=== PATIENT | male | born 1955 | race Caucasian/White ===

== ENCOUNTER → 2016-08-08 | Outpatient (CLI) | payer BC ==
--- NOTE | 2016-08-09 10:02 | ECHOF ---
Referral Reason:R01.1 Heart Murmur MEASUREMENTS -------- HEIGHT: 172.7 cm WEIGHT: 102.1 kg BP: 141/83 RVIDd: 3.1 cm (< 3.3) IVSd: 1.1 cm (0.6 - 1.1) LVIDd: 4.6 cm (3.9 - 5.3) LVPWd: 1.3 cm (0.6 - 1.1) IVSs: 1.7 cm LVIDs: 3.7 cm LVPWs: 2.0 cm LA Diam: 4.1 cm (2.7 - 3.8) LAESV Index (A-L): 34.35 ml/m Ao Diam: 3.9 cm (2.0 - 3.7) MV EXCURSION: 16.009 mm (> 18.000) MV EF SLOPE: 86 mm/s (70 - 150) EPSS: 1.4 cm MV E Ej: 1.22 m/s MV DecT: 168 ms MV A Ej: 1.74 m/s MV E/A Ratio: 0.70 AV maxP.81 mmHg AV meanP.92 mmHg FINDINGS -------- Sinus rhythm with extra systolic beats. This was a technically adequate study. The left ventricular size is normal. There is mild concentric left ventricular hypertrophy. Overall left ventricular systolic function is normal with, an EF between 55 - 60 %. The right ventricle is normal in size. LA is moderately dilated 34-39 ml/m2 The right atrium is normal in size. Aortic valve is trileaflet and is severely thickened. There is severe aortic stenosis present. Peak/mean gradient across the Aortic Valve is 85.81mmHg / 50.92mmHg. The mitral valve leaflets are mildly thickened. Mild mitral annular calcification present. There is trace to mild mitral regurgitation. The tricuspid valve was not well visualized. The pulmonic valve was not well visualized. The aortic root is dilated measuring 3.9cm. There is no pericardial effusion. CONCLUSIONS -------- 1. Sinus rhythm with extra systolic beats. 2. There is severe aortic stenosis present. 3. Peak/mean gradient across the Aortic Valve is 85.81mmHg / 50.92mmHg. 4. The mitral valve leaflets are mildly thickened. 5. Mild mitral annular calcification present. 6. There is trace to mild mitral regurgitation. 7. The tricuspid valve was not well visualized. 8. The pulmonic valve was not well visualized. 9. The aortic root is dilated measuring 3.9cm. 10. There is no pericardial effusion. 11. This was a technically adequate study. 12. The left ventricular size is normal. 13. There is mild concentric left ventricular hypertrophy. 14. Overall left ventricular systolic function is normal with, an EF between 55 - 60 %. 15. The right ventricle is normal in size. 16. LA is moderately dilated 34-39 ml/m2 17. The right atrium is normal in size. 18. Aortic valve is trileaflet and is severely thickened. PLATE GAUGER: Kelley Cheek RDCS
== END | disposition home or self-care (01) ==
LOC: RADECHMAIN 14:32
PROVIDERS: ATTEND Family Medicine
DX: I34.0 Nonrheumatic mitral (valve) insufficiency (principal); I35.0 Nonrheumatic aortic (valve) stenosis; I35.8 Other nonrheumatic aortic valve disorders; I51.7 Cardiomegaly; I77.819 Aortic ectasia, unspecified site
CPT/HCPCS: 93306

== ENCOUNTER → 2016-08-22 | Outpatient (CLI) | payer BC ==
[2016-08-22 09:49] LABS: ALT 41 U/L (21-72); AST 19 U/L (17-59); Alkaline Phosphatase 69 U/L (38-126); Anion Gap 9 mmol/L; Blood Urea Nitrogen 15 mg/dL (9-20); Calcium 9.4 mg/dL (8.4-10.2); Carbon Dioxide 28 mmol/L (22-30); Chloride 102 mmol/L (98-107); Cholesterol 174 mg/dL (<200); Glucose 180 mg/dL (74-99); HDL Cholesterol 37 mg/dL (40-60); Non-African American GFR(MDRD) >60 (>60 ml/min/1.73 sqM); Potassium 4.6 mmol/L (3.5-5.1); Sodium 139 mmol/L (137-145); Total Bilirubin 1.2 mg/dL (0.2-1.3); Triglycerides 164 mg/dL (<150)
== END | disposition home or self-care (01) ==
LOC: LABWHC1 08:47
PROVIDERS: ATTEND Internal Medicine Endocrinology, Diabetes & Metabolism
DX: E11.65 Type 2 diabetes mellitus with hyperglycemia (principal)
CPT/HCPCS: 36415; 80053; 80061; 82043

== ENCOUNTER → 2016-08-22 | Outpatient (CLI) | payer BC ==
[2016-08-22 09:30] LABS: CH 30.2; CHCM 32.4; HCT 52.3 % (39.0-53.0); HDW 2.55; HGB 16.6 gm/dL (13.0-17.5); MCH 29.7 pg (25.0-35.0); MCHC 31.7 g/dL (31.0-37.0); MCV 93.6 fL (80.0-100.0); Mean Platelet Volume 7.2; RBC 5.59 m/uL (4.30-5.90); RDW 13.4 % (11.5-15.5); WBC 7.3 k/uL (3.8-10.6)
== END | disposition home or self-care (01) ==
LOC: LABPAT 08:45
PROVIDERS: ATTEND Internal Medicine Interventional Cardiology
DX: Z01.812 Encounter for preprocedural laboratory examination (principal); I35.0 Nonrheumatic aortic (valve) stenosis
CPT/HCPCS: 85027

== ENCOUNTER 2016-09-05 06:03 | Day surgery (SDC) | payer BC ==
[2016-09-01 09:00] VITALS: BMI 34.2
[~2016-09-05 06:03] MED LIST: ALPRAZolam 0.25 MG TAB PO PRN; ALPRAZolam 0.5 MG TAB PO PRN; ASPIRIN 325 MG TAB PO STA; ATORVASTATIN 80 MG TAB PO STA; NITROGLYCERIN SL TABS 0.4 MG TAB SUBLINGUAL PRN; SODIUM CHLORIDE 0.9% 1,000 ML in EMPTY BAG 1 BAG IV ONE
[2016-09-05] MEDS ORDERED: SODIUM CHLORIDE 0.9% 1,000 ML IV ONE ×2 (06:30→07:02)
[2016-09-05] MEDS ORDERED: fentaNYL (PF) 50 MCG/ML 2 ML AMP ONE (06:52)
[2016-09-05 06:53] LABS: Glucose,Whole Blood 211 mg/dL (75-99)
[2016-09-05] MEDS ORDERED: MIDAZOLAM 2 MG/2 ML VIAL ONE (06:53)
[2016-09-05 07:02] VITALS: RESP 16; TEMP 98.3
[2016-09-05] MEDS ORDERED: BENZOCAINE SPRAY 100 APPLIC/CAN MUCOUS MEM ONE ×3 (07:08→07:16)
[2016-09-05] MEDS: fentaNYL (PF) 50 MCG/ML 2 ML AMP IV ONE ×2 (07:09→07:16)
[2016-09-05] MEDS: MIDAZOLAM 2 MG/2 ML VIAL IVP ONE ×2 (07:09→07:15)
[2016-09-05] MEDS ORDERED: SODIUM CHLORIDE 0.9% (PF) 10 ML VIAL ONE (07:16)
[2016-09-05] MEDS ORDERED: LIDOCAINE 2% INJ 20 MG/ML (20 ML MDV) ONE (07:16)
[2016-09-05] MEDS ORDERED: VERAPAMIL 2.5 MG/ML 2 ML AMP ONE (07:16)
[2016-09-05] MEDS ORDERED: HEPARIN SODIUM 1,000 UNIT/ML VIAL ONE (07:17)
--- NOTE | 2016-09-05 07:55 | ECHOT ---
DATE OF SERVICE: INDICATION: Evaluation of aortic valve. PROCEDURE: After explaining the procedure to patient as well as risk and complications, his blood pressure, heart rate and O2 saturation was monitored. The throat was sprayed with Cetacaine. He received 2 mg of intravenous Versed, 50 mcg intravenous fentanyl. The probe was introduced into the esophagus without difficulty. Images were obtained. Following that, the probe was removed. There was no immediate complication. FINDINGS: Left atrial size is normal. Left atrial appendage is normal. Left ventricular size and systolic function normal. The aortic valve with tricuspid valve with severe calcification, reduced opening, biplanimetry the valve area ranged between 0.8 and 1.2 cm2. The mitral valve and tricuspid valve appear to be normal. Descending thoracic aortic appears to be normal. No pericardial effusion was noted. Contrast bubble study revealed no evidence of shunting across the interatrial septum. Doppler pulse wave and color Doppler obtained and revealed mild to moderate mitral with mild tricuspid regurgitation and mild aortic regurgitation. The gradient across the aortic valve had a mean of less than 20 mmHg although there was difficulty in obtaining a good Doppler signal. CONCLUSION: 1. Normal left ventricular size and systolic function. 2. Tricuspid aortic valve with severe calcification and aortic valve area by planimetry of severe aortic stenosis. 3. Mild to moderate mitral with mild tricuspid and aortic regurgitation. 4. No shunting by color Doppler study and contrast bubble study. 5. Normal appearance of the descending thoracic aorta. 6. No pericardial effusion. MTDD
[2016-09-05] MEDS ORDERED: LIDOCAINE 2% INJ 20 MG/ML SQ ONE (08:03)
[2016-09-05] MEDS ORDERED: VERAPAMIL SYRINGE (5 MG/10 ML) INTRACORON ONE (08:04)
[2016-09-05] MEDS ORDERED: HEPARIN SODIUM 1,000 UNIT/ML VIAL IV ONE (08:08)
[2016-09-05] MEDS ORDERED: METOPROLOL TARTRATE 5 MG/5 ML VIAL IVP ONE ×2 (08:17→08:19)
[2016-09-05 08:34] LABS: Site RA
[2016-09-05 08:34] LABS: Site RADIAL ARTERY
[2016-09-05 08:35] LABS: Site PA
[2016-09-05] MEDS ORDERED: IOHEXOL 300 MG/ML 100 ML BOTTLE IV ONE (08:35)
[2016-09-05] MEDS ORDERED: RX INFO: IV CONTRAST WAS GIVEN 1 EACH MISC MISCELLANE PRN (08:53)
[2016-09-05] MEDS ORDERED: REPAGLINIDE 2 MG PO SCH (09:00)
[2016-09-05] MEDS ORDERED: BENAZEPRIL PO SCH (09:00)
[2016-09-05] MEDS ORDERED: [UNRECOGNIZED DRUG - OTHER] PO SCH (09:00)
[2016-09-05] MEDS ORDERED: AMLODIPINE BESYLATE PO SCH (09:00)
[2016-09-05] MEDS ORDERED: SODIUM CHLORIDE 0.9% 1,000 ML IV SCH (09:00)
--- NOTE | 2016-09-05 09:35 | CC ---
DATE OF SERVICE: Mr. Tellez is a 61-year-old male with a known history of hypertension, hyperlipidemia, and diabetes mellitus, who has been having symptoms of dyspnea, underwent an echocardiogram that showed a severe aortic stenosis. In view of that, recommendation was made regarding cardiac catheterization. The procedure as well as risks and complications were discussed with the patient who is in full understanding and agreement. PROCEDURE: Patient was brought in a fasting semi-sedated state after receiving fentanyl and Benadryl with moderate sedation. Using Xylocaine anesthesia and Seldinger technique, a 6 Mexican sheath was introduced in the right radial artery. Subsequently the IV sheath in the right basilar vein was exchanged to a 6 Mexican sheath. Following that, right heart catheterization performed with [place]-H[place] catheter. Multiple compression samples were obtained. Cardiac output by thermodilution is calculated. Following that, selective right angiography using 5 Mexican 3-1/2 Bend right Zari catheter. Multiple views of the right coronary artery including hemiaxial views were obtained using the right Zari catheter. The aortic valve was crossed and the catheter was exchanged over a wire to a 5 Mexican tight pigtail catheter. An LAYTON view of the left ventricle was performed and then subsequently an KOSOVAN view of the ascending aorta was performed. After the last image, the catheter and sheaths were removed. Hemostasis was obtained with deployment of a TR band. There were no immediate complication. Patient was returned to his room in stable condition. Of note, the patient received 5000 units of intravenous heparin as well as intra-arterial verapamil. The duration of the procedure is 53 minutes. FINDINGS: HEMODYNAMICS: Pulmonary artery systolic pressure of 36 with a diastolic of 30 with a mean of 34 mmHg, pulmonary capillary wedge pressure A wave of 18, B wave of 18 with a mean of 18 mmHg, right ventricle systolic pressure of 40 with an end-diastolic pressure of 4 mmHg. Right atrial A wave of 8, V wave of 6 with a mean of 8 mmHg. The ascending aortic pressure was 120 mmHg. The peak systolic pressure in the left ventricle was 170 mmHg with a peak gradient of 50 mmHg. The left ventricular end-diastolic pressure was 18 mmHg. The cardiac output by thermal dilution was 6 L/min and by Guillermo 6.7 L/min. Right atrial saturation is 70%, pulmonary artery saturation is 71%, right radial artery saturation 91%. The aortic valve area by Hakki formula was 0.8 cm2. FLUOROSCOPY: There is calcification involving the aortic valve. LEFT MAIN: This is a large-size vessel that bifurcates into the left circumflex, left anterior descending artery and ramus intermedius, left main coronary artery without any obstructive coronary artery disease. LEFT ANTERIOR DESCENDING ARTERY: This is a large-size vessel reaching toward the apex with a wraparound apex segment, giving rise to a moderately diagonal branch in mid segment. The diagonal branch has a 40% to 50% plaque, the LAD has 20% to 30% plaque, the rest of the vessel has no high-grade stenosis. LEFT CIRCUMFLEX: This is a nondominant vessel, giving rise to 2 obtuse marginal branches. The left circumflex as well as its branches has no evidence of significant obstructive coronary artery disease. RAMUS INTERMEDIUS: This is a large-size vessel reaching toward the apical lateral wall that has no evidence of high-grade stenosis. RIGHT CORONARY ARTERY: This is a large dominant vessel bifurcating into PDA and posterolateral segment branches. The right coronary artery and its branches have no evidence of obstructive disease. LEFT VENTRICULOGRAM: Left ventriculogram was performed in 30 degree LAYTON view and revealed normal left ventricular size and systolic function. There was 1 to 2+ mitral regurgitation. AORTOGRAM: Aortogram was performed in the KOSOVAN view and revealed a tricuspid aortic valve with 1+ aortic regurgitation. CONCLUSION: 1. Mild coronary artery disease in the left anterior descending artery. 2. Normal left ventricular size and systolic function. 3. Normal appearance of the ascending aorta with 1+ aortic regurgitation. 4. Severe aortic stenosis. RECOMMENDATION: In view of finding anatomy, I recommend to continue on the present therapy and evaluate the patient for aortic valve replacement. os findings and recommendations were discussed with the patient who is in full understanding and agreement.
--- NOTE | 2016-09-05 09:38 | LTR ---
September 05, 2016 RE: Lucas Tellez Dear Dr. Cochran; I had the pleasure to perform cardiac catheterization and JOVANI on Mr. Tellez at [facility] on September 05, 2016 and a full copy of the procedure note will be forwarded to you. In brief, he was found to have mild coronary artery disease with severe aortic stenosis and based on those findings, I have recommended proceeding with evaluation for aortic valve replacement. I will keep you updated on his progress and thank you again for allowing me to participate in this patient's care. Please feel free to call for any questions. Sincerely yours, MAZIN VU MD
[2016-09-05 12:34] VITALS: BP 115/60; PULSE 86
[2016-09-05] MEDS ORDERED: INSULIN GLARGINE 100 UNIT/ML 10 ML VIAL SQ SCH (21:00)
[2016-09-05] MEDS ORDERED: PRAVASTATIN SODIUM 80 MG TAB PO SCH (21:00)
[2016-09-06] MEDS ORDERED: ASPIRIN 81 MG CHEW PO SCH (09:00)
[2016-09-06] MEDS ORDERED: LORATADINE 10 MG TAB PO SCH (09:00)
== END 2016-09-05 14:06 | disposition home or self-care (01) ==
LOC: CATHCVL 06:03
PROVIDERS: ATTEND Internal Medicine Interventional Cardiology
DX: I08.3 Combined rheumatic disorders of mitral, aortic and tricuspid valves (principal); I25.10 Atherosclerotic heart disease of native coronary artery without angina pectoris; R07.89 Other chest pain; I10 Essential (primary) hypertension; E78.2 Mixed hyperlipidemia; E11.9 Type 2 diabetes mellitus without complications; Z79.84 Long term (current) use of oral hypoglycemic drugs; Z79.82 Long term (current) use of aspirin; Z79.4 Long term (current) use of insulin; Z79.899 Other long term (current) drug therapy; Z87.891 Personal history of nicotine dependence
CPT/HCPCS: 93312; 93320; 93325; 93460; 85018; 82810; 99152; 99153; C1769 ×3; C1894 ×4; C1751; J2001; J2250; J3010; J1644; Q9967

== ENCOUNTER → 2016-10-11 | Outpatient (CLI) | payer BC ==
[2016-10-11 08:40] LABS: EKG EKG PERFORMED
[2016-10-11 10:05] LABS: CH 30.1; CHCM 31.9; HCT 53.5 % (39.0-53.0); HDW 2.47; HGB 17.1 gm/dL (13.0-17.5); MCH 30.3 pg (25.0-35.0); MCHC 31.9 g/dL (31.0-37.0); Mean Platelet Volume 7.9; Partial Thromboplastin Time 24.8 sec (22.0-30.0); Prothrombin Time 10.2 sec (9.0-12.0); RBC 5.63 m/uL (4.30-5.90); RDW 13.5 % (11.5-15.5); WBC 7.6 k/uL (3.8-10.6)
[2016-10-11 10:15] LABS: Appearance,Urine Clear (Clear); Bilirubin,Urine Negative (Negative); Glucose,Urine (UA) 3+ (Negative); Ketones,Urine Negative (Negative); Leukocyte Esterase,Urine Negative (Negative); Mucus,Urine Rare /hpf; Nitrite,Urine Negative (Negative); PH, Urine 5.5 (5.0-8.0); Particle Count 1579; Protein,Urine 2+ (Negative); RBC,Urine 1 /hpf (0-5); Specific Gravity,Urine 1.017 (1.001-1.035); UA Billing (MACRO vs. MICRO) MICRO; Urobilinogen,Urine <2.0 mg/dL (<2.0); WBC,Urine <1 /hpf (0-5)
[2016-10-11 10:29] LABS: ALT 36 U/L (21-72); AST 20 U/L (17-59); Alkaline Phosphatase 68 U/L (38-126); Anion Gap 11 mmol/L; Blood Urea Nitrogen 23 mg/dL (9-20); Calcium 9.2 mg/dL (8.4-10.2); Carbon Dioxide 25 mmol/L (22-30); Chloride 101 mmol/L (98-107); Cholesterol 171 mg/dL (<200); Glucose 218 mg/dL (74-99); HDL Cholesterol 39 mg/dL (40-60); Magnesium 1.8 mg/dL (1.6-2.3); Non-African American GFR(MDRD) >60 (>60 ml/min/1.73 sqM); Potassium 4.7 mmol/L (3.5-5.1); Sodium 137 mmol/L (137-145); Total Bilirubin 0.9 mg/dL (0.2-1.3); Total Protein 7.1 g/dL (6.3-8.2); Triglycerides 152 mg/dL (<150)
[2016-10-11 10:53] LABS: Hepatitis B Surface Ag Index 0.07
[2016-10-11 10:59] LABS: Hepatitis B Core IgM Index 0.03
[2016-10-11 11:10] LABS: Hepatitis C Virus IgG Ab Negative (Negative); Hepatitis C Virus IgG Index 0.02
[2016-10-11 12:33] LABS: Hemoglobin A1C 8.9 % (4.2-6.1)
--- NOTE | 2016-10-11 12:56 | XR ---
EXAMINATION TYPE: XR chest 2V DATE OF EXAM: 10/11/2016 12:13 PM COMPARISON: NONE HISTORY: Preop cardiac surgery, aortic valve stenosis TECHNIQUE: Frontal and lateral views of the chest are obtained. FINDINGS: There is elevated left hemidiaphragm. There is small amount of fluid in the major fissure on lateral view. No suspicious focal airspace opacity or pneumothorax is seen bilaterally. Calcified granuloma lateral left mid lung is noted. The cardiac silhouette size is upper limits of normal. Th e osseous structures are intact. Cholecystectomy clips are noted on lateral view. IMPRESSION: Small amount of pleural fluid. No suspicious focal infiltrate.
--- NOTE | 2016-10-12 12:26 | P.ARTDOP ---
Arterial Doppler LOWER EXTREMITY ARTERIAL DOPPLER: DATE OF SERVICE: 10/11/2016 Reason for study: Pre-CABG. Doppler waveforms: Multiphasic bilaterally throughout. Pulse volume recording: []. Pressure gradients: None. Ankle-brachial indices: Greater than 1 bilaterally. Toe pressures: 79 on the right, 138 on the left Impression: Normal study.
--- NOTE | 2016-10-12 12:28 | P.VSCSTY ---
Greater Saphenous Vein Mapping This is bilateral lower extremity greater saphenous vein mapping. Date of service 10/11/2016 Vein quality and ultrasound appearance fairly normal. Some sizable branches.. Vein size groin right 5.0 x 4.0 groin left 7.7 x 7.3 High thigh right 4.0 x 3.8 high thigh left 4.1 x 3.8 Mid thigh right 3.0 x 2.0 mid thigh left 3.2 x 2.2 Above-knee right 2.9 x 2.4 above- knee left 2.7 x 1.8 Below knee right 3.0 x 2.4 below-knee left 2.8 x 2.5 Mid calf right to 2.5 x 2.0 mid calf left 3.1 x 3.3 Ankle right 2.2 x 3.4 ankle left 3.5 x 2.6 Impression [].
== END | disposition home or self-care (01) ==
LOC: LABPAT 07:59
PROVIDERS: ATTEND Surgery
DX: Z01.818 Encounter for other preprocedural examination (principal); I35.0 Nonrheumatic aortic (valve) stenosis
CPT/HCPCS: 71020; 80053; 80061; 80074; 81001; 83036; 83735; 83880; 84443; 84484; 85027; 85610; 85730; 87070; 87086; 93005; 93923; 93970; 94150

== ENCOUNTER 2016-10-17 05:44 | Inpatient (IN) | payer BC ==
[~2016-10-17 05:44] MED LIST changes: +ALBUMIN HUMAN 25% 50 ML IV ONE; +ALBUMIN HUMAN 5% 500 ML IVPB ONE; -ALPRAZolam 0.25 MG TAB PO PRN; -ALPRAZolam 0.5 MG TAB PO PRN; +AMINOCAPROIC ACID 250 MG/ML 20 ML VIAL IV ONE; +AMINOCAPROIC ACID 5,000 MG in DEXTROSE 5% IN WATER 50 ML IV ONE; +ASPIRIN 325 MG TAB PO ONE; -ASPIRIN 325 MG TAB PO STA; +ATORVASTATIN 10 MG TAB PO ONE; -ATORVASTATIN 80 MG TAB PO STA; +CALCIUM CHLORIDE 100 MG/ML 10 ML SYRINGE IV ONE; +CHLORHEXIDINE GLUCONATE 15 ML CUP MUCOUS MEM ONE; +CLEVIDIPINE BUTYRATE 25 MG in EMPTY BAG 1 BAG IV ONE; +DEXTROSE 5% IN WATER 1,000 ML with POTASSIUM CHLORIDE 110 MEQ, MAGNESIUM SULFATE 16 MEQ... IV ONE; +DEXTROSE 5% IN WATER 1,000 ML with POTASSIUM CHLORIDE 25 MEQ, SODIUM CHLORIDE 4MEQ/ML V... IV ONE; +HEPARIN SODIUM 1,000 UNIT/ML VIAL IV ONE; +HEPARIN SODIUM,PORCINE 5,000 UNIT in SODIUM CHLORIDE 0.9% 500 ML IV ONE; +INSULIN REGULAR 100 UNIT in SODIUM CHLORIDE 0.9% 100 ML IV ONE; +LACTATED RINGERS 1,000 ML IV ONE; +MAGNESIUM SULFATE MG 500 MG/ML VIAL IV ONE; +MANNITOL 25% 12.5 GM/50 ML VIAL IV ONE; +METOPROLOL TARTRATE 12.5 MG TAB PO ONE; -NITROGLYCERIN SL TABS 0.4 MG TAB SUBLINGUAL PRN; +NITROGLYCERIN-D5W PMX 25 MG/250 ML BTL IV ONE; +NITROGLYCERIN-D5W PMX 50 MG in DEXTROSE/WATER 1 250ML.BAG IV ONE; +NOREPINEPHRIN 4 MG-0.9% NS PMX 4 MG/250 ML ML IV ONE; +PHENYLEPHRINE 40 MG in SODIUM CHLORIDE 0.9% 250 ML IV ONE; +PHENYLEPHRINE-0.9% NACL SYG 1 MG/10 ML SYRINGE IV ONE; +PROPOFOL 1,000 MG in EMPTY BAG 1 BAG IV ONE; +PROTAMINE SULFATE 10 MG/ML 25 ML VIAL IV ONE; +PROTAMINE SULFATE 250 MG in EMPTY BAG 1 BAG IV ONE; +SODIUM BICARB 8.4% 50 ML SYR (1 MEQ/ML) IV ONE; +SODIUM CHLORIDE 0.9% 1,000 ML IV ONE; -SODIUM CHLORIDE 0.9% 1,000 ML in EMPTY BAG 1 BAG IV ONE; +ceFAZolin 1,000 MG in SODIUM CHLORIDE 0.9% IRRIGATIO 1,000 ML IRRIGATION ONE; +ceFAZolin 2,000 MG in SODIUM CHLORIDE 0.9% 30 ML IVPB ONE
[2016-10-17] MEDS ORDERED: fentaNYL (PF) 50 MCG/ML 50 ML VIAL ONE (06:35)
[2016-10-17] MEDS ORDERED: HEPARIN SODIUM,PORCINE 10,000 UNIT/ML 1 ML VIAL ONE (06:35)
[2016-10-17] MEDS ORDERED: PROPOFOL 10 MG/ML 20 ML VIAL IV ONE (06:35)
[2016-10-17] MEDS ORDERED: SUCCINYLCHOLINE CHLORIDE 100 MG/5 ML SYR IV ONE (06:35)
[2016-10-17] MEDS ORDERED: PROTAMINE SULFATE 10 MG/ML 25 ML VIAL IV ONE (06:35)
[2016-10-17] MEDS ORDERED: PHENYLEPHRINE-0.9% NACL SYG 1 MG/10 ML SYRINGE ONE (06:35)
[2016-10-17] MEDS ORDERED: fentaNYL (PF) 50 MCG/ML 2 ML AMP ONE (06:35)
[2016-10-17] MEDS ORDERED: MAGNESIUM SULFATE 4 MEQ/ML 2 ML VIAL ONE (06:35)
[2016-10-17] MEDS ORDERED: VECURONIUM 10 MG VIAL IV ONE (06:35)
[2016-10-17] MEDS ORDERED: ELECTROLYTE-R (PH 7.4) 1,000 ML IV.SOLN IV ONE (06:35)
[2016-10-17] MEDS ORDERED: LIDOCAINE 2% SYG (PF) 100 MG/5 ML ONE (06:35)
[2016-10-17] MEDS ORDERED: MIDAZOLAM 2 MG/2 ML VIAL ONE (06:35)
[2016-10-17] MEDS ORDERED: SODIUM CHLORIDE 0.9% IRRIG 1,000 ML BTL IRRIGATION ONE (06:35)
[2016-10-17] MEDS ORDERED: WATER FOR INJECTION, STERILE 10 ML VIAL IV ONE (06:35)
[2016-10-17] MEDS ORDERED: ALBUMIN HUMAN 5% 250 ML BOTTLE IVPB ONE (06:35)
[2016-10-17 07:05] LABS: Glucose,Whole Blood 185 mg/dL (75-99)
[2016-10-17 08:37] LABS: Glucose,Whole Blood 184 mg/dL (75-99)
[2016-10-17 10:00] LABS: Glucose,Whole Blood 183 mg/dL (75-99)
[2016-10-17 10:27] LABS: Glucose,Whole Blood 214 mg/dL (75-99)
[2016-10-17 10:58] LABS: Glucose,Whole Blood 270 mg/dL (75-99)
[2016-10-17 11:39] LABS: Glucose,Whole Blood 270 mg/dL (75-99)
[2016-10-17 12:14] LABS: Glucose,Whole Blood 226 mg/dL (75-99)
[2016-10-17] MEDS ORDERED: Magnesium Replacement Protocol 1 EACH MISC MISCELLANE PRN (12:56)
[2016-10-17] MEDS ORDERED: CALCIUM GLUCONATE 2,000 MG in SODIUM CHLORIDE 0.9% 100 ML IVPB PRN (12:56)
[2016-10-17] MEDS ORDERED: PROPOFOL 500 MG in EMPTY BAG 1 BAG IV SCH (12:56)
[2016-10-17] MEDS ORDERED: Potassium Replacement Protocol 1 EACH MISC MISCELLANE PRN (12:56)
[2016-10-17] MEDS ORDERED: ONDANSETRON 4 MG/2 ML VIAL IVP PRN (12:56)
[2016-10-17] MEDS ORDERED: METOCLOPRAMIDE 5 MG/ML 2 ML VIAL IVP PRN (12:56)
[2016-10-17] MEDS ORDERED: BENZOCAINE/MENTHOL LOZENG 1 EACH LOZENGE MUCOUS MEM PRN (12:56)
[2016-10-17] MEDS ORDERED: Phosphorus Replacement Protoco 1 EACH MISC MISCELLANE PRN (12:56)
[2016-10-17] MEDS: LACTATED RINGERS 1,000 ML IV SCH (13:09)
[2016-10-17 13:25] LABS: Glucose,Whole Blood 158 mg/dL (75-99)
[2016-10-17] MEDS: INSULIN REGULAR 100 UNIT in SODIUM CHLORIDE 0.9% 100 ML IV SCH (13:30)
[2016-10-17 13:42] LABS: Basophils % (A) 0 %; CH 30.9; CHCM 33.1; Eosinophils % (A) 0 %; HCT 35.1 % (39.0-53.0); HDW 2.59; Luc # (Auto) 0.04; Luc % (Auto) 1; Lymphocytes % (A) 12 %; MCH 31.7 pg (25.0-35.0); MCHC 33.7 g/dL (31.0-37.0); MCV 93.9 fL (80.0-100.0); Mean Platelet Volume 7.7; Monocytes # (A) 0.3 k/uL (0-1.0); Monocytes % (A) 4 %; Neutrophils # (A) 6.7 k/uL (1.3-7.7); Neutrophils % (A) 83 %; RBC 3.74 m/uL (4.30-5.90); RDW 13.1 % (11.5-15.5); WBC (Perox) 8.58
[2016-10-17 13:43] LABS: Ionized Calcium 4.9 mg/dL (4.5-5.3)
[2016-10-17 13:45] LABS: HGB 11.8 gm/dL (13.0-17.5)
[2016-10-17 13:47] LABS: INR 1.2 (<1.1); Partial Thromboplastin Time 27.3 sec (22.0-30.0); Prothrombin Time 11.8 sec (9.0-12.0)
[2016-10-17] MEDS: ACETAMINOPHEN IV (For NPO) 1,000 MG in EMPTY BAG 1 BAG IVPB SCH ×3 (13:47→23:58)
--- NOTE | 2016-10-17 13:48 | P.CNPUL ---
History of Present Illness Consult date: 10/17/16 Reason for consult: other Chief complaint: aortic stenosis status post aortic valve replacement History of present illness: 61-year-old gentleman who I preop done Monday in the office. He has a history of underlying COPD diabetes hypertension hyperlipidemia and aortic stenosis. He underwent aortic valve replacement today by one of the thoracic surgeons. I' m asked to see him in the intensive care unit after the procedure for ICU management and ventilator ventilator management. Anyway the patient's currently under the effects of sedations in general anesthetics. He is currently on nonresponsive. He is on the ventilator. Seemed pretty comfortable. Chest x-rays pending. The patient does have a history of COPD but I thought his lung function were adequate and he'll be able to tolerate surgery. In addition, he is history of diabetes hypertension and hyperlipidemia. His medications are home included metformin amlodipine Prandin pravastatin the right of the insulin and aspirin. No ALLERGIES. Heavy smoker in the past. The patient seemed to be interacting well with the ventilator. His distress. His respiratory mechanics seem okay. Review of Systems ROS unobtainable: due to endotracheal tube Past Medical History Past Medical History: Chest Pain / Angina, Diabetes Mellitus, Hyperlipidemia, Hypertension, Sleep Apnea/CPAP/BIPAP Additional Past Medical History / Comment(s): heart murmur,SOB w/ activity,uses cpap,cysts to kidney History of Any Multi-Drug Resistant Organisms: None Reported Past Surgical History: Cholecystectomy, Heart Catheterization Past Anesthesia/Blood Transfusion Reactions: No Reported Reaction Past Psychological History: No Psychological Hx Reported Smoking Status: Former smoker Past Alcohol Use History: Occasional Additional Past Alcohol Use History / Comment(s): quit smoking 2015,smoked for 30 yrs,up to 1ppd Past Drug Use History: None Reported - Past Family History Mother Family Medical History: No Reported History Father Family Medical History: Cancer Additional Family Medical History / Comment(s): Lung Medications and Allergies Home Medications Medication Instructions Recorded Confirmed Type Aspirin [Adult Low Dose Aspirin EC] 81 mg PO DAILY 09/01/16 10/17/16 History Insulin Glargine [Lantus] 34 unit SQ HS 09/01/16 10/17/16 History Loratadine 10 mg PO DAILY 09/01/16 10/17/16 History Pravastatin Sodium 80 mg PO HS 09/01/16 10/17/16 History Repaglinide [Prandin] 2 mg PO TID 09/01/16 10/17/16 History amLODIPine BESYLATE/BENAZEPRIL 1 cap PO DAILY 09/01/16 10/17/16 History [amLODIPine BESYLATE/BENAZEPRIL 5-10 mg] metFORMIN HCL [Glucophage] 1,000 mg PO BID 09/01/16 10/17/16 History Allergies Allergy/AdvReac Type Severity Reaction Status Date / Time No Known Allergies Allergy Verified 10/17/16 13:20 Physical Exam Osteopathic Statement: *. No significant issues noted on an osteopathic structural exam other than those noted in the History and Physical/Consult. Vitals: Vital Signs Temp Pulse Resp BP BP Pulse Ox 10/17/16 12:56 96.3 F L 10/17/16 06:09 97.3 F L 98 18 160/84 142/87 95 10/17/16 06:03 97.3 F L 98 18 142/87 95 Intake and Output 10/16/16 10/17/16 10/17/16 22:59 06:59 14:59 Intake Total 32 Output Total 2250 Balance -2218 Intake: IV 32 Output: Urine 400 Estimated Blood Loss 1850 Other: Weight 104.581 kg No acute distress, currently sedated and under the effects of anesthesia HEENT examination is grossly unremarkable. NG tube and endotracheal tube is noted. Neck supple. Full range of motion. No adenopathy or thyromegaly. Cardiovascular examination reveals regular rhythm rate. S1-S2 normal. No S3- S4 or murmur. Lungs reveal clear but somewhat diminished breath sounds. No wheezes or rhonchi. No crackles. Abdomen soft bowel sounds are heard. Extremities are intact. Skin without rash or lesion Neurologic examination cannot be performed. Results - Laboratory Findings Abnormal lab findings: Abnormal Labs 10/11/16 10/17/16 10/17/16 08:41 06:48 08:33 POC Glucose (mg/dL) 185 H 184 H Crossmatch See Detail 10/17/16 10/17/16 10/17/16 09:46 10:24 10:55 POC Glucose (mg/dL) 183 H 214 H 270 H Crossmatch 10/17/16 10/17/16 10/17/16 11:25 12:12 13:24 POC Glucose (mg/dL) 270 H 226 H 158 H Crossmatch Assessment and Plan (1) Aortic stenosis Status: Acute (2) Status post aortic valve replacement Status: Acute (3) Diabetes Status: Acute (4) Hypertension Status: Acute (5) Hyperlipidemia Status: Acute (6) Postoperative respiratory failure Status: Acute Plan: Plan dated 10/17/2016 The patient's evaluated thoroughly. X-ray will be reviewed once it's done. The patient ventilator is adjusted accordingly. Blood gases will be done. The patient's currently sedated. We'll continue to follow closely. The patient once more awake and be put through the rapid weaning protocol. The nurses to call me for sending discrepancies or issues to discuss. We'll continue to follow. Updrafts as noted. We'll review the x-ray once it is completed. Time with Patient: Greater than 30
[2016-10-17 13:50] LABS: Glucose,Whole Blood 141 mg/dL (75-99)
[2016-10-17 13:53] LABS: ABG Base Excess -0.4 mmol/L; ABG HCO3 26 mmol/L (21-25); ABG Oxygen Saturation 99.8 % (94-97); ABG PCO2 50 mmHg (35-45); ABG PH 7.33 (7.35-7.45); ABG PO2 234 mmHg (83-108); ABG TCO2 27 mmol/L (19-24)
[2016-10-17 13:54] LABS: ABG Base Excess -0.5 mmol/L; ABG HCO3 25 mmol/L (21-25); ABG Oxygen Saturation 99.9 % (94-97); ABG PCO2 44 mmHg (35-45); ABG PH 7.37 (7.35-7.45); ABG PO2 287 mmHg (83-108); ABG TCO2 26 mmol/L (19-24)
[2016-10-17 13:55] LABS: ALT 181 U/L (21-72); AST 361 U/L (17-59); Alkaline Phosphatase 40 U/L (38-126); Anion Gap 6 mmol/L; Blood Urea Nitrogen 16 mg/dL (9-20); Calcium 8.1 mg/dL (8.4-10.2); Carbon Dioxide 26 mmol/L (22-30); Chloride 105 mmol/L (98-107); Glucose 153 mg/dL (74-99); Magnesium 2.5 mg/dL (1.6-2.3); Non-African American GFR(MDRD) >60 (>60 ml/min/1.73 sqM); Potassium 4.5 mmol/L (3.5-5.1); Sodium 137 mmol/L (137-145); Total Bilirubin 1.4 mg/dL (0.2-1.3); Total Protein 4.7 g/dL (6.3-8.2)
[2016-10-17 13:55] LABS: ABG HCO3 27 mmol/L (21-25); ABG Oxygen Saturation 99.9 % (94-97); ABG PCO2 60 mmHg (35-45); ABG PH 7.28 (7.35-7.45); ABG PO2 305 mmHg (83-108); ABG TCO2 29 mmol/L (19-24)
[2016-10-17 13:57] LABS: ABG HCO3 25 mmol/L (21-25); ABG Oxygen Saturation 99.8 % (94-97); ABG PCO2 40 mmHg (35-45); ABG PH 7.42 (7.35-7.45); ABG PO2 218 mmHg (83-108); ABG TCO2 26 mmol/L (19-24)
[2016-10-17 13:58] LABS: ABG PCO2 52 mmHg (35-45); ABG PH 7.32 (7.35-7.45)
--- NOTE | 2016-10-17 13:58 | XR ---
EXAMINATION TYPE: XR chest 1V portable DATE OF EXAM: 10/17/2016 1:48 PM Comparison: 10/11/2016 Clinical History: 61 year-old male post Operative Cardiac Surgery Findings: ET tube is present. The kemal is not well seen in relation to the ET tube tip. It may be as close as 1 cm. NG tube courses below the diaphragm. Median sternotomy wires with prosthetic aortic valve. Rig ht-sided chest tube is present without appreciable pneumothorax. Mild diffuse interstitial prominence . Well marginated opacity along the left heart margin extending to the peripheral left base. No signi ficant pleural effusion seen. Right IJ [place] catheter with catheter tip near the proximal pulmona ry outflow tract. Impression: 1. ET tube may be slightly low, perhaps 1 cm away from the kemal. The kemal itself is not well seen . Consider withdrawal by 1.5 cm and assessment on follow-up. #2 correlate for mild pulmonary vascular congestion. 3. Left basilar retrocardiac opacity could represent postoperative left lower lobe atelectasis.
[2016-10-17 13:59] LABS: ABG Base Excess -0.4 mmol/L; ABG HCO3 26 mmol/L (21-25); ABG Oxygen Saturation 99.9 % (94-97); ABG PO2 367 mmHg (83-108); ABG TCO2 27 mmol/L (19-24)
[2016-10-17 14:00] LABS: ABG Base Excess -0.7 mmol/L; ABG HCO3 24 mmol/L (21-25); ABG Oxygen Saturation 99.9 % (94-97); ABG PCO2 44 mmHg (35-45); ABG PH 7.36 (7.35-7.45); ABG PO2 278 mmHg (83-108); ABG TCO2 26 mmol/L (19-24)
[2016-10-17] MEDS: CLEVIDIPINE BUTYRATE 25 MG in EMPTY BAG 1 BAG IV SCH ×2 (14:00→22:10)
[2016-10-17 14:02] LABS: ABG Base Excess 0.6 mmol/L; ABG HCO3 26 mmol/L (21-25); ABG PCO2 54 mmHg (35-45); ABG PH 7.31 (7.35-7.45); ABG PO2 253 mmHg (83-108); ABG TCO2 28 mmol/L (19-24)
[2016-10-17 14:03] LABS: Manual Review Performed
[2016-10-17 14:32] LABS: Glucose,Whole Blood 113 mg/dL (75-99)
[2016-10-17 15:09] LABS: Glucose,Whole Blood 120 mg/dL (75-99)
[2016-10-17 16:14] LABS: Glucose,Whole Blood 108 mg/dL (75-99)
[2016-10-17] MEDS: IPRATROPIUM-ALBUTEROL 3 ML NEB INHALATION SCH ×3 (16:22→19:17)
[2016-10-17] MEDS: ceFAZolin 2 GM in SODIUM CHLORIDE 0.9% 100 ML IVPB SCH ×2 (16:33→23:58)
[2016-10-17 16:40] LABS: Basophils % (A) 0 %; CH 30.3; CHCM 32.2; Eosinophils % (A) 0 %; HCT 36.8 % (39.0-53.0); HGB 11.9 gm/dL (13.0-17.5); Luc % (Auto) 1; Lymphocytes # (A) 0.7 k/uL (1.0-4.8); Lymphocytes % (A) 8 %; MCH 30.6 pg (25.0-35.0); MCHC 32.4 g/dL (31.0-37.0); MCV 94.3 fL (80.0-100.0); Mean Platelet Volume 7.7; Monocytes # (A) 0.6 k/uL (0-1.0); Monocytes % (A) 7 %; Neutrophils # (A) 6.9 k/uL (1.3-7.7); Neutrophils % (A) 83 %; RDW 13.5 % (11.5-15.5); WBC 8.4 k/uL (3.8-10.6); WBC (Perox) 8.78
[2016-10-17 17:09] LABS: Glucose,Whole Blood 136 mg/dL (75-99)
--- NOTE | 2016-10-17 17:21 | OP ---
DATE OF SERVICE: SURGEON: Zahida Comer MD PROJECTOR BOOTH OPERATOR: CHETAN NEVILLE AND MAY GUERRERO PREOPERATIVE DIAGNOSES: 1. Severe aortic valve stenosis. 2. Mild coronary artery disease. 3. Hypertension. 4. Hyperlipidemia. 5. Diabetes mellitus. 6. Obesity. POSTOPERATIVE DIAGNOSES: 1. Severe aortic valve stenosis. 2. Mild coronary artery disease. 3. Hypertension. 4. Hyperlipidemia. 5. Diabetes mellitus. 6. Obesity. 7. Trileaflet severe aortic valve stenosis. OPERATION: 1. Aortic valve replacement using a 23 mm pericardial bioprosthesis Magna ease. 2. Exclusion of the left atrial appendage using a 35 mm AtriClip. 3. Intraoperative transesophageal echocardiogram and scanning. ANESTHESIA: ESTIMATED BLOOD LOSS: SPECIMENS REMOVED: COMPLICATIONS: OPERATIVE FINDINGS: INDICATIONS FOR SURGERY: Patient is a 61-year-old gentleman referred by Dr. Hayden with a diagnosis of severe aortic valve stenosis. His cardiac catheterization showed a 30% left intermedius left anterior descending artery stenosis. Patient is brought in today for an aortic valve replacement using bioprosthesis. Risks, benefits, and alternatives were discussed with him. He understood them and agreed to proceed. DESCRIPTION OF THE PROCEDURE: Patient had a right internal jugular Tatums-Hong catheter and right radial arterial line placed in the preoperative holding area. His PA pressure was 55/25 and cardiac index was 2.5. Subsequently was brought to the operating room, where general endotracheal anesthesia was induced uneventfully. Initial patient received 2 grams of cefazolin intravenously preoperatively. A Fonseca catheter was inserted. The chest, abdomen and both lower extremities were prepped and draped using ChloraPrep. Ioban was used to cover the skin. Transesophageal echocardiogram confirmed the preoperative finding of severe aortic valve stenosis with some mild central mitral valve regurgitation. Left ventricular function was preserved. There was moderate concentric left ventricular hypertrophy. There was mild aortic valve regurgitation. Midline sternotomy was performed and the bone was reasonably dense and the sternum reasonably wide. Marrow bleeding was stopped with ostene. No bone wax was used. Standard retractor was placed. Mediastinal fat was transected between 2 ties. There was a breech in the right pleura, that uncovered an emphysematous white lung. The right pleura was drained with a 32 [place]ian chest tube. Epiaortic scanning revealed normal ascending aorta. Pericardium was opened in an inverted T fashion and pericardial cradle was created. There were adhesions anteriorly and laterally on the aorta that were easily lysed. The aorta was soft and actually relatively small diameter compared to the patient's body habitus. After systemic heparinization, and after placement of respective pledgeted pursestrings, aortic cannulation with a 21 Jordanian soft flow cannula, venous cannulation via the right atrial appendage using a dual staged 29/37 venous cannula was achieved. Antegrade as well as retrograde cardioplegia catheters were also inserted. Cardiopulmonary bypass was initiated and we adequately emptied the heart. There was no obvious visible coronary disease. Aorta was clamped and during aortic clamping, myocardial protection was achieved with an initial dose of 1 liter of cold blood cardioplegia given antegrade followed by 500 mL of retrograde cold blood cardioplegia. We had adequate arrest at around 200 mL of antegrade cardioplegia administration. Subsequent doses were all given retrograde at 15 minutes interval. The last dose was warm blood. Patient temperature was allowed to drift down to around 34 degrees Celsius. The aorta was opened in a transverse fashion just above the sinotubular junction. Exploration revealed a trileaflet calcific aortic valve. That valve was carefully excised and the annulus essentially debrided. There was an extension of calcium at the level of the aorta mitral membrane that was endarterectomized down to pliable endothelium. The mitral valve was intact. Thorough irrigation was around 1 liter of cold saline was achieved to clean up any potential debris. CO2 was flooding over the field as the aorta was opened. The aortic annulus was measured at 23 mm Magna ease. The 25 would just not fit. We placed 16 sutures of Tycron 2-0 pledgeted on the ventricular side in a horizontal mattress fashion and those were passed through a 23 mm pericardial bioprosthesis Magna ease that had been prepared on the back table symmetrically. The valve was seated nicely in a supra-annular position and all the needles were cut and all the sutures were tied using the core knot device. Thorough irrigation performed one more time. Both coronary ostia were in normal position and they were cleared. At this point rewarming was started as we closed the aorta using Prolene 4-0 pledgeted on each corner in 2 layers with the first layer being a horizontal mattress and the second layer being in an over and over technique. Patient was given magnesium and lidocaine before unclamping the aorta. Slowly and eventually regained spontaneous sinus rhythm without the need of any defibrillation. JOVANI showed no paravalvular leak initially. As we were weaning off cardiopulmonary bypass de-airing, which was adequate was guided by JOVANI. At this point we were able to wean without the need of any inotropic support. Cardiac index was around 2.7. Echo showed normal RV and LV function and good functioning of the valve with no paravalvular leak. After completing the protamine and after ensuring adequate hemostasis and hemodynamics. We decannulated the patient. The venous cannulation site was reinforced with a non-pledgeted Prolene 4-0. Two monopolar atrial pacing wires were affixed one to the pursestring of the retrograde and the other one to the pursestring of the venous cannulation. One bipolar ventricular pacing wire was driven via the inferior aspect of the right ventricle. Two 32 Jordanian chest tubes were placed in the substernal position. The mediastinal fat was closed over the aorta and the pericardial fat was loosely approximated over the RV. The right lung was still visible anteriorly and as I mentioned was evidently emphysematous. There was no evidence of leak. After assuring adequate hemostasis and hemodynamics and after correct sponge, instrument and needle count, the sternum was approximated using 7 [id number] [place] cables. 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 The bone was bent and wide to the point that I did not think I need sternal plating. Thorough irrigation with cefazolin followed. The rest of the closure proceeded in layers. Skin glue was applied. Patient did not receive any blood bank product and received 700 mL of Cell Saver blood. He had taken two autologous unit initially that were given back. He was transferred to the ICU with excellent hemodynamics and normal sinus rhythm on an EKG, on insulin drip only with cardiac index of 2.7 with the chest closed with PA pressure 43/21. MTDD
[2016-10-17 18:42] LABS: Basophils % (A) 0 %; CH 30.3; CHCM 32.2; Eosinophils % (A) 0 %; HCT 39.4 % (39.0-53.0); HDW 2.47; HGB 12.6 gm/dL (13.0-17.5); Luc # (Auto) 0.09; Luc % (Auto) 1; Lymphocytes # (A) 0.6 k/uL (1.0-4.8); Lymphocytes % (A) 6 %; MCH 30.2 pg (25.0-35.0); MCHC 31.9 g/dL (31.0-37.0); MCV 94.6 fL (80.0-100.0); Mean Platelet Volume 7.9; Monocytes # (A) 0.5 k/uL (0-1.0); Monocytes % (A) 6 %; Neutrophils # (A) 8.5 k/uL (1.3-7.7); Neutrophils % (A) 87 %; RBC 4.17 m/uL (4.30-5.90); RDW 13.5 % (11.5-15.5); WBC 9.8 k/uL (3.8-10.6); WBC (Perox) 9.92
[2016-10-17 18:49] LABS: Glucose,Whole Blood 137 mg/dL (75-99)
[2016-10-17 18:49] LABS: Ionized Calcium 4.8 mg/dL (4.5-5.3)
[2016-10-17 18:58] LABS: INR 1.1 (<1.1); Prothrombin Time 10.7 sec (9.0-12.0)
[2016-10-17 19:03] LABS: Anion Gap 8 mmol/L; Blood Urea Nitrogen 18 mg/dL (9-20); Calcium 8.3 mg/dL (8.4-10.2); Carbon Dioxide 27 mmol/L (22-30); Chloride 103 mmol/L (98-107); Glucose 143 mg/dL (74-99); Magnesium 2.4 mg/dL (1.6-2.3); Non-African American GFR(MDRD) >60 (>60 ml/min/1.73 sqM); Phosphorous 3.5 mg/dL (2.5-4.5); Potassium 4.7 mmol/L (3.5-5.1); Sodium 138 mmol/L (137-145)
[2016-10-17 19:10] LABS: Glucose,Whole Blood 141 mg/dL (75-99)
[2016-10-17 19:16] LABS: ABG Base Excess 1.1 mmol/L; ABG HCO3 26 mmol/L (21-25); ABG PCO2 50 mmHg (35-45); ABG PH 7.34 (7.35-7.45); ABG PO2 89 mmHg (83-108); ABG TCO2 28 mmol/L (19-24)
[2016-10-17] MEDS: MORPHINE SULFATE 2 MG/ML SYRINGE IVP PRN (19:37)
[2016-10-17 20:19] LABS: Glucose,Whole Blood 138 mg/dL (75-99)
[2016-10-17 21:14] LABS: Glucose,Whole Blood 135 mg/dL (75-99)
[2016-10-17 22:58] LABS: Glucose,Whole Blood 153 mg/dL (75-99)
[2016-10-17] MEDS: HEPARIN SODIUM,PORCINE 5,000 UNIT/ML 1 ML VIAL SQ SCH (23:58)
[2016-10-18 00:12] LABS: Glucose,Whole Blood 140 mg/dL (75-99)
[2016-10-18 01:02] LABS: Glucose,Whole Blood 136 mg/dL (75-99)
[2016-10-18] MEDS: CLEVIDIPINE BUTYRATE 25 MG in EMPTY BAG 1 BAG IV SCH ×5 (02:05→23:13)
[2016-10-18 02:11] LABS: Glucose,Whole Blood 144 mg/dL (75-99)
[2016-10-18] MEDS: MORPHINE SULFATE 2 MG/ML SYRINGE IVP PRN (02:16)
[2016-10-18 03:08] LABS: Glucose,Whole Blood 141 mg/dL (75-99)
[2016-10-18] MEDS: HEPARIN SODIUM,PORCINE 5,000 UNIT/ML 1 ML VIAL SQ SCH ×3 (03:57→21:30)
[2016-10-18 04:01] LABS: Glucose,Whole Blood 140 mg/dL (75-99)
[2016-10-18 05:48] LABS: Basophils % (A) 0 %; Eosinophils % (A) 0 %; HCT 38.2 % (39.0-53.0); HDW 2.59; HGB 12.6 gm/dL (13.0-17.5); Luc # (Auto) 0.15; Luc % (Auto) 2; Lymphocytes # (A) 0.6 k/uL (1.0-4.8); Lymphocytes % (A) 6 %; MCHC 32.9 g/dL (31.0-37.0); MCV 94.2 fL (80.0-100.0); Mean Platelet Volume 7.6; Monocytes # (A) 0.7 k/uL (0-1.0); Monocytes % (A) 7 %; Neutrophils # (A) 8.4 k/uL (1.3-7.7); Neutrophils % (A) 85 %; RBC 4.06 m/uL (4.30-5.90); RDW 13.4 % (11.5-15.5); WBC 9.9 k/uL (3.8-10.6); WBC (Perox) 10.41
[2016-10-18 05:51] LABS: Glucose,Whole Blood 147 mg/dL (75-99)
[2016-10-18 05:55] LABS: Ionized Calcium 4.6 mg/dL (4.5-5.3)
[2016-10-18 06:02] LABS: ALT 210 U/L (21-72); AST 181 U/L (17-59); Alkaline Phosphatase 61 U/L (38-126); Anion Gap 5 mmol/L; Blood Urea Nitrogen 18 mg/dL (9-20); Carbon Dioxide 28 mmol/L (22-30); Chloride 101 mmol/L (98-107); Glucose 144 mg/dL (74-99); Magnesium 2.2 mg/dL (1.6-2.3); Non-African American GFR(MDRD) >60 (>60 ml/min/1.73 sqM); Potassium 4.8 mmol/L (3.5-5.1); Sodium 134 mmol/L (137-145); Total Bilirubin 1.8 mg/dL (0.2-1.3); Total Protein 5.3 g/dL (6.3-8.2)
[2016-10-18] MEDS: ACETAMINOPHEN IV (For NPO) 1,000 MG in EMPTY BAG 1 BAG IVPB SCH ×2 (06:28→11:01)
[2016-10-18 06:59] LABS: Glucose,Whole Blood 147 mg/dL (75-99)
--- NOTE | 2016-10-18 07:34 | XR ---
EXAMINATION TYPE: XR chest 1V portable DATE OF EXAM: 10/18/2016 6:40 AM COMPARISON: NONE INDICATION: Postop cardiac surgery TECHNIQUE: Single frontal view of the chest is obtained. FINDINGS: The heart size is normal. The pulmonary vasculature is slightly prominent. A left pleural effusion may be present. Sternotomy wires are present from the CABG. A right-sided gina st tube is present. No pneumothorax is evident. Idamay-Hong catheter is present with tip in the main pu lmonary artery region. The spinal tube appears to be present. IMPRESSION: 1. Mild infiltrate at the left base with a small left pleural effusion. 2. Lines and catheters discussed above.
--- NOTE | 2016-10-18 07:38 | P.CONS ---
History of Present Illness - Reason for Consult Consult date: 10/17/16 Medical management Requesting physician: Zahida Comer - Chief Complaint Post aortic valve placement, post surgery respiratory failure, type 2 diabe - History of Present Illness 61-year-old male one of Dr. Cochran patient with past medical history of diabetes, hypertension, hyperlipidemia who has been having worsening shortness of breath and palpitation. He has been followed for aortic stenosis and valvular heart disease by cardiology for the last year. Heart catheter was done in August 2016 showed severe advance aortic stenosis with no vessel involvement. Patient was refer to cardiothoracic surgery and scheduled for elective aortic valve placement today for 2016. Following surgery patient was on mechanical ventilation as postsurgical respiratory failure. Pulmonary were consulted in his care. Patient will be on insulin drip Accu-Chek with sliding scales coverage. Patient is stable hemodynamically in the ICU. Review of Systems ROS unobtainable: due to endotracheal tube Constitutional: Reports weakness, Denies as per HPI, Denies anorexia, Denies chills, Denies chronic headaches, Denies chronic pain, Denies daytime sleepiness , Denies fatigue, Denies fever, Denies lethargy, Denies malaise, Denies night sweats, Denies poor appetite, Denies sweats, Denies weight gain, Denies weight loss Eyes: denies as per HPI, denies blurred vision, denies bulging eye, denies decreased vision, denies diplopia, denies discharge, denies dry eye, denies irritation, denies itching, denies pain, denies photophobia, denies loss of peripheral vision, denies loss of vision, denies tunnel vision/blind spots Ears: deny: decreased hearing, ear discharge, earache, tinnitus Ears, nose, mouth and throat: Denies as per HPI, Denies ant. neck pain, Denies bleeding gums, Denies dental pain, Denies dysphagia, Denies epistaxis, Denies headache, Denies hoarseness, Denies mouth pain, Denies nasal congestion, Denies nasal discharge, Denies neck fullness/pressure, Denies neck lump, Denies nose pain, Denies odynophagia, Denies post-nasal drip, Denies sinus pain, Denies sinus pressure, Denies swelling in mouth, Denies swelling in throat, Denies sore throat, Denies vertigo, Denies voice changes Cardiovascular: Reports chest pain, Reports high blood pressure, Reports irregular heart beat, Reports paroxysmal nocturnal dyspnea, Denies as per HPI, Denies claudication, Denies decreased exercise tolerance, Denies dyspnea on exertion, Denies edema, Denies leg edema, Denies lightheadedness, Denies orthopnea, Denies palpitations, Denies phlebitis, Denies rapid heart beat, Denies shortness of breath, Denies syncope Respiratory: Reports congestion, Reports dyspnea, Reports pain on inspiration, Denies as per HPI, Denies cough, Denies cough with sputum, Denies excessive sputum, Denies hemoptysis, Denies home oxygen, Denies pain, Denies pleurisy, Denies respiratory infections, Denies sleep apnea, Denies snoring, Denies wheezing Gastrointestinal: Denies as per HPI, Denies abdominal pain, Denies belching, Denies bloating, Denies BRBPR, Denies change in bowel habits, Denies coffee ground emesis, Denies constipation, Denies diarrhea, Denies dyspepsia, Denies early satiety, Denies excessive gas, Denies heartburn, Denies hematemesis, Denies hematochezia, Denies indigestion, Denies jaundice, Denies lactose intolerance, Denies loss of appetite, Denies melena, Denies nausea, Denies vomiting Genitourinary: Denies as per HPI, Denies decreased libido, Denies difficulties fathering child, Denies discharge, Denies dysuria, Denies erectile dysfunction, Denies flank pain, Denies genital pain, Denies genital sores, Denies hematuria, Denies impotence, Denies incontinence, Denies kidney stones, Denies nocturia, Denies polyuria, Denies testicular lump, Denies testicular pain, Denies urinary frequency, Denies urinary hesitancy, Denies urinary retention Musculoskeletal: Denies as per HPI, Denies arm numbness/tingling, Denies atrophy , Denies fractures, Denies frequent falls, Denies gait dysfunction, Denies hot joints, Denies leg numbness/tingling, Denies limitation of motion, Denies loss of height, Denies low back pain, Denies morning stiffness, Denies muscle cramps , Denies muscle weakness, Denies myalgias, Denies neck pain, Denies neck stiffness, Denies prior amputations, Denies redness of joints, Denies shooting arm pain, Denies shooting leg pain Integumentary: Denies as per HPI, Denies acne, Denies boils, Denies brittle nails, Denies change in hair/nails, Denies color changes, Denies darkening of skin, Denies depigmentation, Denies dryness, Denies foot/leg ulcers, Denies growths, Denies hirsutism, Denies lesions, Denies onychomycosis, Denies pruritus , Denies rash, Denies sores, Denies striae, Denies unusual bruising, Denies wounds Neurological: Denies as per HPI, Denies aphasia, Denies ataxia, Denies balance difficulties, Denies burning pain, Denies change in mentation, Denies change in smell/taste, Denies change in speech, Denies confusion, Denies convulsions, Denies double vision, Denies gait dysfunction, Denies head injury, Denies headaches, Denies hearing difficulties, Denies lack of coordination, Denies loss of vision, Denies memory loss, Denies migraines, Denies motor disturbance, Denies numbness, Denies paralysis, Denies paresthesias, Denies seizures, Denies sensory deficit, Denies spasticity, Denies syncope, Denies tic, Denies tingling , Denies transient paralysis, Denies tremors, Denies vertigo, Denies weakness, Denies visual changes Psychiatric: Denies as per HPI, Denies anhedonia, Denies anxiety, Denies anxiety attacks, Denies change in appetite, Denies change in libido, Denies change in sleep habits, Denies confusion, Denies depression, Denies difficulty concentrating, Denies disorientation, Denies hallucinations, Denies hopelessness , Denies hypersomnia, Denies insomnia, Denies irritability, Denies memory loss, Denies mood swings, Denies paranoia, Denies sadness/tearfulness, Denies sleep disturbances, Denies suicidal ideation Endocrine: Denies as per HPI, Denies cold intolerance, Denies deepening of the voice, Denies excessive sweating, Denies excessive thirst, Denies fatigue, Denies flushing, Denies heat intolerance, Denies high blood sugars, Denies increase in ring/shoe/hat size, Denies low blood sugars, Denies nocturia, Denies palpitations, Denies polydipsia, Denies polyphagia, Denies polyuria, Denies proptosis, Denies recent glucocorticoid use, Denies thyroid mass, Denies weight change Hematologic/Lymphatic: Reports easy bleeding, Denies as per HPI, Denies easy bruising, Denies lymphadenopathy, Denies lymphedema, Denies thrombophilia Allergic/Immunologic: Reports as per HPI, Denies allergic rhinitis, Denies anaphylaxis, Denies angioedema, Denies gluten intolerance, Denies persistent infections, Denies seasonal allergies, Denies urticaria, Denies wheezing Past Medical History Past Medical History: Chest Pain / Angina, Diabetes Mellitus, Hyperlipidemia, Hypertension, Sleep Apnea/CPAP/BIPAP Additional Past Medical History / Comment(s): heart murmur,SOB w/ activity,uses cpap,cysts to kidney History of Any Multi-Drug Resistant Organisms: None Reported Past Surgical History: Cholecystectomy, Heart Catheterization Past Anesthesia/Blood Transfusion Reactions: No Reported Reaction Past Psychological History: No Psychological Hx Reported Smoking Status: Former smoker Past Alcohol Use History: Occasional Additional Past Alcohol Use History / Comment(s): quit smoking 2015,smoked for 30 yrs,up to 1ppd Past Drug Use History: None Reported - Past Family History Mother Family Medical History: No Reported History Father Family Medical History: Cancer Additional Family Medical History / Comment(s): Lung Medications and Allergies Home Medications Medication Instructions Recorded Confirmed Type Aspirin [Adult Low Dose Aspirin EC] 81 mg PO DAILY 09/01/16 10/17/16 History Insulin Glargine [Lantus] 34 unit SQ HS 09/01/16 10/17/16 History Loratadine 10 mg PO DAILY 09/01/16 10/17/16 History Pravastatin Sodium 80 mg PO HS 09/01/16 10/17/16 History Repaglinide [Prandin] 2 mg PO TID 09/01/16 10/17/16 History amLODIPine BESYLATE/BENAZEPRIL 1 cap PO DAILY 09/01/16 10/17/16 History [amLODIPine BESYLATE/BENAZEPRIL 5-10 mg] metFORMIN HCL [Glucophage] 1,000 mg PO BID 09/01/16 10/17/16 History Allergies Allergy/AdvReac Type Severity Reaction Status Date / Time No Known Allergies Allergy Verified 10/17/16 13:20 Physical Exam Vitals: Vital Signs Temp Pulse Pulse Resp BP BP Pulse Ox 10/17/16 17:02 77 10/17/16 16:27 76 10/17/16 16:15 76 100 10/17/16 16:00 75 100 10/17/16 15:45 74 98 10/17/16 15:30 77 98 10/17/16 15:15 75 97 10/17/16 15:00 76 98 10/17/16 14:45 77 97 10/17/16 14:30 78 98 10/17/16 14:15 78 100 10/17/16 14:00 78 16 100 10/17/16 13:45 80 100 10/17/16 13:30 80 100 10/17/16 13:15 81 10/17/16 13:09 80 10/17/16 12:56 96.3 F L 10/17/16 06:09 97.3 F L 98 18 160/84 142/87 95 10/17/16 06:03 97.3 F L 98 18 142/87 95 Intake and Output 10/17/16 10/17/16 10/17/16 06:59 14:59 22:59 Intake Total 281.0 268 Output Total 2580 228 Balance -2299.0 40 Intake: IV 128 68 CARDIAC OUTPUT 60 50 PRESSURE BAG 36 18 Intake, IV Titration 153.0 200 Amount ACETAMINOPHEN IV (For NPO 100 ) 1,000 mg In Empty Bag 1 bag @ 400 mls/hr IVPB Q6HR [facility] Rx#:[id number] Clevidipine Butyrate 25 3.0 mg In Empty Bag 1 bag @ 1 MG/HR 2 mls/hr IV .Q24H [facility] Rx#:[id number] Lactated Ringers 1,000 ml 50 100 @ 50 mls/hr IV .Q20H [facility] Rx#:[id number] ceFAZolin 2 gm In Sodium 100 Chloride 0.9% 100 ml @ 100 mls/hr IVPB Q8HR [facility] Rx#:[id number] Output: Chest Tube Drainage 115 48 Mediastinal 115 48 Right Pleural 0 0 Urine 615 180 Estimated Blood Loss 1850 Other: Voiding Method Indwelling Catheter Weight 104.581 kg 104.6 kg 104.6 kg Patient Weight 10/18/16 06:59 Weight 104.6 kg ABP, PAP, CO, CI - Last 8 Hours Arterial Blood Pressure 108/54 Arterial Blood Pressure 107/52 Arterial Blood Pressure 104/50 Arterial Blood Pressure 108/52 Arterial Blood Pressure 106/50 Arterial Blood Pressure 110/50 Arterial Blood Pressure 111/50 Arterial Blood Pressure 115/52 Arterial Blood Pressure 117/52 Arterial Blood Pressure 128/54 Arterial Blood Pressure 136/47 Arterial Blood Pressure 144/63 Arterial Blood Pressure 148/64 Pulmonary Artery Pressure 36/16 Pulmonary Artery Pressure 36/16 Pulmonary Artery Pressure 35/16 Pulmonary Artery Pressure 35/16 Pulmonary Artery Pressure 35/16 Pulmonary Artery Pressure 35/16 Pulmonary Artery Pressure 35/16 Pulmonary Artery Pressure 35/16 Pulmonary Artery Pressure 36/16 Pulmonary Artery Pressure 38/15 Pulmonary Artery Pressure 38/16 Pulmonary Artery Pressure 38/14 Cardiac Output 4.8 Cardiac Output 5.8 Cardiac Output 5.5 Cardiac Output 5.9 Cardiac Output 6.6 Cardiac Output 7.9 Cardiac Index 2.2 Cardiac Index 2.7 Cardiac Index 2.5 Cardiac Index 2.7 Cardiac Index 3.0 Cardiac Index 3.6 - Constitutional On mechanical ventilation. General appearance: no average body habitus, no cooperative, no disheveled, no mild distress, no morbidly obese, no acute distress, no obese, no severe distress, no thin - EENT Eyes: no abnormal pupil, no anicteric sclerae, no disc margins sharp, no edentulous, no EOMI, no PERRLA, no fundus normal, no photophobia, no dentition normal, no poor dentition, no ptosis, no scleral icterus, normal appearance ENT: no hard of hearing, no hearing grossly normal, no NA/AT, normal oropharynx , no other, no pharyngeal erythema, no thrush, no tonsillar exudates, no tonsillar swelling Ears: bilateral: normal - Neck Neck: no lymphadenopathy, normal ROM, no other, no rigidity, no stridor, no thyromegaly Carotids: bilateral: upstroke normal Thyroid: bilateral: normal size - Respiratory Respiratory: bilateral: diminished, dullness, rales - Cardiovascular Rhythm: regular Heart sounds: normal: S1, S2 Abnormal Heart Sounds: systolic murmur, S3 Gallop - Gastrointestinal General gastrointestinal: no absent bowel sounds, decreased bowel sounds, no distended, no hepatomegaly, no hyperactive bowel sounds, no normal bowel sounds , no organomegaly, no rigid, no scaphoid, soft, no splenomegaly, no tenderness, no umbilical hernia, no ventral hernia - Integumentary Integumentary: no calor, no cellulitis, no cyanotic, no decreased turgor, no flushed, no jaundiced, normal, no normal turgor, pale, no rash, no ulcer - Neurologic Neurologic: CNII-XII intact - Musculoskeletal Musculoskeletal: gait normal, generalized weakness, no strength equal bilaterally, no right sided weakness, no left sided weakness - Psychiatric Psychiatric: A&O x's 3 Results CBC & Chem 7: 10/17/16 16:30 10/17/16 13:25 Labs: Abnormal Lab Results - Last 24 Hours (Table) 10/11/16 10/17/16 10/17/16 Range/Units 08:41 06:48 08:33 RBC (4.30-5.90) m/uL Hgb (13.0-17.5) gm/dL Hct (39.0-53.0) % Plt Count (150-450) k/uL Lymphocytes # (1.0-4.8) k/uL ABG pH (7.35-7.45) ABG pCO2 (35-45) mmHg ABG pO2 (83-108) mmHg ABG HCO3 (21-25) mmol/L ABG Total CO2 (19-24) mmol/L ABG O2 Saturation (94-97) % ABG Hematocrit (34.0-46.0) % ABG Potassium (3.4-4.5) mmol/L Glucose (74-99) mg/dL POC Glucose (mg/dL) 185 H 184 H (75-99) mg/dL Calcium (8.4-10.2) mg/dL Magnesium (1.6-2.3) mg/dL Total Bilirubin (0.2-1.3) mg/dL AST (17-59) U/L ALT (21-72) U/L Total Protein (6.3-8.2) g/dL Albumin (3.5-5.0) g/dL Arterial Blood Potassium (3.4-4.5) mmol/L Crossmatch See Detail 10/17/16 10/17/16 10/17/16 Range/Units 08:33 09:45 09:46 RBC (4.30-5.90) m/uL Hgb (13.0-17.5) gm/dL Hct (39.0-53.0) % Plt Count (150-450) k/uL Lymphocytes # (1.0-4.8) k/uL ABG pH 7.33 L (7.35-7.45) ABG pCO2 50 H (35-45) mmHg ABG pO2 234 H 287 H (83-108) mmHg ABG HCO3 26 H (21-25) mmol/L ABG Total CO2 27 H 26 H (19-24) mmol/L ABG O2 Saturation 99.8 H 99.9 H (94-97) % ABG Hematocrit 48 H (34.0-46.0) % ABG Potassium 5.5 H 5.8 H (3.4-4.5) mmol/L Glucose (74-99) mg/dL POC Glucose (mg/dL) 183 H (75-99) mg/dL Calcium (8.4-10.2) mg/dL Magnesium (1.6-2.3) mg/dL Total Bilirubin (0.2-1.3) mg/dL AST (17-59) U/L ALT (21-72) U/L Total Protein (6.3-8.2) g/dL Albumin (3.5-5.0) g/dL Arterial Blood Potassium 5.5 H 5.8 H (3.4-4.5) mmol/L Crossmatch 10/17/16 10/17/16 10/17/16 Range/Units 10:24 10:24 10:55 RBC (4.30-5.90) m/uL Hgb (13.0-17.5) gm/dL Hct (39.0-53.0) % Plt Count (150-450) k/uL Lymphocytes # (1.0-4.8) k/uL ABG pH 7.28 L (7.35-7.45) ABG pCO2 60 H (35-45) mmHg ABG pO2 305 H (83-108) mmHg ABG HCO3 27 H (21-25) mmol/L ABG Total CO2 29 H (19-24) mmol/L ABG O2 Saturation 99.9 H (94-97) % ABG Hematocrit (34.0-46.0) % ABG Potassium 6.5 H* (3.4-4.5) mmol/L Glucose (74-99) mg/dL POC Glucose (mg/dL) 214 H 270 H (75-99) mg/dL Calcium (8.4-10.2) mg/dL Magnesium (1.6-2.3) mg/dL Total Bilirubin (0.2-1.3) mg/dL AST (17-59) U/L ALT (21-72) U/L Total Protein (6.3-8.2) g/dL Albumin (3.5-5.0) g/dL Arterial Blood Potassium 6.5 H* (3.4-4.5) mmol/L Crossmatch 10/17/16 10/17/16 10/17/16 Range/Units 10:56 11:25 11:26 RBC (4.30-5.90) m/uL Hgb (13.0-17.5) gm/dL Hct (39.0-53.0) % Plt Count (150-450) k/uL Lymphocytes # (1.0-4.8) k/uL ABG pH 7.32 L (7.35-7.45) ABG pCO2 52 H (35-45) mmHg ABG pO2 218 H 367 H (83-108) mmHg ABG HCO3 26 H (21-25) mmol/L ABG Total CO2 26 H 27 H (19-24) mmol/L ABG O2 Saturation 99.8 H 99.9 H (94-97) % ABG Hematocrit (34.0-46.0) % ABG Potassium 6.5 H* 6.8 H* (3.4-4.5) mmol/L Glucose (74-99) mg/dL POC Glucose (mg/dL) 270 H (75-99) mg/dL Calcium (8.4-10.2) mg/dL Magnesium (1.6-2.3) mg/dL Total Bilirubin (0.2-1.3) mg/dL AST (17-59) U/L ALT (21-72) U/L Total Protein (6.3-8.2) g/dL Albumin (3.5-5.0) g/dL Arterial Blood Potassium 6.5 H* 6.8 H* (3.4-4.5) mmol/L Crossmatch 10/17/16 10/17/16 10/17/16 Range/Units 12:12 12:12 13:24 RBC (4.30-5.90) m/uL Hgb (13.0-17.5) gm/dL Hct (39.0-53.0) % Plt Count (150-450) k/uL Lymphocytes # (1.0-4.8) k/uL ABG pH (7.35-7.45) ABG pCO2 (35-45) mmHg ABG pO2 278 H (83-108) mmHg ABG HCO3 (21-25) mmol/L ABG Total CO2 26 H (19-24) mmol/L ABG O2 Saturation 99.9 H (94-97) % ABG Hematocrit (34.0-46.0) % ABG Potassium 5.0 H (3.4-4.5) mmol/L Glucose (74-99) mg/dL POC Glucose (mg/dL) 226 H 158 H (75-99) mg/dL Calcium (8.4-10.2) mg/dL Magnesium (1.6-2.3) mg/dL Total Bilirubin (0.2-1.3) mg/dL AST (17-59) U/L ALT (21-72) U/L Total Protein (6.3-8.2) g/dL Albumin (3.5-5.0) g/dL Arterial Blood Potassium 5.0 H (3.4-4.5) mmol/L Crossmatch 10/17/16 10/17/16 10/17/16 Range/Units 13:25 13:25 13:48 RBC 3.74 L (4.30-5.90) m/uL Hgb 11.8 L D (13.0-17.5) gm/dL Hct 35.1 L (39.0-53.0) % Plt Count 89 L D (150-450) k/uL Lymphocytes # (1.0-4.8) k/uL ABG pH 7.31 L (7.35-7.45) ABG pCO2 54 H (35-45) mmHg ABG pO2 253 H (83-108) mmHg ABG HCO3 26 H (21-25) mmol/L ABG Total CO2 28 H (19-24) mmol/L ABG O2 Saturation 100.0 H (94-97) % ABG Hematocrit (34.0-46.0) % ABG Potassium (3.4-4.5) mmol/L Glucose 153 H (74-99) mg/dL POC Glucose (mg/dL) (75-99) mg/dL Calcium 8.1 L (8.4-10.2) mg/dL Magnesium 2.5 H (1.6-2.3) mg/dL Total Bilirubin 1.4 H (0.2-1.3) mg/dL AST 361 H (17-59) U/L ALT 181 H (21-72) U/L Total Protein 4.7 L (6.3-8.2) g/dL Albumin 2.9 L (3.5-5.0) g/dL Arterial Blood Potassium (3.4-4.5) mmol/L Crossmatch 10/17/16 10/17/16 10/17/16 Range/Units 13:49 14:30 15:07 RBC (4.30-5.90) m/uL Hgb (13.0-17.5) gm/dL Hct (39.0-53.0) % Plt Count (150-450) k/uL Lymphocytes # (1.0-4.8) k/uL ABG pH (7.35-7.45) ABG pCO2 (35-45) mmHg ABG pO2 (83-108) mmHg ABG HCO3 (21-25) mmol/L ABG Total CO2 (19-24) mmol/L ABG O2 Saturation (94-97) % ABG Hematocrit (34.0-46.0) % ABG Potassium (3.4-4.5) mmol/L Glucose (74-99) mg/dL POC Glucose (mg/dL) 141 H 113 H 120 H (75-99) mg/dL Calcium (8.4-10.2) mg/dL Magnesium (1.6-2.3) mg/dL Total Bilirubin (0.2-1.3) mg/dL AST (17-59) U/L ALT (21-72) U/L Total Protein (6.3-8.2) g/dL Albumin (3.5-5.0) g/dL Arterial Blood Potassium (3.4-4.5) mmol/L Crossmatch 10/17/16 10/17/16 10/17/16 Range/Units 16:10 16:30 17:07 RBC 3.90 L (4.30-5.90) m/uL Hgb 11.9 L (13.0-17.5) gm/dL Hct 36.8 L (39.0-53.0) % Plt Count 99 L (150-450) k/uL Lymphocytes # 0.7 L (1.0-4.8) k/uL ABG pH (7.35-7.45) ABG pCO2 (35-45) mmHg ABG pO2 (83-108) mmHg ABG HCO3 (21-25) mmol/L ABG Total CO2 (19-24) mmol/L ABG O2 Saturation (94-97) % ABG Hematocrit (34.0-46.0) % ABG Potassium (3.4-4.5) mmol/L Glucose (74-99) mg/dL POC Glucose (mg/dL) 108 H 136 H (75-99) mg/dL Calcium (8.4-10.2) mg/dL Magnesium (1.6-2.3) mg/dL Total Bilirubin (0.2-1.3) mg/dL AST (17-59) U/L ALT (21-72) U/L Total Protein (6.3-8.2) g/dL Albumin (3.5-5.0) g/dL Arterial Blood Potassium (3.4-4.5) mmol/L Crossmatch Assessment and Plan Plan: 1 severe aortic stenosis: Post aortic valve placement. 2 post aortic valve placement: Continue postsurgical care. 3 post surgery respiratory failure: Was on mechanical ventilation continue current management hopefully wearable off the vent very quickly after surgery 4 hypertension: Stable was on amlodipine Benzapril as soon as he is able take oral meds will be starting him on it. 5 diabetes: Type II he has been on metformin, Prandin and Lantus will continue insulin short acting for now we'll start patient back on Lantus by tomorrow and Prandin and metformin be started soon as patient is able to eat in the meanwhile we do bolus before meals and long acting before bedtime. 6 hyperlipidemia: Resume pravastatin. 7 arrhythmia: Keep watching patient hemodynamic status for any form of arrhythmia in the next 3 days. 8 GI prophylaxis: Patient will be continue on PPI or H2 esmer. 9 DVT prophylaxis: Continue knee-high HUMZA hose and Venodyne boots and continue DVT prophylaxis protocol. CODE STATUS: Full code. Dr. Comer thank you very much for the consult if I can be any further help to please let me know.
[2016-10-18 08:30] LABS: Partial Thromboplastin Time 26.4 sec (22.0-30.0); Prothrombin Time 10.4 sec (9.0-12.0)
[2016-10-18] MEDS ORDERED: FUROSEMIDE 10 MG/ML 2 ML VIAL IV ONE (08:34)
[2016-10-18 08:35] LABS: Glucose,Whole Blood 189 mg/dL (75-99)
[2016-10-18] MEDS: ceFAZolin 2 GM in SODIUM CHLORIDE 0.9% 100 ML IVPB SCH (08:37)
[2016-10-18] MEDS: ASPIRIN 325 MG TAB PO SCH (08:38)
[2016-10-18] MEDS: CLOPIDOGREL 75 MG TAB PO SCH (08:39)
[2016-10-18] MEDS: LACTATED RINGERS 1,000 ML IV SCH (08:39)
[2016-10-18] MEDS: LEVALBUTEROL NEB (CONC) 1.25 MG/0.5 ML AMP INHALATION SCH ×4 (08:41→19:33)
[2016-10-18] MEDS: IPRATROPIUM 0.5 MG/2.5 ML NEBU INHALATION SCH ×5 (08:41→19:33)
[2016-10-18] MEDS ORDERED: METOPROLOL TARTRATE 12.5 MG TAB PO SCH (09:00)
[2016-10-18] MEDS ORDERED: ATORVASTATIN 40 MG TAB PO SCH (09:00)
[2016-10-18] MEDS ORDERED: BISACODYL 10 MG SUPP RECTAL PRN (09:00)
[2016-10-18] MEDS ORDERED: PANTOPRAZOLE 40 MG/10 ML VIAL IVP SCH (09:00)
[2016-10-18] MEDS ORDERED: METOPROLOL TARTRATE 25 MG TAB PO SCH (09:00)
[2016-10-18 09:27] LABS: Glucose,Whole Blood 190 mg/dL (75-99)
--- NOTE | 2016-10-18 09:43 | P.PN ---
Subjective Progress note dated 10/18/2016 This is a 61-year-old male who is postop day #1 status post aortic valve replacement with left atrial appendage excision. He is doing well. Was extubated yesterday. He is currently on O2 at 5 L nasal cannula. He is getting an IV of lactated Ringer's at 50 mL an hour. He is on a drug called Clevipex at 8 mg and an insulin drip at 2.5 units an hour. I have him on updrafts and also we'll add some Symbicort inhaler 2 puffs by office PFTs, he had pretty significant COPD. Is feeling well. No particular complaints. Not short of breath. Seemed be resting comfortably. Objective - Vital Signs Vital signs: Vital Signs Temp 96.3 F L 10/17/16 12:56 Pulse 100 10/18/16 09:00 Resp 22 10/18/16 07:30 BP 142/87 10/17/16 06:09 Pulse Ox 98 10/18/16 09:00 Intake & Output 10/17/16 10/18/16 10/18/16 18:59 06:59 18:59 Intake Total 890.25 1461.283 480.458 Output Total 3028 1137 470 Balance -2137.75 324.283 10.458 Weight 104.6 kg Intake: IV 254 1009 277 ACETAMINOPHEN IV (For NPO 200 100 ) 1,000 mg In Empty Bag 1 bag @ 400 mls/hr IVPB Q6HR [facility] Rx#:[id number] CARDIAC OUTPUT 150 60 Lactated Ringers 1,000 ml 550 150 @ 50 mls/hr IV .Q20H [facility] Rx#:[id number] PRESSURE BAG 72 99 27 ceFAZolin 2,000 mg In 100 Sodium Chloride 0.9% 30 ml @ Per Protocol IVPB ONCE ONE Rx#:[id number] Intake, IV Titration 636.25 182.283 143.458 Amount ACETAMINOPHEN IV (For NPO 200 ) 1,000 mg In Empty Bag 1 bag @ 400 mls/hr IVPB Q6HR [facility] Rx#:[id number] Clevidipine Butyrate 25 33.0 111.000 38 mg In Empty Bag 1 bag @ 1 MG/HR 2 mls/hr IV .Q24H [facility] Rx#:[id number] Insulin Regular 100 unit 3.25 21.283 5.458 In Sodium Chloride 0.9% 100 ml @ Per Protocol IV .Q0M [facility] Rx#:[id number] Lactated Ringers 1,000 ml 250 50 @ 50 mls/hr IV .Q20H [facility] Rx#:[id number] Propofol 500 mg In Empty 50 Bag 1 bag @ Titrate IV . Q0M [facility] Rx#:[id number] ceFAZolin 2 gm In Sodium 100 100 Chloride 0.9% 100 ml @ 100 mls/hr IVPB Q8HR [facility] Rx#:[id number] Oral 270 60 Output: Chest Tube Drainage 233 476 235 Mediastinal 233 390 210 Right Pleural 0 86 25 Urine 945 661 235 Estimated Blood Loss 1850 Other: Voiding Method Indwelling Catheter Indwelling Catheter ABP, PAP, CO, CI - Last Documented Arterial Blood Pressure 132/48 Pulmonary Artery Pressure 29/2 Cardiac Output 9.6 Cardiac Index 4.4 - Exam No acute distress, oriented 3. Nasal O2 in place. HEENT examination is grossly unremarkable. Mucous membranes are moist. No oral lesions. Neck supple. Full range of motion. No adenopathy or thyromegaly. Neck veins are flat. Cardio vascular examination reveals regular rhythm rate. S1-S2 normal S4. No distinct murmur noted. Lung examination reveals clear breath sounds. No wheezes rhonchi or crackles. Breath sounds are equal bilaterally. Abdomen soft bowel sounds are heard Extremities are intact. No cyanosis clubbing or edema. Skin is without rash or lesion Neurologic examination is nonfocal - Labs CBC & Chem 7: 10/18/16 05:35 10/18/16 05:35 Labs: Abnormal Lab Results - Last 24 Hours (Table) 10/11/16 10/17/16 10/17/16 Range/Units 08:41 08:33 09:45 RBC (4.30-5.90) m/uL Hgb (13.0-17.5) gm/dL Hct (39.0-53.0) % Plt Count (150-450) k/uL Neutrophils # (1.3-7.7) k/uL Lymphocytes # (1.0-4.8) k/uL ABG pH 7.33 L (7.35-7.45) ABG pCO2 50 H (35-45) mmHg ABG pO2 234 H 287 H (83-108) mmHg ABG HCO3 26 H (21-25) mmol/L ABG Total CO2 27 H 26 H (19-24) mmol/L ABG O2 Saturation 99.8 H 99.9 H (94-97) % ABG Hematocrit 48 H (34.0-46.0) % ABG Potassium 5.5 H 5.8 H (3.4-4.5) mmol/L Sodium (137-145) mmol/L Glucose (74-99) mg/dL POC Glucose (mg/dL) (75-99) mg/dL Calcium (8.4-10.2) mg/dL Magnesium (1.6-2.3) mg/dL Total Bilirubin (0.2-1.3) mg/dL AST (17-59) U/L ALT (21-72) U/L Total Protein (6.3-8.2) g/dL Albumin (3.5-5.0) g/dL Arterial Blood Potassium 5.5 H 5.8 H (3.4-4.5) mmol/L Crossmatch See Detail 10/17/16 10/17/16 10/17/16 Range/Units 09:46 10:24 10:24 RBC (4.30-5.90) m/uL Hgb (13.0-17.5) gm/dL Hct (39.0-53.0) % Plt Count (150-450) k/uL Neutrophils # (1.3-7.7) k/uL Lymphocytes # (1.0-4.8) k/uL ABG pH 7.28 L (7.35-7.45) ABG pCO2 60 H (35-45) mmHg ABG pO2 305 H (83-108) mmHg ABG HCO3 27 H (21-25) mmol/L ABG Total CO2 29 H (19-24) mmol/L ABG O2 Saturation 99.9 H (94-97) % ABG Hematocrit (34.0-46.0) % ABG Potassium 6.5 H* (3.4-4.5) mmol/L Sodium (137-145) mmol/L Glucose (74-99) mg/dL POC Glucose (mg/dL) 183 H 214 H (75-99) mg/dL Calcium (8.4-10.2) mg/dL Magnesium (1.6-2.3) mg/dL Total Bilirubin (0.2-1.3) mg/dL AST (17-59) U/L ALT (21-72) U/L Total Protein (6.3-8.2) g/dL Albumin (3.5-5.0) g/dL Arterial Blood Potassium 6.5 H* (3.4-4.5) mmol/L Crossmatch 10/17/16 10/17/16 10/17/16 Range/Units 10:55 10:56 11:25 RBC (4.30-5.90) m/uL Hgb (13.0-17.5) gm/dL Hct (39.0-53.0) % Plt Count (150-450) k/uL Neutrophils # (1.3-7.7) k/uL Lymphocytes # (1.0-4.8) k/uL ABG pH (7.35-7.45) ABG pCO2 (35-45) mmHg ABG pO2 218 H (83-108) mmHg ABG HCO3 (21-25) mmol/L ABG Total CO2 26 H (19-24) mmol/L ABG O2 Saturation 99.8 H (94-97) % ABG Hematocrit (34.0-46.0) % ABG Potassium 6.5 H* (3.4-4.5) mmol/L Sodium (137-145) mmol/L Glucose (74-99) mg/dL POC Glucose (mg/dL) 270 H 270 H (75-99) mg/dL Calcium (8.4-10.2) mg/dL Magnesium (1.6-2.3) mg/dL Total Bilirubin (0.2-1.3) mg/dL AST (17-59) U/L ALT (21-72) U/L Total Protein (6.3-8.2) g/dL Albumin (3.5-5.0) g/dL Arterial Blood Potassium 6.5 H* (3.4-4.5) mmol/L Crossmatch 10/17/16 10/17/16 10/17/16 Range/Units 11:26 12:12 12:12 RBC (4.30-5.90) m/uL Hgb (13.0-17.5) gm/dL Hct (39.0-53.0) % Plt Count (150-450) k/uL Neutrophils # (1.3-7.7) k/uL Lymphocytes # (1.0-4.8) k/uL ABG pH 7.32 L (7.35-7.45) ABG pCO2 52 H (35-45) mmHg ABG pO2 367 H 278 H (83-108) mmHg ABG HCO3 26 H (21-25) mmol/L ABG Total CO2 27 H 26 H (19-24) mmol/L ABG O2 Saturation 99.9 H 99.9 H (94-97) % ABG Hematocrit (34.0-46.0) % ABG Potassium 6.8 H* 5.0 H (3.4-4.5) mmol/L Sodium (137-145) mmol/L Glucose (74-99) mg/dL POC Glucose (mg/dL) 226 H (75-99) mg/dL Calcium (8.4-10.2) mg/dL Magnesium (1.6-2.3) mg/dL Total Bilirubin (0.2-1.3) mg/dL AST (17-59) U/L ALT (21-72) U/L Total Protein (6.3-8.2) g/dL Albumin (3.5-5.0) g/dL Arterial Blood Potassium 6.8 H* 5.0 H (3.4-4.5) mmol/L Crossmatch 10/17/16 10/17/16 10/17/16 Range/Units 13:24 13:25 13:25 RBC 3.74 L (4.30-5.90) m/uL Hgb 11.8 L D (13.0-17.5) gm/dL Hct 35.1 L (39.0-53.0) % Plt Count 89 L D (150-450) k/uL Neutrophils # (1.3-7.7) k/uL Lymphocytes # (1.0-4.8) k/uL ABG pH (7.35-7.45) ABG pCO2 (35-45) mmHg ABG pO2 (83-108) mmHg ABG HCO3 (21-25) mmol/L ABG Total CO2 (19-24) mmol/L ABG O2 Saturation (94-97) % ABG Hematocrit (34.0-46.0) % ABG Potassium (3.4-4.5) mmol/L Sodium (137-145) mmol/L Glucose 153 H (74-99) mg/dL POC Glucose (mg/dL) 158 H (75-99) mg/dL Calcium 8.1 L (8.4-10.2) mg/dL Magnesium 2.5 H (1.6-2.3) mg/dL Total Bilirubin 1.4 H (0.2-1.3) mg/dL AST 361 H (17-59) U/L ALT 181 H (21-72) U/L Total Protein 4.7 L (6.3-8.2) g/dL Albumin 2.9 L (3.5-5.0) g/dL Arterial Blood Potassium (3.4-4.5) mmol/L Crossmatch 10/17/16 10/17/16 10/17/16 Range/Units 13:48 13:49 14:30 RBC (4.30-5.90) m/uL Hgb (13.0-17.5) gm/dL Hct (39.0-53.0) % Plt Count (150-450) k/uL Neutrophils # (1.3-7.7) k/uL Lymphocytes # (1.0-4.8) k/uL ABG pH 7.31 L (7.35-7.45) ABG pCO2 54 H (35-45) mmHg ABG pO2 253 H (83-108) mmHg ABG HCO3 26 H (21-25) mmol/L ABG Total CO2 28 H (19-24) mmol/L ABG O2 Saturation 100.0 H (94-97) % ABG Hematocrit (34.0-46.0) % ABG Potassium (3.4-4.5) mmol/L Sodium (137-145) mmol/L Glucose (74-99) mg/dL POC Glucose (mg/dL) 141 H 113 H (75-99) mg/dL Calcium (8.4-10.2) mg/dL Magnesium (1.6-2.3) mg/dL Total Bilirubin (0.2-1.3) mg/dL AST (17-59) U/L ALT (21-72) U/L Total Protein (6.3-8.2) g/dL Albumin (3.5-5.0) g/dL Arterial Blood Potassium (3.4-4.5) mmol/L Crossmatch 10/17/16 10/17/16 10/17/16 Range/Units 15:07 16:10 16:30 RBC 3.90 L (4.30-5.90) m/uL Hgb 11.9 L (13.0-17.5) gm/dL Hct 36.8 L (39.0-53.0) % Plt Count 99 L (150-450) k/uL Neutrophils # (1.3-7.7) k/uL Lymphocytes # 0.7 L (1.0-4.8) k/uL ABG pH (7.35-7.45) ABG pCO2 (35-45) mmHg ABG pO2 (83-108) mmHg ABG HCO3 (21-25) mmol/L ABG Total CO2 (19-24) mmol/L ABG O2 Saturation (94-97) % ABG Hematocrit (34.0-46.0) % ABG Potassium (3.4-4.5) mmol/L Sodium (137-145) mmol/L Glucose (74-99) mg/dL POC Glucose (mg/dL) 120 H 108 H (75-99) mg/dL Calcium (8.4-10.2) mg/dL Magnesium (1.6-2.3) mg/dL Total Bilirubin (0.2-1.3) mg/dL AST (17-59) U/L ALT (21-72) U/L Total Protein (6.3-8.2) g/dL Albumin (3.5-5.0) g/dL Arterial Blood Potassium (3.4-4.5) mmol/L Crossmatch 10/17/16 10/17/16 10/17/16 Range/Units 17:07 18:19 18:30 RBC 4.17 L (4.30-5.90) m/uL Hgb 12.6 L (13.0-17.5) gm/dL Hct (39.0-53.0) % Plt Count 110 L (150-450) k/uL Neutrophils # 8.5 H (1.3-7.7) k/uL Lymphocytes # 0.6 L (1.0-4.8) k/uL ABG pH (7.35-7.45) ABG pCO2 (35-45) mmHg ABG pO2 (83-108) mmHg ABG HCO3 (21-25) mmol/L ABG Total CO2 (19-24) mmol/L ABG O2 Saturation (94-97) % ABG Hematocrit (34.0-46.0) % ABG Potassium (3.4-4.5) mmol/L Sodium (137-145) mmol/L Glucose (74-99) mg/dL POC Glucose (mg/dL) 136 H 137 H (75-99) mg/dL Calcium (8.4-10.2) mg/dL Magnesium (1.6-2.3) mg/dL Total Bilirubin (0.2-1.3) mg/dL AST (17-59) U/L ALT (21-72) U/L Total Protein (6.3-8.2) g/dL Albumin (3.5-5.0) g/dL Arterial Blood Potassium (3.4-4.5) mmol/L Crossmatch 10/17/16 10/17/16 10/17/16 Range/Units 18:38 19:08 19:13 RBC (4.30-5.90) m/uL Hgb (13.0-17.5) gm/dL Hct (39.0-53.0) % Plt Count (150-450) k/uL Neutrophils # (1.3-7.7) k/uL Lymphocytes # (1.0-4.8) k/uL ABG pH 7.34 L (7.35-7.45) ABG pCO2 50 H (35-45) mmHg ABG pO2 (83-108) mmHg ABG HCO3 26 H (21-25) mmol/L ABG Total CO2 28 H (19-24) mmol/L ABG O2 Saturation (94-97) % ABG Hematocrit (34.0-46.0) % ABG Potassium (3.4-4.5) mmol/L Sodium (137-145) mmol/L Glucose 143 H (74-99) mg/dL POC Glucose (mg/dL) 141 H (75-99) mg/dL Calcium 8.3 L (8.4-10.2) mg/dL Magnesium 2.4 H (1.6-2.3) mg/dL Total Bilirubin (0.2-1.3) mg/dL AST (17-59) U/L ALT (21-72) U/L Total Protein (6.3-8.2) g/dL Albumin (3.5-5.0) g/dL Arterial Blood Potassium (3.4-4.5) mmol/L Crossmatch 10/17/16 10/17/16 10/17/16 Range/Units 20:17 21:13 22:56 RBC (4.30-5.90) m/uL Hgb (13.0-17.5) gm/dL Hct (39.0-53.0) % Plt Count (150-450) k/uL Neutrophils # (1.3-7.7) k/uL Lymphocytes # (1.0-4.8) k/uL ABG pH (7.35-7.45) ABG pCO2 (35-45) mmHg ABG pO2 (83-108) mmHg ABG HCO3 (21-25) mmol/L ABG Total CO2 (19-24) mmol/L ABG O2 Saturation (94-97) % ABG Hematocrit (34.0-46.0) % ABG Potassium (3.4-4.5) mmol/L Sodium (137-145) mmol/L Glucose (74-99) mg/dL POC Glucose (mg/dL) 138 H 135 H 153 H (75-99) mg/dL Calcium (8.4-10.2) mg/dL Magnesium (1.6-2.3) mg/dL Total Bilirubin (0.2-1.3) mg/dL AST (17-59) U/L ALT (21-72) U/L Total Protein (6.3-8.2) g/dL Albumin (3.5-5.0) g/dL Arterial Blood Potassium (3.4-4.5) mmol/L Crossmatch 10/18/16 10/18/16 10/18/16 Range/Units 00:11 00:59 02:10 RBC (4.30-5.90) m/uL Hgb (13.0-17.5) gm/dL Hct (39.0-53.0) % Plt Count (150-450) k/uL Neutrophils # (1.3-7.7) k/uL Lymphocytes # (1.0-4.8) k/uL ABG pH (7.35-7.45) ABG pCO2 (35-45) mmHg ABG pO2 (83-108) mmHg ABG HCO3 (21-25) mmol/L ABG Total CO2 (19-24) mmol/L ABG O2 Saturation (94-97) % ABG Hematocrit (34.0-46.0) % ABG Potassium (3.4-4.5) mmol/L Sodium (137-145) mmol/L Glucose (74-99) mg/dL POC Glucose (mg/dL) 140 H 136 H 144 H (75-99) mg/dL Calcium (8.4-10.2) mg/dL Magnesium (1.6-2.3) mg/dL Total Bilirubin (0.2-1.3) mg/dL AST (17-59) U/L ALT (21-72) U/L Total Protein (6.3-8.2) g/dL Albumin (3.5-5.0) g/dL Arterial Blood Potassium (3.4-4.5) mmol/L Crossmatch 10/18/16 10/18/16 10/18/16 Range/Units 03:06 03:59 05:35 RBC 4.06 L (4.30-5.90) m/uL Hgb 12.6 L (13.0-17.5) gm/dL Hct 38.2 L (39.0-53.0) % Plt Count 109 L (150-450) k/uL Neutrophils # 8.4 H (1.3-7.7) k/uL Lymphocytes # 0.6 L (1.0-4.8) k/uL ABG pH (7.35-7.45) ABG pCO2 (35-45) mmHg ABG pO2 (83-108) mmHg ABG HCO3 (21-25) mmol/L ABG Total CO2 (19-24) mmol/L ABG O2 Saturation (94-97) % ABG Hematocrit (34.0-46.0) % ABG Potassium (3.4-4.5) mmol/L Sodium (137-145) mmol/L Glucose (74-99) mg/dL POC Glucose (mg/dL) 141 H 140 H (75-99) mg/dL Calcium (8.4-10.2) mg/dL Magnesium (1.6-2.3) mg/dL Total Bilirubin (0.2-1.3) mg/dL AST (17-59) U/L ALT (21-72) U/L Total Protein (6.3-8.2) g/dL Albumin (3.5-5.0) g/dL Arterial Blood Potassium (3.4-4.5) mmol/L Crossmatch 10/18/16 10/18/16 10/18/16 Range/Units 05:35 05:49 06:57 RBC (4.30-5.90) m/uL Hgb (13.0-17.5) gm/dL Hct (39.0-53.0) % Plt Count (150-450) k/uL Neutrophils # (1.3-7.7) k/uL Lymphocytes # (1.0-4.8) k/uL ABG pH (7.35-7.45) ABG pCO2 (35-45) mmHg ABG pO2 (83-108) mmHg ABG HCO3 (21-25) mmol/L ABG Total CO2 (19-24) mmol/L ABG O2 Saturation (94-97) % ABG Hematocrit (34.0-46.0) % ABG Potassium (3.4-4.5) mmol/L Sodium 134 L (137-145) mmol/L Glucose 144 H (74-99) mg/dL POC Glucose (mg/dL) 147 H 147 H (75-99) mg/dL Calcium 8.0 L (8.4-10.2) mg/dL Magnesium (1.6-2.3) mg/dL Total Bilirubin 1.8 H (0.2-1.3) mg/dL AST 181 H (17-59) U/L ALT 210 H (21-72) U/L Total Protein 5.3 L (6.3-8.2) g/dL Albumin 3.1 L (3.5-5.0) g/dL Arterial Blood Potassium (3.4-4.5) mmol/L Crossmatch 10/18/16 10/18/16 Range/Units 08:33 09:07 RBC (4.30-5.90) m/uL Hgb (13.0-17.5) gm/dL Hct (39.0-53.0) % Plt Count (150-450) k/uL Neutrophils # (1.3-7.7) k/uL Lymphocytes # (1.0-4.8) k/uL ABG pH (7.35-7.45) ABG pCO2 (35-45) mmHg ABG pO2 (83-108) mmHg ABG HCO3 (21-25) mmol/L ABG Total CO2 (19-24) mmol/L ABG O2 Saturation (94-97) % ABG Hematocrit (34.0-46.0) % ABG Potassium (3.4-4.5) mmol/L Sodium (137-145) mmol/L Glucose (74-99) mg/dL POC Glucose (mg/dL) 189 H 190 H (75-99) mg/dL Calcium (8.4-10.2) mg/dL Magnesium (1.6-2.3) mg/dL Total Bilirubin (0.2-1.3) mg/dL AST (17-59) U/L ALT (21-72) U/L Total Protein (6.3-8.2) g/dL Albumin (3.5-5.0) g/dL Arterial Blood Potassium (3.4-4.5) mmol/L Crossmatch Assessment and Plan (1) Aortic stenosis Status: Acute (2) Status post aortic valve replacement Status: Acute (3) Diabetes Status: Acute (4) Hypertension Status: Acute (5) Hyperlipidemia Status: Acute (6) Postoperative respiratory failure Status: Acute Plan: Plan dated 10/17/2016 The patient's evaluated thoroughly. X-ray will be reviewed once it's done. The patient ventilator is adjusted accordingly. Blood gases will be done. The patient's currently sedated. We'll continue to follow closely. The patient once more awake and be put through the rapid weaning protocol. The nurses to call me for sending discrepancies or issues to discuss. We'll continue to follow. Updrafts as noted. We'll review the x-ray once it is completed. Plan dated 10/18/2016 The patient's doing well. The patient's on updrafts. I add Symbicort 160/4.5 , 2 puffs twice a day. I asked him to work on his incentive spirometer. The patient's hemodynamics are stable. Calcium channel esmer to help reduce his blood pressure. Is on an insulin drip at 2.5 units an hour. We'll continue to follow closely. Prognosis is guarded. Time with Patient: Less than 30
[2016-10-18 10:10] LABS: Glucose,Whole Blood 177 mg/dL (75-99)
[2016-10-18 11:14] LABS: Glucose,Whole Blood 154 mg/dL (75-99)
[2016-10-18] MEDS ORDERED: LEVALBUTEROL NEB (CONC) 1.25 MG/0.5 ML AMP INHALATION SCH (12:00)
[2016-10-18] MEDS ORDERED: MAGNESIUM HYDROXIDE 2,400 MG/10 ML CUP PO PRN (12:03)
[2016-10-18] MEDS ORDERED: IPRATROPIUM-ALBUTEROL 3 ML NEB INHALATION PRN (12:03)
[2016-10-18] MEDS ORDERED: IPRATROPIUM 0.5 MG/2.5 ML NEBU INHALATION SCH (13:00)
--- NOTE | 2016-10-18 13:35 | P.PN ---
Subjective 61-year-old male one of Dr. Cochran patient with past medical history of diabetes, hypertension, hyperlipidemia who has been having worsening shortness of breath and palpitation. He has been followed for aortic stenosis and valvular heart disease by cardiology for the last year. Heart catheter was done in August 2016 showed severe advance aortic stenosis with no vessel involvement. Patient was refer to cardiothoracic surgery and scheduled for elective aortic valve placement today for 2016. Following surgery patient was on mechanical ventilation as postsurgical respiratory failure. Pulmonary were consulted in his care. Patient will be on insulin drip Accu-Chek with sliding scales coverage. Patient is stable hemodynamically in the ICU. 10/18: Patient was successfully extubated yesterday. He is currently on nasal cannula. Heart rate is running in the 80s to 90s. Blood pressure is stable and he is on Clevidipine. Pain appears to be controlled at this time. Objective - Vital Signs Vital signs: Vital Signs Temp 96.3 F L 10/17/16 12:56 Pulse 102 H 10/18/16 07:30 Resp 22 10/18/16 07:30 BP 142/87 10/17/16 06:09 Pulse Ox 99 10/18/16 07:30 Intake & Output 10/17/16 10/18/16 10/18/16 18:59 06:59 18:59 Intake Total 890.25 1461.283 119 Output Total 3028 1137 175 Balance -2137.75 324.283 -56 Weight 104.6 kg Intake: IV 254 1009 59 ACETAMINOPHEN IV (For NPO 200 ) 1,000 mg In Empty Bag 1 bag @ 400 mls/hr IVPB Q6HR [facility] Rx#:[id number] CARDIAC OUTPUT 150 60 Lactated Ringers 1,000 ml 550 50 @ 50 mls/hr IV .Q20H [facility] Rx#:[id number] PRESSURE BAG 72 99 9 ceFAZolin 2,000 mg In 100 Sodium Chloride 0.9% 30 ml @ Per Protocol IVPB ONCE ONE Rx#:[id number] Intake, IV Titration 636.25 182.283 Amount ACETAMINOPHEN IV (For NPO 200 ) 1,000 mg In Empty Bag 1 bag @ 400 mls/hr IVPB Q6HR [facility] Rx#:[id number] Clevidipine Butyrate 25 33.0 111.000 mg In Empty Bag 1 bag @ 1 MG/HR 2 mls/hr IV .Q24H [facility] Rx#:[id number] Insulin Regular 100 unit 3.25 21.283 In Sodium Chloride 0.9% 100 ml @ Per Protocol IV .Q0M [facility] Rx#:[id number] Lactated Ringers 1,000 ml 250 50 @ 50 mls/hr IV .Q20H [facility] Rx#:[id number] Propofol 500 mg In Empty 50 Bag 1 bag @ Titrate IV . Q0M [facility] Rx#:[id number] ceFAZolin 2 gm In Sodium 100 Chloride 0.9% 100 ml @ 100 mls/hr IVPB Q8HR [facility] Rx#:[id number] Oral 270 60 Output: Chest Tube Drainage 233 476 90 Mediastinal 233 390 80 Right Pleural 0 86 10 Urine 945 661 85 Estimated Blood Loss 1850 Other: Voiding Method Indwelling Catheter Indwelling Catheter ABP, PAP, CO, CI - Last Documented Arterial Blood Pressure 119/52 Pulmonary Artery Pressure 40/7 Cardiac Output 9.6 Cardiac Index 4.4 - Exam On mechanical ventilation. General appearance: no average body habitus, no cooperative, no disheveled, no mild distress, no morbidly obese, no acute distress, no obese, no severe distress, no thin - EENT Eyes: no abnormal pupil, no anicteric sclerae, no disc margins sharp, no edentulous, no EOMI, no PERRLA, no fundus normal, no photophobia, no dentition normal, no poor dentition, no ptosis, no scleral icterus, normal appearance ENT: no hard of hearing, no hearing grossly normal, no NA/AT, normal oropharynx , no other, no pharyngeal erythema, no thrush, no tonsillar exudates, no tonsillar swelling Ears: bilateral: normal - Neck Neck: no lymphadenopathy, normal ROM, no other, no rigidity, no stridor, no thyromegaly Carotids: bilateral: upstroke normal Thyroid: bilateral: normal size - Respiratory Respiratory: bilateral: diminished, dullness, rales - Cardiovascular Rhythm: regular Heart sounds: normal: S1, S2 Abnormal Heart Sounds: systolic murmur, S3 Gallop - Gastrointestinal General gastrointestinal: no absent bowel sounds, decreased bowel sounds, no distended, no hepatomegaly, no hyperactive bowel sounds, no normal bowel sounds , no organomegaly, no rigid, no scaphoid, soft, no splenomegaly, no tenderness, no umbilical hernia, no ventral hernia - Integumentary Integumentary: no calor, no cellulitis, no cyanotic, no decreased turgor, no flushed, no jaundiced, normal, no normal turgor, pale, no rash, no ulcer - Neurologic Neurologic: CNII-XII intact - Musculoskeletal Musculoskeletal: gait normal, generalized weakness, no strength equal bilaterally, no right sided weakness, no left sided weakness - Psychiatric Psychiatric: A&O x's 3 - Labs CBC & Chem 7: 10/18/16 05:35 10/18/16 05:35 Labs: Abnormal Lab Results - Last 24 Hours (Table) 10/11/16 10/17/16 10/17/16 Range/Units 08:41 08:33 09:45 RBC (4.30-5.90) m/uL Hgb (13.0-17.5) gm/dL Hct (39.0-53.0) % Plt Count (150-450) k/uL Neutrophils # (1.3-7.7) k/uL Lymphocytes # (1.0-4.8) k/uL ABG pH 7.33 L (7.35-7.45) ABG pCO2 50 H (35-45) mmHg ABG pO2 234 H 287 H (83-108) mmHg ABG HCO3 26 H (21-25) mmol/L ABG Total CO2 27 H 26 H (19-24) mmol/L ABG O2 Saturation 99.8 H 99.9 H (94-97) % ABG Hematocrit 48 H (34.0-46.0) % ABG Potassium 5.5 H 5.8 H (3.4-4.5) mmol/L Sodium (137-145) mmol/L Glucose (74-99) mg/dL POC Glucose (mg/dL) (75-99) mg/dL Calcium (8.4-10.2) mg/dL Magnesium (1.6-2.3) mg/dL Total Bilirubin (0.2-1.3) mg/dL AST (17-59) U/L ALT (21-72) U/L Total Protein (6.3-8.2) g/dL Albumin (3.5-5.0) g/dL Arterial Blood Potassium 5.5 H 5.8 H (3.4-4.5) mmol/L Crossmatch See Detail 10/17/16 10/17/16 10/17/16 Range/Units 09:46 10:24 10:24 RBC (4.30-5.90) m/uL Hgb (13.0-17.5) gm/dL Hct (39.0-53.0) % Plt Count (150-450) k/uL Neutrophils # (1.3-7.7) k/uL Lymphocytes # (1.0-4.8) k/uL ABG pH 7.28 L (7.35-7.45) ABG pCO2 60 H (35-45) mmHg ABG pO2 305 H (83-108) mmHg ABG HCO3 27 H (21-25) mmol/L ABG Total CO2 29 H (19-24) mmol/L ABG O2 Saturation 99.9 H (94-97) % ABG Hematocrit (34.0-46.0) % ABG Potassium 6.5 H* (3.4-4.5) mmol/L Sodium (137-145) mmol/L Glucose (74-99) mg/dL POC Glucose (mg/dL) 183 H 214 H (75-99) mg/dL Calcium (8.4-10.2) mg/dL Magnesium (1.6-2.3) mg/dL Total Bilirubin (0.2-1.3) mg/dL AST (17-59) U/L ALT (21-72) U/L Total Protein (6.3-8.2) g/dL Albumin (3.5-5.0) g/dL Arterial Blood Potassium 6.5 H* (3.4-4.5) mmol/L Crossmatch 10/17/16 10/17/16 10/17/16 Range/Units 10:55 10:56 11:25 RBC (4.30-5.90) m/uL Hgb (13.0-17.5) gm/dL Hct (39.0-53.0) % Plt Count (150-450) k/uL Neutrophils # (1.3-7.7) k/uL Lymphocytes # (1.0-4.8) k/uL ABG pH (7.35-7.45) ABG pCO2 (35-45) mmHg ABG pO2 218 H (83-108) mmHg ABG HCO3 (21-25) mmol/L ABG Total CO2 26 H (19-24) mmol/L ABG O2 Saturation 99.8 H (94-97) % ABG Hematocrit (34.0-46.0) % ABG Potassium 6.5 H* (3.4-4.5) mmol/L Sodium (137-145) mmol/L Glucose (74-99) mg/dL POC Glucose (mg/dL) 270 H 270 H (75-99) mg/dL Calcium (8.4-10.2) mg/dL Magnesium (1.6-2.3) mg/dL Total Bilirubin (0.2-1.3) mg/dL AST (17-59) U/L ALT (21-72) U/L Total Protein (6.3-8.2) g/dL Albumin (3.5-5.0) g/dL Arterial Blood Potassium 6.5 H* (3.4-4.5) mmol/L Crossmatch 10/17/16 10/17/16 10/17/16 Range/Units 11:26 12:12 12:12 RBC (4.30-5.90) m/uL Hgb (13.0-17.5) gm/dL Hct (39.0-53.0) % Plt Count (150-450) k/uL Neutrophils # (1.3-7.7) k/uL Lymphocytes # (1.0-4.8) k/uL ABG pH 7.32 L (7.35-7.45) ABG pCO2 52 H (35-45) mmHg ABG pO2 367 H 278 H (83-108) mmHg ABG HCO3 26 H (21-25) mmol/L ABG Total CO2 27 H 26 H (19-24) mmol/L ABG O2 Saturation 99.9 H 99.9 H (94-97) % ABG Hematocrit (34.0-46.0) % ABG Potassium 6.8 H* 5.0 H (3.4-4.5) mmol/L Sodium (137-145) mmol/L Glucose (74-99) mg/dL POC Glucose (mg/dL) 226 H (75-99) mg/dL Calcium (8.4-10.2) mg/dL Magnesium (1.6-2.3) mg/dL Total Bilirubin (0.2-1.3) mg/dL AST (17-59) U/L ALT (21-72) U/L Total Protein (6.3-8.2) g/dL Albumin (3.5-5.0) g/dL Arterial Blood Potassium 6.8 H* 5.0 H (3.4-4.5) mmol/L Crossmatch 10/17/16 10/17/16 10/17/16 Range/Units 13:24 13:25 13:25 RBC 3.74 L (4.30-5.90) m/uL Hgb 11.8 L D (13.0-17.5) gm/dL Hct 35.1 L (39.0-53.0) % Plt Count 89 L D (150-450) k/uL Neutrophils # (1.3-7.7) k/uL Lymphocytes # (1.0-4.8) k/uL ABG pH (7.35-7.45) ABG pCO2 (35-45) mmHg ABG pO2 (83-108) mmHg ABG HCO3 (21-25) mmol/L ABG Total CO2 (19-24) mmol/L ABG O2 Saturation (94-97) % ABG Hematocrit (34.0-46.0) % ABG Potassium (3.4-4.5) mmol/L Sodium (137-145) mmol/L Glucose 153 H (74-99) mg/dL POC Glucose (mg/dL) 158 H (75-99) mg/dL Calcium 8.1 L (8.4-10.2) mg/dL Magnesium 2.5 H (1.6-2.3) mg/dL Total Bilirubin 1.4 H (0.2-1.3) mg/dL AST 361 H (17-59) U/L ALT 181 H (21-72) U/L Total Protein 4.7 L (6.3-8.2) g/dL Albumin 2.9 L (3.5-5.0) g/dL Arterial Blood Potassium (3.4-4.5) mmol/L Crossmatch 10/17/16 10/17/16 10/17/16 Range/Units 13:48 13:49 14:30 RBC (4.30-5.90) m/uL Hgb (13.0-17.5) gm/dL Hct (39.0-53.0) % Plt Count (150-450) k/uL Neutrophils # (1.3-7.7) k/uL Lymphocytes # (1.0-4.8) k/uL ABG pH 7.31 L (7.35-7.45) ABG pCO2 54 H (35-45) mmHg ABG pO2 253 H (83-108) mmHg ABG HCO3 26 H (21-25) mmol/L ABG Total CO2 28 H (19-24) mmol/L ABG O2 Saturation 100.0 H (94-97) % ABG Hematocrit (34.0-46.0) % ABG Potassium (3.4-4.5) mmol/L Sodium (137-145) mmol/L Glucose (74-99) mg/dL POC Glucose (mg/dL) 141 H 113 H (75-99) mg/dL Calcium (8.4-10.2) mg/dL Magnesium (1.6-2.3) mg/dL Total Bilirubin (0.2-1.3) mg/dL AST (17-59) U/L ALT (21-72) U/L Total Protein (6.3-8.2) g/dL Albumin (3.5-5.0) g/dL Arterial Blood Potassium (3.4-4.5) mmol/L Crossmatch 10/17/16 10/17/16 10/17/16 Range/Units 15:07 16:10 16:30 RBC 3.90 L (4.30-5.90) m/uL Hgb 11.9 L (13.0-17.5) gm/dL Hct 36.8 L (39.0-53.0) % Plt Count 99 L (150-450) k/uL Neutrophils # (1.3-7.7) k/uL Lymphocytes # 0.7 L (1.0-4.8) k/uL ABG pH (7.35-7.45) ABG pCO2 (35-45) mmHg ABG pO2 (83-108) mmHg ABG HCO3 (21-25) mmol/L ABG Total CO2 (19-24) mmol/L ABG O2 Saturation (94-97) % ABG Hematocrit (34.0-46.0) % ABG Potassium (3.4-4.5) mmol/L Sodium (137-145) mmol/L Glucose (74-99) mg/dL POC Glucose (mg/dL) 120 H 108 H (75-99) mg/dL Calcium (8.4-10.2) mg/dL Magnesium (1.6-2.3) mg/dL Total Bilirubin (0.2-1.3) mg/dL AST (17-59) U/L ALT (21-72) U/L Total Protein (6.3-8.2) g/dL Albumin (3.5-5.0) g/dL Arterial Blood Potassium (3.4-4.5) mmol/L Crossmatch 10/17/16 10/17/16 10/17/16 Range/Units 17:07 18:19 18:30 RBC 4.17 L (4.30-5.90) m/uL Hgb 12.6 L (13.0-17.5) gm/dL Hct (39.0-53.0) % Plt Count 110 L (150-450) k/uL Neutrophils # 8.5 H (1.3-7.7) k/uL Lymphocytes # 0.6 L (1.0-4.8) k/uL ABG pH (7.35-7.45) ABG pCO2 (35-45) mmHg ABG pO2 (83-108) mmHg ABG HCO3 (21-25) mmol/L ABG Total CO2 (19-24) mmol/L ABG O2 Saturation (94-97) % ABG Hematocrit (34.0-46.0) % ABG Potassium (3.4-4.5) mmol/L Sodium (137-145) mmol/L Glucose (74-99) mg/dL POC Glucose (mg/dL) 136 H 137 H (75-99) mg/dL Calcium (8.4-10.2) mg/dL Magnesium (1.6-2.3) mg/dL Total Bilirubin (0.2-1.3) mg/dL AST (17-59) U/L ALT (21-72) U/L Total Protein (6.3-8.2) g/dL Albumin (3.5-5.0) g/dL Arterial Blood Potassium (3.4-4.5) mmol/L Crossmatch 10/17/16 10/17/16 10/17/16 Range/Units 18:38 19:08 19:13 RBC (4.30-5.90) m/uL Hgb (13.0-17.5) gm/dL Hct (39.0-53.0) % Plt Count (150-450) k/uL Neutrophils # (1.3-7.7) k/uL Lymphocytes # (1.0-4.8) k/uL ABG pH 7.34 L (7.35-7.45) ABG pCO2 50 H (35-45) mmHg ABG pO2 (83-108) mmHg ABG HCO3 26 H (21-25) mmol/L ABG Total CO2 28 H (19-24) mmol/L ABG O2 Saturation (94-97) % ABG Hematocrit (34.0-46.0) % ABG Potassium (3.4-4.5) mmol/L Sodium (137-145) mmol/L Glucose 143 H (74-99) mg/dL POC Glucose (mg/dL) 141 H (75-99) mg/dL Calcium 8.3 L (8.4-10.2) mg/dL Magnesium 2.4 H (1.6-2.3) mg/dL Total Bilirubin (0.2-1.3) mg/dL AST (17-59) U/L ALT (21-72) U/L Total Protein (6.3-8.2) g/dL Albumin (3.5-5.0) g/dL Arterial Blood Potassium (3.4-4.5) mmol/L Crossmatch 10/17/16 10/17/16 10/17/16 Range/Units 20:17 21:13 22:56 RBC (4.30-5.90) m/uL Hgb (13.0-17.5) gm/dL Hct (39.0-53.0) % Plt Count (150-450) k/uL Neutrophils # (1.3-7.7) k/uL Lymphocytes # (1.0-4.8) k/uL ABG pH (7.35-7.45) ABG pCO2 (35-45) mmHg ABG pO2 (83-108) mmHg ABG HCO3 (21-25) mmol/L ABG Total CO2 (19-24) mmol/L ABG O2 Saturation (94-97) % ABG Hematocrit (34.0-46.0) % ABG Potassium (3.4-4.5) mmol/L Sodium (137-145) mmol/L Glucose (74-99) mg/dL POC Glucose (mg/dL) 138 H 135 H 153 H (75-99) mg/dL Calcium (8.4-10.2) mg/dL Magnesium (1.6-2.3) mg/dL Total Bilirubin (0.2-1.3) mg/dL AST (17-59) U/L ALT (21-72) U/L Total Protein (6.3-8.2) g/dL Albumin (3.5-5.0) g/dL Arterial Blood Potassium (3.4-4.5) mmol/L Crossmatch 10/18/16 10/18/16 10/18/16 Range/Units 00:11 00:59 02:10 RBC (4.30-5.90) m/uL Hgb (13.0-17.5) gm/dL Hct (39.0-53.0) % Plt Count (150-450) k/uL Neutrophils # (1.3-7.7) k/uL Lymphocytes # (1.0-4.8) k/uL ABG pH (7.35-7.45) ABG pCO2 (35-45) mmHg ABG pO2 (83-108) mmHg ABG HCO3 (21-25) mmol/L ABG Total CO2 (19-24) mmol/L ABG O2 Saturation (94-97) % ABG Hematocrit (34.0-46.0) % ABG Potassium (3.4-4.5) mmol/L Sodium (137-145) mmol/L Glucose (74-99) mg/dL POC Glucose (mg/dL) 140 H 136 H 144 H (75-99) mg/dL Calcium (8.4-10.2) mg/dL Magnesium (1.6-2.3) mg/dL Total Bilirubin (0.2-1.3) mg/dL AST (17-59) U/L ALT (21-72) U/L Total Protein (6.3-8.2) g/dL Albumin (3.5-5.0) g/dL Arterial Blood Potassium (3.4-4.5) mmol/L Crossmatch 10/18/16 10/18/16 10/18/16 Range/Units 03:06 03:59 05:35 RBC 4.06 L (4.30-5.90) m/uL Hgb 12.6 L (13.0-17.5) gm/dL Hct 38.2 L (39.0-53.0) % Plt Count 109 L (150-450) k/uL Neutrophils # 8.4 H (1.3-7.7) k/uL Lymphocytes # 0.6 L (1.0-4.8) k/uL ABG pH (7.35-7.45) ABG pCO2 (35-45) mmHg ABG pO2 (83-108) mmHg ABG HCO3 (21-25) mmol/L ABG Total CO2 (19-24) mmol/L ABG O2 Saturation (94-97) % ABG Hematocrit (34.0-46.0) % ABG Potassium (3.4-4.5) mmol/L Sodium (137-145) mmol/L Glucose (74-99) mg/dL POC Glucose (mg/dL) 141 H 140 H (75-99) mg/dL Calcium (8.4-10.2) mg/dL Magnesium (1.6-2.3) mg/dL Total Bilirubin (0.2-1.3) mg/dL AST (17-59) U/L ALT (21-72) U/L Total Protein (6.3-8.2) g/dL Albumin (3.5-5.0) g/dL Arterial Blood Potassium (3.4-4.5) mmol/L Crossmatch 10/18/16 10/18/16 10/18/16 Range/Units 05:35 05:49 06:57 RBC (4.30-5.90) m/uL Hgb (13.0-17.5) gm/dL Hct (39.0-53.0) % Plt Count (150-450) k/uL Neutrophils # (1.3-7.7) k/uL Lymphocytes # (1.0-4.8) k/uL ABG pH (7.35-7.45) ABG pCO2 (35-45) mmHg ABG pO2 (83-108) mmHg ABG HCO3 (21-25) mmol/L ABG Total CO2 (19-24) mmol/L ABG O2 Saturation (94-97) % ABG Hematocrit (34.0-46.0) % ABG Potassium (3.4-4.5) mmol/L Sodium 134 L (137-145) mmol/L Glucose 144 H (74-99) mg/dL POC Glucose (mg/dL) 147 H 147 H (75-99) mg/dL Calcium 8.0 L (8.4-10.2) mg/dL Magnesium (1.6-2.3) mg/dL Total Bilirubin 1.8 H (0.2-1.3) mg/dL AST 181 H (17-59) U/L ALT 210 H (21-72) U/L Total Protein 5.3 L (6.3-8.2) g/dL Albumin 3.1 L (3.5-5.0) g/dL Arterial Blood Potassium (3.4-4.5) mmol/L Crossmatch 10/18/16 Range/Units 08:33 RBC (4.30-5.90) m/uL Hgb (13.0-17.5) gm/dL Hct (39.0-53.0) % Plt Count (150-450) k/uL Neutrophils # (1.3-7.7) k/uL Lymphocytes # (1.0-4.8) k/uL ABG pH (7.35-7.45) ABG pCO2 (35-45) mmHg ABG pO2 (83-108) mmHg ABG HCO3 (21-25) mmol/L ABG Total CO2 (19-24) mmol/L ABG O2 Saturation (94-97) % ABG Hematocrit (34.0-46.0) % ABG Potassium (3.4-4.5) mmol/L Sodium (137-145) mmol/L Glucose (74-99) mg/dL POC Glucose (mg/dL) 189 H (75-99) mg/dL Calcium (8.4-10.2) mg/dL Magnesium (1.6-2.3) mg/dL Total Bilirubin (0.2-1.3) mg/dL AST (17-59) U/L ALT (21-72) U/L Total Protein (6.3-8.2) g/dL Albumin (3.5-5.0) g/dL Arterial Blood Potassium (3.4-4.5) mmol/L Crossmatch Assessment and Plan Plan: 1 severe aortic stenosis: Post aortic valve placement. 2 post aortic valve placement: Continue postsurgical care. 3 post surgery respiratory failure: Was on mechanical ventilation continue current management hopefully wearable off the vent very quickly after surgery 4 hypertension: Stable was on amlodipine Benzapril as soon as he is able take oral meds will be starting him on it. 5 diabetes: Type II he has been on metformin, Prandin and Lantus will continue insulin short acting for now we'll start patient back on Lantus by tomorrow and Prandin and metformin be started soon as patient is able to eat in the meanwhile we do bolus before meals and long acting before bedtime. 6 hyperlipidemia: Resume pravastatin. 7 arrhythmia: Keep watching patient hemodynamic status for any form of arrhythmia in the next 3 days. 8 GI prophylaxis: Patient will be continue on PPI or H2 esmer. 9 DVT prophylaxis: Continue knee-high HUMZA hose and Venodyne boots and continue DVT prophylaxis protocol. CODE STATUS: Full code. Discharge planning: To be determined Impression and plan of care have been directed as dictated by the signing physician. Vale Nair nurse practitioner acting as scribe for signing physician. Time with Patient: Greater than 30
[2016-10-18 13:38] LABS: Glucose,Whole Blood 124 mg/dL (75-99)
[2016-10-18] MEDS: HYDROcodone/APAP 5-325MG 1 EACH TAB PO PRN ×3 (14:22→22:24)
[2016-10-18 14:27] LABS: Glucose,Whole Blood 131 mg/dL (75-99)
[2016-10-18 15:57] LABS: Glucose,Whole Blood 152 mg/dL (75-99)
--- NOTE | 2016-10-18 16:04 | P.PN ---
<Nash Armstrong Ines - Last Filed: 10/18/16 16:04> Progress Note - Text CV Surgery Nursing Principal diagnosis: Severe aortic valve stenosis, mild coronary artery disease, hypertension, hyperlipidemia, diabetes mellitus, obesity, trileaflet severe aortic valve stenosis. POD: #1, status post aortic valve replacement using a #23 mm pericardial bioprosthesis manga ease, exclusion of the left atrial appendage using a #35 mm Atri clip, and an intraoperative transesophageal echocardiogram and epi-aortic scanning. Patient awake and alert, no distress noted, no specific complaints, he is sitting up to bedside chair. Vital Signs: Afebrile current temperature is 99.1F. Vital Signs - 24 hr 10/17/16 10/17/16 10/17/16 12:56 13:09 13:15 Temperature 96.3 F L Pulse Rate 80 81 Respiratory Rate O2 Sat by Pulse Oximetry 10/17/16 10/17/16 10/17/16 13:30 13:45 14:00 Temperature Pulse Rate 80 80 78 Respiratory 16 Rate O2 Sat by Pulse 100 100 100 Oximetry 10/17/16 10/17/16 10/17/16 14:15 14:30 14:45 Temperature Pulse Rate 78 78 77 Respiratory Rate O2 Sat by Pulse 100 98 97 Oximetry 10/17/16 10/17/16 10/17/16 15:00 15:15 15:30 Temperature Pulse Rate 76 75 77 Respiratory Rate O2 Sat by Pulse 98 97 98 Oximetry 10/17/16 10/17/16 10/17/16 15:45 16:00 16:15 Temperature Pulse Rate 74 75 76 Respiratory 16 Rate O2 Sat by Pulse 98 100 100 Oximetry 10/17/16 10/17/16 10/17/16 16:27 16:30 16:45 Temperature Pulse Rate 76 75 77 Respiratory Rate O2 Sat by Pulse 99 99 Oximetry 10/17/16 10/17/16 10/17/16 17:00 17:02 17:30 Temperature Pulse Rate 77 77 79 Respiratory Rate O2 Sat by Pulse 98 98 Oximetry 10/17/16 10/17/16 10/17/16 18:00 18:30 19:00 Temperature Pulse Rate 86 90 90 Respiratory Rate O2 Sat by Pulse 95 99 98 Oximetry 10/17/16 10/17/16 10/17/16 19:30 20:00 20:30 Temperature Pulse Rate 93 93 93 Respiratory 22 22 20 Rate O2 Sat by Pulse 94 L 94 L 95 Oximetry 10/17/16 10/17/16 10/17/16 21:00 21:30 22:00 Temperature Pulse Rate 94 96 97 Respiratory 18 20 22 Rate O2 Sat by Pulse 95 96 96 Oximetry 10/17/16 10/17/16 10/17/16 22:30 23:00 23:30 Temperature Pulse Rate 97 97 97 Respiratory 24 24 20 Rate O2 Sat by Pulse 97 96 96 Oximetry 10/18/16 10/18/16 10/18/16 00:00 00:30 01:00 Temperature Pulse Rate 100 100 98 Respiratory 24 22 20 Rate O2 Sat by Pulse 97 95 96 Oximetry 10/18/16 10/18/16 10/18/16 01:30 02:00 02:30 Temperature Pulse Rate 99 100 101 H Respiratory 22 20 24 Rate O2 Sat by Pulse 95 95 96 Oximetry 10/18/16 10/18/16 10/18/16 03:00 03:30 04:00 Temperature Pulse Rate 101 H 101 H 100 Respiratory 20 24 24 Rate O2 Sat by Pulse 95 95 95 Oximetry 10/18/16 10/18/16 10/18/16 04:30 05:00 05:30 Temperature Pulse Rate 101 H 101 H 102 H Respiratory 22 24 24 Rate O2 Sat by Pulse 94 L 95 94 L Oximetry 10/18/16 10/18/16 10/18/16 06:00 06:30 07:00 Temperature Pulse Rate 102 H 101 H 99 Respiratory 22 20 22 Rate O2 Sat by Pulse 92 L 92 L 97 Oximetry 10/18/16 07:30 Temperature Pulse Rate 102 H Respiratory 22 Rate O2 Sat by Pulse 99 Oximetry ABP, PAP, CO, CI - Last 8 Hours Arterial Blood Pressure 119/52 Arterial Blood Pressure 124/53 Arterial Blood Pressure 128/58 Arterial Blood Pressure 136/63 Arterial Blood Pressure 130/61 Arterial Blood Pressure 140/63 Arterial Blood Pressure 149/61 Arterial Blood Pressure 140/69 Arterial Blood Pressure 125/64 Arterial Blood Pressure 134/60 Arterial Blood Pressure 133/58 Arterial Blood Pressure 146/60 Arterial Blood Pressure 126/56 Arterial Blood Pressure 126/55 Pulmonary Artery Pressure 40/7 Pulmonary Artery Pressure 29/5 Pulmonary Artery Pressure 43/10 Pulmonary Artery Pressure 48/13 Pulmonary Artery Pressure 40/9 Pulmonary Artery Pressure 40/10 Pulmonary Artery Pressure 42/10 Pulmonary Artery Pressure 44/13 Pulmonary Artery Pressure 41/11 Pulmonary Artery Pressure 42/12 Pulmonary Artery Pressure 38/10 Pulmonary Artery Pressure 41/13 Pulmonary Artery Pressure 37/9 Pulmonary Artery Pressure 39/11 Cardiac Output 9.6 Cardiac Output 9.6 Cardiac Output 9.6 Cardiac Output 9.6 Cardiac Output 9.6 Cardiac Output 9.6 Cardiac Output 9.6 Cardiac Output 9.6 Cardiac Output 7.9 Cardiac Output 7.9 Cardiac Output 7.9 Cardiac Output 7.9 Cardiac Output 7.9 Cardiac Output 7.9 Cardiac Index 4.4 Labs: Short CBC 10/17/16 10/17/16 10/17/16 Range/Units 13:25 16:30 18:30 WBC 8.0 8.4 9.8 (3.8-10.6) k/uL Hgb 11.8 L D 11.9 L 12.6 L (13.0-17.5) gm/dL Hct 35.1 L 36.8 L 39.4 (39.0-53.0) % Plt Count 89 L D 99 L 110 L (150-450) k/uL Neutrophils # 6.7 6.9 8.5 H (1.3-7.7) k/uL 10/18/16 Range/Units 05:35 WBC 9.9 (3.8-10.6) k/uL Hgb 12.6 L (13.0-17.5) gm/dL Hct 38.2 L (39.0-53.0) % Plt Count 109 L (150-450) k/uL Neutrophils # 8.4 H (1.3-7.7) k/uL BMP 10/17/16 10/17/16 10/18/16 13:25 18:38 05:35 Sodium 137 138 134 L Potassium 4.5 4.7 4.8 Chloride 105 103 101 Carbon Dioxide 26 27 28 BUN 16 18 18 Creatinine 0.90 0.85 0.90 Glucose 153 H 143 H 144 H Calcium 8.1 L 8.3 L 8.0 L Liver Function 10/17/16 10/18/16 Range/Units 13:25 05:35 Total Bilirubin 1.4 H 1.8 H (0.2-1.3) mg/dL AST 361 H 181 H (17-59) U/L ALT 181 H 210 H (21-72) U/L Alkaline Phosphatase 40 61 (38-126) U/L Albumin 2.9 L 3.1 L (3.5-5.0) g/dL Most recent lab results ABG pH 7.34 (7.35-7.45) L 10/17/16 19:13 ABG pCO2 50 mmHg (35-45) H 10/17/16 19:13 ABG pO2 89 mmHg (83-108) 10/17/16 19:13 ABG HCO3 26 mmol/L (21-25) H 10/17/16 19:13 ABG O2 Saturation 96.0 % (94-97) 10/17/16 19:13 Calcium 8.0 mg/dL (8.4-10.2) L 10/18/16 05:35 Phosphorus 3.5 mg/dL (2.5-4.5) 10/17/16 18:38 Magnesium 2.2 mg/dL (1.6-2.3) 10/18/16 05:35 ABG ABG pH 7.34 (7.35-7.45) L 10/17/16 19:13 ABG pCO2 50 mmHg (35-45) H 10/17/16 19:13 ABG pO2 89 mmHg (83-108) 10/17/16 19:13 ABG O2 Saturation 96.0 % (94-97) 10/17/16 19:13 PT/INR, D-dimer PT 10.4 sec (9.0-12.0) 10/18/16 05:35 INR 1.0 (<1.1) 10/18/16 05:35 IV Fluids: Lactated Ringer's at 50 mL per hour Insulin drip at 2.5 units per hour Cleviprex drip at 8 mg/h. Cardiac output: 9.6 Cardiac index: 4.4 Pulmonary artery pressures: 37/5 CVP: 7 Lungs: Essentially clear throughout, with some expiratory wheezes. Diminished bilateral bases. Respirations are unlabored. O2 sat: 93% on 5 L nasal cannula. I/S: 1250 mL, reviewed with the patient the importance of using his incentive spirometry every hour while awake. Patient did give a good return demonstration on his incentive spirometry. Heart: S1S2, regular rhythm and rate, negative for S3, gallop or murmur. Bedside telemetry showing normal sinus rhythm heart rate 99. Sternum stable, chest incision clean with dressing clean and dry. Scant serosanguineous drainage noted to dressing. Heart hugger in place, patient demonstrating proper use of his heart hugger. Knee-high HUMZA hose and sequential compression devices in place to bilateral lower extremity Carlos. Abdomen: Soft, Positive bowel sounds present in all 4 quadrants. CBGs: 120-153 mg/dL in the last 24 hours. U/O: Adequate, 410 mL output in the last 8 hours. Fonseca catheter for accurate I&O. Chest Tubes: Mediastinal chest tubes without air leak, draining thin serosanguineous drainage. 350 mL output in the last 8 hours, 660 mL output in the last 24 hours. Right pleural chest tube without air leak, draining thin serosanguineous drainage. 50 mL output in the last 8 hours, 95 mL output in the last 24 hours. 24 hr Total: Intake & Output 10/16/16 10/17/16 10/18/16 10/19/16 06:59 06:59 06:59 06:59 Intake Total 2351.533 119 Output Total 4165 175 Balance -1813.467 -56 Weight 104.581 kg 104.6 kg Active Medications Hydrocodone Bitart/Acetaminophen ([place] 5-325) 2 each PO Q4HR PRN PRN Reason: Severe Pain Hydrocodone Bitart/Acetaminophen ([place] 5-325) 1 each PO Q4HR PRN PRN Reason: Moderate Pain Albuterol/Ipratropium (Duoneb 0.5 Mg-3 Mg/3 Ml Soln) 3 ml INHALATION RT-Q2H PRN PRN Reason: Shortness Of Breath Or Wheezing Aspirin (Aspirin) 325 mg PO DAILY [facility] Last Admin: 10/18/16 08:38 Dose: 325 mg Benzocaine/Menthol (Cepacol Lozenge) 1 each MUCOUS MEM Q2H PRN PRN Reason: Sore Throat Bisacodyl (Dulcolax) 10 mg RECTAL DAILY PRN PRN Reason: Constipation Clopidogrel Bisulfate (Plavix) 75 mg PO DAILY [facility] Last Admin: 10/18/16 08:39 Dose: 75 mg Heparin Sodium (Porcine) (Heparin) 5,000 unit SQ Q8H [facility] Last Admin: 10/18/16 03:57 Dose: 5,000 unit Acetaminophen 1,000 mg/ IV (Solution) 100 mls @ 400 mls/hr IVPB Q6HR [facility] Stop: 10/18/16 13:31 Last Admin: 10/18/16 06:28 Dose: 400 mls/hr Calcium Gluconate 2,000 mg/ (Sodium Chloride) 120 mls @ 100 mls/hr IVPB ONCE PRN PRN Reason: Ionized Calcium less than 4.4 Stop: 10/18/16 12:57 Clevidipine 25 mg/ IV Solution 50 mls @ 2 mls/hr IV .Q24H [facility]AILESH; 1 MG/HR PRN Reason: Protocol Last Titration: 10/18/16 06:00 Dose: 8 mg/hr, 16 mls/hr Insulin Human Regular 100 unit (/ Sodium Chloride) 101 mls @ 0 mls/hr IV .Q0M [facility]; Per Protocol PRN Reason: Protocol Last Titration: 10/18/16 06:58 Dose: 2.5 ml/hr, 2.5 mls/hr Lactated Ringer's (Lactated Ringers) 1,000 mls @ 50 mls/hr IV .Q20H [facility] Last Admin: 10/18/16 08:39 Dose: 50 mls/hr Cefazolin Sodium 2 gm/ Sodium (Chloride) 100 mls @ 100 mls/hr IVPB Q8HR [facility] Stop: 10/18/16 08:59 Last Admin: 10/18/16 08:37 Dose: 100 mls/hr Ipratropium [place] (Atrovent Nebulized) 0.5 mg INHALATION RT-QID [facility] Levalbuterol HCl (Xopenex Nebulized (Conc)) 1.25 mg INHALATION RT-QID [facility] Magnesium Hydroxide (Milk Of Magnesia) 2,400 mg PO BID PRN PRN Reason: Constipation Metoclopramide HCl (Reglan) 10 mg IVP Q4H PRN PRN Reason: Nausea And Vomiting Metoprolol Tartrate (Lopressor) 25 mg PO BID [facility] Miscellaneous Information (Magnesium Per Protocol) 1 each MISCELLANE DAILY PRN ; Protocol PRN Reason: Per Protocol Miscellaneous Information (Phosphorus Per Protocol) 1 each MISCELLANE DAILY PRN ; Protocol PRN Reason: Per Protocol Miscellaneous Information (Potassium Per Protocol) 1 each MISCELLANE DAILY PRN ; Protocol PRN Reason: Per Protocol Ondansetron HCl (Zofran) 4 mg IVP Q6HR PRN PRN Reason: Nausea And Vomiting Last Admin: 10/18/16 05:42 Dose: 4 mg Oxycodone HCl (Oxyir) 10 mg PO Q4H PRN PRN Reason: Severe Pain Stop: 10/18/16 12:57 Last Admin: 10/18/16 08:51 Dose: 10 mg Oxycodone HCl (Oxyir) 5 mg PO Q4H PRN PRN Reason: Moderate Pain Stop: 10/18/16 12:57 Pantoprazole Sodium (Protonix) 40 mg IVP DAILY [facility] Last Admin: 10/18/16 08:40 Dose: 40 mg Senna/Docusate Sodium (Senokot-S) 2 each PO HS [facility] Sodium Chloride (Saline Flush) 10 ml IV BID [facility] Last Admin: 10/18/16 08:40 Dose: Not Given Plan: 1. Continue aspirin, Plavix, heparin subcu and beta esmer. His metoprolol will be increased to 25 mg by mouth twice a day. 2. His Lipitor will be placed on hold due to his elevated liver enzymes. 3. Discontinue [place]-Hong catheter. Place a Cordis to continuous CVP monitoring. 4. Dr. Sotomayor for pulmonary management, will add an inhaled steroid (Symbicort) . Wean O2 as tolerated. 5. CBC, CMP, portable chest x-ray in the a.m. 6. Lasix 20 mg IV 1 today. 7. Physical therapy consulted, encourage increase in activity level as tolerated. 8. tobacco educator consulted to assist with diabetic education. Diabetic management per primary care. 9. GI and DVT prophylaxis in place. 10. More recommended medications as patient progresses <Gregory Cassidy - Last Filed: 10/18/16 16:49> Progress Note - Text The patient was seen and examined. I agree with the above assessment and plan. Overall he looks good. He is hemodynamically stable and has a normal sinus rhythm. He was given Lasix this morning. We will increase his beta esmer this afternoon. His [place]-Hong catheter hasl been removed. He is ambulating in the hallway without difficulty. We will continue to wean his oxygen. He will likely remove his chest tubes and likely transfer him to [facility] care in the morning.
[2016-10-18] MEDS: METOPROLOL TARTRATE 25 MG TAB PO SCH ×2 (16:26→21:31)
[2016-10-18 17:07] LABS: Glucose,Whole Blood 169 mg/dL (75-99)
[2016-10-18 18:30] LABS: Glucose,Whole Blood 216 mg/dL (75-99)
[2016-10-18 19:29] LABS: Glucose,Whole Blood 223 mg/dL (75-99)
[2016-10-18] MEDS: SYMBICORT 160-4.5 MCG INHALER INHALATION SCH (19:33)
--- NOTE | 2016-10-18 20:49 | P.CRDCN ---
History of Present Illness Consult date: 10/18/16 History of present illness: This is a 61-year-old gentleman with history of hypertension and hypercholesterolemia was recently diagnosed to have severe aortic stenosis by cardiac catheterization and also echocardiography. He was found to have mild coronary artery disease. Patient had aortic valve replacement. Patient had 23 mm pericardial bioprosthesis. Patient also has exclusion of the left atrial appendage. Patient is extubated. He seemed to be hemodynamically stable. He is alert and doesn't appear to be in acute distress. His lab work showed hemoglobin of 12.6 ,white count is 9.9 ,his BUN/creatinine is within normal limits. His liver function tests showed AST and ALT of which were elevated in the range of 361/181. Repeat the blood test showed some improvement today chest x-ray showed mild infiltrate at left base and small effusion Review of Systems Not obtained Past Medical History Past Medical History: Chest Pain / Angina, Diabetes Mellitus, Hyperlipidemia, Hypertension, Sleep Apnea/CPAP/BIPAP Additional Past Medical History / Comment(s): heart murmur,SOB w/ activity,uses cpap,cysts to kidney History of Any Multi-Drug Resistant Organisms: None Reported Past Surgical History: Cholecystectomy, Heart Catheterization Past Anesthesia/Blood Transfusion Reactions: No Reported Reaction Past Psychological History: No Psychological Hx Reported Smoking Status: Former smoker Past Alcohol Use History: Occasional Additional Past Alcohol Use History / Comment(s): quit smoking 2015,smoked for 30 yrs,up to 1ppd Past Drug Use History: None Reported - Past Family History Mother Family Medical History: No Reported History Father Family Medical History: Cancer Additional Family Medical History / Comment(s): Lung Medications and Allergies Home Medications Medication Instructions Recorded Confirmed Type Aspirin [Adult Low Dose Aspirin EC] 81 mg PO DAILY 09/01/16 10/17/16 History Insulin Glargine [Lantus] 34 unit SQ HS 09/01/16 10/17/16 History Loratadine 10 mg PO DAILY 09/01/16 10/17/16 History Pravastatin Sodium 80 mg PO HS 09/01/16 10/17/16 History Repaglinide [Prandin] 2 mg PO TID 09/01/16 10/17/16 History amLODIPine BESYLATE/BENAZEPRIL 1 cap PO DAILY 09/01/16 10/17/16 History [amLODIPine BESYLATE/BENAZEPRIL 5-10 mg] metFORMIN HCL [Glucophage] 1,000 mg PO BID 09/01/16 10/17/16 History Allergies Allergy/AdvReac Type Severity Reaction Status Date / Time No Known Allergies Allergy Verified 10/17/16 13:20 Physical Exam Vitals: Vital Signs Temp Pulse Resp Pulse Ox 10/18/16 19:53 95 10/18/16 19:36 95 10/18/16 19:00 97 96 10/18/16 18:30 97 97 10/18/16 18:00 97 96 10/18/16 17:30 96 93 L 10/18/16 17:00 101 H 96 10/18/16 16:30 100 93 L 10/18/16 16:23 101 H 10/18/16 16:02 97 94 L 10/18/16 16:00 98.7 F 97 22 94 L 10/18/16 15:00 95 95 10/18/16 14:30 91 95 10/18/16 14:00 91 94 L 10/18/16 13:30 90 10/18/16 13:00 91 10/18/16 12:45 89 10/18/16 12:30 87 10/18/16 12:25 88 10/18/16 12:00 98.5 F 91 22 96 10/18/16 11:30 92 95 10/18/16 11:00 95 97 10/18/16 10:30 103 H 10/18/16 10:00 103 H 96 10/18/16 09:30 102 H 96 10/18/16 09:00 100 98 10/18/16 08:55 90 10/18/16 08:41 95 22 10/18/16 08:30 99 98 10/18/16 08:00 99 22 97 10/18/16 07:30 102 H 22 99 10/18/16 07:00 99 22 97 10/18/16 06:30 101 H 20 92 L 10/18/16 06:00 102 H 22 92 L 10/18/16 05:30 102 H 24 94 L 10/18/16 05:00 101 H 24 95 10/18/16 04:30 101 H 22 94 L 10/18/16 04:00 100 24 95 10/18/16 03:30 101 H 24 95 10/18/16 03:00 101 H 20 95 10/18/16 02:30 101 H 24 96 10/18/16 02:00 100 20 95 10/18/16 01:30 99 22 95 10/18/16 01:00 98 20 96 10/18/16 00:30 100 22 95 10/18/16 00:00 100 24 97 10/17/16 23:30 97 20 96 10/17/16 23:00 97 24 96 10/17/16 22:30 97 24 97 10/17/16 22:00 97 22 96 10/17/16 21:30 96 20 96 10/17/16 21:00 94 18 95 Intake and Output 10/18/16 10/18/16 10/18/16 06:59 14:59 22:59 Intake Total 1190.650 889.208 311.475 Output Total 834 1435 380 Balance 356.650 -545.792 -68.525 Intake: IV 812 657 224 ACETAMINOPHEN IV (For NPO 200 200 ) 1,000 mg In Empty Bag 1 bag @ 400 mls/hr IVPB Q6HR [facility] Rx#:[id number] CARDIAC OUTPUT 40 Lactated Ringers 1,000 ml 400 400 200 @ 50 mls/hr IV .Q20H [facility] Rx#:[id number] PRESSURE BAG 72 57 24 ceFAZolin 2,000 mg In 100 Sodium Chloride 0.9% 30 ml @ Per Protocol IVPB ONCE ONE Rx#:[id number] Intake, IV Titration 108.650 172.208 87.475 Amount Clevidipine Butyrate 25 94 38 50 mg In Empty Bag 1 bag @ 1 MG/HR 2 mls/hr IV .Q24H [facility] Rx#:[id number] Insulin Regular 100 unit 14.650 34.208 37.475 In Sodium Chloride 0.9% 100 ml @ Per Protocol IV .Q0M [facility] Rx#:[id number] ceFAZolin 2 gm In Sodium 100 Chloride 0.9% 100 ml @ 100 mls/hr IVPB Q8HR [facility] Rx#:[id number] Oral 270 60 Output: Chest Tube Drainage 368 475 110 Mediastinal 320 430 90 Right Pleural 48 45 20 Urine 466 960 270 Other: Voiding Method Indwelling Catheter Indwelling Catheter Indwelling Catheter Weight 104.7 kg 104.7 kg 104.7 kg Patient Weight 10/19/16 06:59 Weight 104.7 kg ABP, PAP, CO, CI - Last 8 Hours Arterial Blood Pressure 129/56 Arterial Blood Pressure 128/55 Arterial Blood Pressure 131/55 Arterial Blood Pressure 114/50 Arterial Blood Pressure 119/55 Arterial Blood Pressure 116/50 Arterial Blood Pressure 129/58 Arterial Blood Pressure 127/57 Arterial Blood Pressure 120/58 Arterial Blood Pressure 114/53 Arterial Blood Pressure 124/59 Arterial Blood Pressure 115/55 Cardiac Output 9.6 Cardiac Output 9.6 Cardiac Output 9.6 Cardiac Output 9.6 Cardiac Output 9.6 Cardiac Output 9.6 Cardiac Output 9.6 Cardiac Output 9.6 Cardiac Output 9.6 GENERAL EXAM: Patient is alert and oriented and doesn't appear to be in any acute distress HEENT: Normocephalic. Normal reaction of pupils, equal size, normal range of extraocular motion. No erythema or exudates in the throat. NECK: No masses, no nuchal rigidity. CHEST: No chest wall deformity. LUNGS: Diminished breath sounds at bases HEART: S1 and S2 normal with no audible mumurs or gallops. Regular rhythm, ABDOMEN: No hepatosplenomegaly, normal bowel sounds, no guarding or rigidity. SKIN: No rashes CENTRAL NERVOUS SYSTEM: No focal deficits. EXTREMITIES: No cyanosis, clubbing or edema. Results 10/18/16 05:35 10/18/16 05:35 Cardiac Enzymes 10/18/16 Range/Units 05:35 AST 181 H (17-59) U/L Coagulation 10/18/16 Range/Units 05:35 PT 10.4 (9.0-12.0) sec APTT 26.4 (22.0-30.0) sec CBC 10/18/16 Range/Units 05:35 WBC 9.9 (3.8-10.6) k/uL RBC 4.06 L (4.30-5.90) m/uL Hgb 12.6 L (13.0-17.5) gm/dL Hct 38.2 L (39.0-53.0) % Plt Count 109 L (150-450) k/uL Comprehensive Metabolic Panel 10/18/16 Range/Units 05:35 Sodium 134 L (137-145) mmol/L Potassium 4.8 (3.5-5.1) mmol/L Chloride 101 (98-107) mmol/L Carbon Dioxide 28 (22-30) mmol/L BUN 18 (9-20) mg/dL Creatinine 0.90 (0.66-1.25) mg/dL Glucose 144 H (74-99) mg/dL Calcium 8.0 L (8.4-10.2) mg/dL AST 181 H (17-59) U/L ALT 210 H (21-72) U/L Alkaline Phosphatase 61 (38-126) U/L Total Protein 5.3 L (6.3-8.2) g/dL Albumin 3.1 L (3.5-5.0) g/dL Current Medications Generic Name Dose Route Start Last Admin Trade Name Freq PRN Reason Stop Dose Admin Hydrocodone Bitart/Acetaminophen 2 each 10/18/16 12:00 10/18/16 18:22 [place] 5-325 PO 2 each Q4HR PRN Administration Severe Pain Hydrocodone Bitart/Acetaminophen 1 each 10/18/16 12:00 [place] 5-325 PO Q4HR PRN Moderate Pain Albuterol/Ipratropium 3 ml 10/18/16 12:03 Duoneb 0.5 Mg-3 Mg/3 Ml Soln INHALATION RT-Q2H PRN Shortness Of Breath Or Wheezing Aspirin 325 mg 10/18/16 09:00 10/18/16 08:38 Aspirin PO 325 mg DAILY [facility] Administration Benzocaine/Menthol 1 each 10/17/16 12:56 Cepacol Lozenge MUCOUS MEM Q2H PRN Sore Throat Bisacodyl 10 mg 10/18/16 09:00 Dulcolax RECTAL DAILY PRN Constipation Budesonide/Formoterol Fumarate 2 puff 10/18/16 20:00 10/18/16 19:33 Symbicort 160-4.5 Mcg Inhaler INHALATION 2 puff RT-BID [facility] Administration Clopidogrel Bisulfate 75 mg 10/18/16 09:00 10/18/16 08:39 Plavix PO 75 mg DAILY [facility] Administration Heparin Sodium (Porcine) 5,000 unit 10/17/16 20:00 10/18/16 11:01 Heparin SQ 5,000 unit Q8H [facility] Administration Clevidipine 25 mg/ IV Solution 50 mls @ 2 mls/hr 10/17/16 13:15 10/18/16 18: 21 IV 4 mg/hr .Q24H [facility] 8 mls/hr Protocol Administration 1 MG/HR Insulin Human Regular 100 unit 101 mls @ 0 mls/hr 10/17/16 13:30 10/18/16 19: 47 / Sodium Chloride IV 13.5 ml/hr .Q0M [facility] 13.5 mls/hr Protocol Titration Per Protocol Lactated Ringer's 1,000 mls @ 50 mls/hr 10/17/16 13:00 10/18/16 08:39 Lactated Ringers IV 50 mls/hr .Q20H [facility] Administration Ipratropium [place] 0.5 mg 10/18/16 12:00 10/18/16 19:33 Atrovent Nebulized INHALATION 0.5 mg RT-QID [facility] Administration Levalbuterol HCl 0 mg 10/18/16 12:00 10/18/16 19:33 Xopenex Nebulized (Conc) INHALATION 1.25 mg RT-QID [facility] Administration Magnesium Hydroxide 2,400 mg 10/18/16 12:03 Milk Of Magnesia PO BID PRN Constipation Metoclopramide HCl 10 mg 10/17/16 12:56 Reglan IVP Q4H PRN Nausea And Vomiting Metoprolol Tartrate 25 mg 10/18/16 16:00 10/18/16 16:26 Lopressor PO 25 mg TID [facility] Administration Miscellaneous Information 1 each 10/17/16 12:56 Magnesium Per Protocol MISCELLANE DAILY PRN Per Protocol Protocol Miscellaneous Information 1 each 10/17/16 12:56 Phosphorus Per Protocol MISCELLANE DAILY PRN Per Protocol Protocol Miscellaneous Information 1 each 10/17/16 12:56 Potassium Per Protocol MISCELLANE DAILY PRN Per Protocol Protocol Ondansetron HCl 4 mg 10/17/16 12:56 10/18/16 05:42 Zofran IVP 4 mg Q6HR PRN Administration Nausea And Vomiting Pantoprazole Sodium 40 mg 10/19/16 07:30 Protonix PO AC-BRKFST [facility] Senna/Docusate Sodium 2 each 10/18/16 21:00 Senokot-S PO HS [facility] Sodium Chloride 10 ml 10/17/16 21:00 10/18/16 08:40 Saline Flush IV Not Given BID [facility] Intake and Output 10/18/16 10/18/16 10/18/16 06:59 14:59 22:59 Intake Total 1190.650 889.208 311.475 Output Total 834 1435 380 Balance 356.650 -545.792 -68.525 Intake: IV 812 657 224 ACETAMINOPHEN IV (For NPO 200 200 ) 1,000 mg In Empty Bag 1 bag @ 400 mls/hr IVPB Q6HR [facility] Rx#:[id number] CARDIAC OUTPUT 40 Lactated Ringers 1,000 ml 400 400 200 @ 50 mls/hr IV .Q20H [facility] Rx#:[id number] PRESSURE BAG 72 57 24 ceFAZolin 2,000 mg In 100 Sodium Chloride 0.9% 30 ml @ Per Protocol IVPB ONCE ONE Rx#:[id number] Intake, IV Titration 108.650 172.208 87.475 Amount Clevidipine Butyrate 25 94 38 50 mg In Empty Bag 1 bag @ 1 MG/HR 2 mls/hr IV .Q24H [facility] Rx#:[id number] Insulin Regular 100 unit 14.650 34.208 37.475 In Sodium Chloride 0.9% 100 ml @ Per Protocol IV .Q0M [facility] Rx#:[id number] ceFAZolin 2 gm In Sodium 100 Chloride 0.9% 100 ml @ 100 mls/hr IVPB Q8HR [facility] Rx#:[id number] Oral 270 60 Output: Chest Tube Drainage 368 475 110 Mediastinal 320 430 90 Right Pleural 48 45 20 Urine 466 960 270 Other: Voiding Method Indwelling Catheter Indwelling Catheter Indwelling Catheter Weight 104.7 kg 104.7 kg 104.7 kg Patient Weight 10/19/16 06:59 Weight 104.7 kg 10/18/16 05:35 10/18/16 05:35 Assessment and Plan (1) Aortic stenosis Status: Acute (2) Diabetes Status: Acute (3) Hyperlipidemia Status: Acute (4) Hypertension Status: Acute (5) Status post aortic valve replacement Status: Acute Plan: Patient seemed to be chronically doing well. Hemodynamically stable. Patient is currently on inhalers aspirin 325 mg Plavix 75 mg metoprolol 25 mg 3 times a day. We'll add a lipid-lowering agent. Further recommendations depend upon clinical course.
[2016-10-18 21:24] LABS: Glucose,Whole Blood 118 mg/dL (75-99)
[2016-10-18] MEDS: SENNOSIDES-DOCUSATE SODIUM 1 EACH TAB PO SCH (21:31)
[2016-10-18] MEDS: INSULIN REGULAR 100 UNIT in SODIUM CHLORIDE 0.9% 100 ML IV SCH (21:32)
[2016-10-18 22:01] LABS: Glucose,Whole Blood 112 mg/dL (75-99)
[2016-10-18 23:12] LABS: Glucose,Whole Blood 87 mg/dL (75-99)
[2016-10-19 00:04] LABS: Glucose,Whole Blood 106 mg/dL (75-99)
[2016-10-19 01:08] LABS: Glucose,Whole Blood 123 mg/dL (75-99)
[2016-10-19 02:16] LABS: Glucose,Whole Blood 118 mg/dL (75-99)
[2016-10-19 03:58] LABS: Glucose,Whole Blood 123 mg/dL (75-99)
[2016-10-19] MEDS: HEPARIN SODIUM,PORCINE 5,000 UNIT/ML 1 ML VIAL SQ SCH ×3 (04:11→20:03)
[2016-10-19] MEDS: CLEVIDIPINE BUTYRATE 25 MG in EMPTY BAG 1 BAG IV SCH ×3 (04:12→08:03)
[2016-10-19] MEDS: LACTATED RINGERS 1,000 ML IV SCH ×3 (04:13→18:36)
[2016-10-19 04:23] LABS: Basophils # (A) 0.1 k/uL (0-0.2); Basophils % (A) 0 %; CH 30.7; Eosinophils # (A) 0.1 k/uL (0-0.7); Eosinophils % (A) 1 %; HCT 38.7 % (39.0-53.0); HDW 2.42; HGB 12.4 gm/dL (13.0-17.5); Luc # (Auto) 0.24; Luc % (Auto) 2; Lymphocytes # (A) 0.8 k/uL (1.0-4.8); Lymphocytes % (A) 6 %; MCHC 32.2 g/dL (31.0-37.0); MCV 96.5 fL (80.0-100.0); Mean Platelet Volume 8.2; Monocytes # (A) 1.1 k/uL (0-1.0); Monocytes % (A) 8 %; Neutrophils # (A) 12.2 k/uL (1.3-7.7); Neutrophils % (A) 84 %; RBC 4.01 m/uL (4.30-5.90); RDW 13.6 % (11.5-15.5); WBC 14.5 k/uL (3.8-10.6); WBC (Perox) 14.37
[2016-10-19 04:28] LABS: Ionized Calcium 4.8 mg/dL (4.5-5.3)
[2016-10-19 04:36] LABS: INR 1.2 (<1.1); Prothrombin Time 11.8 sec (9.0-12.0)
[2016-10-19 04:51] LABS: ALT 127 U/L (21-72); AST 62 U/L (17-59); Alkaline Phosphatase 76 U/L (38-126); Anion Gap 6 mmol/L; Blood Urea Nitrogen 16 mg/dL (9-20); Carbon Dioxide 28 mmol/L (22-30); Chloride 99 mmol/L (98-107); Glucose 118 mg/dL (74-99); Magnesium 2.3 mg/dL (1.6-2.3); Non-African American GFR(MDRD) >60 (>60 ml/min/1.73 sqM); Potassium 4.7 mmol/L (3.5-5.1); Sodium 133 mmol/L (137-145); Total Bilirubin 1.6 mg/dL (0.2-1.3); Total Protein 5.2 g/dL (6.3-8.2)
[2016-10-19 05:13] LABS: Glucose,Whole Blood 102 mg/dL (75-99)
[2016-10-19 06:02] LABS: Glucose,Whole Blood 109 mg/dL (75-99)
[2016-10-19 07:07] LABS: Glucose,Whole Blood 134 mg/dL (75-99)
[2016-10-19] MEDS: IPRATROPIUM 0.5 MG/2.5 ML NEBU INHALATION SCH ×4 (07:52→19:42)
[2016-10-19] MEDS: SYMBICORT 160-4.5 MCG INHALER INHALATION SCH ×2 (07:52→19:32)
[2016-10-19] MEDS: LEVALBUTEROL NEB (CONC) 1.25 MG/0.5 ML AMP INHALATION SCH ×4 (07:53→19:42)
--- NOTE | 2016-10-19 08:04 | XR ---
EXAMINATION TYPE: XR chest 1V portable DATE OF EXAM: 10/19/2016 7:08 AM HISTORY: Shortness of breath. COMPARISON: 10/18/2016 TECHNIQUE: Single view of the chest is submitted. FINDINGS: Demonstrated are scattered senescent parenchymal change. Right-sided chest tube is in place without e vidence for pneumothorax. [place]-Hong catheter has been removed at the right IJ sheath in place. Persistent left basilar infiltrate and/or effusion. The pulmonary venous congestion without overt meredith lure. The heart is stable. Hilar and mediastinal structures are within normal limits. Degenerative changes are seen of the dorsal spine. IMPRESSION: 1. Stable chest.
[2016-10-19 08:08] LABS: Glucose,Whole Blood 138 mg/dL (75-99)
[2016-10-19] MEDS: ASPIRIN 325 MG TAB PO SCH (08:13)
[2016-10-19] MEDS: CLOPIDOGREL 75 MG TAB PO SCH (08:13)
[2016-10-19] MEDS: LISINOPRIL 5 MG TAB PO SCH (08:13)
[2016-10-19] MEDS: PANTOPRAZOLE 40 MG TABLET PO SCH (08:13)
[2016-10-19] MEDS: METOPROLOL TARTRATE 50 MG TAB PO SCH ×2 (08:14→20:03)
[2016-10-19] MEDS ORDERED: FUROSEMIDE 10 MG/ML 2 ML VIAL IV ONE (08:36)
[2016-10-19] MEDS: HYDROcodone/APAP 5-325MG 1 EACH TAB PO PRN ×3 (08:49→18:34)
[2016-10-19 09:10] LABS: Glucose,Whole Blood 175 mg/dL (75-99)
[2016-10-19 09:56] LABS: Glucose,Whole Blood 209 mg/dL (75-99)
--- NOTE | 2016-10-19 10:47 | P.PN ---
Subjective Principal diagnosis: Severe aortic valve stenosis. Mild coronary artery disease. Hypertension. Hyperlipidemia. Diabetes mellitus. Obesity. POD #2 aortic valve replacement using a 23 mm pericardial bioprosthesis Magna Ease. Exclusion of the left atrial appendage using a 35 mm AtriClip. Intraoperative transesophageal echocardiogram and scanning. Patient awake and alert, up in a recliner. No distress noted. Heart rate, blood pressure slightly elevated overnight. Patient did have episodes of oxygen desaturation into the high 80s during the night requiring increased FiO2 needs. Chest x-ray reviewed. States his pain is controlled on current medication regimen. Objective - Vital Signs Vital signs: Vital Signs Temp 99.1 F 10/19/16 08:00 Pulse 91 10/19/16 10:00 Resp 19 10/19/16 08:00 BP 115/62 10/19/16 10:00 Pulse Ox 95 10/19/16 10:00 Intake & Output 10/18/16 10/19/16 10/19/16 18:59 06:59 18:59 Intake Total 1186.016 872.118 202.333 Output Total 1815 1956 595 Balance -628.984 -1083.882 -392.667 Weight 104.7 kg 104.7 kg Intake: IV 881 422 56 ACETAMINOPHEN IV (For NPO 200 ) 1,000 mg In Empty Bag 1 bag @ 400 mls/hr IVPB Q6HR [facility] Rx#:[id number] Lactated Ringers 1,000 ml 600 350 50 @ 20 mls/hr IV .Q24H [facility] Rx#:[id number] PRESSURE BAG 81 72 6 Intake, IV Titration 245.016 210.118 146.333 Amount Clevidipine Butyrate 25 88 150.000 86.233 mg In Empty Bag 1 bag @ 1 MG/HR 2 mls/hr IV .Q24H [facility] Rx#:[id number] Insulin Regular 100 unit 57.016 60.118 20.100 In Sodium Chloride 0.9% 100 ml @ Per Protocol IV .Q0M [facility] Rx#:[id number] Lactated Ringers 1,000 ml 40 @ 20 mls/hr IV .Q24H [facility] Rx#:[id number] ceFAZolin 2 gm In Sodium 100 Chloride 0.9% 100 ml @ 100 mls/hr IVPB Q8HR [facility] Rx#:[id number] Oral 60 240 Output: Chest Tube Drainage 585 196 40 Mediastinal 520 160 20 Right Pleural 65 36 20 Urine 1230 1760 555 Other: Voiding Method Indwelling Catheter Indwelling Catheter Indwelling Catheter ABP, PAP, CO, CI - Last Documented Arterial Blood Pressure 94/63 Pulmonary Artery Pressure 31/5 Cardiac Output 9.6 Cardiac Index 4.4 - Constitutional General appearance: Present: cooperative, no acute distress - Respiratory Details: Lungs sounds was bilaterally. Respirations even, nonlabored. Currently on 10 L high flow nasal cannula. Able to achieve 1000 mL on his incentive spirometry. Effective cough. Mediastinal chest tube drained 150 mL serous fluid overnight, 600 mL in the last 24 hours. Right pleural chest tube drained 30 mL serous fluid overnight, 110 mL in the last 24 hours. - Cardiovascular Details: S1, S2 present. Tachycardia rate, regular rhythm, sinus tach on telemetry. Sternum stable. Heart hugger in place with patient demonstrating appropriate use. Teds/SCDs present. No edema present. - Gastrointestinal Gastrointestinal Comment(s): Abdomen soft, nontender, nondistended. Active bowel sounds 4 quadrants. Tolerating diet. - Genitourinary Genitourinary Comment(s): Fonseca present draining clear, yellow urine. Output 75-200 mL/h overnight. - Integumentary Integumentary Comment(s): Anterior chest incision covered with dry intact silver dressing. - Musculoskeletal Musculoskeletal: Present: gait normal, strength equal bilaterally - Psychiatric Psychiatric: Present: A&O x's 3, appropriate affect, intact judgment & insight - Allied health notes Allied health notes reviewed: nursing - Labs CBC & Chem 7: 10/19/16 04:05 10/19/16 04:05 Labs: Abnormal Lab Results - Last 24 Hours (Table) 10/18/16 10/18/16 10/18/16 Range/Units 11:02 13:36 14:25 WBC (3.8-10.6) k/uL RBC (4.30-5.90) m/uL Hgb (13.0-17.5) gm/dL Hct (39.0-53.0) % Plt Count (150-450) k/uL Neutrophils # (1.3-7.7) k/uL Lymphocytes # (1.0-4.8) k/uL Monocytes # (0-1.0) k/uL Sodium (137-145) mmol/L Glucose (74-99) mg/dL POC Glucose (mg/dL) 154 H 124 H 131 H (75-99) mg/dL Calcium (8.4-10.2) mg/dL Total Bilirubin (0.2-1.3) mg/dL AST (17-59) U/L ALT (21-72) U/L Total Protein (6.3-8.2) g/dL Albumin (3.5-5.0) g/dL 10/18/16 10/18/16 10/18/16 Range/Units 15:54 17:06 18:26 WBC (3.8-10.6) k/uL RBC (4.30-5.90) m/uL Hgb (13.0-17.5) gm/dL Hct (39.0-53.0) % Plt Count (150-450) k/uL Neutrophils # (1.3-7.7) k/uL Lymphocytes # (1.0-4.8) k/uL Monocytes # (0-1.0) k/uL Sodium (137-145) mmol/L Glucose (74-99) mg/dL POC Glucose (mg/dL) 152 H 169 H 216 H (75-99) mg/dL Calcium (8.4-10.2) mg/dL Total Bilirubin (0.2-1.3) mg/dL AST (17-59) U/L ALT (21-72) U/L Total Protein (6.3-8.2) g/dL Albumin (3.5-5.0) g/dL 10/18/16 10/18/16 10/18/16 Range/Units 19:27 21:22 21:59 WBC (3.8-10.6) k/uL RBC (4.30-5.90) m/uL Hgb (13.0-17.5) gm/dL Hct (39.0-53.0) % Plt Count (150-450) k/uL Neutrophils # (1.3-7.7) k/uL Lymphocytes # (1.0-4.8) k/uL Monocytes # (0-1.0) k/uL Sodium (137-145) mmol/L Glucose (74-99) mg/dL POC Glucose (mg/dL) 223 H 118 H 112 H (75-99) mg/dL Calcium (8.4-10.2) mg/dL Total Bilirubin (0.2-1.3) mg/dL AST (17-59) U/L ALT (21-72) U/L Total Protein (6.3-8.2) g/dL Albumin (3.5-5.0) g/dL 10/19/16 10/19/16 10/19/16 Range/Units 00:03 01:06 02:15 WBC (3.8-10.6) k/uL RBC (4.30-5.90) m/uL Hgb (13.0-17.5) gm/dL Hct (39.0-53.0) % Plt Count (150-450) k/uL Neutrophils # (1.3-7.7) k/uL Lymphocytes # (1.0-4.8) k/uL Monocytes # (0-1.0) k/uL Sodium (137-145) mmol/L Glucose (74-99) mg/dL POC Glucose (mg/dL) 106 H 123 H 118 H (75-99) mg/dL Calcium (8.4-10.2) mg/dL Total Bilirubin (0.2-1.3) mg/dL AST (17-59) U/L ALT (21-72) U/L Total Protein (6.3-8.2) g/dL Albumin (3.5-5.0) g/dL 10/19/16 10/19/16 10/19/16 Range/Units 03:56 04:05 04:05 WBC 14.5 H (3.8-10.6) k/uL RBC 4.01 L (4.30-5.90) m/uL Hgb 12.4 L (13.0-17.5) gm/dL Hct 38.7 L (39.0-53.0) % Plt Count 102 L (150-450) k/uL Neutrophils # 12.2 H (1.3-7.7) k/uL Lymphocytes # 0.8 L (1.0-4.8) k/uL Monocytes # 1.1 H (0-1.0) k/uL Sodium 133 L (137-145) mmol/L Glucose 118 H (74-99) mg/dL POC Glucose (mg/dL) 123 H (75-99) mg/dL Calcium 8.0 L (8.4-10.2) mg/dL Total Bilirubin 1.6 H (0.2-1.3) mg/dL AST 62 H (17-59) U/L ALT 127 H (21-72) U/L Total Protein 5.2 L (6.3-8.2) g/dL Albumin 2.7 L (3.5-5.0) g/dL 10/19/16 10/19/16 10/19/16 Range/Units 05:11 06:01 07:06 WBC (3.8-10.6) k/uL RBC (4.30-5.90) m/uL Hgb (13.0-17.5) gm/dL Hct (39.0-53.0) % Plt Count (150-450) k/uL Neutrophils # (1.3-7.7) k/uL Lymphocytes # (1.0-4.8) k/uL Monocytes # (0-1.0) k/uL Sodium (137-145) mmol/L Glucose (74-99) mg/dL POC Glucose (mg/dL) 102 H 109 H 134 H (75-99) mg/dL Calcium (8.4-10.2) mg/dL Total Bilirubin (0.2-1.3) mg/dL AST (17-59) U/L ALT (21-72) U/L Total Protein (6.3-8.2) g/dL Albumin (3.5-5.0) g/dL 10/19/16 10/19/16 10/19/16 Range/Units 08:05 09:03 09:54 WBC (3.8-10.6) k/uL RBC (4.30-5.90) m/uL Hgb (13.0-17.5) gm/dL Hct (39.0-53.0) % Plt Count (150-450) k/uL Neutrophils # (1.3-7.7) k/uL Lymphocytes # (1.0-4.8) k/uL Monocytes # (0-1.0) k/uL Sodium (137-145) mmol/L Glucose (74-99) mg/dL POC Glucose (mg/dL) 138 H 175 H 209 H (75-99) mg/dL Calcium (8.4-10.2) mg/dL Total Bilirubin (0.2-1.3) mg/dL AST (17-59) U/L ALT (21-72) U/L Total Protein (6.3-8.2) g/dL Albumin (3.5-5.0) g/dL - Imaging and Cardiology Chest x-ray: image reviewed Assessment and Plan (1) Severe obesity (BMI 35.0-39.9) Status: Acute (2) Aortic stenosis Status: Acute (3) Diabetes Status: Acute (4) Hyperlipidemia Status: Acute (5) Hypertension Status: Acute (6) Status post aortic valve replacement Status: Acute Plan: 1. Continue aspirin, Plavix, heparin. Will increase Lopressor to 50 mg twice a day. Will add lisinopril 5 mg daily. 2. Will continue to hold statin for now secondary to elevated liver enzymes. 3. Will give 20 mg IV push Lasix 1 today. DC Fonseca after Lasix given. 4. Wean off Cleviprex. 5. Insulin/diabetic management per primary care service. 6. Will reexamine chest tube output this afternoon. If output has significantly decreased may DC mediastinal chest tube. 7. Encourage incentive spirometry use and coughing with heart hugger use. Wean O2 as tolerated. 8. Increase activity, ambulate in hallway. Physical therapy to follow. 9. GI/DVT prophylaxis. 10. Monitor daily labs, x-rays. 11. If able to wean off Cleviprex and wean down oxygen requirements will consider transferring out of the ICU later this afternoon. Time with Patient: Greater than 30
[2016-10-19 11:12] LABS: Glucose,Whole Blood 180 mg/dL (75-99)
[2016-10-19 11:56] LABS: Glucose,Whole Blood 164 mg/dL (75-99)
[2016-10-19] MEDS: INSULIN GLARGINE 100 UNIT/ML 10 ML VIAL SQ SCH (12:16)
[2016-10-19 13:10] LABS: Glucose,Whole Blood 165 mg/dL (75-99)
[2016-10-19] MEDS: INSULIN REGULAR 100 UNIT in SODIUM CHLORIDE 0.9% 100 ML IV SCH (13:14)
--- NOTE | 2016-10-19 13:30 | P.PN ---
Subjective 61-year-old male one of Dr. Cochran patient with past medical history of diabetes, hypertension, hyperlipidemia who has been having worsening shortness of breath and palpitation. He has been followed for aortic stenosis and valvular heart disease by cardiology for the last year. Heart catheter was done in August 2016 showed severe advance aortic stenosis with no vessel involvement. Patient was refer to cardiothoracic surgery and scheduled for elective aortic valve placement today for 2016. Following surgery patient was on mechanical ventilation as postsurgical respiratory failure. Pulmonary were consulted in his care. Patient will be on insulin drip Accu-Chek with sliding scales coverage. Patient is stable hemodynamically in the ICU. 10/18: Patient was successfully extubated yesterday. He is currently on nasal cannula. Heart rate is running in the 80s to 90s. Blood pressure is stable and he is on Clevidipine. Pain appears to be controlled at this time. 10/19: Plan to transition patient to Lantus, and Humalog scale. He was given 1 dose of IV Lasix and Fonseca is to be discontinued today. Cleviprex to be discontinued. Plan is to increase activity and possible transfer out of ICU later today. Objective - Vital Signs Vital signs: Vital Signs Temp 99.1 F 10/19/16 08:00 Pulse 91 10/19/16 10:00 Resp 19 10/19/16 08:00 BP 115/62 10/19/16 10:00 Pulse Ox 95 10/19/16 10:00 Intake & Output 10/18/16 10/19/16 10/19/16 18:59 06:59 18:59 Intake Total 1186.016 872.118 202.333 Output Total 1815 6 595 Balance -628.984 -1083.882 -392.667 Weight 104.7 kg 104.7 kg Intake: IV 881 422 56 ACETAMINOPHEN IV (For NPO 200 ) 1,000 mg In Empty Bag 1 bag @ 400 mls/hr IVPB Q6HR [facility] Rx#:[id number] Lactated Ringers 1,000 ml 600 350 50 @ 20 mls/hr IV .Q24H [facility] Rx#:[id number] PRESSURE BAG 81 72 6 Intake, IV Titration 245.016 210.118 146.333 Amount Clevidipine Butyrate 25 88 150.000 86.233 mg In Empty Bag 1 bag @ 1 MG/HR 2 mls/hr IV .Q24H [facility] Rx#:[id number] Insulin Regular 100 unit 57.016 60.118 20.100 In Sodium Chloride 0.9% 100 ml @ Per Protocol IV .Q0M [facility] Rx#:[id number] Lactated Ringers 1,000 ml 40 @ 20 mls/hr IV .Q24H [facility] Rx#:[id number] ceFAZolin 2 gm In Sodium 100 Chloride 0.9% 100 ml @ 100 mls/hr IVPB Q8HR [facility] Rx#:[id number] Oral 60 240 Output: Chest Tube Drainage 585 196 40 Mediastinal 520 160 20 Right Pleural 65 36 20 Urine 1230 1760 555 Other: Voiding Method Indwelling Catheter Indwelling Catheter Indwelling Catheter ABP, PAP, CO, CI - Last Documented Arterial Blood Pressure 94/63 Pulmonary Artery Pressure 31/5 Cardiac Output 9.6 Cardiac Index 4.4 - Exam On mechanical ventilation. General appearance: no average body habitus, no cooperative, no disheveled, no mild distress, no morbidly obese, no acute distress, no obese, no severe distress, no thin - EENT Eyes: no abnormal pupil, no anicteric sclerae, no disc margins sharp, no edentulous, no EOMI, no PERRLA, no fundus normal, no photophobia, no dentition normal, no poor dentition, no ptosis, no scleral icterus, normal appearance ENT: no hard of hearing, no hearing grossly normal, no NA/AT, normal oropharynx , no other, no pharyngeal erythema, no thrush, no tonsillar exudates, no tonsillar swelling Ears: bilateral: normal - Neck Neck: no lymphadenopathy, normal ROM, no other, no rigidity, no stridor, no thyromegaly Carotids: bilateral: upstroke normal Thyroid: bilateral: normal size - Respiratory Respiratory: bilateral: diminished, dullness, rales - Cardiovascular Rhythm: regular Heart sounds: normal: S1, S2 Abnormal Heart Sounds: systolic murmur, S3 Gallop - Gastrointestinal General gastrointestinal: no absent bowel sounds, decreased bowel sounds, no distended, no hepatomegaly, no hyperactive bowel sounds, no normal bowel sounds , no organomegaly, no rigid, no scaphoid, soft, no splenomegaly, no tenderness, no umbilical hernia, no ventral hernia - Integumentary Integumentary: no calor, no cellulitis, no cyanotic, no decreased turgor, no flushed, no jaundiced, normal, no normal turgor, pale, no rash, no ulcer - Neurologic Neurologic: CNII-XII intact - Musculoskeletal Musculoskeletal: gait normal, generalized weakness, no strength equal bilaterally, no right sided weakness, no left sided weakness - Psychiatric Psychiatric: A&O x's 3 - Labs CBC & Chem 7: 10/19/16 04:05 10/19/16 04:05 Labs: Abnormal Lab Results - Last 24 Hours (Table) 10/18/16 10/18/16 10/18/16 Range/Units 10:09 11:02 13:36 WBC (3.8-10.6) k/uL RBC (4.30-5.90) m/uL Hgb (13.0-17.5) gm/dL Hct (39.0-53.0) % Plt Count (150-450) k/uL Neutrophils # (1.3-7.7) k/uL Lymphocytes # (1.0-4.8) k/uL Monocytes # (0-1.0) k/uL Sodium (137-145) mmol/L Glucose (74-99) mg/dL POC Glucose (mg/dL) 177 H 154 H 124 H (75-99) mg/dL Calcium (8.4-10.2) mg/dL Total Bilirubin (0.2-1.3) mg/dL AST (17-59) U/L ALT (21-72) U/L Total Protein (6.3-8.2) g/dL Albumin (3.5-5.0) g/dL 10/18/16 10/18/16 10/18/16 Range/Units 14:25 15:54 17:06 WBC (3.8-10.6) k/uL RBC (4.30-5.90) m/uL Hgb (13.0-17.5) gm/dL Hct (39.0-53.0) % Plt Count (150-450) k/uL Neutrophils # (1.3-7.7) k/uL Lymphocytes # (1.0-4.8) k/uL Monocytes # (0-1.0) k/uL Sodium (137-145) mmol/L Glucose (74-99) mg/dL POC Glucose (mg/dL) 131 H 152 H 169 H (75-99) mg/dL Calcium (8.4-10.2) mg/dL Total Bilirubin (0.2-1.3) mg/dL AST (17-59) U/L ALT (21-72) U/L Total Protein (6.3-8.2) g/dL Albumin (3.5-5.0) g/dL 10/18/16 10/18/16 10/18/16 Range/Units 18:26 19:27 21:22 WBC (3.8-10.6) k/uL RBC (4.30-5.90) m/uL Hgb (13.0-17.5) gm/dL Hct (39.0-53.0) % Plt Count (150-450) k/uL Neutrophils # (1.3-7.7) k/uL Lymphocytes # (1.0-4.8) k/uL Monocytes # (0-1.0) k/uL Sodium (137-145) mmol/L Glucose (74-99) mg/dL POC Glucose (mg/dL) 216 H 223 H 118 H (75-99) mg/dL Calcium (8.4-10.2) mg/dL Total Bilirubin (0.2-1.3) mg/dL AST (17-59) U/L ALT (21-72) U/L Total Protein (6.3-8.2) g/dL Albumin (3.5-5.0) g/dL 10/18/16 10/19/16 10/19/16 Range/Units 21:59 00:03 01:06 WBC (3.8-10.6) k/uL RBC (4.30-5.90) m/uL Hgb (13.0-17.5) gm/dL Hct (39.0-53.0) % Plt Count (150-450) k/uL Neutrophils # (1.3-7.7) k/uL Lymphocytes # (1.0-4.8) k/uL Monocytes # (0-1.0) k/uL Sodium (137-145) mmol/L Glucose (74-99) mg/dL POC Glucose (mg/dL) 112 H 106 H 123 H (75-99) mg/dL Calcium (8.4-10.2) mg/dL Total Bilirubin (0.2-1.3) mg/dL AST (17-59) U/L ALT (21-72) U/L Total Protein (6.3-8.2) g/dL Albumin (3.5-5.0) g/dL 10/19/16 10/19/16 10/19/16 Range/Units 02:15 03:56 04:05 WBC (3.8-10.6) k/uL RBC (4.30-5.90) m/uL Hgb (13.0-17.5) gm/dL Hct (39.0-53.0) % Plt Count (150-450) k/uL Neutrophils # (1.3-7.7) k/uL Lymphocytes # (1.0-4.8) k/uL Monocytes # (0-1.0) k/uL Sodium 133 L (137-145) mmol/L Glucose 118 H (74-99) mg/dL POC Glucose (mg/dL) 118 H 123 H (75-99) mg/dL Calcium 8.0 L (8.4-10.2) mg/dL Total Bilirubin 1.6 H (0.2-1.3) mg/dL AST 62 H (17-59) U/L ALT 127 H (21-72) U/L Total Protein 5.2 L (6.3-8.2) g/dL Albumin 2.7 L (3.5-5.0) g/dL 10/19/16 10/19/16 10/19/16 Range/Units 04:05 05:11 06:01 WBC 14.5 H (3.8-10.6) k/uL RBC 4.01 L (4.30-5.90) m/uL Hgb 12.4 L (13.0-17.5) gm/dL Hct 38.7 L (39.0-53.0) % Plt Count 102 L (150-450) k/uL Neutrophils # 12.2 H (1.3-7.7) k/uL Lymphocytes # 0.8 L (1.0-4.8) k/uL Monocytes # 1.1 H (0-1.0) k/uL Sodium (137-145) mmol/L Glucose (74-99) mg/dL POC Glucose (mg/dL) 102 H 109 H (75-99) mg/dL Calcium (8.4-10.2) mg/dL Total Bilirubin (0.2-1.3) mg/dL AST (17-59) U/L ALT (21-72) U/L Total Protein (6.3-8.2) g/dL Albumin (3.5-5.0) g/dL 10/19/16 10/19/16 10/19/16 Range/Units 07:06 08:05 09:03 WBC (3.8-10.6) k/uL RBC (4.30-5.90) m/uL Hgb (13.0-17.5) gm/dL Hct (39.0-53.0) % Plt Count (150-450) k/uL Neutrophils # (1.3-7.7) k/uL Lymphocytes # (1.0-4.8) k/uL Monocytes # (0-1.0) k/uL Sodium (137-145) mmol/L Glucose (74-99) mg/dL POC Glucose (mg/dL) 134 H 138 H 175 H (75-99) mg/dL Calcium (8.4-10.2) mg/dL Total Bilirubin (0.2-1.3) mg/dL AST (17-59) U/L ALT (21-72) U/L Total Protein (6.3-8.2) g/dL Albumin (3.5-5.0) g/dL 10/19/16 Range/Units 09:54 WBC (3.8-10.6) k/uL RBC (4.30-5.90) m/uL Hgb (13.0-17.5) gm/dL Hct (39.0-53.0) % Plt Count (150-450) k/uL Neutrophils # (1.3-7.7) k/uL Lymphocytes # (1.0-4.8) k/uL Monocytes # (0-1.0) k/uL Sodium (137-145) mmol/L Glucose (74-99) mg/dL POC Glucose (mg/dL) 209 H (75-99) mg/dL Calcium (8.4-10.2) mg/dL Total Bilirubin (0.2-1.3) mg/dL AST (17-59) U/L ALT (21-72) U/L Total Protein (6.3-8.2) g/dL Albumin (3.5-5.0) g/dL Assessment and Plan Plan: 1 severe aortic stenosis: Post aortic valve placement. 2 post aortic valve placement: Continue postsurgical care. 3 post surgery respiratory failure: Was on mechanical ventilation continue current management hopefully wearable off the vent very quickly after surgery 4 hypertension: Stable was on amlodipine Benzapril as soon as he is able take oral meds will be starting him on it. 5 diabetes: Type II he has been on metformin, Prandin and Lantus . Insulin drip to be discontinued and patient started back on Lantus, and Humalog scale. Oral diabetic agents left on hold at this time. 6 hyperlipidemia: Pravastatin on hold due to elevated liver function tests. 7 arrhythmia: Keep watching patient hemodynamic status for any form of arrhythmia in the next 3 days. 8 GI prophylaxis: Patient will be continue on PPI or H2 esmer. 9 DVT prophylaxis: Continue knee-high HUMZA hose and Venodyne boots and continue DVT prophylaxis protocol. CODE STATUS: Full code. Discharge planning: To be determined Impression and plan of care have been directed as dictated by the signing physician. Vale Nair nurse practitioner acting as scribe for signing physician. Time with Patient: Greater than 30
[2016-10-19 14:00] LABS: Glucose,Whole Blood 132 mg/dL (75-99)
[2016-10-19 15:01] LABS: Glucose,Whole Blood 141 mg/dL (75-99)
--- NOTE | 2016-10-19 15:54 | PN ---
DATE OF SERVICE: 10/19/2016 This is a very pleasant 61-year-old gentleman who follows with Dr. Cochran as his primary care physician. He has a history of diabetes mellitus, hypertension, hyperlipidemia, sleep apnea, remote history of smoking. He presented here on 10/17/2016 for an elective aortic valve replacement which was performed by Dr. Comer that same day. He was found to have severe aortic valve stenosis and his aortic valve was replaced using a #23 mm pericardial bioprosthetic Magna Ease valve. This is postoperative day number 2. He is seen in followup in the intensive care unit. He is awake and alert, in no acute distress. His chest x-ray is stable. He is requiring 10 liters of high-flow nasal cannula currently. He remains on IV Cleviprex at 14 mg/hour. He is on an insulin drip at 7 units/hour. He has 0.9 normal saline at 10 mL/hour and lactated Ringer's at 20 mL/hour. He denies any worsening shortness of breath, cough or congestion. He is working well with his incentive spirometer. He is maintaining oxygen saturations in the mid 90s on 10 liters of high flow. On physical exam he is alert and oriented, in no acute distress. Vital signs reveal blood pressure 132/54, heart rate 99, respirations 16. Temperature is 99.1. He is 94% oxygen saturation. His head is normocephalic, sclerae anicteric. His neck is supple, trachea midline. His sternal dressing is dry and intact. His lungs are clear anteriorly. They are diminished in posterior bases, more so on the left. His heart is currently regular, S1, S2. His abdomen is soft, nontender. Bowel sounds are present. There is trace peripheral edema. No clubbing. No cyanosis. There is no significant peripheral edema. No clubbing. No cyanosis. Peripheral pulses are intact. INVESTIGATIONS: Chest x-ray reveals left basilar infiltrate/effusion and some mild pulmonary venous congestion. Lab results reveal WBC 14.5, hemoglobin 12.4, platelet count 102,000; sodium 133, potassium 4.7, chloride 99, CO2 of 28; BUN 16, creatinine 0.83; AST 62, ALT 127. His medications are reviewed. IMPRESSION: 1. Severe aortic stenosis, status post aortic valve replacement utilizing a 23 mm pericardial bioprosthesis Magna Ease valve. 2. Mild coronary artery disease. 3. Hypertension. 4. Hyperlipidemia. 5. Diabetes mellitus. 6. Obesity. 7. Acute hypoxic respiratory failure as an expected outcome of thoracotomy, currently utilizing 10 liters of high flow to maintain oxygen saturations in the 90s. PLAN: The patient was seen and evaluated by Dr. Sotomayor. His chest x-ray and labs were reviewed. Will continue with the patient's current medications. He is again encouraged regarding the increased use of the incentive spirometer and cough and deep breathing exercises. Will increase his activity as tolerated. Will continue to follow.
[2016-10-19 16:09] LABS: Glucose,Whole Blood 123 mg/dL (75-99)
[2016-10-19 18:14] LABS: Glucose,Whole Blood 157 mg/dL (75-99)
--- NOTE | 2016-10-19 18:16 | P.PN ---
Subjective Principal diagnosis: Status post mitral valve replacement This patient is status post mitral valve replacement. Patient blood pressure is running high.. Patient also had some issues with oxygenation during the night.. He appears to be alert and doesn't appear to be in acute distress. He is sitting in the chair. He is on beta esmer and lisinopril for blood pressure control. His possible that patient may be transferred to stepdown unit later today Objective - Vital Signs Vital signs: Vital Signs Temp 98.6 F 10/19/16 12:00 Pulse 99 10/19/16 17:00 Resp 18 10/19/16 17:00 BP 94/60 10/19/16 15:00 Pulse Ox 95 10/19/16 17:00 Intake & Output 10/18/16 10/19/16 10/19/16 18:59 06:59 18:59 Intake Total 1186.016 872.118 847.175 Output Total 1815 1956 1370 Balance -628.984 -1083.882 -522.825 Weight 104.7 kg 104.7 kg Intake: IV 881 422 176 ACETAMINOPHEN IV (For NPO 200 ) 1,000 mg In Empty Bag 1 bag @ 400 mls/hr IVPB Q6HR [facility] Rx#:[id number] Lactated Ringers 1,000 ml 600 350 170 @ 20 mls/hr IV .Q24H [facility] Rx#:[id number] PRESSURE BAG 81 72 6 Intake, IV Titration 245.016 210.118 231.175 Amount Clevidipine Butyrate 25 88 150.000 100.000 mg In Empty Bag 1 bag @ 1 MG/HR 2 mls/hr IV .Q24H [facility] Rx#:[id number] Insulin Regular 100 unit 57.016 60.118 71.175 In Sodium Chloride 0.9% 100 ml @ Per Protocol IV .Q0M [facility] Rx#:[id number] Lactated Ringers 1,000 ml 60 @ 20 mls/hr IV .Q24H [facility] Rx#:[id number] ceFAZolin 2 gm In Sodium 100 Chloride 0.9% 100 ml @ 100 mls/hr IVPB Q8HR [facility] Rx#:[id number] Oral 60 240 440 Output: Chest Tube Drainage 585 196 220 Mediastinal 520 160 110 Right Pleural 65 36 110 Urine 1230 1760 1150 Other: Voiding Method Indwelling Catheter Indwelling Catheter Urinal ABP, PAP, CO, CI - Last Documented Arterial Blood Pressure 150/65 Pulmonary Artery Pressure 31/5 Cardiac Output 9.6 Cardiac Index 4.4 - Exam GENERAL EXAM: Patient is alert and oriented and doesn't appear to be in any acute distress HEENT: Normocephalic. Normal reaction of pupils, equal size, normal range of extraocular motion. No erythema or exudates in the throat. NECK: No masses, no nuchal rigidity. CHEST: No chest wall deformity. LUNGS: Diminished breath sounds HEART: S1 and S2 normal with no audible mumurs or gallops. Regular rhythm,.. ABDOMEN: No hepatosplenomegaly, normal bowel sounds, no guarding or rigidity. SKIN: No rashes CENTRAL NERVOUS SYSTEM: No focal deficits. EXTREMITIES: No cyanosis, clubbing or edema. - Labs CBC & Chem 7: 10/19/16 04:05 10/19/16 04:05 Labs: Abnormal Lab Results - Last 24 Hours (Table) 10/18/16 10/18/16 10/18/16 Range/Units 18:26 19:27 21:22 WBC (3.8-10.6) k/uL RBC (4.30-5.90) m/uL Hgb (13.0-17.5) gm/dL Hct (39.0-53.0) % Plt Count (150-450) k/uL Neutrophils # (1.3-7.7) k/uL Lymphocytes # (1.0-4.8) k/uL Monocytes # (0-1.0) k/uL Sodium (137-145) mmol/L Glucose (74-99) mg/dL POC Glucose (mg/dL) 216 H 223 H 118 H (75-99) mg/dL Calcium (8.4-10.2) mg/dL Total Bilirubin (0.2-1.3) mg/dL AST (17-59) U/L ALT (21-72) U/L Total Protein (6.3-8.2) g/dL Albumin (3.5-5.0) g/dL 10/18/16 10/19/16 10/19/16 Range/Units 21:59 00:03 01:06 WBC (3.8-10.6) k/uL RBC (4.30-5.90) m/uL Hgb (13.0-17.5) gm/dL Hct (39.0-53.0) % Plt Count (150-450) k/uL Neutrophils # (1.3-7.7) k/uL Lymphocytes # (1.0-4.8) k/uL Monocytes # (0-1.0) k/uL Sodium (137-145) mmol/L Glucose (74-99) mg/dL POC Glucose (mg/dL) 112 H 106 H 123 H (75-99) mg/dL Calcium (8.4-10.2) mg/dL Total Bilirubin (0.2-1.3) mg/dL AST (17-59) U/L ALT (21-72) U/L Total Protein (6.3-8.2) g/dL Albumin (3.5-5.0) g/dL 10/19/16 10/19/16 10/19/16 Range/Units 02:15 03:56 04:05 WBC (3.8-10.6) k/uL RBC (4.30-5.90) m/uL Hgb (13.0-17.5) gm/dL Hct (39.0-53.0) % Plt Count (150-450) k/uL Neutrophils # (1.3-7.7) k/uL Lymphocytes # (1.0-4.8) k/uL Monocytes # (0-1.0) k/uL Sodium 133 L (137-145) mmol/L Glucose 118 H (74-99) mg/dL POC Glucose (mg/dL) 118 H 123 H (75-99) mg/dL Calcium 8.0 L (8.4-10.2) mg/dL Total Bilirubin 1.6 H (0.2-1.3) mg/dL AST 62 H (17-59) U/L ALT 127 H (21-72) U/L Total Protein 5.2 L (6.3-8.2) g/dL Albumin 2.7 L (3.5-5.0) g/dL 10/19/16 10/19/16 10/19/16 Range/Units 04:05 05:11 06:01 WBC 14.5 H (3.8-10.6) k/uL RBC 4.01 L (4.30-5.90) m/uL Hgb 12.4 L (13.0-17.5) gm/dL Hct 38.7 L (39.0-53.0) % Plt Count 102 L (150-450) k/uL Neutrophils # 12.2 H (1.3-7.7) k/uL Lymphocytes # 0.8 L (1.0-4.8) k/uL Monocytes # 1.1 H (0-1.0) k/uL Sodium (137-145) mmol/L Glucose (74-99) mg/dL POC Glucose (mg/dL) 102 H 109 H (75-99) mg/dL Calcium (8.4-10.2) mg/dL Total Bilirubin (0.2-1.3) mg/dL AST (17-59) U/L ALT (21-72) U/L Total Protein (6.3-8.2) g/dL Albumin (3.5-5.0) g/dL 10/19/16 10/19/16 10/19/16 Range/Units 07:06 08:05 09:03 WBC (3.8-10.6) k/uL RBC (4.30-5.90) m/uL Hgb (13.0-17.5) gm/dL Hct (39.0-53.0) % Plt Count (150-450) k/uL Neutrophils # (1.3-7.7) k/uL Lymphocytes # (1.0-4.8) k/uL Monocytes # (0-1.0) k/uL Sodium (137-145) mmol/L Glucose (74-99) mg/dL POC Glucose (mg/dL) 134 H 138 H 175 H (75-99) mg/dL Calcium (8.4-10.2) mg/dL Total Bilirubin (0.2-1.3) mg/dL AST (17-59) U/L ALT (21-72) U/L Total Protein (6.3-8.2) g/dL Albumin (3.5-5.0) g/dL 10/19/16 10/19/16 10/19/16 Range/Units 09:54 11:10 11:54 WBC (3.8-10.6) k/uL RBC (4.30-5.90) m/uL Hgb (13.0-17.5) gm/dL Hct (39.0-53.0) % Plt Count (150-450) k/uL Neutrophils # (1.3-7.7) k/uL Lymphocytes # (1.0-4.8) k/uL Monocytes # (0-1.0) k/uL Sodium (137-145) mmol/L Glucose (74-99) mg/dL POC Glucose (mg/dL) 209 H 180 H 164 H (75-99) mg/dL Calcium (8.4-10.2) mg/dL Total Bilirubin (0.2-1.3) mg/dL AST (17-59) U/L ALT (21-72) U/L Total Protein (6.3-8.2) g/dL Albumin (3.5-5.0) g/dL 10/19/16 10/19/16 10/19/16 Range/Units 13:08 13:58 15:00 WBC (3.8-10.6) k/uL RBC (4.30-5.90) m/uL Hgb (13.0-17.5) gm/dL Hct (39.0-53.0) % Plt Count (150-450) k/uL Neutrophils # (1.3-7.7) k/uL Lymphocytes # (1.0-4.8) k/uL Monocytes # (0-1.0) k/uL Sodium (137-145) mmol/L Glucose (74-99) mg/dL POC Glucose (mg/dL) 165 H 132 H 141 H (75-99) mg/dL Calcium (8.4-10.2) mg/dL Total Bilirubin (0.2-1.3) mg/dL AST (17-59) U/L ALT (21-72) U/L Total Protein (6.3-8.2) g/dL Albumin (3.5-5.0) g/dL 10/19/16 Range/Units 16:06 WBC (3.8-10.6) k/uL RBC (4.30-5.90) m/uL Hgb (13.0-17.5) gm/dL Hct (39.0-53.0) % Plt Count (150-450) k/uL Neutrophils # (1.3-7.7) k/uL Lymphocytes # (1.0-4.8) k/uL Monocytes # (0-1.0) k/uL Sodium (137-145) mmol/L Glucose (74-99) mg/dL POC Glucose (mg/dL) 123 H (75-99) mg/dL Calcium (8.4-10.2) mg/dL Total Bilirubin (0.2-1.3) mg/dL AST (17-59) U/L ALT (21-72) U/L Total Protein (6.3-8.2) g/dL Albumin (3.5-5.0) g/dL Assessment and Plan (1) Aortic stenosis Status: Acute (2) Diabetes Status: Acute (3) Hyperlipidemia Status: Acute (4) Hypertension Status: Acute (5) Status post aortic valve replacement Status: Acute Plan: Patient seemed to be clinically stable. Patient is on Lopressor and lisinopril for blood pressure control. Patient still has chest tubes and patient may be transferred to telemetry unit later today. Incentive spirometry and physical therapy to be continued
[2016-10-19 19:59] LABS: Glucose,Whole Blood 158 mg/dL (75-99)
[2016-10-19] MEDS: SENNOSIDES-DOCUSATE SODIUM 1 EACH TAB PO SCH (20:03)
[2016-10-19 21:41] LABS: Glucose,Whole Blood 143 mg/dL (75-99)
[2016-10-20 00:14] LABS: Glucose,Whole Blood 113 mg/dL (75-99)
[2016-10-20 01:19] LABS: Glucose,Whole Blood 124 mg/dL (75-99)
[2016-10-20] MEDS: HYDROcodone/APAP 5-325MG 1 EACH TAB PO PRN ×3 (01:19→20:22)
[2016-10-20] MEDS: HEPARIN SODIUM,PORCINE 5,000 UNIT/ML 1 ML VIAL SQ SCH ×3 (04:00→20:17)
[2016-10-20 04:11] LABS: Glucose,Whole Blood 148 mg/dL (75-99)
[2016-10-20 04:47] LABS: Basophils % (A) 0 %; CH 30.2; CHCM 31.9; Eosinophils # (A) 0.1 k/uL (0-0.7); Eosinophils % (A) 1 %; HCT 33.6 % (39.0-53.0); HDW 2.38; HGB 10.9 gm/dL (13.0-17.5); Luc # (Auto) 0.25; Luc % (Auto) 3; Lymphocytes # (A) 0.9 k/uL (1.0-4.8); Lymphocytes % (A) 9 %; MCHC 32.5 g/dL (31.0-37.0); MCV 95.3 fL (80.0-100.0); Monocytes # (A) 0.7 k/uL (0-1.0); Monocytes % (A) 7 %; Neutrophils # (A) 7.9 k/uL (1.3-7.7); Neutrophils % (A) 81 %; RBC 3.53 m/uL (4.30-5.90); RDW 13.6 % (11.5-15.5); WBC 9.7 k/uL (3.8-10.6)
[2016-10-20 05:01] LABS: Ionized Calcium 4.7 mg/dL (4.5-5.3)
[2016-10-20 05:22] LABS: ALT 72 U/L (21-72); AST 27 U/L (17-59); Alkaline Phosphatase 64 U/L (38-126); Anion Gap 5 mmol/L; Blood Urea Nitrogen 25 mg/dL (9-20); Calcium 7.7 mg/dL (8.4-10.2); Carbon Dioxide 27 mmol/L (22-30); Chloride 99 mmol/L (98-107); Glucose 147 mg/dL (74-99); Magnesium 2.5 mg/dL (1.6-2.3); Non-African American GFR(MDRD) >60 (>60 ml/min/1.73 sqM); Potassium 4.5 mmol/L (3.5-5.1); Sodium 131 mmol/L (137-145); Total Protein 4.5 g/dL (6.3-8.2)
[2016-10-20 06:46] LABS: Glucose,Whole Blood 102 mg/dL (75-99)
[2016-10-20] MEDS: IPRATROPIUM 0.5 MG/2.5 ML NEBU INHALATION SCH ×4 (07:29→19:52)
[2016-10-20] MEDS: LEVALBUTEROL NEB (CONC) 1.25 MG/0.5 ML AMP INHALATION SCH ×5 (07:29→19:52)
[2016-10-20] MEDS: SYMBICORT 160-4.5 MCG INHALER INHALATION SCH (07:29)
[2016-10-20 07:57] LABS: Glucose,Whole Blood 114 mg/dL (75-99)
--- NOTE | 2016-10-20 07:57 | XR ---
EXAMINATION TYPE: XR chest 1V portable DATE OF EXAM: 10/20/2016 7:04 AM COMPARISON: 10/19/2016 INDICATION: Postoperative cardiac surgery TECHNIQUE: Single frontal view of the chest is obtained. FINDINGS: The heart size is normal. The pulmonary vasculature is normal. Left lower lobe infiltrate or small left pleural effusion is present. Right-sided chest tube is prese nt. No pneumothorax is evident. Sternotomy wires are in the midline IMPRESSION: 1. Left lower lobe infiltrate and/or small left pleural effusion
[2016-10-20] MEDS: PANTOPRAZOLE 40 MG TABLET PO SCH (08:04)
[2016-10-20] MEDS: LISINOPRIL 5 MG TAB PO SCH (08:04)
[2016-10-20] MEDS: CLOPIDOGREL 75 MG TAB PO SCH (08:04)
[2016-10-20] MEDS: ASPIRIN 325 MG TAB PO SCH (08:04)
[2016-10-20] MEDS: METOPROLOL TARTRATE 50 MG TAB PO SCH ×2 (08:05→20:18)
[2016-10-20] MEDS: INSULIN GLARGINE 100 UNIT/ML 10 ML VIAL SQ SCH (08:13)
--- NOTE | 2016-10-20 09:17 | P.PN ---
Subjective Principal diagnosis: Severe aortic valve stenosis. Mild coronary artery disease. Hypertension. Hyperlipidemia. Diabetes mellitus. Obesity. POD #3 aortic valve replacement using a 23 mm pericardial bioprosthesis Magna Ease. Exclusion of the left atrial appendage using a 35 mm AtriClip. Intraoperative transesophageal echocardiogram and scanning. Patient awake and alert, up in a recliner. No distress noted. Mediastinal chest tube removed yesterday. Chest x-ray reviewed. States his pain is controlled on current medication regimen. Good use of his incentive spirometry. Ambulated in the cobos yesterday. Objective - Vital Signs Vital signs: Vital Signs Temp 98.0 F 10/20/16 08:00 Pulse 106 H 10/20/16 08:00 Resp 16 10/20/16 06:00 BP 134/82 10/20/16 08:00 Pulse Ox 94 L 10/20/16 08:00 Intake & Output 10/19/16 10/20/16 10/20/16 18:59 06:59 18:59 Intake Total 1372.075 277.425 43 Output Total 1370 700 600 Balance 2.075 -422.575 -557 Intake: IV 206 212 43 Lactated Ringers 1,000 ml 200 170 40 @ 20 mls/hr IV .Q24H [facility] Rx#:[id number] PRESSURE BAG 6 42 3 Intake, IV Titration 246.075 65.425 Amount Clevidipine Butyrate 25 100.000 mg In Empty Bag 1 bag @ 1 MG/HR 2 mls/hr IV .Q24H [facility] Rx#:[id number] Insulin Regular 100 unit 86.075 65.425 In Sodium Chloride 0.9% 100 ml @ Per Protocol IV .Q0M [facility] Rx#:[id number] Lactated Ringers 1,000 ml 60 @ 20 mls/hr IV .Q24H [facility] Rx#:[id number] Oral 920 Output: Chest Tube Drainage 220 100 Mediastinal 110 Right Pleural 110 100 Urine 1150 600 600 Other: Voiding Method Urinal Urinal ABP, PAP, CO, CI - Last Documented Arterial Blood Pressure 129/49 Pulmonary Artery Pressure 31/5 Cardiac Output 9.6 Cardiac Index 4.4 - Constitutional General appearance: Present: cooperative, no acute distress, obese - Respiratory Details: Lungs sounds Ms. bilaterally. Respirations even, nonlabored. Currently on 2 L nasal cannula. Able to achieve 1000 mL on his incentive spirometry. Effective cough. - Cardiovascular Details: S1, S2 present. Tachycardia but regular rate and rhythm, sinus tach on telemetry. Sternum stable. No edema present. Heart hugger in place with patient demonstrated appropriate use. Teds/SCDs present. - Gastrointestinal Gastrointestinal Comment(s): Abdomen soft, nontender, nondistended. Active bowel sounds 4 quadrants. Tolerating diet. - Genitourinary Genitourinary Comment(s): Continues to void clear, yellow urine per urinal. Proximally 150 mL at a time. - Integumentary Integumentary Comment(s): Anterior chest incision covered with dry intact silver dressing. - Musculoskeletal Musculoskeletal: Present: gait normal, strength equal bilaterally - Psychiatric Psychiatric: Present: A&O x's 3, appropriate affect, intact judgment & insight - Allied health notes Allied health notes reviewed: nursing - Labs CBC & Chem 7: 10/20/16 04:05 10/20/16 04:05 Labs: Abnormal Lab Results - Last 24 Hours (Table) 10/19/16 10/19/16 10/19/16 Range/Units 09:54 11:10 11:54 RBC (4.30-5.90) m/uL Hgb (13.0-17.5) gm/dL Hct (39.0-53.0) % Plt Count (150-450) k/uL Neutrophils # (1.3-7.7) k/uL Lymphocytes # (1.0-4.8) k/uL Sodium (137-145) mmol/L BUN (9-20) mg/dL Glucose (74-99) mg/dL POC Glucose (mg/dL) 209 H 180 H 164 H (75-99) mg/dL Calcium (8.4-10.2) mg/dL Magnesium (1.6-2.3) mg/dL Total Protein (6.3-8.2) g/dL Albumin (3.5-5.0) g/dL 10/19/16 10/19/16 10/19/16 Range/Units 13:08 13:58 15:00 RBC (4.30-5.90) m/uL Hgb (13.0-17.5) gm/dL Hct (39.0-53.0) % Plt Count (150-450) k/uL Neutrophils # (1.3-7.7) k/uL Lymphocytes # (1.0-4.8) k/uL Sodium (137-145) mmol/L BUN (9-20) mg/dL Glucose (74-99) mg/dL POC Glucose (mg/dL) 165 H 132 H 141 H (75-99) mg/dL Calcium (8.4-10.2) mg/dL Magnesium (1.6-2.3) mg/dL Total Protein (6.3-8.2) g/dL Albumin (3.5-5.0) g/dL 10/19/16 10/19/16 10/19/16 Range/Units 16:06 18:12 19:57 RBC (4.30-5.90) m/uL Hgb (13.0-17.5) gm/dL Hct (39.0-53.0) % Plt Count (150-450) k/uL Neutrophils # (1.3-7.7) k/uL Lymphocytes # (1.0-4.8) k/uL Sodium (137-145) mmol/L BUN (9-20) mg/dL Glucose (74-99) mg/dL POC Glucose (mg/dL) 123 H 157 H 158 H (75-99) mg/dL Calcium (8.4-10.2) mg/dL Magnesium (1.6-2.3) mg/dL Total Protein (6.3-8.2) g/dL Albumin (3.5-5.0) g/dL 10/19/16 10/20/16 10/20/16 Range/Units 21:40 00:02 01:17 RBC (4.30-5.90) m/uL Hgb (13.0-17.5) gm/dL Hct (39.0-53.0) % Plt Count (150-450) k/uL Neutrophils # (1.3-7.7) k/uL Lymphocytes # (1.0-4.8) k/uL Sodium (137-145) mmol/L BUN (9-20) mg/dL Glucose (74-99) mg/dL POC Glucose (mg/dL) 143 H 113 H 124 H (75-99) mg/dL Calcium (8.4-10.2) mg/dL Magnesium (1.6-2.3) mg/dL Total Protein (6.3-8.2) g/dL Albumin (3.5-5.0) g/dL 10/20/16 10/20/16 10/20/16 Range/Units 04:05 04:05 04:08 RBC 3.53 L (4.30-5.90) m/uL Hgb 10.9 L (13.0-17.5) gm/dL Hct 33.6 L (39.0-53.0) % Plt Count 101 L (150-450) k/uL Neutrophils # 7.9 H (1.3-7.7) k/uL Lymphocytes # 0.9 L (1.0-4.8) k/uL Sodium 131 L (137-145) mmol/L BUN 25 H (9-20) mg/dL Glucose 147 H (74-99) mg/dL POC Glucose (mg/dL) 148 H (75-99) mg/dL Calcium 7.7 L (8.4-10.2) mg/dL Magnesium 2.5 H (1.6-2.3) mg/dL Total Protein 4.5 L (6.3-8.2) g/dL Albumin 2.2 L (3.5-5.0) g/dL 10/20/16 10/20/16 Range/Units 06:45 07:56 RBC (4.30-5.90) m/uL Hgb (13.0-17.5) gm/dL Hct (39.0-53.0) % Plt Count (150-450) k/uL Neutrophils # (1.3-7.7) k/uL Lymphocytes # (1.0-4.8) k/uL Sodium (137-145) mmol/L BUN (9-20) mg/dL Glucose (74-99) mg/dL POC Glucose (mg/dL) 102 H 114 H (75-99) mg/dL Calcium (8.4-10.2) mg/dL Magnesium (1.6-2.3) mg/dL Total Protein (6.3-8.2) g/dL Albumin (3.5-5.0) g/dL - Imaging and Cardiology Chest x-ray: report reviewed, image reviewed Assessment and Plan (1) Severe obesity (BMI 35.0-39.9) Status: Acute (2) Aortic stenosis Status: Acute (3) Diabetes Status: Acute (4) Hyperlipidemia Status: Acute (5) Hypertension Status: Acute (6) Status post aortic valve replacement Status: Acute Plan: 1. Continue aspirin, Plavix, heparin, Lopressor, lisinopril. 2. Will restart statin as liver enzymes have normalized. 3. Insulin/diabetic management per primary care service. 4. Will discontinue pleural chest tube today. 5. Encourage incentive spirometry use and coughing with heart hugger use. Wean O2 as tolerated. 6. Increase activity, ambulate in hallway. Physical therapy to follow. 7. GI/DVT prophylaxis. 8. Monitor daily labs, x-rays. 9. Transfer to [facility] care today. Time with Patient: Greater than 30
[2016-10-20 10:11] LABS: Glucose,Whole Blood 257 mg/dL (75-99)
[2016-10-20] MEDS: INSULIN REGULAR 100 UNIT in SODIUM CHLORIDE 0.9% 100 ML IV SCH (10:11)
--- NOTE | 2016-10-20 11:18 | P.PN ---
Subjective Principal diagnosis: Is a very pleasant 61-year-old gentleman who follows with Dr. Cochran as his primary care physician. He has history of diabetes place, hypertension, hyperlipidemia, sleep apnea, remote history of smoking. He presented here on for an elective aortic valve replacement which was performed by Dr. alesha hickman that same day. He is seen again today in follow-up in the intensive care unit. He is sitting up in the chair at the bedside. He is awake and alert in no acute distress. He is maintaining good O2 saturations in the 90s on 3 L/m per nasal cannula. He's been afebrile. He is maintained in normal sinus rhythm. He has no pulmonary complaints today. He is working well of his incentive spirometer. His chest x-ray did reveal some continued left lower lobe infiltrate. Objective - Vital Signs Vital signs: Vital Signs Temp 98.0 F 10/20/16 08:00 Pulse 94 10/20/16 10:00 Resp 16 10/20/16 08:00 BP 103/57 10/20/16 10:00 Pulse Ox 96 10/20/16 10:00 Intake & Output 10/19/16 10/20/16 10/20/16 18:59 06:59 18:59 Intake Total 1372.075 277.425 73 Output Total 1370 700 610 Balance 2.075 -422.575 -537 Intake: IV 206 212 73 Lactated Ringers 1,000 ml 200 170 70 @ 20 mls/hr IV .Q24H [facility] Rx#:[id number] PRESSURE BAG 6 42 3 Intake, IV Titration 246.075 65.425 Amount Clevidipine Butyrate 25 100.000 mg In Empty Bag 1 bag @ 1 MG/HR 2 mls/hr IV .Q24H [facility] Rx#:[id number] Insulin Regular 100 unit 86.075 65.425 In Sodium Chloride 0.9% 100 ml @ Per Protocol IV .Q0M [facility] Rx#:[id number] Lactated Ringers 1,000 ml 60 @ 20 mls/hr IV .Q24H [facility] Rx#:[id number] Oral 920 Output: Chest Tube Drainage 220 100 10 Mediastinal 110 Right Pleural 110 100 10 Urine 1150 600 600 Other: Voiding Method Urinal Urinal Urinal ABP, PAP, CO, CI - Last Documented Arterial Blood Pressure 101/41 Pulmonary Artery Pressure 31/5 Cardiac Output 9.6 Cardiac Index 4.4 - Exam GENERAL EXAM: Alert, active, comfortable in no apparent distress. HEAD: Normocephalic. EYES: Normal reaction of pupils, equal size. NOSE: Clear with pink turbinates. THROAT: No erythema or exudates. NECK: No masses, no JVD. CHEST: No chest wall deformity. LUNGS: Equal air entry with no crackles, wheeze, rhonchi or dullness. CVS: S1 and S2 normal with no audible murmurs, regular rhythm. ABDOMEN: No hepatosplenomegaly, normal bowel sounds, no guarding or rigidity. SPINE: No scoliosis or deformity SKIN: No rashes CENTRAL NERVOUS SYSTEM: No focal deficits, tone is normal in all 4 extremities. *Midis: There is no significant peripheral edema. No clubbing, no cyanosis. Peripheral pulses are intact. - Labs CBC & Chem 7: 10/20/16 04:05 10/20/16 04:05 Labs: Abnormal Lab Results - Last 24 Hours (Table) 10/19/16 10/19/16 10/19/16 Range/Units 11:10 11:54 13:08 RBC (4.30-5.90) m/uL Hgb (13.0-17.5) gm/dL Hct (39.0-53.0) % Plt Count (150-450) k/uL Neutrophils # (1.3-7.7) k/uL Lymphocytes # (1.0-4.8) k/uL Sodium (137-145) mmol/L BUN (9-20) mg/dL Glucose (74-99) mg/dL POC Glucose (mg/dL) 180 H 164 H 165 H (75-99) mg/dL Calcium (8.4-10.2) mg/dL Magnesium (1.6-2.3) mg/dL Total Protein (6.3-8.2) g/dL Albumin (3.5-5.0) g/dL 10/19/16 10/19/16 10/19/16 Range/Units 13:58 15:00 16:06 RBC (4.30-5.90) m/uL Hgb (13.0-17.5) gm/dL Hct (39.0-53.0) % Plt Count (150-450) k/uL Neutrophils # (1.3-7.7) k/uL Lymphocytes # (1.0-4.8) k/uL Sodium (137-145) mmol/L BUN (9-20) mg/dL Glucose (74-99) mg/dL POC Glucose (mg/dL) 132 H 141 H 123 H (75-99) mg/dL Calcium (8.4-10.2) mg/dL Magnesium (1.6-2.3) mg/dL Total Protein (6.3-8.2) g/dL Albumin (3.5-5.0) g/dL 10/19/16 10/19/16 10/19/16 Range/Units 18:12 19:57 21:40 RBC (4.30-5.90) m/uL Hgb (13.0-17.5) gm/dL Hct (39.0-53.0) % Plt Count (150-450) k/uL Neutrophils # (1.3-7.7) k/uL Lymphocytes # (1.0-4.8) k/uL Sodium (137-145) mmol/L BUN (9-20) mg/dL Glucose (74-99) mg/dL POC Glucose (mg/dL) 157 H 158 H 143 H (75-99) mg/dL Calcium (8.4-10.2) mg/dL Magnesium (1.6-2.3) mg/dL Total Protein (6.3-8.2) g/dL Albumin (3.5-5.0) g/dL 10/20/16 10/20/16 10/20/16 Range/Units 00:02 01:17 04:05 RBC 3.53 L (4.30-5.90) m/uL Hgb 10.9 L (13.0-17.5) gm/dL Hct 33.6 L (39.0-53.0) % Plt Count 101 L (150-450) k/uL Neutrophils # 7.9 H (1.3-7.7) k/uL Lymphocytes # 0.9 L (1.0-4.8) k/uL Sodium (137-145) mmol/L BUN (9-20) mg/dL Glucose (74-99) mg/dL POC Glucose (mg/dL) 113 H 124 H (75-99) mg/dL Calcium (8.4-10.2) mg/dL Magnesium (1.6-2.3) mg/dL Total Protein (6.3-8.2) g/dL Albumin (3.5-5.0) g/dL 10/20/16 10/20/16 10/20/16 Range/Units 04:05 04:08 06:45 RBC (4.30-5.90) m/uL Hgb (13.0-17.5) gm/dL Hct (39.0-53.0) % Plt Count (150-450) k/uL Neutrophils # (1.3-7.7) k/uL Lymphocytes # (1.0-4.8) k/uL Sodium 131 L (137-145) mmol/L BUN 25 H (9-20) mg/dL Glucose 147 H (74-99) mg/dL POC Glucose (mg/dL) 148 H 102 H (75-99) mg/dL Calcium 7.7 L (8.4-10.2) mg/dL Magnesium 2.5 H (1.6-2.3) mg/dL Total Protein 4.5 L (6.3-8.2) g/dL Albumin 2.2 L (3.5-5.0) g/dL 10/20/16 10/20/16 Range/Units 07:56 10:09 RBC (4.30-5.90) m/uL Hgb (13.0-17.5) gm/dL Hct (39.0-53.0) % Plt Count (150-450) k/uL Neutrophils # (1.3-7.7) k/uL Lymphocytes # (1.0-4.8) k/uL Sodium (137-145) mmol/L BUN (9-20) mg/dL Glucose (74-99) mg/dL POC Glucose (mg/dL) 114 H 257 H (75-99) mg/dL Calcium (8.4-10.2) mg/dL Magnesium (1.6-2.3) mg/dL Total Protein (6.3-8.2) g/dL Albumin (3.5-5.0) g/dL Assessment and Plan Plan: Impression: #1 Severe aortic stenosis, status post aortic valve replacement using a 23 mm pericardial bioprosthesis magna ease valve. #2 Mild coronary artery disease. #3 Hypertension. #4 Hyperlipidemia. #5 Diabetes mellitus. #6 Obesity. Plan: The patient was seen by Dr. Sotomayor. His chest x-ray and labs were reviewed. We' ll continue to encourage increased use of the incentive spirometer and cough and deep breathing exercises. We'll continue with his current medications. We will switch over his Symbicort to Pulmicort and Perforomist inhalations and continue with bronchodilators. He did have some wheezing this morning. We will increase his activity as tolerated. We'll continue to follow.
[2016-10-20 12:20] LABS: Glucose,Whole Blood 168 mg/dL (75-99)
[2016-10-20] MEDS: INSULIN LISPRO (humaLOG) 300 UNIT/3 ML VIAL SQ SCH ×7 (12:20→22:22)
--- NOTE | 2016-10-20 13:16 | P.PN ---
Subjective 61-year-old male one of Dr. Cochran patient with past medical history of diabetes, hypertension, hyperlipidemia who has been having worsening shortness of breath and palpitation. He has been followed for aortic stenosis and valvular heart disease by cardiology for the last year. Heart catheter was done in August 2016 showed severe advance aortic stenosis with no vessel involvement. Patient was refer to cardiothoracic surgery and scheduled for elective aortic valve placement today for 2016. Following surgery patient was on mechanical ventilation as postsurgical respiratory failure. Pulmonary were consulted in his care. Patient will be on insulin drip Accu-Chek with sliding scales coverage. Patient is stable hemodynamically in the ICU. 10/18: Patient was successfully extubated yesterday. He is currently on nasal cannula. Heart rate is running in the 80s to 90s. Blood pressure is stable and he is on Clevidipine. Pain appears to be controlled at this time. 10/19: Plan to transition patient to Lantus, and Humalog scale. He was given 1 dose of IV Lasix and Fonseca is to be discontinued today. Cleviprex to be discontinued. Plan is to increase activity and possible transfer out of ICU later today. 10/20: Patient is transferred to selective care unit. Blood sugars are running between 102 08/06/1958 after breakfast this morning. Humalog 8 units scheduled with meals has been added. He denies shortness of breath. No acute distress is noted. He has been afebrile. Objective - Vital Signs Vital signs: Vital Signs Temp 98.0 F 10/20/16 08:00 Pulse 107 H 10/20/16 12:00 Resp 18 10/20/16 13:10 BP 130/82 10/20/16 12:00 Pulse Ox 94 L 10/20/16 13:10 Intake & Output 10/19/16 10/20/16 10/20/16 18:59 06:59 18:59 Intake Total 1372.075 277.425 99.875 Output Total 1370 700 610 Balance 2.075 -422.575 -510.125 Intake: IV 206 212 73 Lactated Ringers 1,000 ml 200 170 70 @ 20 mls/hr IV .Q24H [facility] Rx#:[id number] PRESSURE BAG 6 42 3 Intake, IV Titration 246.075 65.425 26.875 Amount Clevidipine Butyrate 25 100.000 mg In Empty Bag 1 bag @ 1 MG/HR 2 mls/hr IV .Q24H [facility] Rx#:[id number] Insulin Regular 100 unit 86.075 65.425 26.875 In Sodium Chloride 0.9% 100 ml @ Per Protocol IV .Q0M [facility] Rx#:[id number] Lactated Ringers 1,000 ml 60 @ 20 mls/hr IV .Q24H [facility] Rx#:[id number] Oral 920 Output: Chest Tube Drainage 220 100 10 Mediastinal 110 Right Pleural 110 100 10 Urine 1150 600 600 Other: Voiding Method Urinal Urinal Urinal ABP, PAP, CO, CI - Last Documented Arterial Blood Pressure 129/52 Pulmonary Artery Pressure 31/5 Cardiac Output 9.6 Cardiac Index 4.4 - Exam On mechanical ventilation. General appearance: no average body habitus, no cooperative, no disheveled, no mild distress, no morbidly obese, no acute distress, no obese, no severe distress, no thin - EENT Eyes: no abnormal pupil, no anicteric sclerae, no disc margins sharp, no edentulous, no EOMI, no PERRLA, no fundus normal, no photophobia, no dentition normal, no poor dentition, no ptosis, no scleral icterus, normal appearance ENT: no hard of hearing, no hearing grossly normal, no NA/AT, normal oropharynx , no other, no pharyngeal erythema, no thrush, no tonsillar exudates, no tonsillar swelling Ears: bilateral: normal - Neck Neck: no lymphadenopathy, normal ROM, no other, no rigidity, no stridor, no thyromegaly Carotids: bilateral: upstroke normal Thyroid: bilateral: normal size - Respiratory Respiratory: bilateral: diminished, dullness, rales - Cardiovascular Rhythm: regular Heart sounds: normal: S1, S2 Abnormal Heart Sounds: systolic murmur, S3 Gallop - Gastrointestinal General gastrointestinal: no absent bowel sounds, decreased bowel sounds, no distended, no hepatomegaly, no hyperactive bowel sounds, no normal bowel sounds , no organomegaly, no rigid, no scaphoid, soft, no splenomegaly, no tenderness, no umbilical hernia, no ventral hernia - Integumentary Integumentary: no calor, no cellulitis, no cyanotic, no decreased turgor, no flushed, no jaundiced, normal, no normal turgor, pale, no rash, no ulcer - Neurologic Neurologic: CNII-XII intact - Musculoskeletal Musculoskeletal: gait normal, generalized weakness, no strength equal bilaterally, no right sided weakness, no left sided weakness - Psychiatric Psychiatric: A&O x's 3 - Labs CBC & Chem 7: 10/20/16 04:05 10/20/16 04:05 Labs: Abnormal Lab Results - Last 24 Hours (Table) 10/19/16 10/19/16 10/19/16 Range/Units 13:58 15:00 16:06 RBC (4.30-5.90) m/uL Hgb (13.0-17.5) gm/dL Hct (39.0-53.0) % Plt Count (150-450) k/uL Neutrophils # (1.3-7.7) k/uL Lymphocytes # (1.0-4.8) k/uL Sodium (137-145) mmol/L BUN (9-20) mg/dL Glucose (74-99) mg/dL POC Glucose (mg/dL) 132 H 141 H 123 H (75-99) mg/dL Calcium (8.4-10.2) mg/dL Magnesium (1.6-2.3) mg/dL Total Protein (6.3-8.2) g/dL Albumin (3.5-5.0) g/dL 10/19/16 10/19/16 10/19/16 Range/Units 18:12 19:57 21:40 RBC (4.30-5.90) m/uL Hgb (13.0-17.5) gm/dL Hct (39.0-53.0) % Plt Count (150-450) k/uL Neutrophils # (1.3-7.7) k/uL Lymphocytes # (1.0-4.8) k/uL Sodium (137-145) mmol/L BUN (9-20) mg/dL Glucose (74-99) mg/dL POC Glucose (mg/dL) 157 H 158 H 143 H (75-99) mg/dL Calcium (8.4-10.2) mg/dL Magnesium (1.6-2.3) mg/dL Total Protein (6.3-8.2) g/dL Albumin (3.5-5.0) g/dL 10/20/16 10/20/16 10/20/16 Range/Units 00:02 01:17 04:05 RBC 3.53 L (4.30-5.90) m/uL Hgb 10.9 L (13.0-17.5) gm/dL Hct 33.6 L (39.0-53.0) % Plt Count 101 L (150-450) k/uL Neutrophils # 7.9 H (1.3-7.7) k/uL Lymphocytes # 0.9 L (1.0-4.8) k/uL Sodium (137-145) mmol/L BUN (9-20) mg/dL Glucose (74-99) mg/dL POC Glucose (mg/dL) 113 H 124 H (75-99) mg/dL Calcium (8.4-10.2) mg/dL Magnesium (1.6-2.3) mg/dL Total Protein (6.3-8.2) g/dL Albumin (3.5-5.0) g/dL 10/20/16 10/20/16 10/20/16 Range/Units 04:05 04:08 06:45 RBC (4.30-5.90) m/uL Hgb (13.0-17.5) gm/dL Hct (39.0-53.0) % Plt Count (150-450) k/uL Neutrophils # (1.3-7.7) k/uL Lymphocytes # (1.0-4.8) k/uL Sodium 131 L (137-145) mmol/L BUN 25 H (9-20) mg/dL Glucose 147 H (74-99) mg/dL POC Glucose (mg/dL) 148 H 102 H (75-99) mg/dL Calcium 7.7 L (8.4-10.2) mg/dL Magnesium 2.5 H (1.6-2.3) mg/dL Total Protein 4.5 L (6.3-8.2) g/dL Albumin 2.2 L (3.5-5.0) g/dL 10/20/16 10/20/16 10/20/16 Range/Units 07:56 10:09 12:19 RBC (4.30-5.90) m/uL Hgb (13.0-17.5) gm/dL Hct (39.0-53.0) % Plt Count (150-450) k/uL Neutrophils # (1.3-7.7) k/uL Lymphocytes # (1.0-4.8) k/uL Sodium (137-145) mmol/L BUN (9-20) mg/dL Glucose (74-99) mg/dL POC Glucose (mg/dL) 114 H 257 H 168 H (75-99) mg/dL Calcium (8.4-10.2) mg/dL Magnesium (1.6-2.3) mg/dL Total Protein (6.3-8.2) g/dL Albumin (3.5-5.0) g/dL Assessment and Plan Plan: 1 severe aortic stenosis: Post aortic valve placement. 2 post aortic valve placement: Continue postsurgical care. 3 post surgery respiratory failure: Was on mechanical ventilation continue current management hopefully wearable off the vent very quickly after surgery 4 hypertension: Stable was on amlodipine Benzapril as soon as he is able take oral meds will be starting him on it. 5 diabetes: Type II he has been on metformin, Prandin and Lantus . Insulin drip to be discontinued and patient started back on Lantus, scheduled Humalog and Humalog scale. Oral diabetic agents left on hold at this time. 6 hyperlipidemia: Pravastatin on hold due to elevated liver function tests. 7 arrhythmia: Keep watching patient hemodynamic status for any form of arrhythmia in the next 3 days. 8 GI prophylaxis: Patient will be continue on PPI or H2 esmer. 9 DVT prophylaxis: Continue knee-high HUMZA hose and Venodyne boots and continue DVT prophylaxis protocol. CODE STATUS: Full code. Discharge planning: To be determined Impression and plan of care have been directed as dictated by the signing physician. Vale Nair nurse practitioner acting as scribe for signing physician. Time with Patient: Greater than 30
[2016-10-20 14:17] LABS: Glucose,Whole Blood 161 mg/dL (75-99)
[2016-10-20 16:17] LABS: Glucose,Whole Blood 208 mg/dL (75-99)
[2016-10-20 18:21] LABS: Glucose,Whole Blood 246 mg/dL (75-99)
[2016-10-20] MEDS: FORMOTEROL FUMARATE 20 MCG/2 ML NEBU INHALATION SCH (19:51)
[2016-10-20] MEDS: BUDESONIDE 1 MG/2 ML NEBU INHALATION SCH (19:51)
[2016-10-20 20:06] LABS: Glucose,Whole Blood 188 mg/dL (75-99)
[2016-10-20] MEDS: SENNOSIDES-DOCUSATE SODIUM 1 EACH TAB PO SCH (20:18)
[2016-10-20] MEDS: ATORVASTATIN 40 MG TAB PO SCH (20:18)
[2016-10-20 22:20] LABS: Glucose,Whole Blood 192 mg/dL (75-99)
[2016-10-21] MEDS: INSULIN LISPRO (humaLOG) 300 UNIT/3 ML VIAL SQ SCH ×15 (00:12→22:14)
[2016-10-21] MEDS: HYDROcodone/APAP 5-325MG 1 EACH TAB PO PRN ×5 (00:12→20:22)
[2016-10-21 00:24] LABS: Glucose,Whole Blood 178 mg/dL (75-99)
[2016-10-21 01:14] LABS: Hemoglobin A1C 8.5 % (4.2-6.1)
[2016-10-21 02:32] LABS: Glucose,Whole Blood 193 mg/dL (75-99)
[2016-10-21 04:14] LABS: Glucose,Whole Blood 169 mg/dL (75-99)
[2016-10-21] MEDS: HEPARIN SODIUM,PORCINE 5,000 UNIT/ML 1 ML VIAL SQ SCH ×3 (04:19→20:24)
[2016-10-21 06:08] LABS: Glucose,Whole Blood 135 mg/dL (75-99)
[2016-10-21 06:28] LABS: ALT 51 U/L (21-72); AST 20 U/L (17-59); Alkaline Phosphatase 71 U/L (38-126); Anion Gap 4 mmol/L; Blood Urea Nitrogen 32 mg/dL (9-20); Calcium 7.5 mg/dL (8.4-10.2); Carbon Dioxide 30 mmol/L (22-30); Chloride 99 mmol/L (98-107); Glucose 145 mg/dL (74-99); Non-African American GFR(MDRD) >60 (>60 ml/min/1.73 sqM); Potassium 4.5 mmol/L (3.5-5.1); Sodium 133 mmol/L (137-145); Total Bilirubin 0.7 mg/dL (0.2-1.3); Total Protein 4.9 g/dL (6.3-8.2)
[2016-10-21 06:52] LABS: CH 29.7; CHCM 31.2; HCT 33.1 % (39.0-53.0); HDW 2.37; HGB 10.9 gm/dL (13.0-17.5); MCH 31.7 pg (25.0-35.0); MCHC 33.1 g/dL (31.0-37.0); MCV 95.6 fL (80.0-100.0); Mean Platelet Volume 7.7; RBC 3.46 m/uL (4.30-5.90); RDW 13.2 % (11.5-15.5); WBC 8.3 k/uL (3.8-10.6)
[2016-10-21] MEDS: PANTOPRAZOLE 40 MG TABLET PO SCH (07:16)
--- NOTE | 2016-10-21 07:55 | XR ---
EXAMINATION TYPE: XR chest 2V DATE OF EXAM: 10/21/2016 6:36 AM COMPARISON: 10/20/2016 HISTORY: 61 year-old male post cardiac surgery TECHNIQUE: Frontal and lateral views FINDINGS: Median sternotomy wires are present with prosthetic aortic valve. Heart remains upper limits of stefan l in size. A small dense pulmonary nodule at the peripheral left midlung suggestive of a calcified gr anuloma. Mild diffuse interstitial prominence is unchanged. There are trace effusions and patchy left greater than right basilar opacities. IMPRESSION: Overall stable exam. Correlate for mild pulmonary vascular congestion. There are trace effusions and patchy left greater than right bibasilar atelectasis/infiltrate.
[2016-10-21] MEDS: LISINOPRIL 5 MG TAB PO SCH (07:59)
[2016-10-21] MEDS: CLOPIDOGREL 75 MG TAB PO SCH (07:59)
[2016-10-21] MEDS: ASPIRIN 325 MG TAB PO SCH (07:59)
[2016-10-21] MEDS: METOPROLOL TARTRATE 50 MG TAB PO SCH ×2 (07:59→19:24)
[2016-10-21] MEDS: INSULIN GLARGINE 100 UNIT/ML 10 ML VIAL SQ SCH (08:04)
[2016-10-21 08:15] LABS: Glucose,Whole Blood 185 mg/dL (75-99)
[2016-10-21] MEDS: LEVALBUTEROL NEB (CONC) 1.25 MG/0.5 ML AMP INHALATION SCH ×4 (09:30→21:32)
[2016-10-21] MEDS: FORMOTEROL FUMARATE 20 MCG/2 ML NEBU INHALATION SCH ×2 (09:30→21:32)
[2016-10-21] MEDS: IPRATROPIUM 0.5 MG/2.5 ML NEBU INHALATION SCH ×4 (09:30→21:32)
[2016-10-21] MEDS: BUDESONIDE 1 MG/2 ML NEBU INHALATION SCH ×2 (09:30→21:33)
[2016-10-21 10:19] LABS: Glucose,Whole Blood 214 mg/dL (75-99)
[2016-10-21] MEDS ORDERED: INSULIN GLARGINE 100 UNIT/ML 10 ML VIAL SQ STA (10:33)
[2016-10-21] MEDS ORDERED: INSULIN GLARGINE 100 UNIT/ML 10 ML VIAL SQ SCH (10:33)
--- NOTE | 2016-10-21 10:48 | P.PN ---
Progress Note - Text CV Surgery Nursing Principal diagnosis: Severe aortic valve stenosis. Mild coronary artery disease. Hypertension. Hyperlipidemia. Diabetes mellitus. Obesity. POD #3 aortic valve replacement using a 23 mm pericardial bioprosthesis Magna Ease. Exclusion of the left atrial appendage using a 35 mm AtriClip. Intraoperative transesophageal echocardiogram and scanning. Patient awake and alert, no distress noted, no specific complaints, patient is sitting up to the bedside chair. He states that he just got back from a walk with cardiac rehab. Vital Signs: Afebrile Vital Signs - 24 hr 10/20/16 10/20/16 10/20/16 11:00 11:30 11:43 Temperature Pulse Rate 96 100 100 Pulse Rate [ Bilateral Radial] Pulse Rate [ Environmental Resource Specialist ] Pulse Rate [ Post-Activity] Pulse Rate [Pre -Activity] Respiratory Rate Blood Pressure [Left Arm] Blood Pressure [Post-Activity] Blood Pressure [Pre-Activity] O2 Sat by Pulse 96 Oximetry O2 Sat by Pulse Oximetry [Post -Activity] O2 Sat by Pulse Oximetry [Pre- Activity] 10/20/16 10/20/16 10/20/16 12:00 12:47 13:10 Temperature Pulse Rate Pulse Rate [ 107 H Bilateral Radial] Pulse Rate [ Environmental Resource Specialist ] Pulse Rate [ Post-Activity] Pulse Rate [Pre -Activity] Respiratory 18 18 Rate Blood Pressure 130/82 [Left Arm] Blood Pressure [Post-Activity] Blood Pressure [Pre-Activity] O2 Sat by Pulse 89 L 94 L 94 L Oximetry O2 Sat by Pulse Oximetry [Post -Activity] O2 Sat by Pulse Oximetry [Pre- Activity] 10/20/16 10/20/16 10/20/16 16:00 19:52 20:00 Temperature 97.1 F L Pulse Rate 108 H Pulse Rate [ 114 H Bilateral Radial] Pulse Rate [ 120 H Environmental Resource Specialist ] Pulse Rate [ Post-Activity] Pulse Rate [Pre -Activity] Respiratory 18 18 Rate Blood Pressure 123/70 135/78 [Left Arm] Blood Pressure [Post-Activity] Blood Pressure [Pre-Activity] O2 Sat by Pulse 96 Oximetry O2 Sat by Pulse Oximetry [Post -Activity] O2 Sat by Pulse Oximetry [Pre- Activity] 10/20/16 10/20/16 10/20/16 20:03 20:04 20:14 Temperature Pulse Rate 108 H 108 H 108 H Pulse Rate [ Bilateral Radial] Pulse Rate [ Environmental Resource Specialist ] Pulse Rate [ Post-Activity] Pulse Rate [Pre -Activity] Respiratory Rate Blood Pressure [Left Arm] Blood Pressure [Post-Activity] Blood Pressure [Pre-Activity] O2 Sat by Pulse Oximetry O2 Sat by Pulse Oximetry [Post -Activity] O2 Sat by Pulse Oximetry [Pre- Activity] 10/21/16 10/21/16 10/21/16 00:00 04:00 07:57 Temperature 97 F L 97.1 F L 98.3 F Pulse Rate Pulse Rate [ Bilateral Radial] Pulse Rate [ 109 H 101 H 111 H Environmental Resource Specialist ] Pulse Rate [ Post-Activity] Pulse Rate [Pre -Activity] Respiratory 18 18 19 Rate Blood Pressure 113/57 104/58 123/63 [Left Arm] Blood Pressure [Post-Activity] Blood Pressure [Pre-Activity] O2 Sat by Pulse 93 L 96 96 Oximetry O2 Sat by Pulse Oximetry [Post -Activity] O2 Sat by Pulse Oximetry [Pre- Activity] 10/21/16 10/21/16 10/21/16 08:00 08:57 10:09 Temperature Pulse Rate Pulse Rate [ Bilateral Radial] Pulse Rate [ 111 H Environmental Resource Specialist ] Pulse Rate [ 93 Post-Activity] Pulse Rate [Pre 86 -Activity] Respiratory 19 Rate Blood Pressure [Left Arm] Blood Pressure 117/81 [Post-Activity] Blood Pressure 113/64 [Pre-Activity] O2 Sat by Pulse 94 L Oximetry O2 Sat by Pulse 95 Oximetry [Post -Activity] O2 Sat by Pulse 96 Oximetry [Pre- Activity] Labs: Short CBC 10/21/16 Range/Units 05:22 WBC 8.3 (3.8-10.6) k/uL Hgb 10.9 L (13.0-17.5) gm/dL Hct 33.1 L (39.0-53.0) % Plt Count 184 D (150-450) k/uL BMP 10/21/16 05:22 Sodium 133 L Potassium 4.5 Chloride 99 Carbon Dioxide 30 BUN 32 H Creatinine 1.10 Glucose 145 H Calcium 7.5 L Liver Function 10/21/16 Range/Units 05:22 Total Bilirubin 0.7 (0.2-1.3) mg/dL AST 20 (17-59) U/L ALT 51 (21-72) U/L Alkaline Phosphatase 71 (38-126) U/L Albumin 2.4 L (3.5-5.0) g/dL Lungs: Essentially clear throughout, diminished bilateral bases left greater than right. Respirations are unlabored. O2 sat: 96% on 3 L nasal cannula, decreased O2 21 L nasal cannula and is currently satting 93-94%. I/S: 9900-9280 mL, reviewed with the patient importance of using his incentive spirometry every hour while awake. Patient gave a good return and demonstration on his incentive spirometry. Heart: S1S2, irregular rhythm with controlled rate, negative for S3, gallop or murmur. Remote telemetry showing sinus tachycardia with occasional PACs heart rate 109. Sternum stable, chest incision clean with dressing clean and dry. Scant serosanguineous drainage noted to dressing. Heart hugger in place, patient demonstrating proper use of his heart hugger. Knee-high HUMZA hose and sequential compression devices in place to bilateral lower extremity Carlos. +2 edema to bilateral lower extremities. Abdomen: Soft slightly distended, Positive bowel sounds present in all 4 quadrants. CBGs: 135-246 mg/dL in the last 24 hours. U/O: Adequate. 24 hr Total: Intake & Output 10/19/16 10/20/16 10/21/16 10/22/16 06:59 06:59 06:59 06:59 Intake Total 2058.134 1649.500 543.875 360 Output Total 3771 2070 610 Balance -1712.866 -420.500 -66.125 360 Weight 104.7 kg 103.6 kg Active Medications Hydrocodone Bitart/Acetaminophen ([place] 5-325) 2 each PO Q4HR PRN PRN Reason: Severe Pain Last Admin: 10/20/16 15:39 Dose: 2 each Hydrocodone Bitart/Acetaminophen ([place] 5-325) 1 each PO Q4HR PRN PRN Reason: Moderate Pain Last Admin: 10/21/16 06:12 Dose: 1 each Albuterol/Ipratropium (Duoneb 0.5 Mg-3 Mg/3 Ml Soln) 3 ml INHALATION RT-Q2H PRN PRN Reason: Shortness Of Breath Or Wheezing Aspirin (Aspirin) 325 mg PO DAILY [facility] Last Admin: 10/21/16 07:59 Dose: 325 mg Atorvastatin Calcium (Lipitor) 40 mg PO HS [facility] Last Admin: 10/20/16 20:18 Dose: 40 mg Benzocaine/Menthol (Cepacol Lozenge) 1 each MUCOUS MEM Q2H PRN PRN Reason: Sore Throat Bisacodyl (Dulcolax) 10 mg RECTAL DAILY PRN PRN Reason: Constipation Budesonide (Pulmicort) 1 mg INHALATION RT-BID [facility] Last Admin: 10/20/16 19:51 Dose: 1 mg Clopidogrel Bisulfate (Plavix) 75 mg PO DAILY [facility] Last Admin: 10/21/16 07:59 Dose: 75 mg Formoterol Fumarate (Perforomist) 20 mcg INHALATION RT-BID [facility] Last Admin: 10/20/16 19:51 Dose: 20 mcg Heparin Sodium (Porcine) (Heparin) 5,000 unit SQ Q8H [facility] Last Admin: 10/21/16 04:19 Dose: 5,000 unit Insulin Glargine (Lantus) 34 unit SQ DAILY [facility] Insulin Human Lispro (Humalog) 0 unit SQ Q2HR [facility] PRN Reason: Protocol Last Admin: 10/21/16 10:16 Dose: 4 unit Insulin Human Lispro (Humalog) 8 unit SQ AC-TID [facility] Ipratropium [place] (Atrovent Nebulized) 0.5 mg INHALATION RT-QID [facility] Last Admin: 10/20/16 19:52 Dose: 0.5 mg Levalbuterol HCl (Xopenex Nebulized (Conc)) 1.25 mg INHALATION RT-QID [facility] Last Admin: 10/20/16 19:52 Dose: 1.25 mg Lisinopril (Zestril) 5 mg PO DAILY [facility] Last Admin: 10/21/16 07:59 Dose: 5 mg Magnesium Hydroxide (Milk Of Magnesia) 2,400 mg PO BID PRN PRN Reason: Constipation Metformin HCl (Glucophage) 1,000 mg PO BID-W/MEALS [facility] Metoclopramide HCl (Reglan) 10 mg IVP Q4H PRN PRN Reason: Nausea And Vomiting Metoprolol Tartrate (Lopressor) 50 mg PO BID [facility] Last Admin: 10/21/16 07:59 Dose: 50 mg Miscellaneous Information (Magnesium Per Protocol) 1 each MISCELLANE DAILY PRN ; Protocol PRN Reason: Per Protocol Miscellaneous Information (Phosphorus Per Protocol) 1 each MISCELLANE DAILY PRN ; Protocol PRN Reason: Per Protocol Miscellaneous Information (Potassium Per Protocol) 1 each MISCELLANE DAILY PRN ; Protocol PRN Reason: Per Protocol Ondansetron HCl (Zofran) 4 mg IVP Q6HR PRN PRN Reason: Nausea And Vomiting Last Admin: 10/18/16 05:42 Dose: 4 mg Pantoprazole Sodium (Protonix) 40 mg PO AC-BRKFST [facility] Last Admin: 10/21/16 07:16 Dose: 40 mg Repaglinide (Prandin) 2 mg PO AC-TID [facility] Senna/Docusate Sodium (Senokot-S) 2 each PO HS [facility] Last Admin: 10/20/16 20:18 Dose: 2 each Sodium Chloride (Saline Flush) 10 ml IV BID [facility] Last Admin: 10/21/16 07:59 Dose: 10 ml Plan: 1. Continue aspirin, Plavix, heparin subcu, Carlos inhibitor and beta esmer. 2. His Lipitor has been restarted at 40 mg by mouth daily at bedtime as his liver enzymes have normalized. 3. Discharge planning is in place, [facility] to follow at home, may need home O2. 4. Dr. Sotomayor for pulmonary managemen. Wean O2 as tolerated. 5. Physical therapy consulted, encourage increase in activity level as tolerated. 6. family educator consulted to assist with diabetic education. Diabetic management per primary care. 7. GI and DVT prophylaxis in place. 8. More recommended medications as patient progresses.
[2016-10-21 12:02] LABS: Glucose,Whole Blood 127 mg/dL (75-99)
--- NOTE | 2016-10-21 12:21 | P.PN ---
Subjective 61-year-old male one of Dr. Cochran patient with past medical history of diabetes, hypertension, hyperlipidemia who has been having worsening shortness of breath and palpitation. He has been followed for aortic stenosis and valvular heart disease by cardiology for the last year. Heart catheter was done in August 2016 showed severe advance aortic stenosis with no vessel involvement. Patient was refer to cardiothoracic surgery and scheduled for elective aortic valve placement today for 2016. Following surgery patient was on mechanical ventilation as postsurgical respiratory failure. Pulmonary were consulted in his care. Patient will be on insulin drip Accu-Chek with sliding scales coverage. Patient is stable hemodynamically in the ICU. 10/18: Patient was successfully extubated yesterday. He is currently on nasal cannula. Heart rate is running in the 80s to 90s. Blood pressure is stable and he is on Clevidipine. Pain appears to be controlled at this time. 10/19: Plan to transition patient to Lantus, and Humalog scale. He was given 1 dose of IV Lasix and Fonseca is to be discontinued today. Cleviprex to be discontinued. Plan is to increase activity and possible transfer out of ICU later today. 10/20: Patient is transferred to selective care unit. Blood sugars are running between 102 08/06/1958 after breakfast this morning. Humalog 8 units scheduled with meals has been added. He denies shortness of breath. No acute distress is noted. He has been afebrile. 10/21: Heart rate is running in the low 100s. Patient is complaining of abdominal bloating and had a bowel movement yesterday. He states he normally has constipation. Blood sugars are elevated for which metformin and Prandin resumed and he is continued on Lantus, scheduled Humalog and Humalog scale. Patient does qualify for home O2 which will be arranged prior to his discharge. Objective - Vital Signs Vital signs: Vital Signs Temp 98.3 F 10/21/16 07:57 Pulse 111 H 10/21/16 08:00 Resp 19 10/21/16 08:00 BP 123/63 10/21/16 07:57 Pulse Ox 96 10/21/16 07:57 Intake & Output 10/20/16 10/21/16 10/21/16 18:59 06:59 18:59 Intake Total 543.875 Output Total 610 Balance -66.125 Weight 103.6 kg Intake: IV 73 Lactated Ringers 1,000 ml 70 @ 20 mls/hr IV .Q24H SHAILESH Rx#:[id number] PRESSURE BAG 3 Intake, IV Titration 26.875 Amount Insulin Regular 100 unit 26.875 In Sodium Chloride 0.9% 100 ml @ Per Protocol IV .Q0M SHAILESH Rx#:[id number] Oral 444 Output: Chest Tube Drainage 10 Right Pleural 10 Urine 600 Other: Voiding Method Urinal Urinal Urinal ABP, PAP, CO, CI - Last Documented Arterial Blood Pressure 129/52 Pulmonary Artery Pressure 31/5 Cardiac Output 9.6 Cardiac Index 4.4 - Exam On mechanical ventilation. General appearance: no average body habitus, no cooperative, no disheveled, no mild distress, no morbidly obese, no acute distress, no obese, no severe distress, no thin - EENT Eyes: no abnormal pupil, no anicteric sclerae, no disc margins sharp, no edentulous, no EOMI, no PERRLA, no fundus normal, no photophobia, no dentition normal, no poor dentition, no ptosis, no scleral icterus, normal appearance ENT: no hard of hearing, no hearing grossly normal, no NA/AT, normal oropharynx , no other, no pharyngeal erythema, no thrush, no tonsillar exudates, no tonsillar swelling Ears: bilateral: normal - Neck Neck: no lymphadenopathy, normal ROM, no other, no rigidity, no stridor, no thyromegaly Carotids: bilateral: upstroke normal Thyroid: bilateral: normal size - Respiratory Respiratory: bilateral: diminished, dullness, rales - Cardiovascular Rhythm: regular Heart sounds: normal: S1, S2 Abnormal Heart Sounds: systolic murmur, S3 Gallop - Gastrointestinal General gastrointestinal: no absent bowel sounds, decreased bowel sounds, no distended, no hepatomegaly, no hyperactive bowel sounds, no normal bowel sounds , no organomegaly, no rigid, no scaphoid, soft, no splenomegaly, no tenderness, no umbilical hernia, no ventral hernia - Integumentary Integumentary: no calor, no cellulitis, no cyanotic, no decreased turgor, no flushed, no jaundiced, normal, no normal turgor, pale, no rash, no ulcer - Neurologic Neurologic: CNII-XII intact - Musculoskeletal Musculoskeletal: gait normal, generalized weakness, no strength equal bilaterally, no right sided weakness, no left sided weakness - Psychiatric Psychiatric: A&O x's 3 - Labs CBC & Chem 7: 10/21/16 05:22 10/21/16 05:22 Labs: Abnormal Lab Results - Last 24 Hours (Table) 10/20/16 10/20/16 10/20/16 Range/Units 04:05 10:09 12:19 RBC (4.30-5.90) m/uL Hgb (13.0-17.5) gm/dL Hct (39.0-53.0) % Sodium (137-145) mmol/L BUN (9-20) mg/dL Glucose (74-99) mg/dL POC Glucose (mg/dL) 257 H 168 H (75-99) mg/dL Hemoglobin A1c 8.5 H (4.2-6.1) % Calcium (8.4-10.2) mg/dL Total Protein (6.3-8.2) g/dL Albumin (3.5-5.0) g/dL 10/20/16 10/20/16 10/20/16 Range/Units 14:05 16:16 18:04 RBC (4.30-5.90) m/uL Hgb (13.0-17.5) gm/dL Hct (39.0-53.0) % Sodium (137-145) mmol/L BUN (9-20) mg/dL Glucose (74-99) mg/dL POC Glucose (mg/dL) 161 H 208 H 246 H (75-99) mg/dL Hemoglobin A1c (4.2-6.1) % Calcium (8.4-10.2) mg/dL Total Protein (6.3-8.2) g/dL Albumin (3.5-5.0) g/dL 10/20/16 10/20/16 10/21/16 Range/Units 20:05 22:18 00:04 RBC (4.30-5.90) m/uL Hgb (13.0-17.5) gm/dL Hct (39.0-53.0) % Sodium (137-145) mmol/L BUN (9-20) mg/dL Glucose (74-99) mg/dL POC Glucose (mg/dL) 188 H 192 H 178 H (75-99) mg/dL Hemoglobin A1c (4.2-6.1) % Calcium (8.4-10.2) mg/dL Total Protein (6.3-8.2) g/dL Albumin (3.5-5.0) g/dL 10/21/16 10/21/16 10/21/16 Range/Units 02:13 04:12 05:22 RBC 3.46 L (4.30-5.90) m/uL Hgb 10.9 L (13.0-17.5) gm/dL Hct 33.1 L (39.0-53.0) % Sodium (137-145) mmol/L BUN (9-20) mg/dL Glucose (74-99) mg/dL POC Glucose (mg/dL) 193 H 169 H (75-99) mg/dL Hemoglobin A1c (4.2-6.1) % Calcium (8.4-10.2) mg/dL Total Protein (6.3-8.2) g/dL Albumin (3.5-5.0) g/dL 10/21/16 10/21/16 10/21/16 Range/Units 05:22 06:02 08:01 RBC (4.30-5.90) m/uL Hgb (13.0-17.5) gm/dL Hct (39.0-53.0) % Sodium 133 L (137-145) mmol/L BUN 32 H (9-20) mg/dL Glucose 145 H (74-99) mg/dL POC Glucose (mg/dL) 135 H 185 H (75-99) mg/dL Hemoglobin A1c (4.2-6.1) % Calcium 7.5 L (8.4-10.2) mg/dL Total Protein 4.9 L (6.3-8.2) g/dL Albumin 2.4 L (3.5-5.0) g/dL Assessment and Plan Plan: 1 severe aortic stenosis: Post aortic valve placement. 2 post aortic valve placement: Continue postsurgical care. 3 post surgery respiratory failure: Was on mechanical ventilation continue current management hopefully wearable off the vent very quickly after surgery 4 hypertension: Stable was on amlodipine Benzapril as soon as he is able take oral meds will be starting him on it. 5 diabetes: Type II he has been on metformin, Prandin and Lantus . Insulin drip to be discontinued and patient started back on Lantus, scheduled Humalog and Humalog scale. Oral diabetic agents left on hold at this time. 6 hyperlipidemia: Pravastatin on hold due to elevated liver function tests. 7 arrhythmia: Keep watching patient hemodynamic status for any form of arrhythmia in the next 3 days. 8 COPD with history of [id number] of smoking. 9 chronic hypoxic respiratory failure requiring home oxygen. 10 GI prophylaxis: Patient will be continue on PPI or H2 esmer. 11 DVT prophylaxis: Continue knee-high HUMZA hose and Venodyne boots and continue DVT prophylaxis protocol. CODE STATUS: Full code. Discharge planning: Home with [facility] Impression and plan of care have been directed as dictated by the signing physician. Vale Nair nurse practitioner acting as scribe for signing physician. Time with Patient: Greater than 30
[2016-10-21] MEDS ORDERED: INSULIN LISPRO (humaLOG) 300 UNIT/3 ML VIAL SQ SCH (12:30)
[2016-10-21] MEDS: REPAGLINIDE 1 MG TAB PO SCH ×2 (12:46→18:15)
--- NOTE | 2016-10-21 13:18 | P.PN ---
Subjective Progress note dated 10/18/2016 This is a 61-year-old male who is postop day #1 status post aortic valve replacement with left atrial appendage excision. He is doing well. Was extubated yesterday. He is currently on O2 at 5 L nasal cannula. He is getting an IV of lactated Ringer's at 50 mL an hour. He is on a drug called Clevipex at 8 mg and an insulin drip at 2.5 units an hour. I have him on updrafts and also we'll add some Symbicort inhaler 2 puffs by office PFTs, he had pretty significant COPD. Is feeling well. No particular complaints. Not short of breath. Seemed be resting comfortably. Progress note dated 10/21/2016 61-year-old male who was postop aortic valve replacement. He also had excision of a left atrial appendage. Doing well. Currently still on oxygen therapy. Using his incentive spirometer daily. I reviewed his chest x-ray day x-ray today with his surgeon. Anyway from our perspective doing very well. In addition to updrafts he's on Symbicort. I did do a preop clearance on him in the office prior to his surgery. He had a surgery done on Monday. He's postop day #4. Objective - Vital Signs Vital signs: Vital Signs Temp 98.3 F 10/21/16 07:57 Pulse 59 L 10/21/16 11:55 Resp 17 10/21/16 11:55 BP 115/65 10/21/16 11:55 Pulse Ox 94 L 10/21/16 11:55 Intake & Output 10/20/16 10/21/16 10/21/16 18:59 06:59 18:59 Intake Total 543.875 596 Output Total 610 Balance -66.125 596 Weight 103.6 kg Intake: IV 73 Lactated Ringers 1,000 ml 70 @ 20 mls/hr IV .Q24H SHAILESH Rx#:[id number] PRESSURE BAG 3 Intake, IV Titration 26.875 Amount Insulin Regular 100 unit 26.875 In Sodium Chloride 0.9% 100 ml @ Per Protocol IV .Q0M SHAILESH Rx#:[id number] Oral 444 596 Output: Chest Tube Drainage 10 Right Pleural 10 Urine 600 Other: Voiding Method Urinal Urinal Urinal ABP, PAP, CO, CI - Last Documented Arterial Blood Pressure 129/52 Pulmonary Artery Pressure 31/5 Cardiac Output 9.6 Cardiac Index 4.4 - Exam No acute distress, oriented 3. Nasal O2 in place. HEENT examination is grossly unremarkable. Mucous membranes are moist. No oral lesions. Neck supple. Full range of motion. No adenopathy or thyromegaly. Neck veins are flat. Cardio vascular examination reveals regular rhythm rate. S1-S2 normal S4. No distinct murmur noted. Lung examination reveals clear breath sounds. No wheezes rhonchi or crackles. Breath sounds are equal bilaterally. Abdomen soft bowel sounds are heard Extremities are intact. No cyanosis clubbing or edema. Skin is without rash or lesion Neurologic examination is nonfocal - Labs CBC & Chem 7: 10/21/16 05:22 10/21/16 05:22 Labs: Abnormal Lab Results - Last 24 Hours (Table) 10/20/16 10/20/16 10/20/16 Range/Units 04:05 14:05 16:16 RBC (4.30-5.90) m/uL Hgb (13.0-17.5) gm/dL Hct (39.0-53.0) % Sodium (137-145) mmol/L BUN (9-20) mg/dL Glucose (74-99) mg/dL POC Glucose (mg/dL) 161 H 208 H (75-99) mg/dL Hemoglobin A1c 8.5 H (4.2-6.1) % Calcium (8.4-10.2) mg/dL Total Protein (6.3-8.2) g/dL Albumin (3.5-5.0) g/dL 10/20/16 10/20/16 10/20/16 Range/Units 18:04 20:05 22:18 RBC (4.30-5.90) m/uL Hgb (13.0-17.5) gm/dL Hct (39.0-53.0) % Sodium (137-145) mmol/L BUN (9-20) mg/dL Glucose (74-99) mg/dL POC Glucose (mg/dL) 246 H 188 H 192 H (75-99) mg/dL Hemoglobin A1c (4.2-6.1) % Calcium (8.4-10.2) mg/dL Total Protein (6.3-8.2) g/dL Albumin (3.5-5.0) g/dL 10/21/16 10/21/16 10/21/16 Range/Units 00:04 02:13 04:12 RBC (4.30-5.90) m/uL Hgb (13.0-17.5) gm/dL Hct (39.0-53.0) % Sodium (137-145) mmol/L BUN (9-20) mg/dL Glucose (74-99) mg/dL POC Glucose (mg/dL) 178 H 193 H 169 H (75-99) mg/dL Hemoglobin A1c (4.2-6.1) % Calcium (8.4-10.2) mg/dL Total Protein (6.3-8.2) g/dL Albumin (3.5-5.0) g/dL 10/21/16 10/21/16 10/21/16 Range/Units 05:22 05:22 06:02 RBC 3.46 L (4.30-5.90) m/uL Hgb 10.9 L (13.0-17.5) gm/dL Hct 33.1 L (39.0-53.0) % Sodium 133 L (137-145) mmol/L BUN 32 H (9-20) mg/dL Glucose 145 H (74-99) mg/dL POC Glucose (mg/dL) 135 H (75-99) mg/dL Hemoglobin A1c (4.2-6.1) % Calcium 7.5 L (8.4-10.2) mg/dL Total Protein 4.9 L (6.3-8.2) g/dL Albumin 2.4 L (3.5-5.0) g/dL 10/21/16 10/21/16 10/21/16 Range/Units 08:01 10:07 12:00 RBC (4.30-5.90) m/uL Hgb (13.0-17.5) gm/dL Hct (39.0-53.0) % Sodium (137-145) mmol/L BUN (9-20) mg/dL Glucose (74-99) mg/dL POC Glucose (mg/dL) 185 H 214 H 127 H (75-99) mg/dL Hemoglobin A1c (4.2-6.1) % Calcium (8.4-10.2) mg/dL Total Protein (6.3-8.2) g/dL Albumin (3.5-5.0) g/dL Assessment and Plan (1) Aortic stenosis Status: Acute (2) Status post aortic valve replacement Status: Acute (3) Diabetes Status: Acute (4) Hypertension Status: Acute (5) Hyperlipidemia Status: Acute (6) Postoperative respiratory failure Status: Acute Plan: Plan dated 10/17/2016 The patient's evaluated thoroughly. X-ray will be reviewed once it's done. The patient ventilator is adjusted accordingly. Blood gases will be done. The patient's currently sedated. We'll continue to follow closely. The patient once more awake and be put through the rapid weaning protocol. The nurses to call me for sending discrepancies or issues to discuss. We'll continue to follow. Updrafts as noted. We'll review the x-ray once it is completed. Plan dated 10/18/2016 The patient's doing well. The patient's on updrafts. I add Symbicort 160/4.5 , 2 puffs twice a day. I asked him to work on his incentive spirometer. The patient's hemodynamics are stable. Calcium channel esmer to help reduce his blood pressure. Is on an insulin drip at 2.5 units an hour. We'll continue to follow closely. Prognosis is guarded. Plan dated 10/21/2016 The patient continues to progress nicely. He continues to use his incentive spirometer. He is on DuoNeb's used 4 times a day and when necessary as well as Symbicort 160/4.5, 2 puffs twice a day. I will continue to watch him closely. He will need follow-up with me in the office. He does have pretty substantial COPD. Additional recommendations suggestions are forthcoming. Chest x-ray looks relatively stable. Time with Patient: Less than 30
[2016-10-21 14:22] LABS: Glucose,Whole Blood 185 mg/dL (75-99)
[2016-10-21 16:01] LABS: Glucose,Whole Blood 180 mg/dL (75-99)
--- NOTE | 2016-10-21 16:12 | P.PN ---
Subjective Principal diagnosis: Status post aortic valve replacement This patient is status post aortic l valve replacement. Patient blood pressure is running high.. Patient also had some issues with oxygenation during the night.. He appears to be alert and doesn't appear to be in acute distress. He is sitting in the chair. He is on beta esmer and lisinopril for blood pressure control. His possible that patient may be transferred to stepdown unit later today. Patient is reevaluated on October 21. His in the telemetry unit. Patient tolerating activity. Doesn't appear to be in acute distress. His lungs show some diminished breath sounds at bases. Heart is regular. We'll continue current medical therapy. Increase activity as tolerated. Patient may be discharged home within next couple of days. Objective - Vital Signs Vital signs: Vital Signs Temp 99.6 F 10/21/16 15:30 Pulse 59 L 10/21/16 11:55 Resp 20 10/21/16 15:30 BP 141/97 10/21/16 15:30 Pulse Ox 93 L 10/21/16 15:30 Intake & Output 10/20/16 10/21/16 10/21/16 18:59 06:59 18:59 Intake Total 543.875 596 Output Total 610 Balance -66.125 596 Weight 103.6 kg Intake: IV 73 Lactated Ringers 1,000 ml 70 @ 20 mls/hr IV .Q24H SHAILESH Rx#:[id number] PRESSURE BAG 3 Intake, IV Titration 26.875 Amount Insulin Regular 100 unit 26.875 In Sodium Chloride 0.9% 100 ml @ Per Protocol IV .Q0M SHAILESH Rx#:[id number] Oral 444 596 Output: Chest Tube Drainage 10 Right Pleural 10 Urine 600 Other: Voiding Method Urinal Urinal Urinal ABP, PAP, CO, CI - Last Documented Arterial Blood Pressure 129/52 Pulmonary Artery Pressure 31/5 Cardiac Output 9.6 Cardiac Index 4.4 - Labs CBC & Chem 7: 10/21/16 05:22 10/21/16 05:22 Labs: Abnormal Lab Results - Last 24 Hours (Table) 10/20/16 10/20/16 10/20/16 Range/Units 04:05 16:16 18:04 RBC (4.30-5.90) m/uL Hgb (13.0-17.5) gm/dL Hct (39.0-53.0) % Sodium (137-145) mmol/L BUN (9-20) mg/dL Glucose (74-99) mg/dL POC Glucose (mg/dL) 208 H 246 H (75-99) mg/dL Hemoglobin A1c 8.5 H (4.2-6.1) % Calcium (8.4-10.2) mg/dL Total Protein (6.3-8.2) g/dL Albumin (3.5-5.0) g/dL 10/20/16 10/20/16 10/21/16 Range/Units 20:05 22:18 00:04 RBC (4.30-5.90) m/uL Hgb (13.0-17.5) gm/dL Hct (39.0-53.0) % Sodium (137-145) mmol/L BUN (9-20) mg/dL Glucose (74-99) mg/dL POC Glucose (mg/dL) 188 H 192 H 178 H (75-99) mg/dL Hemoglobin A1c (4.2-6.1) % Calcium (8.4-10.2) mg/dL Total Protein (6.3-8.2) g/dL Albumin (3.5-5.0) g/dL 10/21/16 10/21/16 10/21/16 Range/Units 02:13 04:12 05:22 RBC 3.46 L (4.30-5.90) m/uL Hgb 10.9 L (13.0-17.5) gm/dL Hct 33.1 L (39.0-53.0) % Sodium (137-145) mmol/L BUN (9-20) mg/dL Glucose (74-99) mg/dL POC Glucose (mg/dL) 193 H 169 H (75-99) mg/dL Hemoglobin A1c (4.2-6.1) % Calcium (8.4-10.2) mg/dL Total Protein (6.3-8.2) g/dL Albumin (3.5-5.0) g/dL 10/21/16 10/21/16 10/21/16 Range/Units 05:22 06:02 08:01 RBC (4.30-5.90) m/uL Hgb (13.0-17.5) gm/dL Hct (39.0-53.0) % Sodium 133 L (137-145) mmol/L BUN 32 H (9-20) mg/dL Glucose 145 H (74-99) mg/dL POC Glucose (mg/dL) 135 H 185 H (75-99) mg/dL Hemoglobin A1c (4.2-6.1) % Calcium 7.5 L (8.4-10.2) mg/dL Total Protein 4.9 L (6.3-8.2) g/dL Albumin 2.4 L (3.5-5.0) g/dL 10/21/16 10/21/16 10/21/16 Range/Units 10:07 12:00 14:10 RBC (4.30-5.90) m/uL Hgb (13.0-17.5) gm/dL Hct (39.0-53.0) % Sodium (137-145) mmol/L BUN (9-20) mg/dL Glucose (74-99) mg/dL POC Glucose (mg/dL) 214 H 127 H 185 H (75-99) mg/dL Hemoglobin A1c (4.2-6.1) % Calcium (8.4-10.2) mg/dL Total Protein (6.3-8.2) g/dL Albumin (3.5-5.0) g/dL 10/21/16 Range/Units 15:59 RBC (4.30-5.90) m/uL Hgb (13.0-17.5) gm/dL Hct (39.0-53.0) % Sodium (137-145) mmol/L BUN (9-20) mg/dL Glucose (74-99) mg/dL POC Glucose (mg/dL) 180 H (75-99) mg/dL Hemoglobin A1c (4.2-6.1) % Calcium (8.4-10.2) mg/dL Total Protein (6.3-8.2) g/dL Albumin (3.5-5.0) g/dL Assessment and Plan (1) Aortic stenosis Status: Acute (2) Diabetes Status: Acute (3) Hyperlipidemia Status: Acute (4) Hypertension Status: Acute (5) Status post aortic valve replacement Status: Acute Plan: Patient's clinical status remained stable. He denies any chest pain or shortness of breath. Tolerating activity very well. No Cardec arrhythmias. Increase physical activity. Possible discharge within next couple of days
[2016-10-21 18:10] LABS: Glucose,Whole Blood 146 mg/dL (75-99)
[2016-10-21] MEDS: metFORMIN 500 MG TAB PO SCH (18:15)
[2016-10-21 19:56] LABS: Glucose,Whole Blood 161 mg/dL (75-99)
[2016-10-21] MEDS ORDERED: DEXTROSE 5% IN WATER 100 ML with AMIODARONE 150 MG IV ONE (20:01)
[2016-10-21] MEDS: SENNOSIDES-DOCUSATE SODIUM 1 EACH TAB PO SCH (20:24)
[2016-10-21] MEDS: ATORVASTATIN 40 MG TAB PO SCH (20:24)
[2016-10-21] MEDS: AMIODARONE 450 MG in DEXTROSE 5% IN WATER 250 ML IV SCH ×2 (20:25)
[2016-10-21 22:03] LABS: Glucose,Whole Blood 185 mg/dL (75-99)
[2016-10-22 00:16] LABS: Glucose,Whole Blood 215 mg/dL (75-99)
[2016-10-22] MEDS: INSULIN LISPRO (humaLOG) 300 UNIT/3 ML VIAL SQ SCH ×15 (00:21→23:27)
[2016-10-22 02:17] LABS: Glucose,Whole Blood 142 mg/dL (75-99)
[2016-10-22] MEDS: HYDROcodone/APAP 5-325MG 1 EACH TAB PO PRN ×4 (03:29→19:48)
[2016-10-22] MEDS: AMIODARONE 450 MG in DEXTROSE 5% IN WATER 250 ML IV SCH ×6 (04:18→18:58)
[2016-10-22] MEDS: HEPARIN SODIUM,PORCINE 5,000 UNIT/ML 1 ML VIAL SQ SCH ×3 (04:18→21:30)
[2016-10-22 04:36] LABS: Glucose,Whole Blood 125 mg/dL (75-99)
[2016-10-22 06:10] LABS: Glucose,Whole Blood 122 mg/dL (75-99)
[2016-10-22 06:23] LABS: CH 30.3; CHCM 32.3; HDW 2.61; HGB 10.9 gm/dL (13.0-17.5); MCH 31.9 pg (25.0-35.0); MCHC 33.9 g/dL (31.0-37.0); Mean Platelet Volume 7.3; RDW 13.1 % (11.5-15.5); WBC 9.6 k/uL (3.8-10.6)
[2016-10-22 06:40] LABS: ALT 44 U/L (21-72); AST 24 U/L (17-59); Alkaline Phosphatase 84 U/L (38-126); Anion Gap 6 mmol/L; Blood Urea Nitrogen 29 mg/dL (9-20); Calcium 7.5 mg/dL (8.4-10.2); Carbon Dioxide 30 mmol/L (22-30); Chloride 99 mmol/L (98-107); Glucose 115 mg/dL (74-99); Non-African American GFR(MDRD) >60 (>60 ml/min/1.73 sqM); Potassium 4.4 mmol/L (3.5-5.1); Sodium 135 mmol/L (137-145); Total Bilirubin 0.8 mg/dL (0.2-1.3); Total Protein 5.3 g/dL (6.3-8.2)
[2016-10-22] MEDS: metFORMIN 500 MG TAB PO SCH ×2 (07:06→17:11)
[2016-10-22] MEDS: PANTOPRAZOLE 40 MG TABLET PO SCH (07:06)
[2016-10-22] MEDS: REPAGLINIDE 1 MG TAB PO SCH ×3 (07:06→17:11)
--- NOTE | 2016-10-22 07:46 | XR ---
EXAMINATION TYPE: XR chest 2V DATE OF EXAM: 10/22/2016 6:20 AM COMPARISON: NONE INDICATION: Post cardiac surgery, previous abnormal chest TECHNIQUE: Chest examined in the frontal and lateral views FINDINGS: The heart size is normal. The pulmonary vasculature is normal. Small left pleural effusion is present. Mild subsegmental atelectasis may be at the right base. Findi ngs are stable. Sternotomy wires are present from previous cardiac valve surgery. IMPRESSION: 1. Small left pleural effusion 2. Subsegmental atelectasis present bilaterally.
[2016-10-22 08:23] LABS: Glucose,Whole Blood 196 mg/dL (75-99)
[2016-10-22] MEDS: LISINOPRIL 5 MG TAB PO SCH (08:32)
[2016-10-22] MEDS: CLOPIDOGREL 75 MG TAB PO SCH (08:32)
[2016-10-22] MEDS: METOPROLOL TARTRATE 50 MG TAB PO SCH ×3 (08:32→21:23)
[2016-10-22] MEDS: INSULIN GLARGINE 100 UNIT/ML 10 ML VIAL SQ SCH (08:32)
[2016-10-22] MEDS: ASPIRIN 325 MG TAB PO SCH (08:32)
[2016-10-22 10:19] LABS: Glucose,Whole Blood 185 mg/dL (75-99)
[2016-10-22] MEDS: LEVALBUTEROL NEB (CONC) 1.25 MG/0.5 ML AMP INHALATION SCH ×6 (11:24→22:13)
[2016-10-22] MEDS: IPRATROPIUM 0.5 MG/2.5 ML NEBU INHALATION SCH ×5 (11:25→22:13)
[2016-10-22] MEDS: BUDESONIDE 1 MG/2 ML NEBU INHALATION SCH (11:41)
[2016-10-22] MEDS: FORMOTEROL FUMARATE 20 MCG/2 ML NEBU INHALATION SCH (11:41)
[2016-10-22] MEDS ORDERED: DEXTROSE 5% IN WATER 100 ML with AMIODARONE 150 MG IV ONE (11:45)
[2016-10-22 12:02] LABS: Glucose,Whole Blood 150 mg/dL (75-99)
--- NOTE | 2016-10-22 13:39 | P.PN ---
Subjective 61-year-old male one of Dr. Cochran patient with past medical history of diabetes, hypertension, hyperlipidemia who has been having worsening shortness of breath and palpitation. He has been followed for aortic stenosis and valvular heart disease by cardiology for the last year. Heart catheter was done in August 2016 showed severe advance aortic stenosis with no vessel involvement. Patient was refer to cardiothoracic surgery and scheduled for elective aortic valve placement today for 2016. Following surgery patient was on mechanical ventilation as postsurgical respiratory failure. Pulmonary were consulted in his care. Patient will be on insulin drip Accu-Chek with sliding scales coverage. Patient is stable hemodynamically in the ICU. 10/18: Patient was successfully extubated yesterday. He is currently on nasal cannula. Heart rate is running in the 80s to 90s. Blood pressure is stable and he is on Clevidipine. Pain appears to be controlled at this time. 10/19: Plan to transition patient to Lantus, and Humalog scale. He was given 1 dose of IV Lasix and Fonseca is to be discontinued today. Cleviprex to be discontinued. Plan is to increase activity and possible transfer out of ICU later today. 10/20: Patient is transferred to selective care unit. Blood sugars are running between 102 08/06/1958 after breakfast this morning. Humalog 8 units scheduled with meals has been added. He denies shortness of breath. No acute distress is noted. He has been afebrile. 10/21: Heart rate is running in the low 100s. Patient is complaining of abdominal bloating and had a bowel movement yesterday. He states he normally has constipation. Blood sugars are elevated for which metformin and Prandin resumed and he is continued on Lantus, scheduled Humalog and Humalog scale. Patient does qualify for home O2 which will be arranged prior to his discharge. 10/22: Patient went into atrial flutter/fib he was started on amiodarone drip, his sitting up in chair his feeling a bit better, he continues to have some coughing, no chest pain, some dyspnea and exertion, he does complain of edema both lower extremities. Objective - Vital Signs Vital signs: Vital Signs Temp 99.3 F 10/22/16 08:00 Pulse 157 H 10/22/16 08:00 Resp 18 10/22/16 08:00 BP 111/58 10/22/16 08:00 Pulse Ox 98 10/22/16 08:00 Intake & Output 10/21/16 10/22/16 10/22/16 18:59 06:59 18:59 Intake Total 596 255.518 Output Total 0 Balance 596 255.518 0 Weight 112.3 kg 112.3 kg Intake: Intake, IV Titration 255.518 Amount Amiodarone 450 mg In 255.518 Dextrose 5% in Water 250 ml @ 1 MG/MIN 34.53 mls/ hr IV .Q7H31M [facility] Rx#: [id number] Oral 596 Output: Urine 0 Other: Voiding Method Urinal Urinal ABP, PAP, CO, CI - Last Documented Arterial Blood Pressure 129/52 Pulmonary Artery Pressure 31/5 Cardiac Output 9.6 Cardiac Index 4.4 - Exam - Exam On mechanical ventilation. General appearance: no average body habitus, no cooperative, no disheveled, no mild distress, no morbidly obese, no acute distress, no obese, no severe distress, no thin - EENT Eyes: no abnormal pupil, no anicteric sclerae, no disc margins sharp, no edentulous, no EOMI, no PERRLA, no fundus normal, no photophobia, no dentition normal, no poor dentition, no ptosis, no scleral icterus, normal appearance ENT: no hard of hearing, no hearing grossly normal, no NA/AT, normal oropharynx , no other, no pharyngeal erythema, no thrush, no tonsillar exudates, no tonsillar swelling Ears: bilateral: normal - Neck Neck: no lymphadenopathy, normal ROM, no other, no rigidity, no stridor, no thyromegaly Carotids: bilateral: upstroke normal Thyroid: bilateral: normal size - Respiratory Respiratory: bilateral: diminished, dullness, rales - Cardiovascular Rhythm: regular Heart sounds: normal: S1, S2 Abnormal Heart Sounds: systolic murmur, S3 Gallop - Gastrointestinal General gastrointestinal: no absent bowel sounds, decreased bowel sounds, no distended, no hepatomegaly, no hyperactive bowel sounds, no normal bowel sounds , no organomegaly, no rigid, no scaphoid, soft, no splenomegaly, no tenderness, no umbilical hernia, no ventral hernia - Integumentary Integumentary: no calor, no cellulitis, no cyanotic, no decreased turgor, no flushed, no jaundiced, normal, no normal turgor, pale, no rash, no ulcer - Neurologic Neurologic: CNII-XII intact - Musculoskeletal Musculoskeletal: gait normal, generalized weakness, no strength equal bilaterally, no right sided weakness, no left sided weakness - Psychiatric Psychiatric: A&O x's 3 - Labs CBC & Chem 7: 10/22/16 05:43 10/22/16 05:43 Labs: Abnormal Lab Results - Last 24 Hours (Table) 10/21/16 10/21/16 10/21/16 Range/Units 10:07 12:00 14:10 RBC (4.30-5.90) m/uL Hgb (13.0-17.5) gm/dL Hct (39.0-53.0) % POC Glucose (mg/dL) 214 H 127 H 185 H (75-99) mg/dL 10/21/16 10/21/16 10/21/16 Range/Units 15:59 18:07 19:53 RBC (4.30-5.90) m/uL Hgb (13.0-17.5) gm/dL Hct (39.0-53.0) % POC Glucose (mg/dL) 180 H 146 H 161 H (75-99) mg/dL 10/21/16 10/22/16 10/22/16 Range/Units 22:01 00:14 02:07 RBC (4.30-5.90) m/uL Hgb (13.0-17.5) gm/dL Hct (39.0-53.0) % POC Glucose (mg/dL) 185 H 215 H 142 H (75-99) mg/dL 10/22/16 10/22/16 10/22/16 Range/Units 04:16 05:43 06:06 RBC 3.40 L (4.30-5.90) m/uL Hgb 10.9 L (13.0-17.5) gm/dL Hct 32.0 L (39.0-53.0) % POC Glucose (mg/dL) 125 H 122 H (75-99) mg/dL 10/22/16 Range/Units 08:20 RBC (4.30-5.90) m/uL Hgb (13.0-17.5) gm/dL Hct (39.0-53.0) % POC Glucose (mg/dL) 196 H (75-99) mg/dL Assessment and Plan Plan: Assessment and Plan Plan: 1 severe aortic stenosis: Post aortic valve placement. 2 post aortic valve placement: Continue postsurgical care. 3 post surgery respiratory failure: Was on mechanical ventilation continue current management hopefully wearable off the vent very quickly after surgery 4 hypertension: Stable was on amlodipine Benzapril as soon as he is able take oral meds will be starting him on it. 5 diabetes: Type II he has been on metformin, Prandin and Lantus . Insulin drip to be discontinued and patient started back on Lantus, scheduled Humalog and Humalog scale. Oral diabetic agents left on hold at this time. 6 hyperlipidemia: Pravastatin on hold due to elevated liver function tests. 7 atrial fibrillation with fast rate. Continue amiodarone drip, monitor the patient for the next 1-2 days. 8 COPD with history of [id number] of smoking. 9 chronic hypoxic respiratory failure requiring home oxygen. 10 GI prophylaxis: Patient will be continue on PPI or H2 esmer. 11 DVT prophylaxis: Continue knee-high HUMZA hose and Venodyne boots and continue DVT prophylaxis protocol. CODE STATUS: Full code.
[2016-10-22 14:17] LABS: Glucose,Whole Blood 71 mg/dL (75-99)
[2016-10-22] MEDS: DIGOXIN 250 MCG/ML 2 ML AMP IVP SCH ×2 (14:18→17:11)
--- NOTE | 2016-10-22 15:00 | P.PN ---
<Nash Armstrong L - Last Filed: 10/22/16 14:52> Progress Note - Text CV Surgery Nursing Principal diagnosis: Severe aortic valve stenosis. Mild coronary artery disease. Hypertension. Hyperlipidemia. Diabetes mellitus. Obesity. POD #5 aortic valve replacement using a 23 mm pericardial bioprosthesis Magna Ease. Exclusion of the left atrial appendage using a 35 mm AtriClip. Intraoperative transesophageal echocardiogram and scanning. Patient awake and alert, no distress noted, no specific complaints, patient is sitting up to the bedside chair. Vital Signs: Afebrile Vital Signs - 24 hr 10/21/16 10/21/16 10/21/16 15:13 15:30 17:09 Temperature 99.6 F Pulse Rate 104 H Pulse Rate [ Fur Dry Cleaner ] Pulse Rate [ Post-Activity] Pulse Rate [Pre -Activity] Pulse Rate [ Pulse Oximetery ] Respiratory 17 20 Rate Blood Pressure 141/97 [Right Arm] O2 Sat by Pulse 93 L Oximetry O2 Sat by Pulse Oximetry [Post -Activity] O2 Sat by Pulse Oximetry [Pre- Activity] 10/21/16 10/21/16 10/21/16 17:20 17:40 18:57 Temperature Pulse Rate 110 H Pulse Rate [ Fur Dry Cleaner ] Pulse Rate [ 88 Post-Activity] Pulse Rate [Pre 93 -Activity] Pulse Rate [ Pulse Oximetery ] Respiratory 20 Rate Blood Pressure [Right Arm] O2 Sat by Pulse Oximetry O2 Sat by Pulse 92 L Oximetry [Post -Activity] O2 Sat by Pulse 87 L Oximetry [Pre- Activity] 10/21/16 10/21/16 10/21/16 20:00 20:01 20:16 Temperature 98.7 F Pulse Rate Pulse Rate [ 157 H 157 H 141 H Fur Dry Cleaner ] Pulse Rate [ Post-Activity] Pulse Rate [Pre -Activity] Pulse Rate [ Pulse Oximetery ] Respiratory 20 22 20 Rate Blood Pressure 137/62 134/64 [Right Arm] O2 Sat by Pulse 92 L 93 L Oximetry O2 Sat by Pulse Oximetry [Post -Activity] O2 Sat by Pulse Oximetry [Pre- Activity] 10/21/16 10/21/16 10/21/16 20:31 20:46 21:35 Temperature Pulse Rate 113 H Pulse Rate [ 128 H 124 H Fur Dry Cleaner ] Pulse Rate [ Post-Activity] Pulse Rate [Pre -Activity] Pulse Rate [ Pulse Oximetery ] Respiratory 20 20 Rate Blood Pressure 130/65 124/62 [Right Arm] O2 Sat by Pulse 93 L 93 L Oximetry O2 Sat by Pulse Oximetry [Post -Activity] O2 Sat by Pulse Oximetry [Pre- Activity] 10/21/16 10/21/16 10/21/16 21:45 21:46 21:57 Temperature Pulse Rate 116 H 118 H 120 H Pulse Rate [ Fur Dry Cleaner ] Pulse Rate [ Post-Activity] Pulse Rate [Pre -Activity] Pulse Rate [ Pulse Oximetery ] Respiratory Rate Blood Pressure [Right Arm] O2 Sat by Pulse Oximetry O2 Sat by Pulse Oximetry [Post -Activity] O2 Sat by Pulse Oximetry [Pre- Activity] 10/21/16 10/22/16 10/22/16 22:33 00:00 04:00 Temperature 98.6 F Pulse Rate Pulse Rate [ 157 H 77 76 Fur Dry Cleaner ] Pulse Rate [ Post-Activity] Pulse Rate [Pre -Activity] Pulse Rate [ Pulse Oximetery ] Respiratory 20 20 20 Rate Blood Pressure 102/67 94/56 115/56 [Right Arm] O2 Sat by Pulse 93 L 96 98 Oximetry O2 Sat by Pulse Oximetry [Post -Activity] O2 Sat by Pulse Oximetry [Pre- Activity] 10/22/16 10/22/16 10/22/16 08:00 11:25 12:00 Temperature 99.3 F 98.4 F Pulse Rate Pulse Rate [ 157 H 157 H Fur Dry Cleaner ] Pulse Rate [ Post-Activity] Pulse Rate [Pre -Activity] Pulse Rate [ 151 H 110 H Pulse Oximetery ] Respiratory 18 18 Rate Blood Pressure 111/58 100/59 [Right Arm] O2 Sat by Pulse 98 98 98 Oximetry O2 Sat by Pulse Oximetry [Post -Activity] O2 Sat by Pulse Oximetry [Pre- Activity] Labs: Short CBC 10/22/16 Range/Units 05:43 WBC 9.6 (3.8-10.6) k/uL Hgb 10.9 L (13.0-17.5) gm/dL Hct 32.0 L (39.0-53.0) % Plt Count 233 (150-450) k/uL BMP 10/22/16 05:43 Sodium 135 L Potassium 4.4 Chloride 99 Carbon Dioxide 30 BUN 29 H Creatinine 0.89 Glucose 115 H Calcium 7.5 L Liver Function 10/22/16 Range/Units 05:43 Total Bilirubin 0.8 (0.2-1.3) mg/dL AST 24 (17-59) U/L ALT 44 (21-72) U/L Alkaline Phosphatase 84 (38-126) U/L Albumin 2.5 L (3.5-5.0) g/dL IV Fluids: 0.9% normal saline at 20 mL per hour Amiodarone drip at 0.5 mg/m. Lungs: essentially clear throughout, diminished bilateral bases. Respirations are unlabored. O2 sat: 98% on 2 L nasal cannula. I/S: 0839-3472 mL, reviewed with the patient importance of using his incentive spirometry every hour while awake. Patient gave a good return and demonstration on his incentive spirometry. Heart: S1S2,irregular rhythm with a tachycardic rate. Remote telemetry showing atrial fibrillation with rapid ventricular response heart rate 130. Sternum stable, chest incision clean with Silver dressing clean and dry.heart hugger in place, patient demonstrating proper use of his heart hugger. Knee-high HUMZA hose and sequential compression devices in place to bilateral lower extremity Carlos. +2 edema to bilateral lower extremities. Abdomen: Soft, Positive bowel sounds present in all 4 quadrants. CBGs: 71-185 mg/dL in the last 24 hours. U/O: adequate. 24 hr Total: Intake & Output 10/20/16 10/21/16 10/22/16 10/23/16 06:59 06:59 06:59 06:59 Intake Total 1649.500 543.875 851.518 130.025 Output Total 2070 610 400 Balance -420.500 -66.125 851.518 -269.975 Weight 103.6 kg 112.3 kg 112.3 kg Active Medications Hydrocodone Bitart/Acetaminophen (Pollard 5-325) 2 each PO Q4HR PRN PRN Reason: Severe Pain Last Admin: 10/22/16 14:04 Dose: 2 each Hydrocodone Bitart/Acetaminophen (Pollard 5-325) 1 each PO Q4HR PRN PRN Reason: Moderate Pain Last Admin: 10/21/16 16:10 Dose: 1 each Aspirin (Aspirin) 325 mg PO DAILY [facility] Last Admin: 10/22/16 08:32 Dose: 325 mg Atorvastatin Calcium (Lipitor) 40 mg PO HS [facility] Last Admin: 10/21/16 20:24 Dose: 40 mg Benzocaine/Menthol (Cepacol Lozenge) 1 each MUCOUS MEM Q2H PRN PRN Reason: Sore Throat Bisacodyl (Dulcolax) 10 mg RECTAL DAILY PRN PRN Reason: Constipation Clopidogrel Bisulfate (Plavix) 75 mg PO DAILY [facility] Last Admin: 10/22/16 08:32 Dose: 75 mg Digoxin (Lanoxin) 250 mcg IVP Q6HR [facility] Stop: 10/22/16 18:01 Last Admin: 10/22/16 14:18 Dose: 250 mcg Heparin Sodium (Porcine) (Heparin) 5,000 unit SQ Q8H [facility] Last Admin: 10/22/16 12:23 Dose: 5,000 unit Amiodarone HCl 450 mg/ (Dextrose/Water) 259 mls @ 34.53 mls/hr IV .Q7H31M [facility]; 1 MG/MIN PRN Reason: Protocol Stop: 10/22/16 20:31 Last Admin: 10/22/16 11:50 Dose: 0.5 mg/min, 17.26 mls/hr Insulin Glargine (Lantus) 34 unit SQ DAILY [facility] Last Admin: 10/22/16 08:32 Dose: 34 unit Insulin Human Lispro (Humalog) 0 unit SQ Q2HR [facility] PRN Reason: Protocol Last Admin: 10/22/16 14:18 Dose: Not Given Insulin Human Lispro (Humalog) 8 unit SQ AC-TID [facility] Last Admin: 10/22/16 12:24 Dose: 8 unit Ipratropium [place] (Atrovent Nebulized) 0.5 mg INHALATION RT-QID [facility] Last Admin: 10/22/16 11:41 Dose: Not Given Levalbuterol HCl (Xopenex Nebulized (Conc)) 1.25 mg INHALATION RT-TID [facility] Lisinopril (Zestril) 5 mg PO DAILY [facility] Last Admin: 10/22/16 08:32 Dose: 5 mg Magnesium Hydroxide (Milk Of Magnesia) 2,400 mg PO BID PRN PRN Reason: Constipation Metformin HCl (Glucophage) 1,000 mg PO BID-W/MEALS [facility] Last Admin: 10/22/16 07:06 Dose: 1,000 mg Metoclopramide HCl (Reglan) 10 mg IVP Q4H PRN PRN Reason: Nausea And Vomiting Metoprolol Tartrate (Lopressor) 50 mg PO TID [facility] Miscellaneous Information (Magnesium Per Protocol) 1 each MISCELLANE DAILY PRN ; Protocol PRN Reason: Per Protocol Miscellaneous Information (Phosphorus Per Protocol) 1 each MISCELLANE DAILY PRN ; Protocol PRN Reason: Per Protocol Miscellaneous Information (Potassium Per Protocol) 1 each MISCELLANE DAILY PRN ; Protocol PRN Reason: Per Protocol Ondansetron HCl (Zofran) 4 mg IVP Q6HR PRN PRN Reason: Nausea And Vomiting Last Admin: 10/18/16 05:42 Dose: 4 mg Pantoprazole Sodium (Protonix) 40 mg PO AC-BRKFST [facility] Last Admin: 10/22/16 07:06 Dose: 40 mg Repaglinide (Prandin) 2 mg PO AC-TID [facility] Last Admin: 10/22/16 12:23 Dose: 2 mg Senna/Docusate Sodium (Senokot-S) 2 each PO HS [facility] Last Admin: 10/21/16 20:24 Dose: 2 each Sodium Chloride (Saline Flush) 10 ml IV BID [facility] Last Admin: 10/22/16 08:31 Dose: 10 ml Plan: 1. Continue aspirin, Plavix, heparin subcu, Carlos inhibitor and beta esmer. 2. continue Lipitor as his liver enzymes have normalized. 3. Discharge planning is in place, [facility] to follow at home, may need home O2. 4. Dr. Sotomayor for pulmonary management. Wean O2 as tolerated. 5. Physical therapy consulted, encourage increase in activity level as tolerated. 6. clinical unit educator consulted to assist with diabetic education. Diabetic management per primary care. 7. GI and DVT prophylaxis in place. 8. amiodarone 150 mg IV bolus 1 now, for atrial fibrillation. Continue amiodarone drip. 9. More recommended medications as patient progresses. <Gregory Cassidy - Last Filed: 10/25/16 11:44> Progress Note - Text The patient was seen and examined. I agree with the above assessment and plan. The patient continues to have intermittent atrial fibrillation with rapid ventricular response. We will give him an extra bolus of amiodarone this morning. He remains on the drip which was started yesterday. Otherwise we will continue to wean his oxygen as tolerated. He will likely be discharged home within the next several days.
--- NOTE | 2016-10-22 15:41 | P.PN ---
Subjective Principal diagnosis: S/P AVR This is a pleasant 61-year-old gentleman who is status post aortic valve replacement. He has been tolerating activity, sitting up in a chair. He was found to be in a fibrillation with rapid ventricular response and was put back on a amiodarone drip. He is in no acute distress. The pressure is stable. He has no complaints of dizziness or chest discomfort. He is also currently on metoprolol 50 mg by mouth twice a day. Heart rate currently 140s to 150s. Objective - Vital Signs Vital signs: Vital Signs Temp 98.4 F 10/22/16 12:00 Pulse 157 H 10/22/16 12:00 Resp 18 10/22/16 12:00 BP 100/59 10/22/16 12:00 Pulse Ox 98 10/22/16 12:00 Intake & Output 10/21/16 10/22/16 10/22/16 18:59 06:59 18:59 Intake Total 596 255.518 130.025 Output Total 700 Balance 596 255.518 -569.975 Weight 112.3 kg 112.3 kg Intake: Intake, IV Titration 255.518 130.025 Amount Amiodarone 450 mg In 255.518 130.025 Dextrose 5% in Water 250 ml @ 1 MG/MIN 34.53 mls/ hr IV .Q7H31M [facility] Rx#: [id number] Oral 596 0 Output: Urine 700 Other: Voiding Method Urinal Urinal Urinal ABP, PAP, CO, CI - Last Documented Arterial Blood Pressure 129/52 Pulmonary Artery Pressure 31/5 Cardiac Output 9.6 Cardiac Index 4.4 - Exam PHYSICAL EXAMINATION: HEENT: Head is atraumatic, normocephalic. Pupils equal, round. Neck is supple. There is no elevated jugular venous pressure. HEART EXAMINATION: Heart sounds irregular irregular, tachycardic, S1 and S2 normal. No murmur or gallop heard. CHEST EXAMINATION: Lungs diminished air entry bilateral bases. No chest wall tenderness is noted on palpation or with deep breathing. Sternal incision with silver dressing clean dry and intact. ABDOMEN: Soft, nontender. Bowel sounds are heard. No organomegaly noted. EXTREMITIES: 2+ peripheral pulses with evidence of 1-2+ peripheral edema and no calf tenderness noted. NEUROLOGIC patient is awake, alert and oriented x3. . - Labs CBC & Chem 7: 04/22/17 05:43 10/22/16 05:43 Labs: Abnormal Lab Results - Last 24 Hours (Table) 10/21/16 10/21/16 10/21/16 Range/Units 15:59 18:07 19:53 RBC (4.30-5.90) m/uL Hgb (13.0-17.5) gm/dL Hct (39.0-53.0) % Sodium (137-145) mmol/L BUN (9-20) mg/dL Glucose (74-99) mg/dL POC Glucose (mg/dL) 180 H 146 H 161 H (75-99) mg/dL Calcium (8.4-10.2) mg/dL Total Protein (6.3-8.2) g/dL Albumin (3.5-5.0) g/dL 10/21/16 10/22/16 10/22/16 Range/Units 22:01 00:14 02:07 RBC (4.30-5.90) m/uL Hgb (13.0-17.5) gm/dL Hct (39.0-53.0) % Sodium (137-145) mmol/L BUN (9-20) mg/dL Glucose (74-99) mg/dL POC Glucose (mg/dL) 185 H 215 H 142 H (75-99) mg/dL Calcium (8.4-10.2) mg/dL Total Protein (6.3-8.2) g/dL Albumin (3.5-5.0) g/dL 10/22/16 10/22/16 10/22/16 Range/Units 04:16 05:43 05:43 RBC 3.40 L (4.30-5.90) m/uL Hgb 10.9 L (13.0-17.5) gm/dL Hct 32.0 L (39.0-53.0) % Sodium 135 L (137-145) mmol/L BUN 29 H (9-20) mg/dL Glucose 115 H (74-99) mg/dL POC Glucose (mg/dL) 125 H (75-99) mg/dL Calcium 7.5 L (8.4-10.2) mg/dL Total Protein 5.3 L (6.3-8.2) g/dL Albumin 2.5 L (3.5-5.0) g/dL 10/22/16 10/22/16 10/22/16 Range/Units 06:06 08:20 10:08 RBC (4.30-5.90) m/uL Hgb (13.0-17.5) gm/dL Hct (39.0-53.0) % Sodium (137-145) mmol/L BUN (9-20) mg/dL Glucose (74-99) mg/dL POC Glucose (mg/dL) 122 H 196 H 185 H (75-99) mg/dL Calcium (8.4-10.2) mg/dL Total Protein (6.3-8.2) g/dL Albumin (3.5-5.0) g/dL 10/22/16 10/22/16 Range/Units 11:58 14:05 RBC (4.30-5.90) m/uL Hgb (13.0-17.5) gm/dL Hct (39.0-53.0) % Sodium (137-145) mmol/L BUN (9-20) mg/dL Glucose (74-99) mg/dL POC Glucose (mg/dL) 150 H 71 L (75-99) mg/dL Calcium (8.4-10.2) mg/dL Total Protein (6.3-8.2) g/dL Albumin (3.5-5.0) g/dL Assessment and Plan Plan: Assessment and plan #1 aortic stenosis, status post aortic valve replacement 2 diabetes #3 hyperlipidemia #4 hypertension #5 atrial fibrillation with rapid ventricular response currently on amiodarone drip. At this time we'll increase metoprolol to 50 mg by mouth 3 times a day. We'll give the patient digoxin 250 g IV push now and in 6 hours. Further recommendations to follow. NEWSPAPER MANAGER note has been reviewed, I agree with a documented findings and plan of care. Patient was seen and examined.
[2016-10-22 16:25] LABS: Glucose,Whole Blood 98 mg/dL (75-99)
[2016-10-22 18:16] LABS: Glucose,Whole Blood 147 mg/dL (75-99)
--- NOTE | 2016-10-22 18:21 | PN ---
A 61-year-old male postop aortic valve replacement. He is doing relatively well. The patient apparently developed atrial fibrillation. Currently on medication for that. From the pulmonary standpoint, doing well. Still on a little bit of oxygen therapy. He is postoperative day #5. He was apparently going to go home possibly today or tomorrow, but with this new onset atrial fibrillation, maybe not. Denies any cough. No phlegm production. No fever, no chills. No nausea, vomiting, or diarrhea. No chest pain. Otherwise, he is doing well. No major issues to complain of. Current vital signs are reviewed. Temperature 98.4, heart rate 157, respiratory rate 18, blood pressure 100/59 with a mean 72, 2 L saturation 98%. Appears in no acute distress. HEENT examination is grossly unremarkable. Mucous membranes are moist. No oral lesions. Neck is supple. Full range of motion. No adenopathy or thyromegaly. Neck veins are flat. Cardiovascular examination reveals tachycardia. Heart rate about 150. It is irregular. No murmur. S1, S2 normal. Lungs reveal a few scattered rhonchi, no wheezes or crackles. Breath sounds are equal bilaterally. Abdomen is soft. Bowel sounds are heard. There are no masses or tenderness. Extremities are intact. No cyanosis, clubbing or edema. Neurologic examination is nonfocal. She without rash or lesion. Lab data is reviewed. White count 9.6, hemoglobin 10.9, hematocrit 32.0, platelet count 233,000. Sodium 135, potassium 4.4, chloride 99, CO2 of 30, BUN and creatinine were 29 and 0.89. The rest of the labs look pretty good. A chest x-ray done on October 22 shows evidence of small left pleural effusion and some bibasilar atelectasis. Medications are reviewed. He is on appropriate medications. He is currently on Pulmicort updrafts by themselves twice a day. He is also on albuterol and Atrovent updrafts. The rest of his medications are standard. ASSESSMENT: 1. Postoperative day #5 status post aortic valve replacement. 2. History of chronic obstructive pulmonary disease. 3. Atrial fibrillation/rapid ventricular response. 4. Diabetes. 5. Hypertension. 6. Hyperlipidemia. 7. Postoperative respiratory failure, resolved. PLAN: Will change his updrafts to make sure he is only on Xopenex. We will DC the long acting beta agonist. Additional recommendations and suggestions are forthcoming. Prognosis is guarded.
[2016-10-22 21:06] LABS: Glucose,Whole Blood 153 mg/dL (75-99)
[2016-10-22] MEDS: ATORVASTATIN 40 MG TAB PO SCH (21:23)
[2016-10-22] MEDS: SENNOSIDES-DOCUSATE SODIUM 1 EACH TAB PO SCH (21:24)
[2016-10-22 22:40] LABS: Glucose,Whole Blood 122 mg/dL (75-99)
[2016-10-23 00:18] LABS: Glucose,Whole Blood 153 mg/dL (75-99)
[2016-10-23] MEDS: INSULIN LISPRO (humaLOG) 300 UNIT/3 ML VIAL SQ SCH ×11 (00:20→21:08)
[2016-10-23 02:59] LABS: Glucose,Whole Blood 114 mg/dL (75-99)
[2016-10-23] MEDS: HEPARIN SODIUM,PORCINE 5,000 UNIT/ML 1 ML VIAL SQ SCH ×3 (04:39→21:06)
[2016-10-23] MEDS: HYDROcodone/APAP 5-325MG 1 EACH TAB PO PRN ×3 (04:40→21:09)
[2016-10-23 04:46] LABS: Glucose,Whole Blood 109 mg/dL (75-99)
[2016-10-23 06:51] LABS: Glucose,Whole Blood 129 mg/dL (75-99)
[2016-10-23] MEDS: metFORMIN 500 MG TAB PO SCH ×2 (06:59→17:35)
[2016-10-23] MEDS: REPAGLINIDE 1 MG TAB PO SCH ×3 (07:00→17:35)
[2016-10-23] MEDS: PANTOPRAZOLE 40 MG TABLET PO SCH (07:00)
[2016-10-23 08:01] LABS: Basophils % (A) 0 %; CH 30.4; CHCM 32.7; Eosinophils # (A) 0.2 k/uL (0-0.7); Eosinophils % (A) 2 %; HCT 33.2 % (39.0-53.0); HGB 10.9 gm/dL (13.0-17.5); Luc # (Auto) 0.35; Luc % (Auto) 4; Lymphocytes % (A) 11 %; MCH 30.5 pg (25.0-35.0); MCHC 32.8 g/dL (31.0-37.0); MCV 93.2 fL (80.0-100.0); Mean Platelet Volume 9.4; Monocytes # (A) 1.3 k/uL (0-1.0); Monocytes % (A) 13 %; Neutrophils # (A) 6.5 k/uL (1.3-7.7); Neutrophils % (A) 69 %; RBC 3.57 m/uL (4.30-5.90); RDW 13.1 % (11.5-15.5); WBC 9.4 k/uL (3.8-10.6); WBC (Perox) 9.39
[2016-10-23 08:16] LABS: Glucose,Whole Blood 175 mg/dL (75-99)
[2016-10-23 08:25] LABS: Anion Gap 7 mmol/L; Calcium 7.6 mg/dL (8.4-10.2); Carbon Dioxide 26 mmol/L (22-30); Chloride 101 mmol/L (98-107); Glucose 120 mg/dL (74-99); Non-African American GFR(MDRD) >60 (>60 ml/min/1.73 sqM); Sodium 134 mmol/L (137-145); Total Bilirubin 0.9 mg/dL (0.2-1.3); Total Protein 5.4 g/dL (6.3-8.2)
[2016-10-23 08:34] LABS: Potassium 5.3 mmol/L (3.5-5.1)
[2016-10-23 08:35] LABS: ALT 51 U/L (21-72); AST 32 U/L (17-59); Alkaline Phosphatase 82 U/L (38-126); Blood Urea Nitrogen 28 mg/dL (9-20); Magnesium 2.6 mg/dL (1.6-2.3)
[2016-10-23] MEDS: LISINOPRIL 5 MG TAB PO SCH (08:49)
[2016-10-23] MEDS: CLOPIDOGREL 75 MG TAB PO SCH (08:49)
[2016-10-23] MEDS: ASPIRIN 325 MG TAB PO SCH (08:49)
[2016-10-23] MEDS: METOPROLOL TARTRATE 50 MG TAB PO SCH ×3 (08:49→21:09)
[2016-10-23] MEDS: INSULIN GLARGINE 100 UNIT/ML 10 ML VIAL SQ SCH (08:50)
[2016-10-23] MEDS ORDERED: DIGOXIN 250 MCG/ML 2 ML AMP IVP STA (10:07)
[2016-10-23] MEDS ORDERED: DEXTROSE 5% IN WATER 100 ML with AMIODARONE 150 MG IV ONE ×2 (10:30→15:30)
[2016-10-23] MEDS: FUROSEMIDE 10 MG/ML 2 ML VIAL IV SCH ×2 (10:58→21:08)
--- NOTE | 2016-10-23 11:12 | XR ---
EXAMINATION TYPE: XR chest 1V portable DATE OF EXAM: 10/23/2016 10:58 AM COMPARISON: 10/22/2016 INDICATION: Previous abnormal chest post aortic valve TECHNIQUE: Single frontal view of the chest is obtained. FINDINGS: The heart size is normal. The pulmonary vasculature is normal. Bibasilar infiltrates and small pleural effusions are present. This may be worsening on the right. St ernotomy wires are present from previous valve surgery. IMPRESSION: 1. Bibasilar infiltrates and/or pleural effusions, increasing on the right.
[2016-10-23 11:50] LABS: Glucose,Whole Blood 148 mg/dL (75-99)
[2016-10-23] MEDS: IPRATROPIUM 0.5 MG/2.5 ML NEBU INHALATION SCH ×4 (13:01→20:33)
[2016-10-23] MEDS: LEVALBUTEROL NEB (CONC) 1.25 MG/0.5 ML AMP INHALATION SCH ×3 (13:02→20:33)
--- NOTE | 2016-10-23 13:13 | P.PN ---
Subjective 61-year-old male one of Dr. Cochran patient with past medical history of diabetes, hypertension, hyperlipidemia who has been having worsening shortness of breath and palpitation. He has been followed for aortic stenosis and valvular heart disease by cardiology for the last year. Heart catheter was done in August 2016 showed severe advance aortic stenosis with no vessel involvement. Patient was refer to cardiothoracic surgery and scheduled for elective aortic valve placement today for 2016. Following surgery patient was on mechanical ventilation as postsurgical respiratory failure. Pulmonary were consulted in his care. Patient will be on insulin drip Accu-Chek with sliding scales coverage. Patient is stable hemodynamically in the ICU. 10/18: Patient was successfully extubated yesterday. He is currently on nasal cannula. Heart rate is running in the 80s to 90s. Blood pressure is stable and he is on Clevidipine. Pain appears to be controlled at this time. 10/19: Plan to transition patient to Lantus, and Humalog scale. He was given 1 dose of IV Lasix and Fonseca is to be discontinued today. 10/20: Patient is transferred to selective care unit. Blood sugars are running between 102 08/06/1958 after breakfast this morning. Humalog 8 units scheduled with meals has been added. He denies shortness of breath. No acute distress is noted. He has been afebrile. 10/21: Heart rate is running in the low 100s. Patient is complaining of abdominal bloating and had a bowel movement yesterday. He states he normally has constipation. Blood sugars are elevated for which metformin and Prandin resumed and he is continued on Lantus, scheduled Humalog and Humalog scale. Patient does qualify for home O2 which will be arranged prior to his discharge. 10/22: Patient went into atrial flutter/fib he was started on amiodarone drip, his sitting up in chair his feeling a bit better, he continues to have some coughing, no chest pain, some dyspnea and exertion, he does complain of edema both lower extremities. 10/23: Patient is complaining of increased shortness of breath, he did receive a bolus of amiodarone because of his heart rate, he did receive a little Lasix 40 mg IV push 1, portal chest x-ray was ordered with the final result of that. Objective - Vital Signs Vital signs: Vital Signs Temp 98.0 F 10/23/16 07:56 Pulse 154 H 10/23/16 07:56 Resp 16 10/23/16 07:56 BP 116/75 10/23/16 07:56 Pulse Ox 98 10/23/16 07:56 Intake & Output 10/22/16 10/23/16 10/23/16 18:59 06:59 18:59 Intake Total 253.146 Output Total 1000 300 Balance -746.854 -300 Weight 112.3 kg 113.6 kg 113.6 kg Intake: Intake, IV Titration 253.146 Amount Amiodarone 450 mg In 253.146 Dextrose 5% in Water 250 ml @ 1 MG/MIN 34.53 mls/ hr IV [id number] [facility] Rx#: [id number] Oral 0 Output: Urine 1000 300 Other: Voiding Method Urinal Urinal ABP, PAP, CO, CI - Last Documented Arterial Blood Pressure 129/52 Pulmonary Artery Pressure 31/5 Cardiac Output 9.6 Cardiac Index 4.4 - Exam - Exam On mechanical ventilation. General appearance: no average body habitus, no cooperative, no disheveled, no mild distress, no morbidly obese, no acute distress, no obese, no severe distress, no thin - EENT Eyes: no abnormal pupil, no anicteric sclerae, no disc margins sharp, no edentulous, no EOMI, no PERRLA, no fundus normal, no photophobia, no dentition normal, no poor dentition, no ptosis, no scleral icterus, normal appearance ENT: no hard of hearing, no hearing grossly normal, no NA/AT, normal oropharynx , no other, no pharyngeal erythema, no thrush, no tonsillar exudates, no tonsillar swelling Ears: bilateral: normal - Neck Neck: no lymphadenopathy, normal ROM, no other, no rigidity, no stridor, no thyromegaly Carotids: bilateral: upstroke normal Thyroid: bilateral: normal size - Respiratory Respiratory: bilateral: diminished, dullness, rales - Cardiovascular Rhythm: regular Heart sounds: normal: S1, S2 Abnormal Heart Sounds: systolic murmur, S3 Gallop - Gastrointestinal General gastrointestinal: no absent bowel sounds, decreased bowel sounds, no distended, no hepatomegaly, no hyperactive bowel sounds, no normal bowel sounds , no organomegaly, no rigid, no scaphoid, soft, no splenomegaly, no tenderness, no umbilical hernia, no ventral hernia - Integumentary Integumentary: no calor, no cellulitis, no cyanotic, no decreased turgor, no flushed, no jaundiced, normal, no normal turgor, pale, no rash, no ulcer - Neurologic Neurologic: CNII-XII intact - Musculoskeletal Musculoskeletal: gait normal, generalized weakness, no strength equal bilaterally, no right sided weakness, no left sided weakness - Psychiatric Psychiatric: A&O x's 3 - Labs CBC & Chem 7: 10/23/16 05:54 10/23/16 05:54 Labs: Abnormal Lab Results - Last 24 Hours (Table) 10/22/16 10/22/16 10/22/16 Range/Units 05:43 10:08 11:58 RBC (4.30-5.90) m/uL Hgb (13.0-17.5) gm/dL Hct (39.0-53.0) % Monocytes # (0-1.0) k/uL Sodium 135 L (137-145) mmol/L Potassium (3.5-5.1) mmol/L BUN 29 H (9-20) mg/dL Glucose 115 H (74-99) mg/dL POC Glucose (mg/dL) 185 H 150 H (75-99) mg/dL Calcium 7.5 L (8.4-10.2) mg/dL Magnesium (1.6-2.3) mg/dL Total Protein 5.3 L (6.3-8.2) g/dL Albumin 2.5 L (3.5-5.0) g/dL 10/22/16 10/22/16 10/22/16 Range/Units 14:05 18:04 20:15 RBC (4.30-5.90) m/uL Hgb (13.0-17.5) gm/dL Hct (39.0-53.0) % Monocytes # (0-1.0) k/uL Sodium (137-145) mmol/L Potassium (3.5-5.1) mmol/L BUN (9-20) mg/dL Glucose (74-99) mg/dL POC Glucose (mg/dL) 71 L 147 H 153 H (75-99) mg/dL Calcium (8.4-10.2) mg/dL Magnesium (1.6-2.3) mg/dL Total Protein (6.3-8.2) g/dL Albumin (3.5-5.0) g/dL 10/22/16 10/23/16 10/23/16 Range/Units 22:22 00:16 02:40 RBC (4.30-5.90) m/uL Hgb (13.0-17.5) gm/dL Hct (39.0-53.0) % Monocytes # (0-1.0) k/uL Sodium (137-145) mmol/L Potassium (3.5-5.1) mmol/L BUN (9-20) mg/dL Glucose (74-99) mg/dL POC Glucose (mg/dL) 122 H 153 H 114 H (75-99) mg/dL Calcium (8.4-10.2) mg/dL Magnesium (1.6-2.3) mg/dL Total Protein (6.3-8.2) g/dL Albumin (3.5-5.0) g/dL 10/23/16 10/23/16 10/23/16 Range/Units 04:33 05:54 05:54 RBC 3.57 L (4.30-5.90) m/uL Hgb 10.9 L (13.0-17.5) gm/dL Hct 33.2 L (39.0-53.0) % Monocytes # 1.3 H (0-1.0) k/uL Sodium 134 L (137-145) mmol/L Potassium 5.3 H (3.5-5.1) mmol/L BUN 28 H (9-20) mg/dL Glucose 120 H (74-99) mg/dL POC Glucose (mg/dL) 109 H (75-99) mg/dL Calcium 7.6 L (8.4-10.2) mg/dL Magnesium 2.6 H (1.6-2.3) mg/dL Total Protein 5.4 L (6.3-8.2) g/dL Albumin 2.5 L (3.5-5.0) g/dL 10/23/16 10/23/16 Range/Units 06:08 08:14 RBC (4.30-5.90) m/uL Hgb (13.0-17.5) gm/dL Hct (39.0-53.0) % Monocytes # (0-1.0) k/uL Sodium (137-145) mmol/L Potassium (3.5-5.1) mmol/L BUN (9-20) mg/dL Glucose (74-99) mg/dL POC Glucose (mg/dL) 129 H 175 H (75-99) mg/dL Calcium (8.4-10.2) mg/dL Magnesium (1.6-2.3) mg/dL Total Protein (6.3-8.2) g/dL Albumin (3.5-5.0) g/dL Assessment and Plan Plan: Assessment and Plan Plan: 1 severe aortic stenosis: Post aortic valve placement. 2 post aortic valve placement: Continue postsurgical care. 3 post surgery respiratory failure: Was on mechanical ventilation continue current management hopefully wearable off the vent very quickly after surgery 4 hypertension: Stable was on amlodipine Benzapril as soon as he is able take oral meds will be starting him on it. 5 diabetes: Type II he has been on metformin, Prandin and Lantus . Insulin drip to be discontinued and patient started back on Lantus, scheduled Humalog and Humalog scale. Oral diabetic agents left on hold at this time. 6 hyperlipidemia: Pravastatin on hold due to elevated liver function tests. 7 atrial fibrillation with fast rate. Continue amiodarone drip, monitor the patient for the next 1-2 days. 8 COPD with history of [id number] of smoking. 9 chronic hypoxic respiratory failure requiring home oxygen. 10 GI prophylaxis: Patient will be continue on PPI or H2 esmer. 11 DVT prophylaxis: Continue knee-high HUMZA hose and Venodyne boots and continue DVT prophylaxis protocol. 12.CODE STATUS: Full code. 13. Acute diastolic heart failure. The patient did receive a bolus of amiodarone, he would be given Lasix 40 mg IV push 1, check check chest x-ray result.
[2016-10-23] MEDS ORDERED: DIGOXIN 250 MCG/ML 2 ML AMP IVP ONE ×2 (14:00→18:00)
--- NOTE | 2016-10-23 15:47 | P.PN ---
Progress Note - Text CV Surgery Nursing Principal diagnosis: Severe aortic valve stenosis. Mild coronary artery disease. Hypertension. Hyperlipidemia. Diabetes mellitus. Obesity. POD #6 aortic valve replacement using a 23 mm pericardial bioprosthesis Magna Ease. Exclusion of the left atrial appendage using a 35 mm AtriClip. Intraoperative transesophageal echocardiogram and scanning. Patient awake and alert, no distress noted, no specific complaints, patient is sitting up to the bedside chair. He states that he has had some episodes of shortness of breath today. Vital Signs: Afebrile Vital Signs - 24 hr 10/22/16 10/22/16 10/22/16 15:50 16:00 20:00 Temperature 98.0 F 99.0 F Pulse Rate 60 60 Pulse Rate [ 122 H Auto Design Detailer ] Pulse Rate [ 146 H 93 Pulse Oximetery ] Respiratory 18 20 Rate Blood Pressure 125/81 [Left Arm] Blood Pressure 123/82 [Right Arm] O2 Sat by Pulse 97 97 Oximetry 10/23/16 10/23/16 10/23/16 00:00 04:00 07:56 Temperature 98.4 F 98.7 F 98.0 F Pulse Rate Pulse Rate [ 154 H Auto Design Detailer ] Pulse Rate [ 77 78 152 H Pulse Oximetery ] Respiratory 20 20 16 Rate Blood Pressure 104/57 119/64 116/75 [Left Arm] Blood Pressure [Right Arm] O2 Sat by Pulse 97 96 98 Oximetry 10/23/16 10/23/16 08:00 13:03 Temperature Pulse Rate 68 Pulse Rate [ 154 H Auto Design Detailer ] Pulse Rate [ 152 H Pulse Oximetery ] Respiratory 16 Rate Blood Pressure [Left Arm] Blood Pressure [Right Arm] O2 Sat by Pulse Oximetry Labs: Short CBC 10/23/16 Range/Units 05:54 WBC 9.4 (3.8-10.6) k/uL Hgb 10.9 L (13.0-17.5) gm/dL Hct 33.2 L (39.0-53.0) % Plt Count 264 (150-450) k/uL Neutrophils # 6.5 (1.3-7.7) k/uL BMP 10/23/16 05:54 Sodium 134 L Potassium 5.3 H Chloride 101 Carbon Dioxide 26 BUN 28 H Creatinine 0.82 Glucose 120 H Calcium 7.6 L Liver Function 10/23/16 Range/Units 05:54 Total Bilirubin 0.9 (0.2-1.3) mg/dL AST 32 (17-59) U/L ALT 51 (21-72) U/L Alkaline Phosphatase 82 (38-126) U/L Albumin 2.5 L (3.5-5.0) g/dL IV Fluids: 0.9% normal saline at 20 mL per hour Amiodarone drip at 0.5 mg/m. Lungs: few scattered crackles throughout, diminished bilateral bases. Respirations are unlabored. O2 sat: 98% on 3 L nasal cannula. I/S: 500-750 mL, reviewed with the patient importance of using his incentive spirometry every hour while awake. The patient did give a good return demonstration on his incentive spirometry. Heart: S1S2, irregular rhythm with a tachycardic rate. He is negative for S3, gallop or murmur. Remote telemetry showing atrial fibrillation with RVR heart rate 150. Sternum stable, chest incision clean with silver dressing clean and dry. Heart hugger in place, patient demonstrating proper use of the heart hugger. Knee-high HUMZA hose and sequential compression devices in place to bilateral lower extremities. The patient has +2 edema to his bilateral upper and lower extremities. Abdomen: Soft, Positive bowel sounds present in all 4 quadrants. Positive bowel movement this a.m. CBGs: 109-175 mg/dL in the last 24 hours. U/O: adequate. 24 hr Total: Intake & Output 10/21/16 10/22/16 10/23/16 10/24/16 06:59 06:59 06:59 06:59 Intake Total 543.875 851.518 253.146 0 Output Total 610 1000 750 Balance -66.125 851.518 -746.854 -750 Weight 103.6 kg 112.3 kg 113.6 kg 113.6 kg Active Medications Hydrocodone Bitart/Acetaminophen ([place] 5-325) 2 each PO Q4HR PRN PRN Reason: Severe Pain Last Admin: 10/23/16 04:40 Dose: 2 each Hydrocodone Bitart/Acetaminophen ([place] 5-325) 1 each PO Q4HR PRN PRN Reason: Moderate Pain Last Admin: 10/21/16 16:10 Dose: 1 each Aspirin (Aspirin) 325 mg PO DAILY SHAILESH Last Admin: 10/23/16 08:49 Dose: 325 mg Atorvastatin Calcium (Lipitor) 40 mg PO HS [facility] Last Admin: 10/22/16 21:23 Dose: 40 mg Benzocaine/Menthol (Cepacol Lozenge) 1 each MUCOUS MEM Q2H PRN PRN Reason: Sore Throat Bisacodyl (Dulcolax) 10 mg RECTAL DAILY PRN PRN Reason: Constipation Clopidogrel Bisulfate (Plavix) 75 mg PO DAILY [facility] Last Admin: 10/23/16 08:49 Dose: 75 mg Digoxin (Lanoxin) 250 mcg IVP ONCE ONE Stop: 10/23/16 14:01 Digoxin (Lanoxin) 250 mcg IVP ONCE ONE Stop: 10/23/16 18:01 Furosemide (Lasix) 20 mg IV Q12HR [facility] Stop: 10/23/16 21:01 Last Admin: 10/23/16 10:58 Dose: 20 mg Heparin Sodium (Porcine) (Heparin) 5,000 unit SQ Q8H [facility] Last Admin: 10/23/16 10:58 Dose: 5,000 unit Insulin Glargine (Lantus) 34 unit SQ DAILY [facility] Last Admin: 10/23/16 08:50 Dose: 34 unit Insulin Human Lispro (Humalog) 8 unit SQ AC-TID [facility] Last Admin: 10/23/16 12:03 Dose: Not Given Insulin Human Lispro (Humalog) 0 unit SQ ACHS [facility] PRN Reason: Protocol Last Admin: 10/23/16 12:04 Dose: 1 unit Ipratropium [place] (Atrovent Nebulized) 0.5 mg INHALATION RT-QID [facility] Last Admin: 10/23/16 13:02 Dose: 0.5 mg Levalbuterol HCl (Xopenex Nebulized (Conc)) 1.25 mg INHALATION RT-TID [facility] Last Admin: 10/23/16 13:02 Dose: 1.25 mg Lisinopril (Zestril) 5 mg PO DAILY [facility] Last Admin: 10/23/16 08:49 Dose: 5 mg Magnesium Hydroxide (Milk Of Magnesia) 2,400 mg PO BID PRN PRN Reason: Constipation Last Admin: 10/23/16 05:03 Dose: 2,400 mg Metformin HCl (Glucophage) 1,000 mg PO BID-W/MEALS [facility] Last Admin: 10/23/16 06:59 Dose: 1,000 mg Metoclopramide HCl (Reglan) 10 mg IVP Q4H PRN PRN Reason: Nausea And Vomiting Metoprolol Tartrate (Lopressor) 50 mg PO TID [facility] Last Admin: 10/23/16 08:49 Dose: 50 mg Miscellaneous Information (Magnesium Per Protocol) 1 each MISCELLANE DAILY PRN ; Protocol PRN Reason: Per Protocol Miscellaneous Information (Phosphorus Per Protocol) 1 each MISCELLANE DAILY PRN ; Protocol PRN Reason: Per Protocol Miscellaneous Information (Potassium Per Protocol) 1 each MISCELLANE DAILY PRN ; Protocol PRN Reason: Per Protocol Ondansetron HCl (Zofran) 4 mg IVP Q6HR PRN PRN Reason: Nausea And Vomiting Last Admin: 10/18/16 05:42 Dose: 4 mg Pantoprazole Sodium (Protonix) 40 mg PO AC-BRKFST [facility] Last Admin: 10/23/16 07:00 Dose: 40 mg Repaglinide (Prandin) 2 mg PO AC-TID [facility] Last Admin: 10/23/16 12:04 Dose: 2 mg Senna/Docusate Sodium (Senokot-S) 2 each PO HS [facility] Last Admin: 10/22/16 21:24 Dose: 2 each Sodium Chloride (Saline Flush) 10 ml IV BID [facility] Last Admin: 10/23/16 08:49 Dose: 10 ml Plan: 1. Continue aspirin, Plavix, heparin subcu, Carlos inhibitor and beta esmer. 2. Continue Lipitor as his liver enzymes have normalized. 3. Discharge planning is in place, [facility] home care to follow at home, may need home O2. 4. Dr. Sotomayor for pulmonary management. Wean O2 as tolerated. 5. Physical therapy consulted, encourage increase in activity level as tolerated. 6. family educator consulted to assist with diabetic education. Diabetic management per primary care. 7. GI and DVT prophylaxis in place. 8. Amiodarone 150 mg IV bolus 1 now, digoxin 0.25 mg IV 1, then digoxin 0.125 mg 1 IV 4 hours after initial dose, then digoxin 0.125 mg IV 8 hours after the initial dose then discontinue for atrial fibrillation. Continue amiodarone drip. 9. More recommended medications as patient progresses.
--- NOTE | 2016-10-23 17:03 | PN ---
61-year-old male postop aortic valve replacement. Doing relatively well. He did develop atrial fibrillation. Chest x-ray shows a small right-sided effusion. He is not really having any pulmonary difficulty at this time. No shortness of breath. Not coughing or wheezing. He does have underlying COPD . Still on a bit of oxygen. The patient was hoping to go home before the development of the atrial fib. The patient is still on 2 liters with saturation 98%. Denies any nausea, vomiting, or diarrhea. No chest pain. No chest discomfort. No fever, no chills. Current vital signs include temperature 98.8, heart rate which is still elevated at 150, respiratory rate 16, blood pressure 116/75, mean on 2 liters saturation 98%. Appears in no acute distress. HEENT examination is grossly unremarkable. Mucous membranes are moist. No oral lesions. Neck is supple. Full range of motion. No adenopathy or thyromegaly. Neck veins are flat. Cardiovascular examination reveals tachycardia. Heart rate between 135 and 150 beats per minute. It is regular. No murmur noted. No S3, S4. Lungs reveal diminished breath sounds throughout. No wheezes or rhonchi. No crackles. ABDOMEN: Soft. Bowel sounds are heard. No masses or tenderness. EXTREMITIES: Intact. No cyanosis, clubbing or edema. SKIN: Without rash or lesions. NEUROLOGICAL: Examination is nonfocal. Labs are reviewed. White count 9.4, hemoglobin 10.9, hematocrit 33.2, platelet count 364,000. Sodium 134, potassium 5.3, chloride 101, CO2 of 26. BUN and creatinine 28 and 0.82. The rest of the labs are reviewed. Microbiology is all negative or pending. Medications are reviewed. He is just on Xopenex and Atrovent. The rest of his medications are the usual cardiac medications. X-rays reviewed. As mentioned above he does reveal bibasilar atelectasis or infiltrates. There is also small bilateral effusions. Medications are reviewed as mentioned above. ASSESSMENT: 1. Postoperative day number six status post aortic valve replacement for aortic stenosis. 2. Chronic obstructive pulmonary disease, reasonably stable. 3. Atrial fibrillation/rapid ventricular response. 4. Bilateral small effusions and bilateral basilar atelectasis. 5. Diabetes mellitus. 6. Hypertension. 7. Hyperlipidemia. 8. Postoperative respiratory failure, resolved. PLAN: The patient will continue on his current medications. Because of his long acting beta agonist and his atrial fibrillation, that medication was discontinued. He is on Xopenex and Atrovent. We will continue to follow closely. Prognosis is guarded. Hopefully cardiology will be able to get his heart rate and rhythm under control.
[2016-10-23 17:10] LABS: Glucose,Whole Blood 111 mg/dL (75-99)
--- NOTE | 2016-10-23 19:52 | P.PN ---
Subjective Principal diagnosis: Status post aortic valve replacement and atrial fibrillation This 61-year-old gentleman is status post aortic valve replacement. Patient has been coming along well. Patient developed late fibrillation with rapid ventricular response. Patient is complaining of mild shortness of breath. Chest x-ray showed bilateral infiltrates and effusions. Patient is on amiodarone and digoxin. Otherwise patient is clinically stable. May consider increasing diuretic therapy Objective - Vital Signs Vital signs: Vital Signs Temp 100.0 F H 10/23/16 16:00 Pulse 64 10/23/16 16:46 Resp 18 10/23/16 16:00 BP 126/59 10/23/16 16:00 Pulse Ox 93 L 10/23/16 16:00 Intake & Output 10/23/16 10/23/16 10/24/16 06:59 18:59 06:59 Intake Total 180 Output Total 2300 Balance -2119 Weight 113.6 kg 113.6 kg Intake: Oral 180 Output: Urine 2300 Other: Voiding Method Urinal Urinal # Voids 1 ABP, PAP, CO, CI - Last Documented Arterial Blood Pressure 129/52 Pulmonary Artery Pressure 31/5 Cardiac Output 9.6 Cardiac Index 4.4 - Exam GENERAL EXAM: Patient is alert and oriented and doesn't appear to be in any acute distress HEENT: Normocephalic. Normal reaction of pupils, equal size, normal range of extraocular motion. No erythema or exudates in the throat. NECK: No masses, no nuchal rigidity. CHEST: No chest wall deformity. LUNGS: Diminished breath sounds HEART: S1 and S2 normal with no audible mumurs or gallops. Regular rhythm,.. ABDOMEN: No hepatosplenomegaly, normal bowel sounds, no guarding or rigidity. SKIN: No rashes CENTRAL NERVOUS SYSTEM: No focal deficits. EXTREMITIES: No cyanosis, clubbing or edema. - Labs CBC & Chem 7: 10/23/16 05:54 10/23/16 05:54 Labs: Abnormal Lab Results - Last 24 Hours (Table) 10/22/16 10/22/16 10/23/16 Range/Units 20:15 22:22 00:16 RBC (4.30-5.90) m/uL Hgb (13.0-17.5) gm/dL Hct (39.0-53.0) % Monocytes # (0-1.0) k/uL Sodium (137-145) mmol/L Potassium (3.5-5.1) mmol/L BUN (9-20) mg/dL Glucose (74-99) mg/dL POC Glucose (mg/dL) 153 H 122 H 153 H (75-99) mg/dL Calcium (8.4-10.2) mg/dL Magnesium (1.6-2.3) mg/dL Total Protein (6.3-8.2) g/dL Albumin (3.5-5.0) g/dL 10/23/16 10/23/16 10/23/16 Range/Units 02:40 04:33 05:54 RBC 3.57 L (4.30-5.90) m/uL Hgb 10.9 L (13.0-17.5) gm/dL Hct 33.2 L (39.0-53.0) % Monocytes # 1.3 H (0-1.0) k/uL Sodium (137-145) mmol/L Potassium (3.5-5.1) mmol/L BUN (9-20) mg/dL Glucose (74-99) mg/dL POC Glucose (mg/dL) 114 H 109 H (75-99) mg/dL Calcium (8.4-10.2) mg/dL Magnesium (1.6-2.3) mg/dL Total Protein (6.3-8.2) g/dL Albumin (3.5-5.0) g/dL 10/23/16 10/23/16 10/23/16 Range/Units 05:54 06:08 08:14 RBC (4.30-5.90) m/uL Hgb (13.0-17.5) gm/dL Hct (39.0-53.0) % Monocytes # (0-1.0) k/uL Sodium 134 L (137-145) mmol/L Potassium 5.3 H (3.5-5.1) mmol/L BUN 28 H (9-20) mg/dL Glucose 120 H (74-99) mg/dL POC Glucose (mg/dL) 129 H 175 H (75-99) mg/dL Calcium 7.6 L (8.4-10.2) mg/dL Magnesium 2.6 H (1.6-2.3) mg/dL Total Protein 5.4 L (6.3-8.2) g/dL Albumin 2.5 L (3.5-5.0) g/dL 10/23/16 10/23/16 Range/Units 11:30 16:44 RBC (4.30-5.90) m/uL Hgb (13.0-17.5) gm/dL Hct (39.0-53.0) % Monocytes # (0-1.0) k/uL Sodium (137-145) mmol/L Potassium (3.5-5.1) mmol/L BUN (9-20) mg/dL Glucose (74-99) mg/dL POC Glucose (mg/dL) 148 H 111 H (75-99) mg/dL Calcium (8.4-10.2) mg/dL Magnesium (1.6-2.3) mg/dL Total Protein (6.3-8.2) g/dL Albumin (3.5-5.0) g/dL Assessment and Plan (1) Aortic stenosis Status: Acute (2) Diabetes Status: Acute (3) Hyperlipidemia Status: Acute (4) Hypertension Status: Acute (5) Status post aortic valve replacement Status: Acute (6) Postoperative atrial fibrillation Status: Acute Plan: Patient is currently being treated with amiodarone and digoxin. Incentive spirometry to be continued. Increase activity as tolerated. Rest of the medication including beta blockers and BRODY inhibitor to be continued
[2016-10-23] MEDS: ATORVASTATIN 40 MG TAB PO SCH (21:07)
[2016-10-23] MEDS: SENNOSIDES-DOCUSATE SODIUM 1 EACH TAB PO SCH (21:08)
[2016-10-23 21:10] LABS: Glucose,Whole Blood 134 mg/dL (75-99)
[2016-10-24] MEDS: HYDROcodone/APAP 5-325MG 1 EACH TAB PO PRN ×4 (03:44→21:16)
[2016-10-24] MEDS: HEPARIN SODIUM,PORCINE 5,000 UNIT/ML 1 ML VIAL SQ SCH ×2 (03:44→11:24)
[2016-10-24 06:06] LABS: Glucose,Whole Blood 100 mg/dL (75-99)
[2016-10-24] MEDS: INSULIN LISPRO (humaLOG) 300 UNIT/3 ML VIAL SQ SCH ×7 (06:08→21:15)
[2016-10-24 06:12] LABS: CH 30.2; CHCM 32.4; HCT 32.6 % (39.0-53.0); HDW 2.67; HGB 10.8 gm/dL (13.0-17.5); MCH 31.1 pg (25.0-35.0); MCHC 33.2 g/dL (31.0-37.0); MCV 93.6 fL (80.0-100.0); Mean Platelet Volume 6.6; RBC 3.48 m/uL (4.30-5.90); WBC 10.4 k/uL (3.8-10.6)
[2016-10-24 06:19] LABS: Prothrombin Time 10.4 sec (9.0-12.0)
[2016-10-24 06:30] LABS: ALT 43 U/L (21-72); AST 21 U/L (17-59); Alkaline Phosphatase 81 U/L (38-126); Anion Gap 5 mmol/L; Blood Urea Nitrogen 23 mg/dL (9-20); Calcium 7.8 mg/dL (8.4-10.2); Carbon Dioxide 28 mmol/L (22-30); Chloride 100 mmol/L (98-107); Digoxin 1.2 ng/mL; Glucose 86 mg/dL (74-99); Non-African American GFR(MDRD) >60 (>60 ml/min/1.73 sqM); Potassium 4.9 mmol/L (3.5-5.1); Sodium 133 mmol/L (137-145); Total Bilirubin 0.7 mg/dL (0.2-1.3)
[2016-10-24] MEDS: metFORMIN 500 MG TAB PO SCH ×2 (07:04→17:17)
[2016-10-24] MEDS: PANTOPRAZOLE 40 MG TABLET PO SCH (07:04)
[2016-10-24] MEDS: REPAGLINIDE 1 MG TAB PO SCH ×3 (07:05→17:16)
--- NOTE | 2016-10-24 07:37 | XR ---
EXAMINATION TYPE: XR chest 2V DATE OF EXAM: 10/24/2016 6:37 AM COMPARISON: Chest x-ray from yesterday HISTORY: Postoperative aortic valve repair. TECHNIQUE: Frontal and lateral views of the chest are obtained. FINDINGS: Sternal wires are present. There is bibasilar opacity consistent with small bilateral pleu ral effusions and associated bibasilar atelectasis and/or infiltrate redemonstrated. Upper lungs lorena in clear without pneumothorax. Scattered calcified nodules or granulomas are redemonstrated. Cardiac silhouette size is stable and enlarged. Metallic aortic valve and mitral valvular ring are both redem onstrated. Osseous structures are intact. IMPRESSION: Cardiomegaly with small bilateral pleural effusions and associated bibasilar atelectasis and/or infiltrate all redemonstrated.
[2016-10-24] MEDS: LEVALBUTEROL NEB (CONC) 1.25 MG/0.5 ML AMP INHALATION SCH ×3 (08:18→21:00)
[2016-10-24] MEDS: IPRATROPIUM 0.5 MG/2.5 ML NEBU INHALATION SCH ×4 (08:18→21:00)
[2016-10-24] MEDS: LISINOPRIL 5 MG TAB PO SCH (08:31)
[2016-10-24] MEDS: ASPIRIN 325 MG TAB PO SCH (08:31)
[2016-10-24] MEDS: METOPROLOL TARTRATE 50 MG TAB PO SCH ×3 (08:31→21:17)
[2016-10-24] MEDS: CLOPIDOGREL 75 MG TAB PO SCH (08:32)
[2016-10-24] MEDS: INSULIN GLARGINE 100 UNIT/ML 10 ML VIAL SQ SCH (08:36)
[2016-10-24] MEDS ORDERED: DEXTROSE 5% IN WATER 100 ML with AMIODARONE 150 MG IV ONE (08:46)
[2016-10-24] MEDS: AMIODARONE 450 MG in DEXTROSE 5% IN WATER 250 ML IV SCH ×4 (09:38→17:26)
[2016-10-24] MEDS ORDERED: RIVAROXABAN 10 MG TAB PO STA (11:24)
[2016-10-24] MEDS: FUROSEMIDE 10 MG/ML 2 ML VIAL IV SCH ×2 (11:24→21:14)
[2016-10-24 11:35] LABS: Glucose,Whole Blood 148 mg/dL (75-99)
--- NOTE | 2016-10-24 11:50 | P.PN ---
Progress Note - Text CV Surgery Nursing POD: #7, aortic valve replacement using a 23 mm MagnaEase pericardial bioprosthesis, exclusion of the left atrial appendage using a 35 mm AtriCure clip, intraoperative transesophageal echocardiogram and epi-aortic ultrasonography. Patient awake and alert, no distress noted, no specific complaints. Vital Signs: Afebrile , T-max is 100F Vital Signs - 24 hr 10/23/16 10/23/16 10/23/16 12:00 13:03 13:17 Temperature 98.1 F Pulse Rate 68 68 Pulse Rate [ Intensive Care Medicine Specialist ] Pulse Rate [ Post-Activity] Pulse Rate [Pre -Activity] Pulse Rate [ 100 Pulse Oximetery ] Respiratory 18 Rate Blood Pressure [Left Arm] Blood Pressure [Post-Activity] Blood Pressure [Pre-Activity] Blood Pressure 131/71 [Right Arm] O2 Sat by Pulse 97 Oximetry O2 Sat by Pulse Oximetry [Post -Activity] O2 Sat by Pulse Oximetry [Pre- Activity] 10/23/16 10/23/16 10/23/16 16:00 16:27 16:46 Temperature 100.0 F H Pulse Rate 64 64 Pulse Rate [ 122 H Intensive Care Medicine Specialist ] Pulse Rate [ Post-Activity] Pulse Rate [Pre -Activity] Pulse Rate [ 69 Pulse Oximetery ] Respiratory 18 Rate Blood Pressure [Left Arm] Blood Pressure [Post-Activity] Blood Pressure [Pre-Activity] Blood Pressure 126/59 [Right Arm] O2 Sat by Pulse 93 L Oximetry O2 Sat by Pulse Oximetry [Post -Activity] O2 Sat by Pulse Oximetry [Pre- Activity] 10/23/16 10/23/16 10/23/16 20:00 20:36 20:46 Temperature 98.8 F Pulse Rate 80 80 Pulse Rate [ Intensive Care Medicine Specialist ] Pulse Rate [ Post-Activity] Pulse Rate [Pre -Activity] Pulse Rate [ 65 Pulse Oximetery ] Respiratory 20 Rate Blood Pressure [Left Arm] Blood Pressure [Post-Activity] Blood Pressure [Pre-Activity] Blood Pressure 128/59 [Right Arm] O2 Sat by Pulse 97 Oximetry O2 Sat by Pulse Oximetry [Post -Activity] O2 Sat by Pulse Oximetry [Pre- Activity] 10/24/16 10/24/16 10/24/16 00:00 04:00 08:00 Temperature 97.0 F L Pulse Rate Pulse Rate [ 80 Intensive Care Medicine Specialist ] Pulse Rate [ Post-Activity] Pulse Rate [Pre -Activity] Pulse Rate [ 83 68 68 Pulse Oximetery ] Respiratory 20 20 16 Rate Blood Pressure [Left Arm] Blood Pressure [Post-Activity] Blood Pressure [Pre-Activity] Blood Pressure 96/56 129/61 129/61 [Right Arm] O2 Sat by Pulse 98 97 98 Oximetry O2 Sat by Pulse Oximetry [Post -Activity] O2 Sat by Pulse Oximetry [Pre- Activity] 10/24/16 10/24/16 10/24/16 08:18 08:29 08:46 Temperature Pulse Rate 76 80 Pulse Rate [ Intensive Care Medicine Specialist ] Pulse Rate [ Post-Activity] Pulse Rate [Pre -Activity] Pulse Rate [ 130 H Pulse Oximetery ] Respiratory 16 Rate Blood Pressure 134/66 [Left Arm] Blood Pressure [Post-Activity] Blood Pressure [Pre-Activity] Blood Pressure [Right Arm] O2 Sat by Pulse Oximetry O2 Sat by Pulse Oximetry [Post -Activity] O2 Sat by Pulse Oximetry [Pre- Activity] 10/24/16 10/24/16 10/24/16 09:01 09:16 10:47 Temperature Pulse Rate Pulse Rate [ 150 H 152 H Intensive Care Medicine Specialist ] Pulse Rate [ Post-Activity] Pulse Rate [Pre -Activity] Pulse Rate [ Pulse Oximetery ] Respiratory Rate Blood Pressure [Left Arm] Blood Pressure [Post-Activity] Blood Pressure [Pre-Activity] Blood Pressure [Right Arm] O2 Sat by Pulse 98 Oximetry O2 Sat by Pulse Oximetry [Post -Activity] O2 Sat by Pulse Oximetry [Pre- Activity] 10/24/16 11:06 Temperature Pulse Rate Pulse Rate [ Intensive Care Medicine Specialist ] Pulse Rate [ 75 Post-Activity] Pulse Rate [Pre 67 -Activity] Pulse Rate [ Pulse Oximetery ] Respiratory Rate Blood Pressure [Left Arm] Blood Pressure 146/67 [Post-Activity] Blood Pressure 110/65 [Pre-Activity] Blood Pressure [Right Arm] O2 Sat by Pulse Oximetry O2 Sat by Pulse 96 Oximetry [Post -Activity] O2 Sat by Pulse 99 Oximetry [Pre- Activity] Labs: Short CBC 10/24/16 Range/Units 05:46 WBC 10.4 (3.8-10.6) k/uL Hgb 10.8 L (13.0-17.5) gm/dL Hct 32.6 L (39.0-53.0) % Plt Count 314 (150-450) k/uL BMP 10/24/16 05:46 Sodium 133 L Potassium 4.9 Chloride 100 Carbon Dioxide 28 BUN 23 H Creatinine 0.90 Glucose 86 Calcium 7.8 L Liver Function 10/24/16 Range/Units 05:46 Total Bilirubin 0.7 (0.2-1.3) mg/dL AST 21 (17-59) U/L ALT 43 (21-72) U/L Alkaline Phosphatase 81 (38-126) U/L Albumin 2.3 L (3.5-5.0) g/dL Lungs: Respirations are even and nonlabored, breath sounds are diminished in bilateral bases O2 sat: 99% on room air I/S: 1000 mL, patient gave return demonstration of proper use of the incentive spirometer Heart: S1S2, irregular rate and rhythm portable telemetry now shows a atrial fibrillation with a controlled ventricular response at about 90, earlier patient had a rapid ventricular response as high as 160. Sternum stable, chest incision clean with silverlon dressing clean and dry. Abdomen: Soft, Positive bowel sounds present in all 4 quadrants. CBGs: 102-148 mg/dL U/O: Good urine output Intake & Output 10/22/16 10/23/16 10/24/16 10/25/16 06:59 06:59 06:59 06:59 Intake Total 851.518 253.146 180 Output Total 1000 3450 Balance 851.518 -746.854 -3270 Weight 112.3 kg 113.6 kg 112 kg Active Medications Hydrocodone Bitart/Acetaminophen ([place] 5-325) 2 each PO Q4HR PRN PRN Reason: Severe Pain Last Admin: 10/23/16 21:09 Dose: 2 each Hydrocodone Bitart/Acetaminophen ([place] 5-325) 1 each PO Q4HR PRN PRN Reason: Moderate Pain Last Admin: 10/24/16 09:33 Dose: 1 each Aspirin (Aspirin) 81 mg PO DAILY SHAILESH Atorvastatin Calcium (Lipitor) 40 mg PO HS SHAILESH Last Admin: 10/23/16 21:07 Dose: 40 mg Benzocaine/Menthol (Cepacol Lozenge) 1 each MUCOUS MEM Q2H PRN PRN Reason: Sore Throat Bisacodyl (Dulcolax) 10 mg RECTAL DAILY PRN PRN Reason: Constipation Furosemide (Lasix) 20 mg IV Q12HR SHAILESH Last Admin: 10/24/16 11:24 Dose: 20 mg Amiodarone HCl 450 mg/ (Dextrose/Water) 259 mls @ 34.53 mls/hr IV .Q7H31M SHAILESH; 1 MG/MIN PRN Reason: Protocol Stop: 10/25/16 08:46 Last Admin: 10/24/16 09:38 Dose: 1 mg/min, 34.53 mls/hr Insulin Glargine (Lantus) 34 unit SQ DAILY [facility] Last Admin: 10/24/16 08:36 Dose: 34 unit Insulin Human Lispro (Humalog) 8 unit SQ AC-TID [facility] Last Admin: 10/24/16 11:33 Dose: 8 unit Insulin Human Lispro (Humalog) 0 unit SQ ACHS [facility] PRN Reason: Protocol Last Admin: 10/24/16 11:34 Dose: 1 unit Ipratropium [place] (Atrovent Nebulized) 0.5 mg INHALATION RT-QID [facility] Last Admin: 10/24/16 11:40 Dose: 0.5 mg Levalbuterol HCl (Xopenex Nebulized (Conc)) 1.25 mg INHALATION RT-TID [facility] Last Admin: 10/24/16 11:40 Dose: 1.25 mg Lisinopril (Zestril) 5 mg PO DAILY [facility] Last Admin: 10/24/16 08:31 Dose: 5 mg Magnesium Hydroxide (Milk Of Magnesia) 2,400 mg PO BID PRN PRN Reason: Constipation Last Admin: 10/23/16 05:03 Dose: 2,400 mg Metformin HCl (Glucophage) 1,000 mg PO BID-W/MEALS [facility] Last Admin: 10/24/16 07:04 Dose: 1,000 mg Metoclopramide HCl (Reglan) 10 mg IVP Q4H PRN PRN Reason: Nausea And Vomiting Metoprolol Tartrate (Lopressor) 50 mg PO TID [facility] Last Admin: 10/24/16 08:31 Dose: 50 mg Miscellaneous Information (Magnesium Per Protocol) 1 each MISCELLANE DAILY PRN ; Protocol PRN Reason: Per Protocol Miscellaneous Information (Phosphorus Per Protocol) 1 each MISCELLANE DAILY PRN ; Protocol PRN Reason: Per Protocol Miscellaneous Information (Potassium Per Protocol) 1 each MISCELLANE DAILY PRN ; Protocol PRN Reason: Per Protocol Ondansetron HCl (Zofran) 4 mg IVP Q6HR PRN PRN Reason: Nausea And Vomiting Last Admin: 10/18/16 05:42 Dose: 4 mg Pantoprazole Sodium (Protonix) 40 mg PO AC-BRKFST [facility] Last Admin: 10/24/16 07:04 Dose: 40 mg Repaglinide (Prandin) 2 mg PO AC-TID [facility] Last Admin: 10/24/16 11:24 Dose: 2 mg Rivaroxaban (Xarelto) 20 mg PO W/SUPPER [facility] Senna/Docusate Sodium (Senokot-S) 2 each PO HS [facility] Last Admin: 10/23/16 21:08 Dose: 2 each Sodium Chloride (Saline Flush) 10 ml IV BID [facility] Last Admin: 10/24/16 08:32 Dose: 10 ml Plan: Continue aggressive pulmonary toilet utilizing incentive spirometry, coughing and deep breathing, and inhalation treatments per respiratory therapy. Continue gentle diuresis. Change amiodarone to oral. Continue to watch rhythm. Start anticoagulation Home soon
[2016-10-24 12:06] VITALS: BMI 37.5
--- NOTE | 2016-10-24 13:02 | P.PN ---
Subjective Principal diagnosis: Aortic valve replacement This is a pleasant 61-year-old gentleman with history of hypertension , diabetes, hyperlipidemia, who is status post aortic valve replacement. This morning patient again was noted to be in atrial fibrillation with a rapid ventricular response, heart rate in the 140s to 160s, he was given an additional 150 amiodarone bolus and started on an IV amiodarone drip. Repeat chest x-ray was also performed today which revealed small bilateral pleural effusions. Hemoglobin 10.8 today, potassium 4.9, BUN 23, creatinine 0.9. Overall the patient feels well, reaching at 1200 on his incentive spirometry. Denies any overt shortness of breath or chest discomfort. Objective - Vital Signs Vital signs: Vital Signs Temp 97.0 F L 10/24/16 08:00 Pulse 77 10/24/16 12:00 Resp 16 10/24/16 12:00 BP 110/65 10/24/16 11:06 Pulse Ox 99 10/24/16 11:06 Intake & Output 10/23/16 10/24/16 10/24/16 18:59 06:59 18:59 Intake Total 180 240 Output Total 2300 1150 1400 Balance -2120 -1150 -1160 Weight 113.6 kg 112 kg 112 kg Intake: Oral 180 240 Output: Urine 2300 1150 1400 Other: Voiding Method Urinal Urinal Urinal # Voids 1 1 # Bowel Movements 0 ABP, PAP, CO, CI - Last Documented Arterial Blood Pressure 129/52 Pulmonary Artery Pressure 31/5 Cardiac Output 9.6 Cardiac Index 4.4 - Exam PHYSICAL EXAMINATION: HEENT: Head is atraumatic, normocephalic. Pupils equal, round. Neck is supple. There is no elevated jugular venous pressure. HEART EXAMINATION: Heart S1 and S2 irregularly irregular a soft systolic murmur is heard. CHEST EXAMINATION: Lungs are clear with mild diminished air entry to bilateral bases. ABDOMEN: Soft, nontender. Bowel sounds are heard. No organomegaly noted. EXTREMITIES: 2+ peripheral pulses with trace evidence of peripheral edema and no calf tenderness noted. NEUROLOGIC patient is awake, alert and oriented -3. . - Labs CBC & Chem 7: 10/24/16 05:46 10/24/16 05:46 Labs: Abnormal Lab Results - Last 24 Hours (Table) 10/23/16 10/23/16 10/24/16 Range/Units 16:44 20:26 05:46 RBC 3.48 L (4.30-5.90) m/uL Hgb 10.8 L (13.0-17.5) gm/dL Hct 32.6 L (39.0-53.0) % Sodium (137-145) mmol/L BUN (9-20) mg/dL POC Glucose (mg/dL) 111 H 134 H (75-99) mg/dL Calcium (8.4-10.2) mg/dL Total Protein (6.3-8.2) g/dL Albumin (3.5-5.0) g/dL 10/24/16 10/24/16 10/24/16 Range/Units 05:46 06:05 11:30 RBC (4.30-5.90) m/uL Hgb (13.0-17.5) gm/dL Hct (39.0-53.0) % Sodium 133 L (137-145) mmol/L BUN 23 H (9-20) mg/dL POC Glucose (mg/dL) 100 H 148 H (75-99) mg/dL Calcium 7.8 L (8.4-10.2) mg/dL Total Protein 5.0 L (6.3-8.2) g/dL Albumin 2.3 L (3.5-5.0) g/dL Assessment and Plan (1) Paroxysmal a-fib Status: Acute (2) Diabetes Status: Acute (3) Hyperlipidemia Status: Acute (4) Hypertension Status: Acute (5) Status post aortic valve replacement Status: Acute Plan: From cardiology's perspective, patient was given an additional amiodarone bolus and started on an amiodarone drip. From tomorrow we will put the patient on 200 mg of amiodarone by mouth 3 times a day for one week, then 200 mg twice a day. We will check to see if the patient has coverage for xarelto, if so we will initiate that today as well. We will give the patient 20 mg of IV Lasix 2 doses. Check lytes BUN and creatinine in the morning. DNP note has been reviewed, I agree with a documented findings and plan of care. Patient was seen and examined.
--- NOTE | 2016-10-24 13:41 | P.PN ---
Subjective 61-year-old male one of Dr. Cochran patient with past medical history of diabetes, hypertension, hyperlipidemia who has been having worsening shortness of breath and palpitation. He has been followed for aortic stenosis and valvular heart disease by cardiology for the last year. Heart catheter was done in August 2016 showed severe advance aortic stenosis with no vessel involvement. Patient was refer to cardiothoracic surgery and scheduled for elective aortic valve placement today for 2016. Following surgery patient was on mechanical ventilation as postsurgical respiratory failure. Pulmonary were consulted in his care. Patient will be on insulin drip Accu-Chek with sliding scales coverage. Patient is stable hemodynamically in the ICU. 10/18: Patient was successfully extubated yesterday. He is currently on nasal cannula. Heart rate is running in the 80s to 90s. Blood pressure is stable and he is on Clevidipine. Pain appears to be controlled at this time. 10/19: Plan to transition patient to Lantus, and Humalog scale. He was given 1 dose of IV Lasix and Fonseca is to be discontinued today. 10/20: Patient is transferred to selective care unit. Blood sugars are running between 102 08/06/1958 after breakfast this morning. Humalog 8 units scheduled with meals has been added. He denies shortness of breath. No acute distress is noted. He has been afebrile. 10/21: Heart rate is running in the low 100s. Patient is complaining of abdominal bloating and had a bowel movement yesterday. He states he normally has constipation. Blood sugars are elevated for which metformin and Prandin resumed and he is continued on Lantus, scheduled Humalog and Humalog scale. Patient does qualify for home O2 which will be arranged prior to his discharge. 10/22: Patient went into atrial flutter/fib he was started on amiodarone drip, his sitting up in chair his feeling a bit better, he continues to have some coughing, no chest pain, some dyspnea and exertion, he does complain of edema both lower extremities. 10/23: Patient is complaining of increased shortness of breath, he did receive a bolus of amiodarone because of his heart rate, he did receive a little Lasix 40 mg IV push 1, portal chest x-ray was ordered with the final result of that. 10/24: Patient states his shortness of breath is a little better from yesterday. He does have continued edema to his hands and feet and is on Lasix 20 mg IV every 12 hours. Patient went into rapid ventricular response, atrial fibrillation this morning and heart rate was running in the 150s. He is currently on amiodarone drip and rate is controlled. He has had good urine output. Objective - Vital Signs Vital signs: Vital Signs Temp 97.0 F L 10/24/16 08:00 Pulse 152 H 10/24/16 09:16 Resp 16 10/24/16 08:46 BP 134/66 10/24/16 08:46 Pulse Ox 98 10/24/16 08:00 Intake & Output 10/23/16 10/24/16 10/24/16 18:59 06:59 18:59 Intake Total 180 Output Total 2300 1150 Balance -2120 -1150 Weight 113.6 kg 112 kg Intake: Oral 180 Output: Urine 2300 1150 Other: Voiding Method Urinal Urinal Urinal # Voids 1 1 ABP, PAP, CO, CI - Last Documented Arterial Blood Pressure 129/52 Pulmonary Artery Pressure 31/5 Cardiac Output 9.6 Cardiac Index 4.4 - Exam General appearance: no average body habitus, no cooperative, no disheveled, no mild distress, no morbidly obese, no acute distress, no obese, no severe distress, no thin - EENT Eyes: no abnormal pupil, no anicteric sclerae, no disc margins sharp, no edentulous, no EOMI, no PERRLA, no fundus normal, no photophobia, no dentition normal, no poor dentition, no ptosis, no scleral icterus, normal appearance ENT: no hard of hearing, no hearing grossly normal, no NA/AT, normal oropharynx , no other, no pharyngeal erythema, no thrush, no tonsillar exudates, no tonsillar swelling Ears: bilateral: normal - Neck Neck: no lymphadenopathy, normal ROM, no other, no rigidity, no stridor, no thyromegaly Carotids: bilateral: upstroke normal Thyroid: bilateral: normal size - Respiratory Respiratory: bilateral: diminished, dullness, rales - Cardiovascular Rhythm: regular Heart sounds: normal: S1, S2 Abnormal Heart Sounds: systolic murmur, S3 Gallop - Gastrointestinal General gastrointestinal: no absent bowel sounds, decreased bowel sounds, no distended, no hepatomegaly, no hyperactive bowel sounds, no normal bowel sounds , no organomegaly, no rigid, no scaphoid, soft, no splenomegaly, no tenderness, no umbilical hernia, no ventral hernia - Integumentary Integumentary: no calor, no cellulitis, no cyanotic, no decreased turgor, no flushed, no jaundiced, normal, no normal turgor, pale, no rash, no ulcer - Neurologic Neurologic: CNII-XII intact - Musculoskeletal Musculoskeletal: gait normal, generalized weakness, no strength equal bilaterally, no right sided weakness, no left sided weakness - Psychiatric Psychiatric: A&O x's 3 - Labs CBC & Chem 7: 10/24/16 05:46 10/24/16 05:46 Labs: Abnormal Lab Results - Last 24 Hours (Table) 10/23/16 10/23/16 10/23/16 Range/Units 11:30 16:44 20:26 RBC (4.30-5.90) m/uL Hgb (13.0-17.5) gm/dL Hct (39.0-53.0) % Sodium (137-145) mmol/L BUN (9-20) mg/dL POC Glucose (mg/dL) 148 H 111 H 134 H (75-99) mg/dL Calcium (8.4-10.2) mg/dL Total Protein (6.3-8.2) g/dL Albumin (3.5-5.0) g/dL 10/24/16 10/24/16 10/24/16 Range/Units 05:46 05:46 06:05 RBC 3.48 L (4.30-5.90) m/uL Hgb 10.8 L (13.0-17.5) gm/dL Hct 32.6 L (39.0-53.0) % Sodium 133 L (137-145) mmol/L BUN 23 H (9-20) mg/dL POC Glucose (mg/dL) 100 H (75-99) mg/dL Calcium 7.8 L (8.4-10.2) mg/dL Total Protein 5.0 L (6.3-8.2) g/dL Albumin 2.3 L (3.5-5.0) g/dL Assessment and Plan Plan: 1 severe aortic stenosis: Post aortic valve placement. 2 post aortic valve placement: Continue postsurgical care. 3 post surgery respiratory failure: Was on mechanical ventilation continue current management hopefully wearable off the vent very quickly after surgery 4 hypertension: Stable was on amlodipine Benzapril as soon as he is able take oral meds will be starting him on it. 5 diabetes: Type II he has been on metformin, Prandin and Lantus . Insulin drip to be discontinued and patient started back on Lantus, scheduled Humalog and Humalog scale. Oral diabetic agents left on hold at this time. 6 hyperlipidemia: Pravastatin on hold due to elevated liver function tests. 7 atrial fibrillation with fast rate. Continue amiodarone drip, monitor the patient for the next 1-2 days. 8 COPD with history of [id number] of smoking. 9 chronic hypoxic respiratory failure requiring home oxygen. 10 GI prophylaxis: Patient will be continue on PPI or H2 esmer. 11 DVT prophylaxis: Continue knee-high HUMZA hose and Venodyne boots and continue DVT prophylaxis protocol. 12.CODE STATUS: Full code. 13. Acute diastolic heart failure. The patient did receive a bolus of amiodarone, he would be given Lasix 40 mg IV push 1, check check chest x-ray result. Discharge planning: Home with [facility] Impression and plan of care have been directed as dictated by the signing physician. Vale Nair nurse practitioner acting as scribe for signing physician. Time with Patient: Greater than 30
[2016-10-24 17:19] LABS: Glucose,Whole Blood 78 mg/dL (75-99)
--- NOTE | 2016-10-24 17:30 | P.PN ---
Subjective This is a very pleasant 61-year-old gentleman who follows with Dr. Cochran as his primary care physician. He has history of diabetes place, hypertension, hyperlipidemia, sleep apnea, remote history of smoking. He presented here on for an elective aortic valve replacement which was performed by Dr. alesha hickman that same day. He is seen again today in follow-up in the intensive care unit. He is sitting up in the chair at the bedside. He is awake and alert in no acute distress. He is maintaining good O2 saturations in the 90s on 3 L/m per nasal cannula. He's been afebrile. He is maintained in normal sinus rhythm. He has no pulmonary complaints today. He is working well of his incentive spirometer. His chest x-ray did reveal some continued left lower lobe infiltrate. The patient is seen again today 10/24/2016 in follow-up on the selective care unit. He is awake and alert in no acute distress. He denies any worsening shortness of breath, cough or congestion. He's been up ambulating in the hallway with assistance. He is maintaining good O2 saturations on room air. He has had ongoing issues with atrial fibrillation with a rapid ventricular response and remains on an amiodarone drip at 0.5 mg/m. He is anticoagulated with Xarelto. Objective - Vital Signs Vital signs: Vital Signs Temp 97.0 F L 10/24/16 08:00 Pulse 80 10/24/16 16:33 Resp 16 10/24/16 12:00 BP 110/65 10/24/16 11:06 Pulse Ox 99 10/24/16 11:06 Intake & Output 10/23/16 10/24/16 10/24/16 18:59 06:59 18:59 Intake Total 180 240 Output Total 2300 1150 1400 Balance -2120 -1150 -1160 Weight 113.6 kg 112 kg 112 kg Intake: Oral 180 240 Output: Urine 2300 1150 1400 Other: Voiding Method Urinal Urinal Urinal # Voids 1 1 # Bowel Movements 1 ABP, PAP, CO, CI - Last Documented Arterial Blood Pressure 129/52 Pulmonary Artery Pressure 31/5 Cardiac Output 9.6 Cardiac Index 4.4 - Exam GENERAL EXAM: Alert, active, comfortable in no apparent distress. HEAD: Normocephalic. EYES: Normal reaction of pupils, equal size. NOSE: Clear with pink turbinates. THROAT: No erythema or exudates. NECK: No masses, no JVD. CHEST: No chest wall deformity. LUNGS: Equal air entry with no crackles, wheeze, rhonchi or dullness. CVS: S1 and S2 normal with no audible murmurs, regular rhythm. ABDOMEN: No hepatosplenomegaly, normal bowel sounds, no guarding or rigidity. SPINE: No scoliosis or deformity SKIN: No rashes CENTRAL NERVOUS SYSTEM: No focal deficits, tone is normal in all 4 extremities. Extremities: There is no significant peripheral edema. No clubbing, no cyanosis. Peripheral pulses are intact. - Labs CBC & Chem 7: 10/24/16 05:46 10/24/16 05:46 Labs: Abnormal Lab Results - Last 24 Hours (Table) 10/23/16 10/24/16 10/24/16 Range/Units 20:26 05:46 05:46 RBC 3.48 L (4.30-5.90) m/uL Hgb 10.8 L (13.0-17.5) gm/dL Hct 32.6 L (39.0-53.0) % Sodium 133 L (137-145) mmol/L BUN 23 H (9-20) mg/dL POC Glucose (mg/dL) 134 H (75-99) mg/dL Calcium 7.8 L (8.4-10.2) mg/dL Total Protein 5.0 L (6.3-8.2) g/dL Albumin 2.3 L (3.5-5.0) g/dL 10/24/16 10/24/16 Range/Units 06:05 11:30 RBC (4.30-5.90) m/uL Hgb (13.0-17.5) gm/dL Hct (39.0-53.0) % Sodium (137-145) mmol/L BUN (9-20) mg/dL POC Glucose (mg/dL) 100 H 148 H (75-99) mg/dL Calcium (8.4-10.2) mg/dL Total Protein (6.3-8.2) g/dL Albumin (3.5-5.0) g/dL Assessment and Plan Plan: Impression: #1 Severe aortic stenosis, status post aortic valve replacement using a 23 mm pericardial bioprosthesis magna ease valve. #2 Mild coronary artery disease. #3 Hypertension. #4 Hyperlipidemia. #5 Diabetes mellitus. #6 Obesity. Plan: The patient was seen by Dr. Devi. The patient is stable from the pulmonary standpoint. We'll continue to encourage increased use of the incentive spirometer and cough and deep breathing exercises. We'll continue with his current medications. We will increase his activity as tolerated. We'll continue to follow.
[2016-10-24 20:43] LABS: Glucose,Whole Blood 136 mg/dL (75-99)
[2016-10-24] MEDS: ATORVASTATIN 40 MG TAB PO SCH (21:14)
[2016-10-24] MEDS: SENNOSIDES-DOCUSATE SODIUM 1 EACH TAB PO SCH (21:15)
[2016-10-25] MEDS: AMIODARONE 450 MG in DEXTROSE 5% IN WATER 250 ML IV SCH ×4 (01:14→08:43)
[2016-10-25 02:32] LABS: Glucose,Whole Blood 100 mg/dL (75-99)
[2016-10-25] MEDS: HYDROcodone/APAP 5-325MG 1 EACH TAB PO PRN ×4 (04:32→21:23)
[2016-10-25 06:24] LABS: Glucose,Whole Blood 93 mg/dL (75-99)
[2016-10-25] MEDS: INSULIN LISPRO (humaLOG) 300 UNIT/3 ML VIAL SQ SCH ×7 (06:27→21:06)
[2016-10-25 06:35] LABS: CH 29.7; CHCM 31.7; HCT 31.9 % (39.0-53.0); HDW 2.57; HGB 10.7 gm/dL (13.0-17.5); MCH 31.5 pg (25.0-35.0); MCHC 33.5 g/dL (31.0-37.0); MCV 94.1 fL (80.0-100.0); Mean Platelet Volume 6.7; RBC 3.38 m/uL (4.30-5.90); RDW 13.1 % (11.5-15.5); WBC 10.4 k/uL (3.8-10.6)
[2016-10-25 06:59] LABS: ALT 34 U/L (21-72); AST 18 U/L (17-59); Alkaline Phosphatase 81 U/L (38-126); Anion Gap 6 mmol/L; Blood Urea Nitrogen 21 mg/dL (9-20); Calcium 7.9 mg/dL (8.4-10.2); Carbon Dioxide 32 mmol/L (22-30); Chloride 97 mmol/L (98-107); Glucose 89 mg/dL (74-99); Non-African American GFR(MDRD) >60 (>60 ml/min/1.73 sqM); Potassium 4.8 mmol/L (3.5-5.1); Sodium 135 mmol/L (137-145); Total Bilirubin 0.8 mg/dL (0.2-1.3); Total Protein 5.4 g/dL (6.3-8.2)
[2016-10-25] MEDS: REPAGLINIDE 1 MG TAB PO SCH ×3 (07:03→17:07)
[2016-10-25] MEDS: metFORMIN 500 MG TAB PO SCH ×2 (07:03→17:07)
[2016-10-25] MEDS: PANTOPRAZOLE 40 MG TABLET PO SCH (07:03)
--- NOTE | 2016-10-25 07:50 | XR ---
EXAMINATION TYPE: XR chest 1V portable DATE OF EXAM: 10/25/2016 7:32 AM COMPARISON: 10/24/2016 HISTORY: Shortness of breath TECHNIQUE: Frontal and lateral views of the chest are obtained. FINDINGS: Scattered senescent parenchymal changes noted. Hyperinflation compatible with COPD. Persistent basilar atelectasis effusions and/or infiltrates. Heart size is stable. Mediastinal structures are stable and grossly unremarkable. No evidence for hilar prominence. Degenerative changes dorsal spine. IMPRESSION: 1. Persistent basilar atelectasis effusions and/or infiltrates.
[2016-10-25] MEDS: METOPROLOL TARTRATE 50 MG TAB PO SCH ×3 (08:27→21:22)
[2016-10-25] MEDS: INSULIN GLARGINE 100 UNIT/ML 10 ML VIAL SQ SCH (08:27)
[2016-10-25] MEDS: LISINOPRIL 5 MG TAB PO SCH (08:27)
[2016-10-25] MEDS: ASPIRIN 81 MG CHEW PO SCH (08:28)
[2016-10-25] MEDS: IPRATROPIUM 0.5 MG/2.5 ML NEBU INHALATION SCH ×4 (08:38→21:49)
[2016-10-25] MEDS: LEVALBUTEROL NEB (CONC) 1.25 MG/0.5 ML AMP INHALATION SCH ×3 (08:38→21:49)
[2016-10-25 12:00] LABS: Glucose,Whole Blood 111 mg/dL (75-99)
--- NOTE | 2016-10-25 12:17 | P.PN ---
Subjective 61-year-old male one of Dr. Cochran patient with past medical history of diabetes, hypertension, hyperlipidemia who has been having worsening shortness of breath and palpitation. He has been followed for aortic stenosis and valvular heart disease by cardiology for the last year. Heart catheter was done in August 2016 showed severe advance aortic stenosis with no vessel involvement. Patient was refer to cardiothoracic surgery and scheduled for elective aortic valve placement today for 2016. Following surgery patient was on mechanical ventilation as postsurgical respiratory failure. Pulmonary were consulted in his care. Patient will be on insulin drip Accu-Chek with sliding scales coverage. Patient is stable hemodynamically in the ICU. 10/18: Patient was successfully extubated yesterday. He is currently on nasal cannula. Heart rate is running in the 80s to 90s. Blood pressure is stable and he is on Clevidipine. Pain appears to be controlled at this time. 10/19: Plan to transition patient to Lantus, and Humalog scale. He was given 1 dose of IV Lasix and Fonseca is to be discontinued today. 10/20: Patient is transferred to selective care unit. Blood sugars are running between 102 08/06/1958 after breakfast this morning. Humalog 8 units scheduled with meals has been added. He denies shortness of breath. No acute distress is noted. He has been afebrile. 10/21: Heart rate is running in the low 100s. Patient is complaining of abdominal bloating and had a bowel movement yesterday. He states he normally has constipation. Blood sugars are elevated for which metformin and Prandin resumed and he is continued on Lantus, scheduled Humalog and Humalog scale. Patient does qualify for home O2 which will be arranged prior to his discharge. 10/22: Patient went into atrial flutter/fib he was started on amiodarone drip, his sitting up in chair his feeling a bit better, he continues to have some coughing, no chest pain, some dyspnea and exertion, he does complain of edema both lower extremities. 10/23: Patient is complaining of increased shortness of breath, he did receive a bolus of amiodarone because of his heart rate, he did receive a little Lasix 40 mg IV push 1, portal chest x-ray was ordered with the final result of that. 10/24: Patient states his shortness of breath is a little better from yesterday. He does have continued edema to his hands and feet and is on Lasix 20 mg IV every 12 hours. Patient went into rapid ventricular response, atrial fibrillation this morning and heart rate was running in the 150s. He is currently on amiodarone drip and rate is controlled. He has had good urine output. 10/25: Heart rate is better controlled today in the 70-80 range. Patient has been started on Lasix 20 mg IV every 12 hours. Anticipate possible discharge by tomorrow. Objective - Vital Signs Vital signs: Vital Signs Temp 97.0 F L 10/24/16 08:00 Pulse 74 10/25/16 08:48 Resp 16 10/25/16 04:00 BP 110/65 10/24/16 11:06 Pulse Ox 96 10/25/16 08:39 Intake & Output 10/24/16 10/25/16 10/25/16 18:59 06:59 18:59 Intake Total 739 259 Output Total 1400 860 Balance -661 -860 259 Weight 112 kg 111.1 kg Intake: Intake, IV Titration 259 259 Amount Amiodarone 450 mg In 259 259 Dextrose 5% in Water 250 ml @ 1 MG/MIN 34.53 mls/ hr IV .Q7H31M [facility] Rx#: [id number] Oral 480 Output: Urine 1400 860 Other: Voiding Method Urinal Urinal # Bowel Movements 1 ABP, PAP, CO, CI - Last Documented Arterial Blood Pressure 129/52 Pulmonary Artery Pressure 31/5 Cardiac Output 9.6 Cardiac Index 4.4 - Exam General appearance: no average body habitus, no cooperative, no disheveled, no mild distress, no morbidly obese, no acute distress, no obese, no severe distress, no thin - EENT Eyes: no abnormal pupil, no anicteric sclerae, no disc margins sharp, no edentulous, no EOMI, no PERRLA, no fundus normal, no photophobia, no dentition normal, no poor dentition, no ptosis, no scleral icterus, normal appearance ENT: no hard of hearing, no hearing grossly normal, no NA/AT, normal oropharynx , no other, no pharyngeal erythema, no thrush, no tonsillar exudates, no tonsillar swelling Ears: bilateral: normal - Neck Neck: no lymphadenopathy, normal ROM, no other, no rigidity, no stridor, no thyromegaly Carotids: bilateral: upstroke normal Thyroid: bilateral: normal size - Respiratory Respiratory: bilateral: diminished, dullness, rales - Cardiovascular Rhythm: regular Heart sounds: normal: S1, S2 Abnormal Heart Sounds: systolic murmur, S3 Gallop - Gastrointestinal General gastrointestinal: no absent bowel sounds, decreased bowel sounds, no distended, no hepatomegaly, no hyperactive bowel sounds, no normal bowel sounds , no organomegaly, no rigid, no scaphoid, soft, no splenomegaly, no tenderness, no umbilical hernia, no ventral hernia - Integumentary Integumentary: no calor, no cellulitis, no cyanotic, no decreased turgor, no flushed, no jaundiced, normal, no normal turgor, pale, no rash, no ulcer - Neurologic Neurologic: CNII-XII intact - Musculoskeletal Musculoskeletal: gait normal, generalized weakness, no strength equal bilaterally, no right sided weakness, no left sided weakness - Psychiatric Psychiatric: A&O x's 3 - Labs CBC & Chem 7: 10/25/16 05:38 10/25/16 05:38 Labs: Abnormal Lab Results - Last 24 Hours (Table) 10/24/16 10/24/16 10/25/16 Range/Units 11:30 20:41 02:32 RBC (4.30-5.90) m/uL Hgb (13.0-17.5) gm/dL Hct (39.0-53.0) % Sodium (137-145) mmol/L Chloride (98-107) mmol/L Carbon Dioxide (22-30) mmol/L BUN (9-20) mg/dL POC Glucose (mg/dL) 148 H 136 H 100 H (75-99) mg/dL Calcium (8.4-10.2) mg/dL Total Protein (6.3-8.2) g/dL Albumin (3.5-5.0) g/dL 10/25/16 10/25/16 Range/Units 05:38 05:38 RBC 3.38 L (4.30-5.90) m/uL Hgb 10.7 L (13.0-17.5) gm/dL Hct 31.9 L (39.0-53.0) % Sodium 135 L (137-145) mmol/L Chloride 97 L (98-107) mmol/L Carbon Dioxide 32 H (22-30) mmol/L BUN 21 H (9-20) mg/dL POC Glucose (mg/dL) (75-99) mg/dL Calcium 7.9 L (8.4-10.2) mg/dL Total Protein 5.4 L (6.3-8.2) g/dL Albumin 2.5 L (3.5-5.0) g/dL Assessment and Plan Plan: 1 severe aortic stenosis: Post aortic valve placement. 2 post aortic valve placement: Continue postsurgical care. 3 post surgery respiratory failure: Was on mechanical ventilation continue current management hopefully wearable off the vent very quickly after surgery 4 hypertension: Stable was on amlodipine Benzapril as soon as he is able take oral meds will be starting him on it. 5 diabetes: Type II he has been on metformin, Prandin and Lantus . Insulin drip to be discontinued and patient started back on Lantus, scheduled Humalog and Humalog scale. Oral diabetic agents left on hold at this time. 6 hyperlipidemia: Pravastatin on hold due to elevated liver function tests. 7 atrial fibrillation with fast rate. Continue amiodarone drip, monitor the patient for the next 1-2 days. 8 COPD with history of [id number] of smoking. 9 chronic hypoxic respiratory failure requiring home oxygen. 10 GI prophylaxis: Patient will be continue on PPI or H2 esmer. 11 DVT prophylaxis: Continue knee-high HUMZA hose and Venodyne boots and continue DVT prophylaxis protocol. 12.CODE STATUS: Full code. 13. Acute diastolic heart failure. The patient did receive a bolus of amiodarone, he would be given Lasix 20 mg IV push q12hr. Discharge planning: Home with [facility] Monday Impression and plan of care have been directed as dictated by the signing physician. Vale Nair nurse practitioner acting as scribe for signing physician. Time with Patient: Greater than 30
[2016-10-25] MEDS: AMIODARONE 200 MG TAB PO SCH ×2 (12:19→21:24)
[2016-10-25] MEDS: FUROSEMIDE 10 MG/ML 2 ML VIAL IV SCH ×2 (12:19→22:32)
--- NOTE | 2016-10-25 13:32 | P.PN ---
Subjective Principal diagnosis: Is a very pleasant 61-year-old gentleman who follows with Dr. Cochran as his primary care physician. He has history of diabetes place, hypertension, hyperlipidemia, sleep apnea, remote history of smoking. He presented here on for an elective aortic valve replacement which was performed by Dr. alesha hickmna that same day. He is seen again today in follow-up in the intensive care unit. He is sitting up in the chair at the bedside. He is awake and alert in no acute distress. He is maintaining good O2 saturations in the 90s on 3 L/m per nasal cannula. He's been afebrile. He is maintained in normal sinus rhythm. He has no pulmonary complaints today. He is working well of his incentive spirometer. His chest x-ray did reveal some continued left lower lobe infiltrate. This is a very pleasant 61-year-old gentleman who follows with Dr. Cochran as his primary care physician. He has history of diabetes place, hypertension, hyperlipidemia, sleep apnea, remote history of smoking. He presented here on for an elective aortic valve replacement which was performed by Dr. alesha hickman that same day. He is seen again today in follow-up in the intensive care unit. He is sitting up in the chair at the bedside. He is awake and alert in no acute distress. He is maintaining good O2 saturations in the 90s on 3 L/m per nasal cannula. He's been afebrile. He is maintained in normal sinus rhythm. He has no pulmonary complaints today. He is working well of his incentive spirometer. His chest x-ray did reveal some continued left lower lobe infiltrate. The patient is seen again today 10/24/2016 in follow-up on the selective care unit. He is awake and alert in no acute distress. He denies any worsening shortness of breath, cough or congestion. He's been up ambulating in the hallway with assistance. He is maintaining good O2 saturations on room air. He has had ongoing issues with atrial fibrillation with a rapid ventricular response and remains on an amiodarone drip at 0.5 mg/m. He is anticoagulated with Xarelto. The patient is seen again today 10/25/2016 in follow-up. He is awake and alert in no acute distress. He is currently sitting up in the chair at the bedside. He denies any worsening shortness of breath, cough or congestion. He remains on amiodarone drip however we'll be converting to oral amiodarone. He remains anticoagulated with Xarelto. His chest x-ray reveals persistent basilar atelectasis. He is doing very well with his incentive spirometer up to 1250 MLS. He is requiring 1 L of high flow nasal cannula to maintain O2 saturations in the 90s while ambulating. He's been up ambulating with assistance. His pain is well controlled. Objective - Vital Signs Vital signs: Vital Signs Temp 98.1 F 10/25/16 11:55 Pulse 82 10/25/16 12:07 Resp 18 10/25/16 11:55 BP 120/68 10/25/16 11:55 Pulse Ox 96 10/25/16 11:55 Intake & Output 10/24/16 10/25/16 10/25/16 18:59 06:59 18:59 Intake Total 739 499 Output Total 1400 860 600 Balance -661 -860 -101 Weight 112 kg 111.1 kg Intake: Intake, IV Titration 259 259 Amount Amiodarone 450 mg In 259 259 Dextrose 5% in Water 250 ml @ 1 MG/MIN 34.53 mls/ hr IV .Q7H31M [facility] Rx#: [id number] Oral 480 240 Output: Urine 1400 860 600 Other: Voiding Method Urinal Urinal # Bowel Movements 1 0 ABP, PAP, CO, CI - Last Documented Arterial Blood Pressure 129/52 Pulmonary Artery Pressure 31/5 Cardiac Output 9.6 Cardiac Index 4.4 - Exam GENERAL EXAM: Alert, active, comfortable in no apparent distress. HEAD: Normocephalic. EYES: Normal reaction of pupils, equal size. NOSE: Clear with pink turbinates. THROAT: No erythema or exudates. NECK: No masses, no JVD. CHEST: No chest wall deformity. LUNGS: Equal air entry with no crackles, wheeze, rhonchi or dullness. CVS: S1 and S2 normal with no audible murmurs, regular rhythm. ABDOMEN: No hepatosplenomegaly, normal bowel sounds, no guarding or rigidity. SPINE: No scoliosis or deformity SKIN: No rashes CENTRAL NERVOUS SYSTEM: No focal deficits, tone is normal in all 4 extremities. Extremities: There is no significant peripheral edema. No clubbing, no cyanosis. Peripheral pulses are intact. - Labs CBC & Chem 7: 10/25/16 05:38 10/25/16 05:38 Labs: Abnormal Lab Results - Last 24 Hours (Table) 10/24/16 10/25/16 10/25/16 Range/Units 20:41 02:32 05:38 RBC 3.38 L (4.30-5.90) m/uL Hgb 10.7 L (13.0-17.5) gm/dL Hct 31.9 L (39.0-53.0) % Sodium (137-145) mmol/L Chloride (98-107) mmol/L Carbon Dioxide (22-30) mmol/L BUN (9-20) mg/dL POC Glucose (mg/dL) 136 H 100 H (75-99) mg/dL Calcium (8.4-10.2) mg/dL Total Protein (6.3-8.2) g/dL Albumin (3.5-5.0) g/dL 10/25/16 10/25/16 Range/Units 05:38 11:57 RBC (4.30-5.90) m/uL Hgb (13.0-17.5) gm/dL Hct (39.0-53.0) % Sodium 135 L (137-145) mmol/L Chloride 97 L (98-107) mmol/L Carbon Dioxide 32 H (22-30) mmol/L BUN 21 H (9-20) mg/dL POC Glucose (mg/dL) 111 H (75-99) mg/dL Calcium 7.9 L (8.4-10.2) mg/dL Total Protein 5.4 L (6.3-8.2) g/dL Albumin 2.5 L (3.5-5.0) g/dL Assessment and Plan Plan: Impression: #1 Severe aortic stenosis, status post aortic valve replacement using a 23 mm pericardial bioprosthesis magna ease valve. #2 Mild coronary artery disease. #3 Hypertension. #4 Hyperlipidemia. #5 Diabetes mellitus. #6 Obesity. Plan: The patient was seen by Dr. Devi. The patient is stable from the pulmonary standpoint. His chest x-ray was reviewed. We'll continue to encourage increased use of the incentive spirometer and cough and deep breathing exercises. We'll continue with his current medications. We will increase his activity as tolerated. He does desaturate into the 80s on room air while walking. He may need home oxygen. We'll reevaluate him in the morning. We'll continue to follow.
--- NOTE | 2016-10-25 15:47 | P.PN ---
Subjective Principal diagnosis: Aortic valve replacement This is a pleasant 61-year-old gentleman with history of hypertension , diabetes, hyperlipidemia, who is status post aortic valve replacement. She continues to be in atrial fibrillation today. Heart Rate in the 80s. IV amiodarone was discontinued and the patient was initiated on oral amiodarone 200 mg one tablet by mouth twice a day. Patient to diurese well with the IV Lasix continues to have small bilateral pleural effusions. Generally puffy all over. He was initiated on 20 mg of IV Lasix twice a day 2 doses. Objective - Vital Signs Vital signs: Vital Signs Temp 98.1 F 10/25/16 11:55 Pulse 82 10/25/16 12:07 Resp 18 10/25/16 12:00 BP 120/68 10/25/16 11:55 Pulse Ox 96 10/25/16 11:55 Intake & Output 10/24/16 10/25/16 10/25/16 18:59 06:59 18:59 Intake Total 739 739 Output Total 2647 435 8128 Balance -661 -860 -261 Weight 112 kg 111.1 kg Intake: Intake, IV Titration 259 259 Amount Amiodarone 450 mg In 259 259 Dextrose 5% in Water 250 ml @ 1 MG/MIN 34.53 mls/ hr IV .Q7H31M [facility] Rx#: [id number] Oral 480 480 Output: Urine 2299 316 1332 Other: Voiding Method Urinal Urinal Toilet Urinal # Bowel Movements 1 0 ABP, PAP, CO, CI - Last Documented Arterial Blood Pressure 129/52 Pulmonary Artery Pressure 31/5 Cardiac Output 9.6 Cardiac Index 4.4 - Exam PHYSICAL EXAMINATION: HEENT: Head is atraumatic, normocephalic. Pupils equal, round. Neck is supple. There is no elevated jugular venous pressure. HEART EXAMINATION: Heart S1 and S2 irregularly irregular a soft systolic murmur is heard. CHEST EXAMINATION: Lungs are clear with mild diminished air entry to bilateral bases. ABDOMEN: Soft, nontender. Bowel sounds are heard. No organomegaly noted. EXTREMITIES: 2+ peripheral pulses with trace evidence of peripheral edema and no calf tenderness noted. NEUROLOGIC patient is awake, alert and oriented -3. . - Labs CBC & Chem 7: 10/25/16 05:38 10/25/16 05:38 Labs: Abnormal Lab Results - Last 24 Hours (Table) 10/24/16 10/25/16 10/25/16 Range/Units 20:41 02:32 05:38 RBC 3.38 L (4.30-5.90) m/uL Hgb 10.7 L (13.0-17.5) gm/dL Hct 31.9 L (39.0-53.0) % Sodium (137-145) mmol/L Chloride (98-107) mmol/L Carbon Dioxide (22-30) mmol/L BUN (9-20) mg/dL POC Glucose (mg/dL) 136 H 100 H (75-99) mg/dL Calcium (8.4-10.2) mg/dL Total Protein (6.3-8.2) g/dL Albumin (3.5-5.0) g/dL 10/25/16 10/25/16 Range/Units 05:38 11:57 RBC (4.30-5.90) m/uL Hgb (13.0-17.5) gm/dL Hct (39.0-53.0) % Sodium 135 L (137-145) mmol/L Chloride 97 L (98-107) mmol/L Carbon Dioxide 32 H (22-30) mmol/L BUN 21 H (9-20) mg/dL POC Glucose (mg/dL) 111 H (75-99) mg/dL Calcium 7.9 L (8.4-10.2) mg/dL Total Protein 5.4 L (6.3-8.2) g/dL Albumin 2.5 L (3.5-5.0) g/dL Assessment and Plan (1) Paroxysmal a-fib Status: Acute (2) Diabetes Status: Acute (3) Hyperlipidemia Status: Acute (4) Hypertension Status: Acute (5) Status post aortic valve replacement Status: Acute Plan: From cardiology's perspective, the amiodarone has been discontinued and patient was started on oral amiodarone. He will receive 2 doses of IV Lasix. We will check lytes BUN creatinine in the morning, plan for possible discharge home in 24 hours if stable. DNP note has been reviewed, I agree with a documented findings and plan of care. Patient was seen and examined.
--- NOTE | 2016-10-25 16:50 | P.PN ---
Progress Note - Text CV Surgery Nursing Principal diagnosis: Severe aortic valve stenosis. Mild coronary artery disease. Hypertension. Hyperlipidemia. Diabetes mellitus. Obesity. POD #8 aortic valve replacement using a 23 mm pericardial bioprosthesis Magna Ease. Exclusion of the left atrial appendage using a 35 mm AtriClip. Intraoperative transesophageal echocardiogram and scanning. Patient awake and alert, no distress noted, no specific complaints, patient is sitting up to the bedside chair. Vital Signs: Afebrile Vital Signs - 24 hr 10/24/16 10/24/16 10/24/16 20:00 20:52 21:03 Temperature Pulse Rate 80 80 Pulse Rate [ Post-Activity] Pulse Rate [Pre -Activity] Pulse Rate [ 94 Pulse Oximetery ] Respiratory 16 Rate Blood Pressure [Left Arm] Blood Pressure [Post-Activity] Blood Pressure [Pre-Activity] O2 Sat by Pulse Oximetry O2 Sat by Pulse Oximetry [Post -Activity] O2 Sat by Pulse Oximetry [Pre- Activity] 10/25/16 10/25/16 10/25/16 00:00 04:00 08:00 Temperature 97.8 F Pulse Rate Pulse Rate [ Post-Activity] Pulse Rate [Pre -Activity] Pulse Rate [ 97 97 62 Pulse Oximetery ] Respiratory 16 16 18 Rate Blood Pressure 135/59 [Left Arm] Blood Pressure [Post-Activity] Blood Pressure [Pre-Activity] O2 Sat by Pulse 96 Oximetry O2 Sat by Pulse Oximetry [Post -Activity] O2 Sat by Pulse Oximetry [Pre- Activity] 10/25/16 10/25/16 10/25/16 08:39 08:48 10:14 Temperature Pulse Rate 74 74 Pulse Rate [ 95 Post-Activity] Pulse Rate [Pre 101 H -Activity] Pulse Rate [ Pulse Oximetery ] Respiratory Rate Blood Pressure [Left Arm] Blood Pressure 137/73 [Post-Activity] Blood Pressure 121/67 [Pre-Activity] O2 Sat by Pulse 96 Oximetry O2 Sat by Pulse 96 Oximetry [Post -Activity] O2 Sat by Pulse 96 Oximetry [Pre- Activity] 10/25/16 10/25/16 10/25/16 11:55 12:00 12:07 Temperature 98.1 F Pulse Rate 82 82 Pulse Rate [ Post-Activity] Pulse Rate [Pre -Activity] Pulse Rate [ 82 82 Pulse Oximetery ] Respiratory 18 18 Rate Blood Pressure 120/68 [Left Arm] Blood Pressure [Post-Activity] Blood Pressure [Pre-Activity] O2 Sat by Pulse 96 Oximetry O2 Sat by Pulse Oximetry [Post -Activity] O2 Sat by Pulse Oximetry [Pre- Activity] 10/25/16 16:00 Temperature 98 F Pulse Rate Pulse Rate [ Post-Activity] Pulse Rate [Pre -Activity] Pulse Rate [ 81 Pulse Oximetery ] Respiratory 16 Rate Blood Pressure 124/56 [Left Arm] Blood Pressure [Post-Activity] Blood Pressure [Pre-Activity] O2 Sat by Pulse 94 L Oximetry O2 Sat by Pulse Oximetry [Post -Activity] O2 Sat by Pulse Oximetry [Pre- Activity] Labs: Short CBC 10/25/16 Range/Units 05:38 WBC 10.4 (3.8-10.6) k/uL Hgb 10.7 L (13.0-17.5) gm/dL Hct 31.9 L (39.0-53.0) % Plt Count 407 (150-450) k/uL BMP 10/25/16 05:38 Sodium 135 L Potassium 4.8 Chloride 97 L Carbon Dioxide 32 H BUN 21 H Creatinine 1.01 Glucose 89 Calcium 7.9 L Liver Function 10/25/16 Range/Units 05:38 Total Bilirubin 0.8 (0.2-1.3) mg/dL AST 18 (17-59) U/L ALT 34 (21-72) U/L Alkaline Phosphatase 81 (38-126) U/L Albumin 2.5 L (3.5-5.0) g/dL IV Fluids: 0.9% normal saline at 20 mL per hour Amiodarone drip at 0.5 mg/m Lungs: Essentially clear throughout, few scattered crackles to bilateral bases. Diminished right lower lobe. Respirations are unlabored. O2 sat: 89-90% on room air, 94% on 1 L nasal cannula. I/S: 1250 mL, reviewed with the patient the importance of using his incentive spirometry every hour while awake. The patient did give a good return demonstration on his incentive spirometry. Heart: S1S2, irregular rhythm with controlled rate, negative for S3, gallop or murmur. Remote telemetry showing atrial fibrillation heart rate 99. Sternum stable, chest incision clean with silver dressing clean and dry. Heart hugger in place. Knee-high HUMZA hose and sequential compression devices in place to bilateral lower extremities. +2 edema noted to his bilateral upper and lower extremities. Abdomen: Soft, Positive bowel sounds present in all 4 quadrants, CBGs: 98 136 mg/dL in the last 24 hours. U/O: Adequate. 24 hr Total: Intake & Output 10/23/16 10/24/16 10/25/16 10/26/16 06:59 06:59 06:59 06:59 Intake Total 253.146 180 739 739 Output Total 1000 3450 2260 1000 Balance -746.854 -3270 -1521 -261 Weight 113.6 kg 112 kg 111.1 kg Active Medications Hydrocodone Bitart/Acetaminophen ([place] 5-325) 2 each PO Q4HR PRN PRN Reason: Severe Pain Last Admin: 10/25/16 04:32 Dose: 2 each Hydrocodone Bitart/Acetaminophen ([place] 5-325) 1 each PO Q4HR PRN PRN Reason: Moderate Pain Last Admin: 10/25/16 15:49 Dose: 1 each Amiodarone HCl (Cordarone) 200 mg PO BID [facility] Last Admin: 10/25/16 12:19 Dose: 200 mg Aspirin (Aspirin) 81 mg PO DAILY [facility] Last Admin: 10/25/16 08:28 Dose: 81 mg Atorvastatin Calcium (Lipitor) 40 mg PO HS [facility] Last Admin: 10/24/16 21:14 Dose: 40 mg Benzocaine/Menthol (Cepacol Lozenge) 1 each MUCOUS MEM Q2H PRN PRN Reason: Sore Throat Bisacodyl (Dulcolax) 10 mg RECTAL DAILY PRN PRN Reason: Constipation Furosemide (Lasix) 20 mg IV Q12HR [facility] Stop: 10/25/16 21:01 Last Admin: 10/25/16 12:19 Dose: 20 mg Insulin Glargine (Lantus) 34 unit SQ DAILY [facility] Last Admin: 10/25/16 08:27 Dose: 34 unit Insulin Human Lispro (Humalog) 8 unit SQ AC-TID [facility] Last Admin: 10/25/16 12:22 Dose: 8 unit Insulin Human Lispro (Humalog) 0 unit SQ ACHS [facility] PRN Reason: Protocol Last Admin: 10/25/16 12:33 Dose: Not Given Ipratropium [place] (Atrovent Nebulized) 0.5 mg INHALATION RT-QID [facility] Last Admin: 10/25/16 16:43 Dose: 0.5 mg Levalbuterol HCl (Xopenex Nebulized (Conc)) 1.25 mg INHALATION RT-TID [facility] Last Admin: 10/25/16 11:55 Dose: 1.25 mg Lisinopril (Zestril) 5 mg PO DAILY [facility] Last Admin: 10/25/16 08:27 Dose: 5 mg Magnesium Hydroxide (Milk Of Magnesia) 2,400 mg PO BID PRN PRN Reason: Constipation Last Admin: 10/23/16 05:03 Dose: 2,400 mg Metformin HCl (Glucophage) 1,000 mg PO BID-W/MEALS [facility] Last Admin: 10/25/16 07:03 Dose: 1,000 mg Metoclopramide HCl (Reglan) 10 mg IVP Q4H PRN PRN Reason: Nausea And Vomiting Metoprolol Tartrate (Lopressor) 50 mg PO TID [facility] Last Admin: 10/25/16 16:42 Dose: 50 mg Miscellaneous Information (Magnesium Per Protocol) 1 each MISCELLANE DAILY PRN ; Protocol PRN Reason: Per Protocol Miscellaneous Information (Phosphorus Per Protocol) 1 each MISCELLANE DAILY PRN ; Protocol PRN Reason: Per Protocol Miscellaneous Information (Potassium Per Protocol) 1 each MISCELLANE DAILY PRN ; Protocol PRN Reason: Per Protocol Ondansetron HCl (Zofran) 4 mg IVP Q6HR PRN PRN Reason: Nausea And Vomiting Last Admin: 10/18/16 05:42 Dose: 4 mg Pantoprazole Sodium (Protonix) 40 mg PO AC-BRKFST [facility] Last Admin: 10/25/16 07:03 Dose: 40 mg Repaglinide (Prandin) 2 mg PO AC-TID [facility] Last Admin: 10/25/16 12:33 Dose: 2 mg Rivaroxaban (Xarelto) 20 mg PO W/SUPPER [facility] Senna/Docusate Sodium (Senokot-S) 2 each PO HS [facility] Last Admin: 10/24/16 21:15 Dose: 2 each Sodium Chloride (Saline Flush) 10 ml IV BID [facility] Last Admin: 10/25/16 08:47 Dose: 10 ml Plan: 1. Continue aspirin, Carlos inhibitor, and beta esmer. Continue Xarelto. 2. Continue Lipitor as his liver enzymes have normalized. 3. Discharge planning is in place, [facility] care to follow at home, may need home O2. 4. Dr. Devi for pulmonary management. Wean O2 as tolerated. 5. Physical therapy consulted, encourage increase in activity level as tolerated. 6. corset fitter consulted to assist with diabetic education. Diabetic management per primary care. 7. GI and DVT prophylaxis in place. 8. Amiodarone 200 mg by mouth twice a day initiated by cardiology, cardiology will manage the atrial fibrillation. 9. Lasix 20 mg IV every 12 hours 2 doses for peripheral edema. Repeat CBC and BMP in the a.m., Chest x-ray. 10. More recommended medications as patient progresses.
[2016-10-25 17:15] LABS: Glucose,Whole Blood 73 mg/dL (75-99)
[2016-10-25] MEDS ORDERED: RIVAROXABAN 10 MG TAB PO SCH (17:30)
[2016-10-25 20:57] LABS: Glucose,Whole Blood 66 mg/dL (75-99)
[2016-10-25] MEDS: ATORVASTATIN 40 MG TAB PO SCH (21:22)
[2016-10-25] MEDS: SENNOSIDES-DOCUSATE SODIUM 1 EACH TAB PO SCH (21:23)
[2016-10-25 21:33] LABS: Glucose,Whole Blood 66 mg/dL (75-99)
[2016-10-25 21:42] LABS: Glucose,Whole Blood 183 mg/dL (75-99)
[2016-10-26 02:13] LABS: Glucose,Whole Blood 187 mg/dL (75-99)
[2016-10-26] MEDS: HYDROcodone/APAP 5-325MG 1 EACH TAB PO PRN ×2 (05:32→11:52)
[2016-10-26 06:07] LABS: Glucose,Whole Blood 67 mg/dL (75-99)
[2016-10-26 06:21] VITALS: RESP 18
[2016-10-26 06:23] LABS: Basophils # (A) 0.1 k/uL (0-0.2); Basophils % (A) 1 %; CH 30.1; Eosinophils # (A) 0.2 k/uL (0-0.7); Eosinophils % (A) 2 %; HCT 31.9 % (39.0-53.0); HDW 2.75; HGB 10.7 gm/dL (13.0-17.5); Luc # (Auto) 0.36; Luc % (Auto) 4; Lymphocytes # (A) 1.3 k/uL (1.0-4.8); Lymphocytes % (A) 13 %; MCH 30.8 pg (25.0-35.0); MCHC 33.7 g/dL (31.0-37.0); MCV 91.6 fL (80.0-100.0); Mean Platelet Volume 6.7; Monocytes % (A) 10 %; Neutrophils # (A) 7.3 k/uL (1.3-7.7); Neutrophils % (A) 72 %; RBC 3.48 m/uL (4.30-5.90); RDW 12.9 % (11.5-15.5); WBC 10.1 k/uL (3.8-10.6); WBC (Perox) 10.35
[2016-10-26 06:28] LABS: Glucose,Whole Blood 95 mg/dL (75-99)
[2016-10-26 06:36] LABS: ALT 38 U/L (21-72); AST 22 U/L (17-59); Alkaline Phosphatase 89 U/L (38-126); Anion Gap 6 mmol/L; Blood Urea Nitrogen 20 mg/dL (9-20); Calcium 8.3 mg/dL (8.4-10.2); Carbon Dioxide 32 mmol/L (22-30); Chloride 97 mmol/L (98-107); Glucose 73 mg/dL (74-99); Non-African American GFR(MDRD) >60 (>60 ml/min/1.73 sqM); Potassium 4.7 mmol/L (3.5-5.1); Sodium 135 mmol/L (137-145); Total Bilirubin 0.8 mg/dL (0.2-1.3); Total Protein 5.8 g/dL (6.3-8.2)
[2016-10-26] MEDS: INSULIN LISPRO (humaLOG) 300 UNIT/3 ML VIAL SQ SCH ×3 (06:51→11:45)
[2016-10-26] MEDS: PANTOPRAZOLE 40 MG TABLET PO SCH (07:03)
[2016-10-26] MEDS: metFORMIN 500 MG TAB PO SCH (07:03)
[2016-10-26] MEDS: LEVALBUTEROL NEB (CONC) 1.25 MG/0.5 ML AMP INHALATION SCH (09:14)
[2016-10-26] MEDS: IPRATROPIUM 0.5 MG/2.5 ML NEBU INHALATION SCH ×2 (09:14→12:08)
[2016-10-26] MEDS: ASPIRIN 81 MG CHEW PO SCH (09:37)
[2016-10-26] MEDS: AMIODARONE 200 MG TAB PO SCH (09:37)
[2016-10-26] MEDS: LISINOPRIL 5 MG TAB PO SCH (09:37)
[2016-10-26] MEDS: METOPROLOL TARTRATE 50 MG TAB PO SCH (09:37)
[2016-10-26 09:50] VITALS: PULSE 97
[2016-10-26] MEDS ORDERED: LISINOPRIL 5 MG TAB PO ONE (10:15)
[2016-10-26] MEDS ORDERED: FUROSEMIDE 10 MG/ML 2 ML VIAL IV SCH (10:15)
--- NOTE | 2016-10-26 10:50 | XR ---
EXAMINATION TYPE: XR chest 1V portable DATE OF EXAM: 10/26/2016 7:00 AM COMPARISON: 10/25/2016 INDICATION: Post aortic valve replacement TECHNIQUE: Single frontal view of the chest is obtained. FINDINGS: The heart size is normal. The pulmonary vasculature is normal. Small left pleural effusion may be present. Minimal right pleural effusion is present. IMPRESSION: 1. Small bilateral pleural effusions
[2016-10-26] MEDS: REPAGLINIDE 1 MG TAB PO SCH ×2 (11:04→11:46)
[2016-10-26 11:44] LABS: Glucose,Whole Blood 129 mg/dL (75-99)
[2016-10-26 12:24] VITALS: BP 103/79; TEMP 98.1
--- NOTE | 2016-10-26 13:12 | P.PN ---
Subjective 61-year-old male one of Dr. Cochran patient with past medical history of diabetes, hypertension, hyperlipidemia who has been having worsening shortness of breath and palpitation. He has been followed for aortic stenosis and valvular heart disease by cardiology for the last year. Heart catheter was done in August 2016 showed severe advance aortic stenosis with no vessel involvement. Patient was refer to cardiothoracic surgery and scheduled for elective aortic valve placement today for 2016. Following surgery patient was on mechanical ventilation as postsurgical respiratory failure. Pulmonary were consulted in his care. Patient will be on insulin drip Accu-Chek with sliding scales coverage. Patient is stable hemodynamically in the ICU. 10/18: Patient was successfully extubated yesterday. He is currently on nasal cannula. Heart rate is running in the 80s to 90s. Blood pressure is stable and he is on Clevidipine. Pain appears to be controlled at this time. 10/19: Plan to transition patient to Lantus, and Humalog scale. He was given 1 dose of IV Lasix and Fonseca is to be discontinued today. 10/20: Patient is transferred to selective care unit. Blood sugars are running between 102 08/06/1958 after breakfast this morning. Humalog 8 units scheduled with meals has been added. He denies shortness of breath. No acute distress is noted. He has been afebrile. 10/21: Heart rate is running in the low 100s. Patient is complaining of abdominal bloating and had a bowel movement yesterday. He states he normally has constipation. Blood sugars are elevated for which metformin and Prandin resumed and he is continued on Lantus, scheduled Humalog and Humalog scale. Patient does qualify for home O2 which will be arranged prior to his discharge. 10/22: Patient went into atrial flutter/fib he was started on amiodarone drip, his sitting up in chair his feeling a bit better, he continues to have some coughing, no chest pain, some dyspnea and exertion, he does complain of edema both lower extremities. 10/23: Patient is complaining of increased shortness of breath, he did receive a bolus of amiodarone because of his heart rate, he did receive a little Lasix 40 mg IV push 1, portal chest x-ray was ordered with the final result of that. 10/24: Patient states his shortness of breath is a little better from yesterday. He does have continued edema to his hands and feet and is on Lasix 20 mg IV every 12 hours. Patient went into rapid ventricular response, atrial fibrillation this morning and heart rate was running in the 150s. He is currently on amiodarone drip and rate is controlled. He has had good urine output. 10/25: Heart rate is better controlled today in the 70-80 range. Patient has been started on Lasix 20 mg IV every 12 hours. Anticipate possible discharge by tomorrow. 10/26: Patient's Blood blood glucoses have been down during the night and sparmaker. We are adjusting his Lantus from 34 units down to 27 units and metformin from 1000 mg twice daily to 500 mg twice daily. These changes will be made and patient will be discharged home on these. He will continue on the Prandin 2 mg 3 times daily with meals. Cajoled Humalog with meals has been discontinued. Objective - Vital Signs Vital signs: Vital Signs Temp 98.1 F 10/26/16 12:21 Pulse 97 10/26/16 12:21 Resp 18 10/26/16 12:21 BP 103/79 10/26/16 12:21 Pulse Ox 95 10/26/16 12:21 Intake & Output 10/25/16 10/26/16 10/26/16 18:59 06:59 18:59 Intake Total 739 1200 880 Output Total 1000 1000 Balance -261 1200 -120 Weight 111.2 kg Intake: Intake, IV Titration 259 Amount Amiodarone 450 mg In 259 Dextrose 5% in Water 250 ml @ 1 MG/MIN 34.53 mls/ hr IV .[id number] REPLACED BY [facility] Rx#: [id number] Oral 480 1200 880 Output: Urine 1000 1000 Other: Voiding Method Toilet Toilet Urinal Urinal # Bowel Movements 0 0 ABP, PAP, CO, CI - Last Documented Arterial Blood Pressure 129/52 Pulmonary Artery Pressure 31/5 Cardiac Output 9.6 Cardiac Index 4.4 - Exam General appearance: no average body habitus, no cooperative, no disheveled, no mild distress, no morbidly obese, no acute distress, no obese, no severe distress, no thin - EENT Eyes: no abnormal pupil, no anicteric sclerae, no disc margins sharp, no edentulous, no EOMI, no PERRLA, no fundus normal, no photophobia, no dentition normal, no poor dentition, no ptosis, no scleral icterus, normal appearance ENT: no hard of hearing, no hearing grossly normal, no NA/AT, normal oropharynx , no other, no pharyngeal erythema, no thrush, no tonsillar exudates, no tonsillar swelling Ears: bilateral: normal - Neck Neck: no lymphadenopathy, normal ROM, no other, no rigidity, no stridor, no thyromegaly Carotids: bilateral: upstroke normal Thyroid: bilateral: normal size - Respiratory Respiratory: bilateral: diminished, dullness, rales - Cardiovascular Rhythm: regular Heart sounds: normal: S1, S2 Abnormal Heart Sounds: systolic murmur, S3 Gallop - Gastrointestinal General gastrointestinal: no absent bowel sounds, decreased bowel sounds, no distended, no hepatomegaly, no hyperactive bowel sounds, no normal bowel sounds , no organomegaly, no rigid, no scaphoid, soft, no splenomegaly, no tenderness, no umbilical hernia, no ventral hernia - Integumentary Integumentary: no calor, no cellulitis, no cyanotic, no decreased turgor, no flushed, no jaundiced, normal, no normal turgor, pale, no rash, no ulcer - Neurologic Neurologic: CNII-XII intact - Musculoskeletal Musculoskeletal: gait normal, generalized weakness, no strength equal bilaterally, no right sided weakness, no left sided weakness - Psychiatric Psychiatric: A&O x's 3 - Labs CBC & Chem 7: 10/26/16 05:58 10/26/16 05:58 Labs: Abnormal Lab Results - Last 24 Hours (Table) 10/25/16 10/25/16 10/25/16 Range/Units 16:54 20:55 21:13 RBC (4.30-5.90) m/uL Hgb (13.0-17.5) gm/dL Hct (39.0-53.0) % Plt Count (150-450) k/uL Sodium (137-145) mmol/L Chloride (98-107) mmol/L Carbon Dioxide (22-30) mmol/L Glucose (74-99) mg/dL POC Glucose (mg/dL) 73 L 66 L 66 L (75-99) mg/dL Calcium (8.4-10.2) mg/dL Total Protein (6.3-8.2) g/dL Albumin (3.5-5.0) g/dL 10/25/16 10/26/16 10/26/16 Range/Units 21:34 02:11 05:53 RBC (4.30-5.90) m/uL Hgb (13.0-17.5) gm/dL Hct (39.0-53.0) % Plt Count (150-450) k/uL Sodium (137-145) mmol/L Chloride (98-107) mmol/L Carbon Dioxide (22-30) mmol/L Glucose (74-99) mg/dL POC Glucose (mg/dL) 183 H 187 H 67 L (75-99) mg/dL Calcium (8.4-10.2) mg/dL Total Protein (6.3-8.2) g/dL Albumin (3.5-5.0) g/dL 10/26/16 10/26/16 10/26/16 Range/Units 05:58 05:58 11:37 RBC 3.48 L (4.30-5.90) m/uL Hgb 10.7 L (13.0-17.5) gm/dL Hct 31.9 L (39.0-53.0) % Plt Count 540 H (150-450) k/uL Sodium 135 L (137-145) mmol/L Chloride 97 L (98-107) mmol/L Carbon Dioxide 32 H (22-30) mmol/L Glucose 73 L (74-99) mg/dL POC Glucose (mg/dL) 129 H (75-99) mg/dL Calcium 8.3 L (8.4-10.2) mg/dL Total Protein 5.8 L (6.3-8.2) g/dL Albumin 2.7 L (3.5-5.0) g/dL Assessment and Plan Plan: 1 severe aortic stenosis: Post aortic valve placement. 2 post aortic valve placement: Continue postsurgical care. 3 post surgery respiratory failure: Was on mechanical ventilation continue current management hopefully wearable off the vent very quickly after surgery 4 hypertension: Stable was on amlodipine Benzapril as soon as he is able take oral meds will be starting him on it. 5 diabetes: Type II he has been on metformin, Prandin and Lantus. Lantus decreased to 27 units and changed to bedtime and metformin decreased to 500 mg twice daily. Continue Prandin 2 mg 3 times daily. Scheduled Humalog with meals has been discontinued. 6 hyperlipidemia: Pravastatin on hold due to elevated liver function tests. 7 atrial fibrillation with fast rate. Continue amiodarone drip, monitor the patient for the next 1-2 days. 8 COPD with history of [id number] of smoking. 9 chronic hypoxic respiratory failure requiring home oxygen. 10 GI prophylaxis: Patient will be continue on PPI or H2 esmer. 11 DVT prophylaxis: Continue knee-high HUMZA hose and Venodyne boots and continue DVT prophylaxis protocol. 12.CODE STATUS: Full code. 13. Acute diastolic heart failure. The patient did receive a bolus of amiodarone, he would be given Lasix 20 mg IV push q12hr. Discharge planning: Home with [facility] Monday Impression and plan of care have been directed as dictated by the signing physician. Vale Nair nurse practitioner acting as scribe for signing physician. Time with Patient: Greater than 30
--- NOTE | 2016-10-26 15:01 | P.PN ---
Progress Note - Text CV Surgery Nursing Principal diagnosis: Severe aortic valve stenosis. Mild coronary artery disease. Hypertension. Hyperlipidemia. Diabetes mellitus. Obesity. POD #9 aortic valve replacement using a 23 mm pericardial bioprosthesis Magna Ease. Exclusion of the left atrial appendage using a 35 mm AtriClip. Intraoperative transesophageal echocardiogram and scanning. Patient awake and alert, no distress noted, no specific complaints, patient is sitting up to the bedside chair. Vital Signs: Afebrile Vital Signs - 24 hr 10/25/16 10/25/16 10/25/16 16:00 16:44 16:55 Temperature 98 F Pulse Rate 96 101 H Pulse Rate [ [employer] ] Pulse Rate [ 81 Pulse Oximetery ] Respiratory 16 Rate Blood Pressure 124/56 [Left Arm] Blood Pressure [Right Arm] O2 Sat by Pulse 94 L Oximetry 10/25/16 10/25/16 10/25/16 20:00 21:50 22:03 Temperature 97.8 F Pulse Rate 110 H 112 H Pulse Rate [ 96 [employer] ] Pulse Rate [ Pulse Oximetery ] Respiratory 20 Rate Blood Pressure [Left Arm] Blood Pressure 123/57 [Right Arm] O2 Sat by Pulse 96 Oximetry 10/26/16 10/26/16 10/26/16 00:00 04:00 09:14 Temperature 97.2 F L Pulse Rate 100 Pulse Rate [ 99 97 [employer] ] Pulse Rate [ Pulse Oximetery ] Respiratory 20 18 Rate Blood Pressure [Left Arm] Blood Pressure 120/75 116/59 [Right Arm] O2 Sat by Pulse 93 L 91 L 92 L Oximetry 10/26/16 10/26/16 09:44 12:21 Temperature 97.6 F 98.1 F Pulse Rate Pulse Rate [ 84 76 [employer] ] Pulse Rate [ 81 81 Pulse Oximetery ] Respiratory 16 16 Rate Blood Pressure 123/80 103/79 [Left Arm] Blood Pressure [Right Arm] O2 Sat by Pulse 94 L 95 Oximetry Labs: Short CBC 10/26/16 Range/Units 05:58 WBC 10.1 (3.8-10.6) k/uL Hgb 10.7 L (13.0-17.5) gm/dL Hct 31.9 L (39.0-53.0) % Plt Count 540 H (150-450) k/uL Neutrophils # 7.3 (1.3-7.7) k/uL BMP 10/26/16 05:58 Sodium 135 L Potassium 4.7 Chloride 97 L Carbon Dioxide 32 H BUN 20 95% on Creatinine 0.97 Glucose 73 L Calcium 8.3 L Liver Function 10/26/16 Range/Units 05:58 Total Bilirubin 0.8 (0.2-1.3) mg/dL AST 22 (17-59) U/L ALT 38 (21-72) U/L Alkaline Phosphatase 89 (38-126) U/L Albumin 2.7 L (3.5-5.0) g/dL Lungs: Essentially clear throughout, diminished bilateral bases right greater than left. Respirations are symmetrical and unlabored. O2 sat: 95% on 1-1/2 L of O2. I/S: 1250 mL, reviewed with the patient the importance of using his incentive spirometry every hour while awake. The patient did give a good return demonstration on his incentive spirometry. Heart: S1S2, irregular rhythm and controlled rate. Negative for S3, gallop or murmur. Remote telemetry showing atrial fibrillation heart rate 106. Sternum stable, chest incision clean with silver dressing clean and dry. Heart hugger in place. Knee-high HUMZA hose and sequential compression devices in place to bilateral lower extremities. Abdomen: Soft, Positive bowel sounds present in all 4 quadrants. CBGs: 73-187 mg/dL in the last 24 hours. U/O: Adequate. 24 hr Total: Intake & Output 10/24/16 10/25/16 10/26/16 10/27/16 06:59 06:59 06:59 06:59 Intake Total 737 745 5201 880 Output Total 3450 2260 1000 1300 Balance -3270 -1521 939 -420 Weight 112 kg 111.1 kg 111.2 kg Active Medications Hydrocodone Bitart/Acetaminophen ([place] 5-325) 2 each PO Q4HR PRN PRN Reason: Severe Pain Last Admin: 10/26/16 11:52 Dose: 2 each Hydrocodone Bitart/Acetaminophen ([place] 5-325) 1 each PO Q4HR PRN PRN Reason: Moderate Pain Last Admin: 10/25/16 15:49 Dose: 1 each Amiodarone HCl (Cordarone) 200 mg PO BID [facility] Last Admin: 10/26/16 09:37 Dose: 200 mg Aspirin (Aspirin) 81 mg PO DAILY [facility] Last Admin: 10/26/16 09:37 Dose: 81 mg Atorvastatin Calcium (Lipitor) 40 mg PO HS [facility] Last Admin: 10/25/16 21:22 Dose: 40 mg Benzocaine/Menthol (Cepacol Lozenge) 1 each MUCOUS MEM Q2H PRN PRN Reason: Sore Throat Bisacodyl (Dulcolax) 10 mg RECTAL DAILY PRN PRN Reason: Constipation Furosemide (Lasix) 20 mg IV Q12HR [facility] Stop: 10/26/16 21:01 Last Admin: 10/26/16 11:05 Dose: 20 mg Insulin Glargine (Lantus) 27 unit SQ HS [facility] Insulin Human Lispro (Humalog) 0 unit SQ ACHS [facility] PRN Reason: Protocol Last Admin: 10/26/16 11:45 Dose: Not Given Ipratropium [place] (Atrovent Nebulized) 0.5 mg INHALATION RT-QID [facility] Last Admin: 10/26/16 12:08 Dose: Not Given Levalbuterol HCl (Xopenex Nebulized (Conc)) 1.25 mg INHALATION RT-TID [facility] Last Admin: 10/26/16 09:14 Dose: 1.25 mg Lisinopril (Zestril) 10 mg PO DAILY [facility] Magnesium Hydroxide (Milk Of Magnesia) 2,400 mg PO BID PRN PRN Reason: Constipation Last Admin: 10/23/16 05:03 Dose: 2,400 mg Metformin HCl (Glucophage) 500 mg PO BID-W/MEALS [facility] Metoclopramide HCl (Reglan) 10 mg IVP Q4H PRN PRN Reason: Nausea And Vomiting Metoprolol Tartrate (Lopressor) 50 mg PO TID [facility] Last Admin: 10/26/16 09:37 Dose: 50 mg Miscellaneous Information (Magnesium Per Protocol) 1 each MISCELLANE DAILY PRN ; Protocol PRN Reason: Per Protocol Miscellaneous Information (Phosphorus Per Protocol) 1 each MISCELLANE DAILY PRN ; Protocol PRN Reason: Per Protocol Miscellaneous Information (Potassium Per Protocol) 1 each MISCELLANE DAILY PRN ; Protocol PRN Reason: Per Protocol Ondansetron HCl (Zofran) 4 mg IVP Q6HR PRN PRN Reason: Nausea And Vomiting Last Admin: 10/18/16 05:42 Dose: 4 mg Pantoprazole Sodium (Protonix) 40 mg PO AC-BRKFST [facility] Last Admin: 10/26/16 07:03 Dose: 40 mg Repaglinide (Prandin) 2 mg PO AC-TID [facility] Last Admin: 10/26/16 11:46 Dose: 2 mg Rivaroxaban (Xarelto) 20 mg PO W/SUPPER [facility] Last Admin: 10/25/16 17:07 Dose: 20 mg Senna/Docusate Sodium (Senokot-S) 2 each PO HS [facility] Last Admin: 10/25/16 21:23 Dose: 2 each Sodium Chloride (Saline Flush) 10 ml IV BID [facility] Last Admin: 10/26/16 09:37 Dose: 10 ml Plan: 1. Continue aspirin, Carlos inhibitor, and beta esmer and Xarelto. 2. Continue Lipitor as his liver enzymes remain within normal limits. 3. Discharge planning is in place, [facility] home care to follow at home, may need home O2. Probably home today. 4. Dr. Devi for pulmonary management. Wean O2 as tolerated. 5. Physical therapy consulted, encourage increase in activity level as tolerated. 6. cook school cafeteria consulted to assist with diabetic education. Diabetic management per Dr. Pereira. 7. GI and DVT prophylaxis in place. 8. Amiodarone 200 mg by mouth twice a day, cardiology will manage the atrial fibrillation. 9. Lasix 20 mg IV every 12 hours 2 doses for peripheral edema. When discharged chance to Lasix 40 mg by mouth daily with potassium replacement daily. 10. More recommended medications as patient progresses.
--- NOTE | 2016-10-26 15:56 | P.PN ---
Subjective Principal diagnosis: Aortic valve replacement This is a pleasant 61-year-old gentleman with history of hypertension , diabetes, hyperlipidemia, who is status post aortic valve replacement. She continues to be in atrial fibrillation today. Heart Rate in the 80s. Patient doing well overall today. Diarrhea swelling IV Lasix. Eager to be discharged home. Objective - Vital Signs Vital signs: Vital Signs Temp 98.1 F 10/26/16 12:21 Pulse 97 10/26/16 12:21 Resp 18 10/26/16 12:21 BP 103/79 10/26/16 12:21 Pulse Ox 95 10/26/16 12:21 Intake & Output 10/25/16 10/26/16 10/26/16 18:59 06:59 18:59 Intake Total 739 1200 880 Output Total 1000 1300 Balance -261 1200 -420 Weight 111.2 kg Intake: Intake, IV Titration 259 Amount Amiodarone 450 mg In 259 Dextrose 5% in Water 250 ml @ 1 MG/MIN 34.53 mls/ hr IV .Q7H31M [facility] Rx#: [id number] Oral 480 1200 880 Output: Urine 1000 1300 Other: Voiding Method Toilet Toilet Urinal Urinal # Bowel Movements 0 0 ABP, PAP, CO, CI - Last Documented Arterial Blood Pressure 129/52 Pulmonary Artery Pressure 31/5 Cardiac Output 9.6 Cardiac Index 4.4 - Exam PHYSICAL EXAMINATION: HEENT: Head is atraumatic, normocephalic. Pupils equal, round. Neck is supple. There is no elevated jugular venous pressure. HEART EXAMINATION: Heart S1 and S2 irregularly irregular a soft systolic murmur is heard. CHEST EXAMINATION: Lungs are clear to auscultation and percussion. ABDOMEN: Soft, nontender. Bowel sounds are heard. No organomegaly noted. EXTREMITIES: 2+ peripheral pulses with trace evidence of peripheral edema and no calf tenderness noted. NEUROLOGIC patient is awake, alert and oriented -3. . - Labs CBC & Chem 7: 10/26/16 05:58 10/26/16 05:58 Labs: Abnormal Lab Results - Last 24 Hours (Table) 10/25/16 10/25/16 10/25/16 Range/Units 16:54 20:55 21:13 RBC (4.30-5.90) m/uL Hgb (13.0-17.5) gm/dL Hct (39.0-53.0) % Plt Count (150-450) k/uL Sodium (137-145) mmol/L Chloride (98-107) mmol/L Carbon Dioxide (22-30) mmol/L Glucose (74-99) mg/dL POC Glucose (mg/dL) 73 L 66 L 66 L (75-99) mg/dL Calcium (8.4-10.2) mg/dL Total Protein (6.3-8.2) g/dL Albumin (3.5-5.0) g/dL 10/25/16 10/26/16 10/26/16 Range/Units 21:34 02:11 05:53 RBC (4.30-5.90) m/uL Hgb (13.0-17.5) gm/dL Hct (39.0-53.0) % Plt Count (150-450) k/uL Sodium (137-145) mmol/L Chloride (98-107) mmol/L Carbon Dioxide (22-30) mmol/L Glucose (74-99) mg/dL POC Glucose (mg/dL) 183 H 187 H 67 L (75-99) mg/dL Calcium (8.4-10.2) mg/dL Total Protein (6.3-8.2) g/dL Albumin (3.5-5.0) g/dL 10/26/16 10/26/16 10/26/16 Range/Units 05:58 05:58 11:37 RBC 3.48 L (4.30-5.90) m/uL Hgb 10.7 L (13.0-17.5) gm/dL Hct 31.9 L (39.0-53.0) % Plt Count 540 H (150-450) k/uL Sodium 135 L (137-145) mmol/L Chloride 97 L (98-107) mmol/L Carbon Dioxide 32 H (22-30) mmol/L Glucose 73 L (74-99) mg/dL POC Glucose (mg/dL) 129 H (75-99) mg/dL Calcium 8.3 L (8.4-10.2) mg/dL Total Protein 5.8 L (6.3-8.2) g/dL Albumin 2.7 L (3.5-5.0) g/dL Assessment and Plan (1) Paroxysmal a-fib Status: Acute (2) Diabetes Status: Acute (3) Hyperlipidemia Status: Acute (4) Hypertension Status: Acute (5) Status post aortic valve replacement Status: Acute Plan: From cardiology's perspective, she may be able to be discharged once cleared by cardiothoracic surgery. We will make him a follow-up appointment to see Dr. Hayden in the office post discharge. DNP note has been reviewed, I agree with a documented findings and plan of care. Patient was seen and examined.
[2016-10-26 16:31] LABS: Glucose,Whole Blood 159 mg/dL (75-99)
--- NOTE | 2016-10-26 16:44 | P.DS ---
Providers Date of admission: 10/17/16 05:44 Attending physician: Zahida Comer Consults: 10/17/16 12:56 Consult Physician Routine Consulting Provider: Milan Sotomayor Consult Reason/Comments: Installer Consult: post cardiac surgery Do you want consulting provider notified?: Yes Consult Physician Routine Consulting Provider: Niles Hayden Consult Reason/Comments: Chair Inspector Consult: post cardiac surgery Do you want consulting provider notified?: Yes 10/17/16 14:43 Consult Physician Routine Consulting Provider: Dale Gooden Consult Reason/Comments: medical management Do you want consulting provider notified?: Yes [facility]: FINAL DIAGNOSIS: 1.[Severe aortic stenosis] 2.[Mild coronary artery disease] 3.[Hypertension] 4.[Hyperlipidemia] 5.[Diabetes mellitus type 2] 6.[Obesity] 7.[Postoperative paroxysmal atrial fibrillation] 8.[Chronic obstructive pulmonary disease with a 30 pack year of smoking] 9.[Chronic hypoxic respiratory failure requiring home oxygen] 10.[Acute diastolic heart failure, ejection fraction between 55 and 60%] PRINCIPAL PROCEDURE: 1.[Elective aortic valve replacement using a #23 mm pericardial bioprosthesis magna ease.] 2.[Exclusion of the left atrial appendage using a #35 mm Atriclip.] 3.[Intraoperative transesophageal echocardiogram and epi-aortic scanning.] HISTORY OF PRESENT ILLNESS: [This is a 61-year-old gentleman who is followed by Dr. Kulwant Cochran on an outpatient basis. The patient was incidentally found to have a heart murmur on a physical assessment, and subsequently underwent a 2- D echocardiogram. His 2-D echocardiogram was completed on 08/08/2016 which showed severe aortic stenosis, with a peak gradient across the aortic valve of 85.81 mmHg and a mean gradient of 50.92 mmHg. It also showed mitral valve leaflets were mildly thickened with mild mitral annular calcification and traced to mild mitral regurgitation. It also showed mild concentric left ventricular hypertrophy and an overall left ventricular systolic function to be normal with an ejection fraction of 55-60%. The patient subsequently was evaluated by Dr. Hayden from cardiology associates recommended the patient undergo a heart catheterization and transesophageal echocardiogram for further evaluation and diagnostics. On 09/05/2016 the patient underwent an elective transesophageal echocardiogram which showed normal left ventricular size and systolic function, severe calcification of his aortic valve with mild to moderate aortic regurgitation, and mild to moderate mitral valve regurgitation. Also on 09/05/2016 the patient underwent an elective left and right heart catheterization which demonstrated mild coronary artery disease in his left anterior descending coronary artery with a 20-30% stenosis, normal left ventricular size and systolic function, normal appearance of his ascending aorta with +1 aortic regurgitation, and severe aortic stenosis. The above- mentioned studies were reviewed with the patient by Dr. Hayden and by DrGasper jorge and elective aortic valve replacement surgery was recommended.] HOSPITAL COURSE:[The patient was admitted to the hospital after obtaining consent underwent an elective surgery by Dr. Zahida Comer completing an aortic valve replacement using a #23 mm pericardial bioprosthesis magna ease, exclusion of left atrial appendage using a #35 mm Atriclip, an intraoperative transesophageal echocardiogram and epi-aortic scanning. The patient was subsequently transferred to the cardiovascular intensive care unit where he was recovered, monitored hemodynamically, and where he progressed to cardiac rehabilitation phase 1. The patient was subsequently transferred to [facility] further rehabilitation and hemodynamic monitoring. The patient did have some postoperative paroxysmal atrial fibrillation which was treated accordingly. The patient also required some minimal oxygen support postoperatively due to some low oxygen saturations of 86% with ambulating.] COMPLICATIONS: [Patient's postoperative period was complicated by some paroxysmal atrial fibrillation.] CONSULTATIONS: 1.[Dr. Hayden for cardiology management] 2.[Dr. Dale Gooden for medical management] 3.[Dr. Sotomayor for pulmonary and ventilator management] DISCHARGE INSTRUCTIONS: 1. No driving for 4 weeks, or until physician gives their ok. 2. The patient should sleep in their own bed, no medical bed needed. 3. Stairs are not an issue. If the bedroom is upstairs, it is advised that the patient go up at night and down in the morning for the first week. Go slowly, using handrail and take 1 step at a time. 4. HUMZA hose are to be worn for 30 days or until physician discontinues. 5. Heart hugger is to be worn 100% of the time until physician discontinues.( excepet when showering) 6. No lifting, pushing, or pulling more than 10 pounds for 12 weeks. The physician will advise of any restriction changes. 7. The patient is expected to continue the prescribed walking program. 8. Continue pain control per as needed orders. 9. Continue with incentive spirometry and splinting/heart hugger until otherwise directed by the physician. 10. Must shower daily using liquid antibacterial soap and a separate white washcloth for each individual incision. HOME HEALTH SERVICES TO PROVIDE: RN SKILLED HOME CARE SERVICES FOR POST-OP SURGICAL PATIENTS WITH THE FOLLOWING: Coronary Artery Bypass Surgery (CABG), Mitral Valve Replacement/ Repair ( MVR), Aortic Valve Replacement/Repair (AVR) RN TO CONTINUE EDUCATION FROM ``ROAD TO A HEALTH HEART PATIENT EDUCATION MANUAL (GIVEN TO PATIENT IN THE HOSPITAL) MEDICATION RECONCILIATION WITH EDUCATION NEEDED ON FIRST HOME VISIT EMPHASIZE IMPORTANCE OF WEARING BREAST SUPPORT/HEART HUGGER ENCOURAGE USE OF INCENTIVE SPIROMETER 10 X EVERY HOUR WHILE AWAKE ENCOURAGE UTILIZATION OF LOWER EXTREMITY COMPRESSION STOCKINGS/HUMZA HOSE and ELEVATE LEGS ABOVE LEVEL OF HEART WHILE AT REST. ENCOURAGE AMBULATION 3-5x/day INCREASING TOLERATES, WHILE AVOID EXTREMES IN TEMPERATURE FREQUENCY: RN TO OPEN THE PATIENT WITHIN 24 HOURS OF DISCHARGE FROM THE HOSPITAL WITH TELEHEALTH INSTALLED AT [facility], RN TO VISIT 2-3 X A WEEK FOR 4 WEEKS ESTABLISHED BY PATIENT NEEDS. LABORATORY: CBC, CMP TO BE DRAWN ON THE THIRD DAY HOME, 10/31/2016 (RAN STAT ) FAX RESULTS TO [phone]. TELEHEALTH PARAMETERS: WEIGHT: NOTIFY MD OF WEIGHT GAIN OF 2 LBS IN 24 HOURS OR 5 LBS IN ONE WEEK HR: NOTIFY MD OF HR <55 BPM OR HR>100 BPM BP: NOTIFY MD IF BP <90/55 OR BP>140/100 O2 SAT: NOTIFY MD IF PO2<93% ON ROOM AIR SEND TELEHEALTH REPORT TO EMS HELICOPTER PILOT AND CARDIOVASCULAR SURGEON THE FIRST WEEK OF CARE AND THEN BI-WEEKLY. PLEASE ADDITIONALLY COMMUNICATE ANY ABNORMALS AND NEW FINDINGS TO THE SURGEONS OFFICE. [phone]. Plan - Discharge Summary New Discharge Prescriptions: HYDROcodone/APAP 5-325MG [[place] 5-325] 2 each PO Q4HR PRN #30 tab PRN Reason: Severe Pain Albuterol Inhaler [Ventolin Hfa Inhaler] 1 - 2 puff INHALATION Q6HR PRN #1 inhaler PRN Reason: Shortness Of Breath Or Wheezing Amiodarone [Cordarone] 200 mg PO BID #60 tab Aspirin 81 mg PO DAILY #30 chew Atorvastatin [Lipitor] 40 mg PO HS #30 tab Furosemide [Lasix] 40 mg PO DAILY #30 tablet Insulin Glargine [Lantus] 27 unit SQ HS #30 day Lisinopril [Zestril] 10 mg PO DAILY #30 tab Metoprolol Tartrate [Lopressor] 50 mg PO TID #60 tab Pantoprazole [Protonix] 40 mg PO AC-BRKFST #30 tablet. Potassium Chloride ER [K-Dur 10] 10 meq PO DAILY #30 tab Repaglinide [Prandin] 2 mg PO AC-TID #90 tab Rivaroxaban [Xarelto] 20 mg PO W/SUPPER #30 tab Sennosides-Docusate Sodium [Senokot-S] 2 each PO HS #30 tab metFORMIN HCL [Glucophage] 500 mg PO BID-W/MEALS #60 tab Discharge Medication List Loratadine 10 mg PO DAILY 09/01/16 [History] Albuterol Inhaler [Ventolin Hfa Inhaler] 1 - 2 puff INHALATION Q6HR PRN #1 inhaler 10/26/16 [Rx] Amiodarone [Cordarone] 200 mg PO BID #60 tab 10/26/16 [Rx] Aspirin 81 mg PO DAILY #30 chew 10/26/16 [Rx] Atorvastatin [Lipitor] 40 mg PO HS #30 tab 10/26/16 [Rx] Furosemide [Lasix] 40 mg PO DAILY #30 tablet 10/26/16 [Rx] HYDROcodone/APAP 5-325MG [[place] 5-325] 2 each PO Q4HR PRN #30 tab 10/26/16 [Rx] Insulin Glargine [Lantus] 7 unit SQ HS #0 10/26/16 [Rx] Insulin Glargine [Lantus] 27 unit SQ HS #30 day 10/26/16 [Rx] Lisinopril [Zestril] 10 mg PO DAILY #30 tab 10/26/16 [Rx] Metoprolol Tartrate [Lopressor] 50 mg PO TID #60 tab 10/26/16 [Rx] Pantoprazole [Protonix] 40 mg PO AC-BRKFST #30 tablet. 10/26/16 [Rx] Potassium Chloride ER [K-Dur 10] 10 meq PO DAILY #30 tab 10/26/16 [Rx] Repaglinide [Prandin] 2 mg PO AC-TID #90 tab 10/26/16 [Rx] Repaglinide [Prandin] 2 mg PO TID #0 10/26/16 [Rx] Rivaroxaban [Xarelto] 20 mg PO W/SUPPER #30 tab 10/26/16 [Rx] Sennosides-Docusate Sodium [Senokot-S] 2 each PO HS #30 tab 10/26/16 [Rx] metFORMIN HCL [Glucophage] 500 mg PO BID-W/MEALS #60 tab 10/26/16 [Rx] Follow up Appointment(s)/Referral(s): Niles Hayden MD [STAFF PHYSICIAN] - 11/15/16 4:15 pm Zahida Comer MD [STAFF PHYSICIAN] - 11/11/16 10:00 am Milan Sotomayor DO [Doctor of Osteopathic Medicine] - 11/24/16 9:30 am [facility], [NON-STAFF] - Kulwant Cochran DO [Primary Care Provider] - 1 Week () Ambulatory/Diagnostic Orders: Complete Blood Count w/diff [LAB.AMB] Time Frame: 10/31/16, Facility: [facility], Location: [facility] Comprehensive Metabolic Panel [LAB.AMB] Time Frame: 10/31/16, Facility: [facility], Location: [facility] Patient Instructions/Handouts: Aortic Valve Replacement (DC) Activity/Diet/Wound Care/Special Instructions: Free 30 day supply of xarelto filled in OP pharmacy. pt supplied with coupon for 12 months free also.
[2016-10-26] MEDS ORDERED: metFORMIN 500 MG TAB PO SCH (17:30)
--- NOTE | 2016-10-26 18:21 | P.PN ---
Subjective This is a very pleasant 61-year-old gentleman who follows with Dr. Cochran as his primary care physician. He has history of diabetes place, hypertension, hyperlipidemia, sleep apnea, remote history of smoking. He presented here on for an elective aortic valve replacement which was performed by Dr. alesha hickman that same day. He is seen again today in follow-up in the intensive care unit. He is sitting up in the chair at the bedside. He is awake and alert in no acute distress. He is maintaining good O2 saturations in the 90s on 3 L/m per nasal cannula. He's been afebrile. He is maintained in normal sinus rhythm. He has no pulmonary complaints today. He is working well of his incentive spirometer. His chest x-ray did reveal some continued left lower lobe infiltrate. The patient is seen again today 10/24/2016 in follow-up on the selective care unit. He is awake and alert in no acute distress. He denies any worsening shortness of breath, cough or congestion. He's been up ambulating in the hallway with assistance. He is maintaining good O2 saturations on room air. He has had ongoing issues with atrial fibrillation with a rapid ventricular response and remains on an amiodarone drip at 0.5 mg/m. He is anticoagulated with Xarelto. The patient is seen again today 10/25/2016 in follow-up. He is awake and alert in no acute distress. He is currently sitting up in the chair at the bedside. He denies any worsening shortness of breath, cough or congestion. He remains on amiodarone drip however we'll be converting to oral amiodarone. He remains anticoagulated with Xarelto. His chest x-ray reveals persistent basilar atelectasis. He is doing very well with his incentive spirometer up to 1250 MLS. He is requiring 1 L of high flow nasal cannula to maintain O2 saturations in the 90s while ambulating. He's been up ambulating with assistance. His pain is well controlled. On the patient is being seen in follow-up. His cardiac rhythm is still in nature fibrillation at the rate is controlled and the patient has been switched to oral amiodarone. The patient is also been switched to long-acting anticoagulation. He is currently on Xarelto. He is ambulating. With activity on room air his pulse ox is still dropping in the mid 80s and he will go home with home O2. No major swelling in lower extremities. Surgical wound site is clean. He is pulling approximately 1200 mL on his incentive spirometer. No chest pain. No palpitations. No change in mental status. No pleurisy. Surgical wound site is clean. There has been no other complaints over the past 24 hours. Objective - Vital Signs Vital signs: Vital Signs Temp 98.1 F 10/26/16 12:21 Pulse 97 10/26/16 12:21 Resp 18 10/26/16 12:21 BP 103/79 10/26/16 12:21 Pulse Ox 95 10/26/16 12:21 Intake & Output 10/25/16 10/26/16 10/26/16 18:59 06:59 18:59 Intake Total 739 1200 880 Output Total 1000 1300 Balance -261 1200 -420 Weight 111.2 kg Intake: Intake, IV Titration 259 Amount Amiodarone 450 mg In 259 Dextrose 5% in Water 250 ml @ 1 MG/MIN 34.53 mls/ hr IV .Q7H31M [facility] Rx#: [id number] Oral 480 1200 880 Output: Urine 1000 1300 Other: Voiding Method Toilet Toilet Urinal Urinal # Bowel Movements 0 0 ABP, PAP, CO, CI - Last Documented Arterial Blood Pressure 129/52 Pulmonary Artery Pressure 31/5 Cardiac Output 9.6 Cardiac Index 4.4 - Exam GENERAL EXAM: Alert, active, comfortable in no apparent distress. HEAD: Normocephalic. EYES: Normal reaction of pupils, equal size. NOSE: Clear with pink turbinates. THROAT: No erythema or exudates. NECK: No masses, no JVD. CHEST: No chest wall deformity. LUNGS: Equal air entry with no crackles, wheeze, rhonchi or dullness. CVS: S1 and S2 are irregular secondary to atrial fibrillation and with no audible murmurs, regular rhythm. ABDOMEN: No hepatosplenomegaly, normal bowel sounds, no guarding or rigidity. SPINE: No scoliosis or deformity SKIN: No rashes CENTRAL NERVOUS SYSTEM: No focal deficits, tone is normal in all 4 extremities. Extremities: There is no significant peripheral edema. No clubbing, no cyanosis. Peripheral pulses are intact. - Labs CBC & Chem 7: 10/26/16 05:58 10/26/16 05:58 Labs: Abnormal Lab Results - Last 24 Hours (Table) 10/25/16 10/25/16 10/25/16 Range/Units 20:55 21:13 21:34 RBC (4.30-5.90) m/uL Hgb (13.0-17.5) gm/dL Hct (39.0-53.0) % Plt Count (150-450) k/uL Sodium (137-145) mmol/L Chloride (98-107) mmol/L Carbon Dioxide (22-30) mmol/L Glucose (74-99) mg/dL POC Glucose (mg/dL) 66 L 66 L 183 H (75-99) mg/dL Calcium (8.4-10.2) mg/dL Total Protein (6.3-8.2) g/dL Albumin (3.5-5.0) g/dL 10/26/16 10/26/16 10/26/16 Range/Units 02:11 05:53 05:58 RBC 3.48 L (4.30-5.90) m/uL Hgb 10.7 L (13.0-17.5) gm/dL Hct 31.9 L (39.0-53.0) % Plt Count 540 H (150-450) k/uL Sodium (137-145) mmol/L Chloride (98-107) mmol/L Carbon Dioxide (22-30) mmol/L Glucose (74-99) mg/dL POC Glucose (mg/dL) 187 H 67 L (75-99) mg/dL Calcium (8.4-10.2) mg/dL Total Protein (6.3-8.2) g/dL Albumin (3.5-5.0) g/dL 10/26/16 10/26/16 10/26/16 Range/Units 05:58 11:37 16:29 RBC (4.30-5.90) m/uL Hgb (13.0-17.5) gm/dL Hct (39.0-53.0) % Plt Count (150-450) k/uL Sodium 135 L (137-145) mmol/L Chloride 97 L (98-107) mmol/L Carbon Dioxide 32 H (22-30) mmol/L Glucose 73 L (74-99) mg/dL POC Glucose (mg/dL) 129 H 159 H (75-99) mg/dL Calcium 8.3 L (8.4-10.2) mg/dL Total Protein 5.8 L (6.3-8.2) g/dL Albumin 2.7 L (3.5-5.0) g/dL Assessment and Plan Plan: Assessment 1 severe aortic stenosis status post aortic valve replacement with a BiPAP prostatic aortic valve 2 mild coronary artery disease 3 postoperative atelectatic changes in lung bases pleural effusions 4 postoperative hypoxemia 5 postoperative atrial fibrillation currently rate controlled 6 hypertension 7 hyperlipidemia 8 diabetes mellitus 9 obesity Plan The patient can be discharged home on O2 at 2 L per minute nasal cannula with activity and during sleep. The patient is to be followed up appointment outpatient basis in regards to his oxygenation and need for long-term O2. Discharge planning is in progress and the patient would likely be discharged home today to be followed up by cardiology and cardiothoracic surgery and pulmonary an outpatient basis. He'll be discharged home on Lantus for blood sugar control. Rest of the medications are noted and the patient may require some diuretics in the form of Lasix 40 mg by mouth daily urine outpatient basis. Albuterol be continued in addition to Xarelto for long-term anticoagulation.
[2016-10-26] MEDS ORDERED: INSULIN GLARGINE 100 UNIT/ML 10 ML VIAL SQ SCH (21:00)
[2016-10-27] MEDS ORDERED: LISINOPRIL 10 MG TAB PO SCH (09:00)
== END 2016-10-26 17:28 | disposition home health service (06) | DRG 219 ==
LOC: 2ORMAIN 05:44 → 6ICU 11:49 → 6SEL 10-20 12:54
PROVIDERS: ADMIT Surgery; ATTEND Surgery
PROC: 5A1223Z Performance of Cardiac Pacing, Continuous (ICD-10-PCS; 2016-10-17)
PROC: B246ZZ4 Ultrasonography of Right and Left Heart, Transesophageal (ICD-10-PCS; 2016-10-17)
PROC: 5A1221Z Performance of Cardiac Output, Continuous (ICD-10-PCS; 2016-10-17)
PROC: 02L70CK Occlusion of Left Atrial Appendage with Extraluminal Device, Open Approach (ICD-10-PCS; 2016-10-17)
PROC: 30243N0 Transfusion of Autologous Red Blood Cells into Central Vein, Percutaneous Approach (ICD-10-PCS; 2016-10-17)
PROC: 02RF08Z Replacement of Aortic Valve with Zooplastic Tissue, Open Approach (ICD-10-PCS; principal; 2016-10-17 08:00)
DX: I35.2 Nonrheumatic aortic (valve) stenosis with insufficiency (principal); I50.31 Acute diastolic (congestive) heart failure; J96.11 Chronic respiratory failure with hypoxia; Z99.81 Dependence on supplemental oxygen; I48.92 Unspecified atrial flutter; E66.01 Morbid (severe) obesity due to excess calories; Q76.7 Congenital malformation of sternum; I97.89 Other postprocedural complications and disorders of the circulatory system, not elsewhere classified; I48.0 Paroxysmal atrial fibrillation; E11.9 Type 2 diabetes mellitus without complications; I25.10 Atherosclerotic heart disease of native coronary artery without angina pectoris; I11.0 Hypertensive heart disease with heart failure; I34.0 Nonrheumatic mitral (valve) insufficiency; K59.00 Constipation, unspecified; J44.9 Chronic obstructive pulmonary disease, unspecified; E78.00 Pure hypercholesterolemia, unspecified; E78.5 Hyperlipidemia, unspecified; R53.1 Weakness; R74.0 Nonspecific elevation of levels of transaminase and lactic acid dehydrogenase [LDH]; G47.30 Sleep apnea, unspecified; Z87.891 Personal history of nicotine dependence; Z79.899 Other long term (current) drug therapy; Z79.4 Long term (current) use of insulin; Z79.82 Long term (current) use of aspirin; Z68.35 Body mass index [BMI] 35.0-35.9, adult; Z71.3 Dietary counseling and surveillance; Z90.49 Acquired absence of other specified parts of digestive tract; Z80.1 Family history of malignant neoplasm of trachea, bronchus and lung; Z86.19 Personal history of other infectious and parasitic diseases; Z98.818 Other dental procedure status; Z87.448 Personal history of other diseases of urinary system
CPT/HCPCS: 36620; 71010; 71020; 80048; 80053; 80061; 80074; 80162; 81001; 82330; 82805; 83036; 83735; 83880; 84100; 84443; 84484; 85025; 85027; 85520; 85610; 85730; 86850; 86891; 86900; 86901; 86920; 87070; 87086; 88305; 88311; 93005; 93923; 93970; 94002; 94150; 94640; 94760

== ENCOUNTER → 2016-12-21 | Outpatient (CLI) | payer BC ==
[2016-12-21 09:29] LABS: ALT 34 U/L (21-72); AST 19 U/L (17-59); Alkaline Phosphatase 93 U/L (38-126); Anion Gap 9 mmol/L; Blood Urea Nitrogen 16 mg/dL (9-20); Carbon Dioxide 31 mmol/L (22-30); Chloride 100 mmol/L (98-107); Cholesterol 153 mg/dL (<200); Glucose 152 mg/dL (74-99); HDL Cholesterol 34 mg/dL (40-60); Non-African American GFR(MDRD) >60 (>60 ml/min/1.73 sqM); Potassium 4.4 mmol/L (3.5-5.1); Sodium 140 mmol/L (137-145); Total Bilirubin 0.9 mg/dL (0.2-1.3); Total Protein 7.2 g/dL (6.3-8.2); Triglycerides 133 mg/dL (<150)
== END | disposition home or self-care (01) ==
LOC: LABWHC1 08:43
PROVIDERS: ATTEND Internal Medicine Interventional Cardiology
DX: E78.2 Mixed hyperlipidemia (principal); D48.0 Neoplasm of uncertain behavior of bone and articular cartilage
CPT/HCPCS: 36415; 80053; 80061; 84443

== ENCOUNTER → 2017-03-08 | Outpatient (CLI) | payer BC ==
[2017-03-08 10:26] LABS: ALT 39 U/L (21-72); AST 20 U/L (17-59); Alkaline Phosphatase 92 U/L (38-126); Anion Gap 8 mmol/L; Blood Urea Nitrogen 23 mg/dL (9-20); Calcium 9.1 mg/dL (8.4-10.2); Carbon Dioxide 30 mmol/L (22-30); Chloride 102 mmol/L (98-107); Cholesterol 130 mg/dL (<200); Glucose 197 mg/dL (74-99); HDL Cholesterol 31 mg/dL (40-60); Non-African American GFR(MDRD) >60 (>60 ml/min/1.73 sqM); Sodium 140 mmol/L (137-145); Total Bilirubin 0.4 mg/dL (0.2-1.3); Total Protein 6.8 g/dL (6.3-8.2)
== END | disposition home or self-care (01) ==
LOC: LABWHC1 09:28
PROVIDERS: ATTEND Internal Medicine Interventional Cardiology
DX: E78.2 Mixed hyperlipidemia (principal)
CPT/HCPCS: 36415; 80053; 80061

== ENCOUNTER → 2017-04-18 | Outpatient (CLI) | payer BC ==
--- NOTE | 2017-04-19 07:09 | US ---
EXAMINATION TYPE: US kidneys/renal and bladder DATE OF EXAM: 04/18/2017 COMPARISON: 12/26/2015 CLINICAL HISTORY: N28.1 Kidney Cyst. Renal cysts EXAM MEASUREMENTS: Right Kidney: 12.7 x 5.9 x 6.4 cm Left Kidney: 13.5 x 6.9 x 5.2 cm Right Kidney: cystic areas noted, largest at upper pole = 2.2 x 1.9 x 1.6cm . This is unchanged in si ze from the prior as it measured 2.1 cm. Left Kidney: enlarged with cystic areas noted, largest at upper pole = 3.8 x 3.1 x 3.3cm . This is s lightly increased from the prior as it measured 3.5 cm. Bladder: not fully distended Bilateral Jets seen: no There is no evidence for hydronephrosis at this point in time. No nephrolithiasis is seen. The urina ry bladder is anechoic. Bilateral ureteral jets are seen. IMPRESSION: Bilateral simple appearing cortical renal cysts with stability in size of the largest right renal cys t and slight increase in size of the largest left renal cyst.
== END | disposition home or self-care (01) ==
LOC: RADUSWWP 15:36
PROVIDERS: ATTEND Family Medicine
DX: N28.1 Cyst of kidney, acquired (principal)
CPT/HCPCS: 76770

== ENCOUNTER → 2017-10-04 | Outpatient (CLI) | payer BC ==
[2017-10-04 13:10] LABS: ALT 28 U/L (21-72); AST 19 U/L (17-59); Albumin 3.5 g/dL (3.5-5.0); Alkaline Phosphatase 87 U/L (38-126); Anion Gap 12 mmol/L; Blood Urea Nitrogen 20 mg/dL (9-20); Calcium 9.2 mg/dL (8.4-10.2); Carbon Dioxide 28 mmol/L (22-30); Chloride 102 mmol/L (98-107); Cholesterol 139 mg/dL (<200); Glucose 170 mg/dL (74-99); HDL Cholesterol 34 mg/dL (40-60); LDL Cholesterol,Calculated 73 mg/dL (0-99); Potassium 4.2 mmol/L (3.5-5.1); Sodium 142 mmol/L (137-145); Total Bilirubin 0.8 mg/dL (0.2-1.3); Total Protein 6.6 g/dL (6.3-8.2); Triglycerides 161 mg/dL (<150)
[2017-10-04 13:24] LABS: Prostate Specific Antigen 1.68 ng/mL (0.00-4.00)
== END | disposition home or self-care (01) ==
LOC: LABWHC1 07:26
PROVIDERS: ATTEND Internal Medicine Interventional Cardiology
DX: Z00.00 Encounter for general adult medical examination without abnormal findings (principal); E78.2 Mixed hyperlipidemia
CPT/HCPCS: 36415; 80053; 80061; 84153

== ENCOUNTER → 2018-03-20 | Outpatient (CLI) | payer BC ==
[2018-03-20 09:33] LABS: ALT 31 U/L (21-72); AST 31 U/L (17-59); Albumin 4.1 g/dL (3.5-5.0); Alkaline Phosphatase 76 U/L (38-126); Anion Gap 8 mmol/L; Blood Urea Nitrogen 15 mg/dL (9-20); Calcium 9.2 mg/dL (8.4-10.2); Carbon Dioxide 31 mmol/L (22-30); Chloride 102 mmol/L (98-107); Cholesterol 150 mg/dL (<200); Glucose 156 mg/dL (74-99); HDL Cholesterol 35 mg/dL (40-60); LDL Cholesterol,Calculated 89 mg/dL (0-99); Potassium 5.3 mmol/L (3.5-5.1); Sodium 141 mmol/L (137-145); Total Bilirubin 1.2 mg/dL (0.2-1.3); Total Protein 7.4 g/dL (6.3-8.2); Triglycerides 132 mg/dL (<150)
[2018-03-20 19:57] LABS: Hemoglobin A1C 8.3 % (4.0-6.0)
== END ==
LOC: LABWHC1 08:36
PROVIDERS: ATTEND Internal Medicine Endocrinology, Diabetes & Metabolism
DX: E11.65 Type 2 diabetes mellitus with hyperglycemia (principal); E78.2 Mixed hyperlipidemia
CPT/HCPCS: 36415; 80053; 80061; 82043; 82570; 83036

== ENCOUNTER → 2018-10-18 | Outpatient (CLI) | payer MEDICARE, OTHER ==
[2018-10-18 16:27] LABS: Albumin 3.9 g/dL (3.80-4.90); Albumin/Globulin Ratio 1.5 (1.60-3.17); Anion Gap 7.8 mmol/L (4.00-12.00); Carbon Dioxide 29.2 mmol/L (21.6-31.8); Globulin 2.6 g/dL (1.6-3.3); LDL Cholesterol,Calculated 85.6 mg/dL (0.0-131.0); Potassium 4.1 mmol/L (3.5-5.5); Total Protein 6.5 g/dL (6.2-8.2); VLDL Calculation 35.4 mg/dL (5.00-40.00)
[2018-10-18 17:40] LABS: Hemoglobin A1C 9.4 % (4.0-6.0)
== END ==
LOC: LABWHC1 09:01
PROVIDERS: ATTEND Internal Medicine Endocrinology, Diabetes & Metabolism
DX: E78.2 Mixed hyperlipidemia (principal); E11.65 Type 2 diabetes mellitus with hyperglycemia
CPT/HCPCS: 36415; 80053; 80061; 82043; 82570; 83036; 84443

== ENCOUNTER 2018-11-19 09:43 | Inpatient (IN) | payer MEDICARE, OTHER ==
[2018-11-19] MEDS ORDERED: IBUPROFEN 600 MG TAB PO STA (10:13)
[2018-11-19] MEDS ORDERED: ACETAMINOPHEN TAB 500 MG TAB PO STA (10:13)
[2018-11-19] MEDS ORDERED: methylPREDNISolone SOD SUCCI 125 MG/2 ML VIAL IV STA (10:14)
[2018-11-19] MEDS ORDERED: IPRATROPIUM-ALBUTEROL 3 ML NEB INHALATION STA (10:14)
--- NOTE | 2018-11-19 10:17 | ED ---
General Adult HPI - General Chief complaint: Chest Pain Stated complaint: chest pain Time Seen by Provider: 11/19/18 10:00 Source: patient, family, RN notes reviewed Mode of arrival: wheelchair Limitations: no limitations - History of Present Illness Initial comments: This is a 63-year-old male with past medical history significant for valve replacement hypertension diabetes and high cholesterol. Patient states she also used to be a smoker. Patient comes in today because he's had intermittent chest pain lasting about 2 hours at a time over the last 3 days. Patient states she's also had a significant cough been short of breath. Patient denies any radiation of the pain. Patient denies any diaphoretic episodes. Patient denies any nausea. Patient denies abdominal pain patient denies any vomiting or diarrhea. Patient denies headache patient denies numbness weakness. Patient denies lightheadedness dizziness or near syncopal episode. Patient denies any calf tenderness or leg swelling - Related Data Home Medications Medication Instructions Recorded Confirmed Loratadine 10 mg PO DAILY 09/01/16 11/19/18 Albuterol Inhaler [Ventolin Hfa 2 puff INHALATION RT-Q6H PRN 11/19/18 11/19/18 Inhaler] Insulin Glargine [Lantus] 60 unit SQ DAILY 11/19/18 11/19/18 Lisinopril [Zestril] 10 mg PO BID 11/19/18 11/19/18 Pantoprazole [Protonix] 40 mg PO DAILY 11/19/18 11/19/18 amLODIPine [Norvasc] 2.5 mg PO DAILY 11/19/18 11/19/18 metFORMIN HCL ER [Glucophage Xr] 1,000 mg PO BID 11/19/18 11/19/18 Previous Rx's Medication Instructions Recorded Aspirin 81 mg PO DAILY #30 chew 10/26/16 Atorvastatin [Lipitor] 40 mg PO HS #30 tab 10/26/16 Metoprolol Tartrate [Lopressor] 50 mg PO TID #60 tab 10/26/16 Repaglinide [Prandin] 2 mg PO TID #0 10/26/16 Allergies Allergy/AdvReac Type Severity Reaction Status Date / Time No Known Allergies Allergy Verified 11/19/18 10:03 Review of Systems ROS Statement: Those systems with pertinent positive or pertinent negative responses have been documented in the HPI. ROS Other: All systems not noted in ROS Statement are negative. Past Medical History Past Medical History: Chest Pain / Angina, Diabetes Mellitus, Hyperlipidemia, Hypertension, Sleep Apnea/CPAP/BIPAP Additional Past Medical History / Comment(s): heart murmur,SOB w/ activity,uses cpap,cysts to kidney History of Any Multi-Drug Resistant Organisms: None Reported Past Surgical History: Cholecystectomy, Heart Catheterization Past Anesthesia/Blood Transfusion Reactions: No Reported Reaction Past Psychological History: No Psychological Hx Reported Smoking Status: Former smoker Past Alcohol Use History: Occasional Past Drug Use History: None Reported - Past Family History Father Family Medical History: Cancer Mother Family Medical History: No Reported History General Exam - General Exam Comments Initial Comments: GENERAL: Patient is well-developed and well-nourished. Patient is nontoxic and well- hydrated and is in mild distress. ENT: Neck is soft and supple. No significant lymphadenopathy is noted. Oropharynx is clear. Moist mucous membranes. Neck has full range of motion without eliciting any pain. EYES: The sclera were anicteric and conjunctiva were pink and moist. Extraocular movements were intact and pupils were equal round and reactive to light. Eyelids were unremarkable. PULMONARY: Breath sounds are diminished diffusely and some crackles in the left base. Patient does have some expiratory wheezing. CARDIOVASCULAR: There is a regular rate and rhythm without any murmurs gallops or rubs. Femoral pulses are equal bilaterally ABDOMEN: Soft and nontender with normal bowel sounds. No palpable organomegaly was noted. There is no palpable pulsatile mass. SKIN: Skin is clear with no lesions or rashes and otherwise unremarkable. NEUROLOGIC: Patient is alert and oriented x3. Cranial nerves II through XII are grossly int act. Motor and sensory are also intact. Normal speech, volume and content. Symmetrical smile. MUSCULOSKELETAL: Normal extremities with adequate strength and full range of motion. No lower extremity swelling or edema. No calf tenderness. LYMPHATICS: No significant lymphadenopathy is noted PSYCHIATRIC: Normal psychiatric evaluation. Limitations: no limitations Course Vital Signs 11/19/18 11/19/18 11/19/18 09:55 11:05 11:16 Temperature 101 F H Pulse Rate 107 H 97 96 Respiratory 19 Rate Blood Pressure 149/91 O2 Sat by Pulse 95 Oximetry Medical Decision Making - Medical Decision Making EKG shows sinus tachycardia at 107 bpm NM interval 260 QRS 102 QT interval 328 QTC is 437. Patient's EKG shows an occasional PVC. - Lab Data Result diagrams: 11/19/18 10:04 11/19/18 10:04 Lab Results 11/19/18 11/19/18 11/19/18 Range/Units 10:04 10:04 10:04 WBC 20.1 H (3.8-10.6) k/uL RBC 5.06 (4.30-5.90) m/uL Hgb 13.9 (13.0-17.5) gm/dL Hct 44.7 (39.0-53.0) % MCV 88.4 (80.0-100.0) fL MCH 27.4 (25.0-35.0) pg MCHC 31.0 (31.0-37.0) g/dL RDW 14.4 (11.5-15.5) % Plt Count 214 (150-450) k/uL Neutrophils % 85 % Lymphocytes % 5 % Monocytes % 7 % Eosinophils % 1 % Basophils % 1 % Neutrophils # 17.1 H (1.3-7.7) k/uL Lymphocytes # 1.0 (1.0-4.8) k/uL Monocytes # 1.4 H (0-1.0) k/uL Eosinophils # 0.1 (0-0.7) k/uL Basophils # 0.1 (0-0.2) k/uL PT (9.0-12.0) sec INR (<1.2) APTT (22.0-30.0) sec Sodium 137 (137-145) mmol/L Potassium 4.7 (3.5-5.1) mmol/L Chloride 102 (98-107) mmol/L Carbon Dioxide 26 (22-30) mmol/L Anion Gap 9 mmol/L BUN 20 (9-20) mg/dL Creatinine 1.09 (0.66-1.25) mg/dL Est GFR (CKD-EPI)AfAm 82 (>60 ml/min/1.73 sqM) Est GFR (CKD-EPI)NonAf 71 (>60 ml/min/1.73 sqM) Glucose 178 H (74-99) mg/dL Plasma Lactic Acid [place] 1.2 (0.7-2.0) mmol/L Calcium 8.3 L (8.4-10.2) mg/dL Total Bilirubin 2.1 H (0.2-1.3) mg/dL AST 17 (17-59) U/L ALT 24 (21-72) U/L Alkaline Phosphatase 82 (38-126) U/L Troponin I (0.000-0.034) ng/mL Total Protein 6.2 L (6.3-8.2) g/dL Albumin 3.2 L (3.5-5.0) g/dL Urine Color Urine Appearance (Clear) Urine pH (5.0-8.0) Ur Specific [place] (1.001-1.035) Urine Protein (Negative) Urine Glucose (UA) (Negative) Urine Ketones (Negative) Urine Blood (Negative) Urine Nitrite (Negative) Urine Bilirubin (Negative) Urine Urobilinogen (<2.0) mg/dL Ur Leukocyte Esterase (Negative) Urine RBC (0-5) /hpf Urine WBC (0-5) /hpf Ur Squamous Epith Cells (0-4) /hpf Amorphous Sediment (None) /hpf Urine Mucus (None) /hpf Influenza Type A RNA (Not Detectd) Influenza Type B (PCR) (Not Detectd) 11/19/18 11/19/18 11/19/18 Range/Units 10:04 10:04 10:34 WBC (3.8-10.6) k/uL RBC (4.30-5.90) m/uL Hgb (13.0-17.5) gm/dL Hct (39.0-53.0) % MCV (80.0-100.0) fL MCH (25.0-35.0) pg MCHC (31.0-37.0) g/dL RDW (11.5-15.5) % Plt Count (150-450) k/uL Neutrophils % % Lymphocytes % % Monocytes % % Eosinophils % % Basophils % % Neutrophils # (1.3-7.7) k/uL Lymphocytes # (1.0-4.8) k/uL Monocytes # (0-1.0) k/uL Eosinophils # (0-0.7) k/uL Basophils # (0-0.2) k/uL PT 10.8 (9.0-12.0) sec INR 1.0 (<1.2) APTT 25.7 (22.0-30.0) sec Sodium (137-145) mmol/L Potassium (3.5-5.1) mmol/L Chloride (98-107) mmol/L Carbon Dioxide (22-30) mmol/L Anion Gap mmol/L BUN (9-20) mg/dL Creatinine (0.66-1.25) mg/dL Est GFR (CKD-EPI)AfAm (>60 ml/min/1.73 sqM) Est GFR (CKD-EPI)NonAf (>60 ml/min/1.73 sqM) Glucose (74-99) mg/dL Plasma Lactic Acid [place] (0.7-2.0) mmol/L Calcium (8.4-10.2) mg/dL Total Bilirubin (0.2-1.3) mg/dL AST (17-59) U/L ALT (21-72) U/L Alkaline Phosphatase (38-126) U/L Troponin I <0.012 (0.000-0.034) ng/mL Total Protein (6.3-8.2) g/dL Albumin (3.5-5.0) g/dL Urine Color Urine Appearance (Clear) Urine pH (5.0-8.0) Ur Specific [place] (1.001-1.035) Urine Protein (Negative) Urine Glucose (UA) (Negative) Urine Ketones (Negative) Urine Blood (Negative) Urine Nitrite (Negative) Urine Bilirubin (Negative) Urine Urobilinogen (<2.0) mg/dL Ur Leukocyte Esterase (Negative) Urine RBC (0-5) /hpf Urine WBC (0-5) /hpf Ur Squamous Epith Cells (0-4) /hpf Amorphous Sediment (None) /hpf Urine Mucus (None) /hpf Influenza Type A RNA Not Detected (Not Detectd) Influenza Type B (PCR) Not Detected (Not Detectd) 11/19/18 Range/Units 10:48 WBC (3.8-10.6) k/uL RBC (4.30-5.90) m/uL Hgb (13.0-17.5) gm/dL Hct (39.0-53.0) % MCV (80.0-100.0) fL MCH (25.0-35.0) pg MCHC (31.0-37.0) g/dL RDW (11.5-15.5) % Plt Count (150-450) k/uL Neutrophils % % Lymphocytes % % Monocytes % % Eosinophils % % Basophils % % Neutrophils # (1.3-7.7) k/uL Lymphocytes # (1.0-4.8) k/uL Monocytes # (0-1.0) k/uL Eosinophils # (0-0.7) k/uL Basophils # (0-0.2) k/uL PT (9.0-12.0) sec INR (<1.2) APTT (22.0-30.0) sec Sodium (137-145) mmol/L Potassium (3.5-5.1) mmol/L Chloride (98-107) mmol/L Carbon Dioxide (22-30) mmol/L Anion Gap mmol/L BUN (9-20) mg/dL Creatinine (0.66-1.25) mg/dL Est GFR (CKD-EPI)AfAm (>60 ml/min/1.73 sqM) Est GFR (CKD-EPI)NonAf (>60 ml/min/1.73 sqM) Glucose (74-99) mg/dL Plasma Lactic Acid [place] (0.7-2.0) mmol/L Calcium (8.4-10.2) mg/dL Total Bilirubin (0.2-1.3) mg/dL AST (17-59) U/L ALT (21-72) U/L Alkaline Phosphatase (38-126) U/L Troponin I (0.000-0.034) ng/mL Total Protein (6.3-8.2) g/dL Albumin (3.5-5.0) g/dL Urine Color Yellow Urine Appearance Clear (Clear) Urine pH 5.5 (5.0-8.0) Ur Specific [place] 1.023 (1.001-1.035) Urine Protein 2+ H (Negative) Urine Glucose (UA) Negative (Negative) Urine Ketones 1+ H (Negative) Urine Blood Small H (Negative) Urine Nitrite Negative (Negative) Urine Bilirubin Negative (Negative) Urine Urobilinogen <2.0 (<2.0) mg/dL Ur Leukocyte Esterase Negative (Negative) Urine RBC 3 (0-5) /hpf Urine WBC <1 (0-5) /hpf Ur Squamous Epith Cells <1 (0-4) /hpf Amorphous Sediment Rare H (None) /hpf Urine Mucus Rare H (None) /hpf Influenza Type A RNA (Not Detectd) Influenza Type B (PCR) (Not Detectd) Critical Care Time Critical Care Time: Yes Total Critical Care Time: 35 Disposition Clinical Impression: Pneumonia, COPD exacerbation Disposition: ADMITTED IP TO THIS HOSP Is patient prescribed a controlled substance at d/c from ED?: No Referrals: Kulwant Cochran DO [Primary Care Provider] - 1-2 days Time of Disposition: 11:58
[2018-11-19 10:45] LABS: Basophils # (A) 0.1 k/uL (0-0.2); Basophils % (A) 1 %; Eosinophils # (A) 0.1 k/uL (0-0.7); Eosinophils % (A) 1 %; HCT 44.7 % (39.0-53.0); HGB 13.9 gm/dL (13.0-17.5); Lymphocytes % (A) 5 %; MCH 27.4 pg (25.0-35.0); MCV 88.4 fL (80.0-100.0); Mean Platelet Volume 7.7; Monocytes # (A) 1.4 k/uL (0-1.0); Monocytes % (A) 7 %; Neutrophils # (A) 17.1 k/uL (1.3-7.7); Neutrophils % (A) 85 %; Platelet Count 214 k/uL (150-450); RBC 5.06 m/uL (4.30-5.90); RDW 14.4 % (11.5-15.5); WBC 20.1 k/uL (3.8-10.6)
[2018-11-19] MEDS: SODIUM CHLORIDE 0.9% 500 ML 500 ML IV SCH (10:49)
[2018-11-19 10:50] LABS: Partial Thromboplastin Time 25.7 sec (22.0-30.0); Prothrombin Time 10.8 sec (9.0-12.0)
[2018-11-19 10:51] LABS: Albumin 3.2 g/dL (3.5-5.0); Calcium 8.3 mg/dL (8.4-10.2); Potassium 4.7 mmol/L (3.5-5.1); Total Bilirubin 2.1 mg/dL (0.2-1.3); Total Protein 6.2 g/dL (6.3-8.2)
[2018-11-19 10:59] LABS: Amorphous Sediment,Urine Rare /hpf; Appearance,Urine Clear (Clear); Bilirubin,Urine Negative (Negative); Blood,Urine Small (Negative); Color,Urine Yellow; Glucose,Urine (UA) Negative (Negative); Ketones,Urine 1+ (Negative); Leukocyte Esterase,Urine Negative (Negative); Mucus,Urine Rare /hpf; Nitrite,Urine Negative (Negative); PH, Urine 5.5 (5.0-8.0); Protein,Urine 2+ (Negative); RBC,Urine 3 /hpf (0-5); Specific Gravity,Urine 1.023 (1.001-1.035); Squamous Epithelial Cell,Urine <1 /hpf (0-4); Urobilinogen,Urine <2.0 mg/dL (<2.0); WBC,Urine <1 /hpf (0-5)
--- NOTE | 2018-11-19 11:33 | XR ---
EXAMINATION TYPE: XR chest 2V DATE OF EXAM: 11/19/2018 COMPARISON: 10/26/2016 TECHNIQUE: PA and lateral views submitted. HISTORY: Chest pain and fever FINDINGS: There is left-sided consolidation and small effusion. Interstitial pattern noted. There is postoperat katiana change. No pneumothorax. Nodular density left upper lobe measuring 1 cm. IMPRESSION: 1. Left-sided infiltrates involving the lower lobe and upper lobe. Correlate for pneumonia. Follow-up to resolution recommended with particular attention to a nodular appearing density in the left upper lobe to exclude underlying neoplasm.
[2018-11-19] MEDS ORDERED: cefTRIAXone IN SWFI 1,000 MG/10 ML SYRINGE IVP STA (11:40)
[2018-11-19] MEDS ORDERED: IPRATROPIUM-ALBUTEROL 3 ML NEB INHALATION PRN (12:00)
[2018-11-19] MEDS: AZITHROMYCIN 500 MG TAB PO SCH (15:41)
[2018-11-19 17:12] LABS: Glucose,Whole Blood 329 mg/dL (75-99)
[2018-11-19] MEDS: INSULIN ASPART (NovoLOG) 100 UNIT/ML VIAL SQ SCH ×3 (17:29→20:36)
[2018-11-19] MEDS: methylPREDNISolone SOD SUCCI 125 MG/2 ML VIAL IV SCH (17:30)
[2018-11-19] MEDS ORDERED: RX INFO: IV CONTRAST WAS GIVEN 1 EACH MISC MISCELLANE PRN (18:30)
--- NOTE | 2018-11-19 19:07 | P.CNPUL ---
History of Present Illness Consult date: 11/19/18 Reason for consult: dyspnea, pneumonia History of present illness: 63-year-old male patient with previous history of severe aortic stenosis and m ild coronary artery disease along with history of hypertension and hyperlipidemia and diabetes mellitus. The patient is post aortic valve replacement and the surgery was done back in 2017. The patient came in this morning because of significant cough and shortness of breath. He also experienced some chest pain. No radiation. No diaphoresis. No nausea. No vomiting. No abdominal pain. No diarrhea. No headache. Her white cell count is elevated at 20.1. Blood sugar is elevated at around 29. Renal function is within normal limits. Influenza screen is negative. UA was negative. Chest x- ray showed a left-sided pulmonary infiltrate involving the left lower lobe and the left upper lobe consistent with pneumonia. This particularly another appearance of the left upper lobe which are listed is a concern for malignancy. Note that the patient is an ex smoker. Currently on examination Rocephin and Zithromax. The pulse ox is 92% states of oxygen nasal cannula. Review of Systems Constitutional: Reports fatigue, Reports fever, Reports weakness Eyes: denies blurred vision, denies bulging eye, denies decreased vision Ears: deny: decreased hearing, ear discharge, earache, tinnitus Ears, nose, mouth and throat: Denies headache, Denies sore throat Cardiovascular: Reports chest pain, Reports decreased exercise tolerance, Reports dyspnea on exertion Respiratory: Reports cough, Reports dyspnea, Reports respiratory infections Gastrointestinal: Denies abdominal pain, Denies diarrhea, Denies nausea, Denies vomiting Genitourinary: Reports as per HPI Musculoskeletal: Reports as per HPI Musculoskeletal: absent: ankle pain, ankle stiffness, ankle swelling Integumentary: Reports as per HPI Neurological: Reports as per HPI Psychiatric: Reports as per HPI Endocrine: Reports as per HPI Hematologic/Lymphatic: Reports as per HPI Allergic/Immunologic: Reports as per HPI Past Medical History Past Medical History: Chest Pain / Angina, COPD, Diabetes Mellitus, GERD/Reflux, Hyperlipidemia, Hypertension, Pneumonia, Sleep Apnea/CPAP/BIPAP Additional Past Medical History / Comment(s): History of aortic stenosis post aortic valve replacement, 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 Past Anesthesia/Blood Transfusion Reactions: No Reported Reaction Smoking Status: Former smoker - Past Family History Father Family Medical History: Cancer Mother Family Medical History: No Reported History Additional Family Medical History / Comment(s): Mother is 90yrs old and recently told she has cardiac valve disease. Medications and Allergies Home Medications Medication Instructions Recorded Confirmed Type Loratadine 10 mg PO DAILY 09/01/16 11/19/18 History Aspirin 81 mg PO DAILY #30 chew 10/26/16 11/19/18 Rx Atorvastatin [Lipitor] 40 mg PO HS #30 tab 10/26/16 11/19/18 Rx Metoprolol Tartrate [Lopressor] 50 mg PO TID #60 tab 10/26/16 11/19/18 Rx Repaglinide [Prandin] 2 mg PO TID #0 10/26/16 11/19/18 Rx Albuterol Inhaler [Ventolin Hfa 2 puff INHALATION RT-Q6H PRN 11/19/18 11/19/18 History Inhaler] Insulin Glargine [Lantus] 60 unit SQ DAILY 11/19/18 11/19/18 History Lisinopril [Zestril] 10 mg PO BID 11/19/18 11/19/18 History Pantoprazole [Protonix] 40 mg PO DAILY 11/19/18 11/19/18 History amLODIPine [Norvasc] 2.5 mg PO DAILY 11/19/18 11/19/18 History metFORMIN HCL ER [Glucophage Xr] 1,000 mg PO BID 11/19/18 11/19/18 History Allergies Allergy/AdvReac Type Severity Reaction Status Date / Time No Known Allergies Allergy Verified 11/19/18 10:03 Physical Exam Vitals: Vital Signs Temp Pulse Pulse Resp BP BP Pulse Ox 11/19/18 14:09 98.1 F 100 20 145/75 92 L 11/19/18 12:40 99.1 F 11/19/18 12:30 98 19 140/83 93 L 11/19/18 12:00 98 20 122/70 92 L 11/19/18 11:30 98 21 129/77 93 L 11/19/18 11:16 96 11/19/18 11:05 97 11/19/18 11:00 98 18 139/89 95 11/19/18 10:30 99 20 135/81 95 11/19/18 10:00 149/91 95 11/19/18 09:55 101 F H 107 H 19 149/91 95 Intake and Output 11/19/18 11/19/18 11/19/18 06:59 14:59 22:59 Other: Voiding Method Toilet # Voids 1 Weight 108.862 kg The patient appeared well nourished and normally developed. Vital signs as documented. Head exam is unremarkable. No scleral icterus or corneal arcus noted. Neck is without jugular venous distension, thyromegaly, or carotid bruits. Carotid upstrokes are brisk bilaterally. Lungs mentation reveals crackles in the left lung is mainly in the left lower lobe and some in the left upper lobe area. Cardiac exam reveals the PMI to be normally sized and situated. Rhythm is regular. First and second heart sounds normal. No murmurs, rubs or gallops. The patient has a sternotomy scar over the anterior chest area related to a previous valve surgery. Abdominal exam reveals normal bowel sounds, no masses, no organomegaly and no aortic enlargement. Extremities are nonedematous and both femoral and pedal pulses are normal.Examination of the skin revealed no evidence of significant rashes, suspicious appearing nevi or other concerning lesions. Neurologically the patient is awake and alert and there is no focal neurological deficits.Examination of the skin revealed no evidence of significant rashes, suspicious appearing nevi or other concerning lesions. Results - Laboratory Findings CBC and BMP: 11/19/18 10:04 11/19/18 10:04 PT/INR, D-dimer PT 10.8 sec (9.0-12.0) 11/19/18 10:04 INR 1.0 (<1.2) 11/19/18 10:04 Abnormal lab findings: Abnormal Labs 11/19/18 11/19/18 11/19/18 10:04 10:04 10:48 WBC 20.1 H Neutrophils # 17.1 H Monocytes # 1.4 H Glucose 178 H POC Glucose (mg/dL) Calcium 8.3 L Total Bilirubin 2.1 H Total Protein 6.2 L Albumin 3.2 L Urine Protein 2+ H Urine Ketones 1+ H Urine Blood Small H Amorphous Sediment Rare H Urine Mucus Rare H 11/19/18 17:10 WBC Neutrophils # Monocytes # Glucose POC Glucose (mg/dL) 329 H Calcium Total Bilirubin Total Protein Albumin Urine Protein Urine Ketones Urine Blood Amorphous Sediment Urine Mucus - Diagnostic Findings Chest x-ray: image reviewed Assessment and Plan Plan: 1 bilobar pneumonia involving the left upper and left lower lobe. There is also another appearance to the left upper lobe pulmonary infiltrate, consider mass/malignancy 2 acute shortness of breath secondary to above 3 acute hypoxemic respiratory failure currently on 2 L of oxygen by nasal cannula 4 acute leukocytosis 5 history of severe aortic stenosis with a previous aortic valve replacement back in October 2016 6 diabetes mellitus type 2 with insulin dependence 7 hypertension 8 hyperlipidemia 9 mild coronary artery disease 10 obesity with a BMI of 36.5 11 obstructive sleep apnea Plan Cover this patient a combination of Rocephin and Zithromax. Sputum Gram stain and culture. Obtain a CAT scan of the chest to characterized the left lung findings specially the left upper lobe with there is more another appearance of the pulmonary consultation. Put the patient on DuoNeb nebulized treatments around the clock. Resume outpatient medication includes lisinopril, Protonix and metoprolol. Resume aspirin. Restart Lantus insulin and put the patient on no long/care coverage. Heparin subcu for DVT prophylaxis. We'll continue to follow.
--- NOTE | 2018-11-19 19:29 | CT ---
EXAMINATION TYPE: CT chest w con DATE OF EXAM: 11/19/2018 COMPARISON: None HISTORY: Pneumonia. CT DLP: 525.6 mGycm Automated exposure control for dose reduction was used. CONTRAST: CT scan of the chest is performed with IV Contrast, patient injected with 100ml mL of Isovue 300. FINDINGS: There is patchy airspace consolidation in the lateral aspect of the left upper lobe. There is patchy infiltrate or atelectasis at the left posterior lung base. There is left pleural effusion. The right lung is clear of infiltrate. There is minimal atelectasis right posterior lung base. Heart size is no rmal. There is no pericardial effusion. 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 There is apparent reduction of the volume of the right atrium as a result o f this mass. There are no hilar masses. There is a 2 x 1 cm pretracheal lymph node. There is no adrenal mass. There is 4.5 cm cyst upper pole left kidney. There is 2 cm cortical cyst up per pole right kidney. The bony thorax is intact. There is some spurring in the thoracic spine. There are sternal wires. There are old right upper lateral healed rib fractures. IMPRESSION: There is patchy pneumonic infiltrate left upper lobe consistent with inflammatory diseas e. There is similar infiltrate and atelectasis left lower lobe. There is small area of atelectasis ri ght posterior lung base. This is consistent with inflammatory disease. 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
[2018-11-19] MEDS ORDERED: INSULIN ASPART (NovoLOG) 100 UNIT/ML VIAL SQ SCH (20:00)
[2018-11-19 20:25] LABS: Glucose,Whole Blood 348 mg/dL (75-99)
[2018-11-19] MEDS: HEPARIN SODIUM,PORCINE 5,000 UNIT/ML 1 ML VIAL SQ SCH (20:35)
[2018-11-19] MEDS: INSULIN DETEMIR (LEVEMIR) 100 UNIT/ML SYR SQ SCH (20:35)
[2018-11-19] MEDS: LISINOPRIL 10 MG TAB PO SCH (20:35)
[2018-11-19] MEDS: ATORVASTATIN 40 MG TAB PO SCH (20:35)
[2018-11-19] MEDS: METOPROLOL TARTRATE 50 MG TAB PO SCH (20:35)
[2018-11-20] MEDS: methylPREDNISolone SOD SUCCI 125 MG/2 ML VIAL IV SCH ×4 (00:04→17:21)
[2018-11-20 06:59] LABS: Glucose,Whole Blood 253 mg/dL (75-99)
[2018-11-20] MEDS ORDERED: INSULIN DETEMIR (LEVEMIR) 100 UNIT/ML SYR SQ SCH (09:00)
[2018-11-20] MEDS: PANTOPRAZOLE 40 MG TABLET PO SCH (09:22)
[2018-11-20] MEDS: METOPROLOL TARTRATE 50 MG TAB PO SCH ×3 (09:22→22:06)
[2018-11-20] MEDS: amLODIPine 2.5 MG TAB PO SCH (09:22)
[2018-11-20] MEDS: LISINOPRIL 10 MG TAB PO SCH ×2 (09:22→22:06)
[2018-11-20] MEDS: HEPARIN SODIUM,PORCINE 5,000 UNIT/ML 1 ML VIAL SQ SCH ×2 (09:22→22:06)
[2018-11-20] MEDS: ASPIRIN 81 MG PO SCH (09:23)
[2018-11-20] MEDS: INSULIN ASPART (NovoLOG) 100 UNIT/ML VIAL SQ SCH ×8 (09:23→22:07)
[2018-11-20] MEDS: IPRATROPIUM-ALBUTEROL 3 ML NEB INHALATION SCH ×2 (10:54→20:59)
[2018-11-20 11:51] LABS: Glucose,Whole Blood 304 mg/dL (75-99)
--- NOTE | 2018-11-20 12:16 | P.PN ---
Subjective Progress Note Date: 11/20/18 On 11/20/2018 the patient was seen in the follow-up. He is currently on a combination of Rocephin and Zithromax regarding the left lung pneumonia. CAT scan of the chest was completed yesterday and it shows patchy airspace disease and consolidation left aspect of the left upper lobe and there is also patchy infiltrate in the left lower lobe posteriorly. There is a small left-sided pleural effusion. Right lung is clear. There is a 4.5 cm fat density in the right cardiac border, consistent with lipoma. There is also 2 x 1 cm pretracheal lymph node. There is a 4.5 cm cyst in the upper lobe of the left kidney. Another cyst in the right kidney. No fever. No chills. Blood sugars are slightly elevated and the patient is on Levemir insulin. The patient was able to give me a sputum sample today. The blood cultures still pending for now. Objective - Vital Signs Vital signs: Vital Signs Temp 98.0 F 11/20/18 05:15 Pulse 86 11/20/18 10:24 Resp 16 11/20/18 08:00 BP 125/71 11/20/18 05:15 Pulse Ox 95 11/20/18 05:15 Intake & Output 11/19/18 11/20/18 11/20/18 18:59 06:59 18:59 Weight 108.862 kg Other: Voiding Method Toilet Toilet # Voids 1 2 - Exam The patient appeared well nourished and normally developed. Vital signs as documented. Head exam is unremarkable. No scleral icterus or corneal arcus noted. Neck is without jugular venous distension, thyromegaly, or carotid bruits. Carotid upstrokes are brisk bilaterally. Lungs mentation reveals crackles in the left lung is mainly in the left lower lobe and some in the left upper lobe area. Cardiac exam reveals the PMI to be normally sized and situated. Rhythm is regular. First and second heart sounds normal. No murmurs, rubs or gallops. The patient has a sternotomy scar over the anterior chest area related to a previous valve surgery. Abdominal exam reveals normal bowel sounds, no masses, no organomegaly and no aortic enlargement. Extremities are nonedematous and both femoral and pedal pulses are normal.Examination of the skin revealed no evidence of significant rashes, suspicious appearing nevi or other concerning lesions. Neurologically the patient is awake and alert and there is no focal neurological deficits.Examination of the skin revealed no evidence of significant rashes, suspicious appearing nevi or other concerning lesions. - Labs CBC & Chem 7: 11/19/18 10:04 11/19/18 10:04 Labs: Abnormal Lab Results - Last 24 Hours (Table) 11/19/18 11/19/18 11/20/18 Range/Units 17:10 20:23 06:56 POC Glucose (mg/dL) 329 H 348 H 253 H (75-99) mg/dL 11/20/18 Range/Units 11:49 POC Glucose (mg/dL) 304 H (75-99) mg/dL Microbiology - Last 24 Hours (Table) 11/19/18 10:48 Urine Culture - Preliminary Urine,Voided Assessment and Plan Plan: 1 bilobar pneumonia involving the left upper and left lower lobe. No evidence of any malignancy and the findings are consistent with consolidation mainly in the left upper lobe and to lesser extent in the left lower lobe with a small left-sided pleural effusion 2 acute shortness of breath secondary to above 3 acute hypoxemic respiratory failure currently on 2 L of oxygen by nasal cannula 4 acute leukocytosis 5 history of severe aortic stenosis with a previous aortic valve replacement back in October 2016 6 diabetes mellitus type 2 with insulin dependence 7 hypertension 8 hyperlipidemia 9 mild coronary artery disease 10 obesity with a BMI of 36.5 11 obstructive sleep apnea Plan Cover this patient a combination of Rocephin and Zithromax. Sputum Gram stain and culture. The CAT scan of the chest was noted and the patient was able to provide a sputum sample. Repeat chest x-ray in a.m. We'll continue to follow.
[2018-11-20] MEDS: FUROSEMIDE 10 MG/ML 4 ML VIAL IV SCH (12:45)
--- NOTE | 2018-11-20 14:14 | P.PN ---
Subjective Progress Note Date: 11/20/18 Principal diagnosis: Severe dyspnea and shortness of breath, fever and chills, multifocal pneumo 63-year-old male one of Dr. Cochran patient with past medical history of diabetes, hypertension, hyperlipidemia and sleep apnea who had aortic valve placement back in 2017 has done very well patient did not have any bypass surgery the time. Patient has been doing well until the last 24 hours. Admission when developed to have low-grade temperature with mild chills this morning developed to have worsening dyspnea and shortness of breath and the chest tightness midsternal was very skier when it happen he ended up coming to demurs department at the time his temperature was 102 chest x-ray showed left-sided infiltrate multifocal left upper and lower with worsening density in the left upper lobe as well consistent with? Off malignancy. Patient was started on IV antibiotics updraft O2 and admitted to the hospital for the above problem. 11/20: Patient is feeling much better decreased shortness of breath decreased wheezes agreeable with pulmonary for current management, CT was negative for any consistent malignant mass. Patient oxygen level and saturation has improved significantly, we'll repeat another chest x-ray continue current management and switch patient to oral prednisone by tomorrow. Objective - Vital Signs Vital signs: Vital Signs Temp 98.0 F 11/20/18 05:15 Pulse 86 11/20/18 10:24 Resp 16 11/20/18 08:00 BP 125/71 11/20/18 05:15 Pulse Ox 95 11/20/18 05:15 Intake & Output 11/19/18 11/20/18 11/20/18 18:59 06:59 18:59 Weight 108.862 kg Other: Voiding Method Toilet Toilet # Voids 1 2 - Exam Review of system: CONSTITUTIONAL: Well-developed mild respiratory distress. EYES: No icterus sclerae, no conjunctivitis. EARS, NOSE, MOUTH, THROAT, and FACE: No sore throat, lymphadenopathy, carotid bruits or deformity. RESPIRATORY: Positive shortness of breath cough or wheezes. CARDIOVASCULAR: Positive PND. Palpitation. GASTROINTESTINAL: No Abd pain, Nausea or vomiting, no Diarrhea or constipation, No GI Bleed, no distention or masses. GENITOURINARY: Negative for Hematuria or UTI, no kidney stones. INTEGUMENT/BREAST: Negative for any muscular injury with mild osteoarthritis.. HEMATOLOGIC/LYMPHATIC: Negative for bleed or purpura. MUSCULOSKELTAL: Negative for Myalgia or arthralgia. NEURLOGICAL: No LOC, Sz or syncope, blurred vision dizziness or abnormality.. BEHAVIORAL/PSYCH: Negative. ENDOCRINE: Negative. Physical examination: General Appearance: Alert, cooperative, no distress, appears stated age. Neck HEENT: Supple, no lymphadenopathy, no thyroid enlargement, no carotid bruits. Lungs: Decreased expansion bilaterally with fine rhonchi positive mild crackles in the bases specially the right side possible spot expect wheezes. Chest Wall: Decrease expansion with deep inspiration no tenderness and no deformity was found on exam, no costochondral pain or discomfort. Heart: Regular rate and rhythm, S1, S2 normal, no murmur, rub or gallop. Back: Symmetric, no curvature, ROM normal, no CVA tenderness. Abdomen: Soft, non-tender, bowel sounds active all four quadrants, no masses, no organomegaly. Extremities: Extremities normal, atraumatic, no cyanosis or edema. Pulses: 2+ and symmetric. Skin: Skin color, texture, tugor normal, no rashes or lesions. Neurologic: Alert oriented x3 cranial nerves II through XII intact, no motor deficit, no abnormal balance or gait. - Labs CBC & Chem 7: 11/19/18 10:04 11/19/18 10:04 Labs: Abnormal Lab Results - Last 24 Hours (Table) 11/19/18 11/19/18 11/20/18 Range/Units 17:10 20:23 06:56 POC Glucose (mg/dL) 329 H 348 H 253 H (75-99) mg/dL 11/20/18 Range/Units 11:49 POC Glucose (mg/dL) 304 H (75-99) mg/dL Microbiology - Last 24 Hours (Table) 11/19/18 10:34 Blood Culture - Preliminary Blood No Growth after 24 hours 11/19/18 10:48 Urine Culture - Final Urine,Voided Assessment and Plan Plan: 1 severe dyspnea and shortness of breath: Combination of multifocal pneumonia most likely atypical along with mild COPD exacerbation. Patient will be on IV antibiotics repeat chest x-ray continue O2 updraft and consult pulmonary. 2 multifocal pneumonia: Most likely atypical was started on azithromycin Rocephin and methylprednisolone. 3 chest pain: Most likely pulmonar most likely pleurisy and from the severity of the pneumonia CK with troponin 3 will be done we'll consult cardiology as well. 4 Valvular heart disease: Post aortic valve placement, patient still seen Dr. Hayden on regular basis echocardiogram and stress test are up-to-date. Hyperlipidemia: Remain on atorvastatin 40 mg a day. 6 hypertension: Continue patient on amlodipine 2.5 g a day lisinopril 10 mg twice a day metoprolol 50 mg 3 times a day. 7 type 2 diabetes: On insulin still on Prandin 2 mg 3 times a day, metformin 1000 mg twice a day and Lantus 60 units daily continue Accu-Chek with sliding scale coverage with short acting. 8 arrhythmia: Has been on metoprolol doing well with it. 9 severe GERD/ GI prophylaxis: Patient remain on metoprolol 50 mg daily. Continue current management with switch patient to oral prednisone and antibiotic by tomorrow and if is feeling well hopefully discharge home tomorrow.
--- NOTE | 2018-11-20 14:15 | P.HPIM ---
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 Patient has been doing well until the last 24 hours. Admission when developed to have low-grade temperature with mild chills this morning developed to have worsening dyspnea and shortness of breath and the chest tightness midsternal was very skier when it happen he ended up coming to [facility] department at the time his temperature was 102 chest x-ray showed left-sided infiltrate multifocal left upper and lower with worsening density in the left upper lobe as well consistent with? Off malignancy. Patient was started on IV antibiotics updraft O2 and admitted to the hospital for the above problem. Review of Systems CONSTITUTIONAL: Well-developed mild respiratory distress. EYES: No icterus sclerae, no conjunctivitis. EARS, NOSE, MOUTH, THROAT, and FACE: No sore throat, lymphadenopathy, carotid bruits or deformity. RESPIRATORY: Positive shortness of breath cough or wheezes. CARDIOVASCULAR: Positive PND, orthopnea and Palpitation. GASTROINTESTINAL: No Abd pain, Nausea or vomiting, no Diarrhea or constipation, No GI Bleed, no distention or masses. GENITOURINARY: Negative for Hematuria or UTI, no kidney stones. INTEGUMENT/BREAST: Negative for any muscular injury with mild osteoarthritis.. HEMATOLOGIC/LYMPHATIC: Negative for bleed or purpura. MUSCULOSKELTAL: Negative for Myalgia or arthralgia. NEURLOGICAL: No LOC, Sz or syncope, blurred vision dizziness or abnormality.. BEHAVIORAL/PSYCH: Negative. ENDOCRINE: Negative. Past Medical History Past Medical History: Chest Pain / Angina, COPD, Diabetes Mellitus, GERD/Reflux, Hyperlipidemia, Hypertension, Pneumonia, Sleep Apnea/CPAP/BIPAP Additional Past Medical History / Comment(s): IDDM type II, TRINITY with CPap, murmur, renal cyst History of Any Multi-Drug Resistant Organisms: None Reported Past Surgical History: Cardiac Valve Replacement, Cholecystectomy, Heart Catheterization Additional Past Surgical History / Comment(s): JOVANI, aortic valve replacement in 2017, PICC colonoscopy. Past Anesthesia/Blood Transfusion Reactions: No Reported Reaction Smoking Status: Former smoker - Past Family History Father Family Medical History: Cancer Mother Family Medical History: No Reported History Additional Family Medical History / Comment(s): Mother is 90yrs old and recently told she has cardiac valve disease. Medications and Allergies Home Medications Medication Instructions Recorded Confirmed Type Loratadine 10 mg PO DAILY 09/01/16 11/19/18 History Aspirin 81 mg PO DAILY #30 chew 10/26/16 11/19/18 Rx Atorvastatin [Lipitor] 40 mg PO HS #30 tab 10/26/16 11/19/18 Rx Metoprolol Tartrate [Lopressor] 50 mg PO TID #60 tab 10/26/16 11/19/18 Rx Repaglinide [Prandin] 2 mg PO TID #0 10/26/16 11/19/18 Rx Albuterol Inhaler [Ventolin Hfa 2 puff INHALATION RT-Q6H PRN 11/19/18 11/19/18 History Inhaler] Insulin Glargine [Lantus] 60 unit SQ DAILY 11/19/18 11/19/18 History Lisinopril [Zestril] 10 mg PO BID 11/19/18 11/19/18 History Pantoprazole [Protonix] 40 mg PO DAILY 11/19/18 11/19/18 History amLODIPine [Norvasc] 2.5 mg PO DAILY 11/19/18 11/19/18 History metFORMIN HCL ER [Glucophage Xr] 1,000 mg PO BID 11/19/18 11/19/18 History Allergies Allergy/AdvReac Type Severity Reaction Status Date / Time No Known Allergies Allergy Verified 11/19/18 10:03 Physical Exam Vitals: Vital Signs Temp Pulse Resp BP Pulse Ox 11/19/18 12:40 99.1 F 11/19/18 12:30 98 19 140/83 93 L 11/19/18 12:00 98 20 122/70 92 L 11/19/18 11:30 98 21 129/77 93 L 11/19/18 11:16 96 11/19/18 11:05 97 11/19/18 11:00 98 18 139/89 95 11/19/18 10:30 99 20 135/81 95 11/19/18 10:00 149/91 95 11/19/18 09:55 101 F H 107 H 19 149/91 95 Intake and Output 11/18/18 11/19/18 11/19/18 22:59 06:59 14:59 Other: Voiding Method Toilet Weight 108.862 kg General Appearance: Alert, cooperative, no distress, appears stated age. Neck HEENT: Supple, no lymphadenopathy, no thyroid enlargement, no carotid bruits. Lungs: Decreased expansion bilaterally with fine rhonchi positive mild crackles in the bases specially the right side possible spot expect wheezes. Chest Wall: Decrease expansion with deep inspiration no tenderness and no deformity was found on exam, no costochondral pain or discomfort. Heart: Regular rate and rhythm, S1, S2 normal, no murmur, rub or gallop. Back: Symmetric, no curvature, ROM normal, no CVA tenderness. Abdomen: Soft, non-tender, bowel sounds active all four quadrants, no masses, no organomegaly. Extremities: Extremities normal, atraumatic, no cyanosis or edema. Pulses: 2+ and symmetric. Skin: Skin color, texture, tugor normal, no rashes or lesions. Neurologic: Alert oriented x3 cranial nerves II through XII intact, no motor deficit, no abnormal balance or gait. Results CBC & Chem 7: 11/19/18 10:04 11/19/18 10:04 Labs: Abnormal Lab Results - Last 24 Hours (Table) 11/19/18 11/19/18 11/19/18 Range/Units 10:04 10:04 10:48 WBC 20.1 H (3.8-10.6) k/uL Neutrophils # 17.1 H (1.3-7.7) k/uL Monocytes # 1.4 H (0-1.0) k/uL Glucose 178 H (74-99) mg/dL Calcium 8.3 L (8.4-10.2) mg/dL Total Bilirubin 2.1 H (0.2-1.3) mg/dL Total Protein 6.2 L (6.3-8.2) g/dL Albumin 3.2 L (3.5-5.0) g/dL Urine Protein 2+ H (Negative) Urine Ketones 1+ H (Negative) Urine Blood Small H (Negative) Amorphous Sediment Rare H (None) /hpf Urine Mucus Rare H (None) /hpf Thrombosis Risk Factor Assmnt - DVT/VTE Prophylaxis DVT/VTE Prophylaxis: Pharmacologic Prophylaxis ordered, Mechanical Prophylaxis ordered - Choose All That Apply Any of the Below Risk Factors Present?: Yes Each Factor Represents 1 point: Abnormal pulmonary function (COPD), Obesity (BMI >25), Serious lung disease incl. pneumonia (< 1month) Other Risk Factors: Yes Each Risk Factor Represents 2 Points: Age 61-74 years Other congenital or acquired thrombophilia - If yes, enter type in comment: No Thrombosis Risk Factor Assessment Total Risk Factor Score: 5 Thrombosis Risk Factor Assessment Level: High Risk Assessment and Plan Plan: 1 severe dyspnea and shortness of breath: Combination of multifocal pneumonia most likely atypical along with mild COPD exacerbation. Patient will be on IV antibiotics repeat chest x-ray continue O2 updraft and consult pulmonary. 2 multifocal pneumonia: Most likely atypical was started on azithromycin Rocephin and methylprednisolone. 3 chest pain: Most likely pulmonar most likely pleurisy and from the severity of the pneumonia CK with troponin 3 will be done we'll consult cardiology as well. 4 Valvular heart disease: Post aortic valve placement, patient still seen Dr. Hayden on regular basis echocardiogram and stress test are up-to-date. Hyperlipidemia: Remain on atorvastatin 40 mg a day. 6 hypertension: Continue patient on amlodipine 2.5 g a day lisinopril 10 mg twice a day metoprolol 50 mg 3 times a day. 7 type 2 diabetes: On insulin still on Prandin 2 mg 3 times a day, metformin 1000 mg twice a day and Lantus 60 units daily continue Accu-Chek with sliding scale coverage with short acting. 8 arrhythmia: Has been on metoprolol doing well with it. 9 severe GERD/ GI prophylaxis: Patient remain on metoprolol 50 mg daily. 10 DVT prophylaxis: Patient be on heparin 5000 units subcu twice a day. CODE STATUS: Full code. Admit patient to inpatient status for more than 2 nights.
[2018-11-20 14:35] VITALS: RESP 18
--- NOTE | 2018-11-20 14:56 | CDI ---
Documentation Clarification Form Date: 11/20/2018 2:46:47 PM From: Marely ChairezJerniganZACHARY, CCDS Admit Date: 11/19/2018 12:00:00 PM Patient Name: Lucas Tellez Visit Number: [id number] Discharge Date: ATTENTION: The Clinical Documentation Specialists (CDI) and [facility] Coding Staff appreciate your assistance in clarifying documentation. Please respond to the clarification below the line at the bottom and electronically sign. The CDI & [facility] Coding staff will review the response and follow-up if needed. Please note: Queries are made part of the Legal Health Record. If you have any questions, please contact the author of this message via ITS. Dr. Dale Gooden: The patient presented with the following: Chest pain, cough with SOB, wheezing, former smoker with history of COPD. History/Risk Factors: IDDM II, Hyperlipidemia, CAD, Hypertension and Sleep apnea. Clinical Indicators: LAB: WBC 20.1^, Neut 17.1^, [place] 1.4^, Glucose 178^, Calcium 8.3*, Total Bilirubin 2.1^, total Protein 6.2*, Albumin 3.2*. Lactic acid: (1.2) Blood cultures: negative after 24 hrs. Urine culture: negative/final Vitals signs on admission: T 101^, P 107^, R 19, BP 149/91^, PO 95 2Lnc RAD: CXR: Left side infiltrates lower & upper lobe. Correlate for pneumonia. Exclude neoplasm. Treatment: INH Albuterol, IV Solumedrol, IV fluid 1000, IV Rocephin, Insulin sc, IV Lasix, O2 2Lnc. In your professional opinion, please clarify if these findings signify one of the following conditions, whether the condition is POA, and cause, if known: o Sepsis ruled out o XSepsis, ruled in o Severe Sepsis o Septic Shock o Other, please specify o Unable to determine Present on Admission o XYes o No (Last Revision: October 2017) MTDD
[2018-11-20 16:43] LABS: Glucose,Whole Blood 345 mg/dL (75-99)
[2018-11-20] MEDS: AZITHROMYCIN 500 MG TAB PO SCH (17:21)
[2018-11-20 20:34] LABS: Glucose,Whole Blood 371 mg/dL (75-99)
[2018-11-20] MEDS: ATORVASTATIN 40 MG TAB PO SCH (22:06)
[2018-11-20] MEDS: INSULIN DETEMIR (LEVEMIR) 100 UNIT/ML SYR SQ SCH (22:07)
[2018-11-21] MEDS: methylPREDNISolone SOD SUCCI 125 MG/2 ML VIAL IV SCH ×3 (00:18→11:56)
[2018-11-21 06:58] LABS: Glucose,Whole Blood 241 mg/dL (75-99)
--- NOTE | 2018-11-21 07:21 | XR ---
EXAMINATION TYPE: XR chest 2V DATE OF EXAM: 11/21/2018 COMPARISON: Prior chest x-ray 11/19/2018 and chest x-ray 10/22/2016 HISTORY: Shortness of breath TECHNIQUE: Frontal and lateral views of the chest are obtained. FINDINGS: Patient is post median sternotomy, aortic valve replacement, atrial appendage clipping esteban cement. Flattening the hemidiaphragms and increased AP diameter chest may be indicative of underlying COPD. No pneumothorax. Patchy basilar density persists on the left. Heart size is likely stable. Roland cified granuloma noted as on prior. IMPRESSION: Similar findings, correlate for left lower, upper lobe pneumonia and associated effusion versus atelectasis. There may be chronic scarring.
[2018-11-21] MEDS: INSULIN ASPART (NovoLOG) 100 UNIT/ML VIAL SQ SCH ×4 (07:26→13:38)
[2018-11-21] MEDS: IPRATROPIUM-ALBUTEROL 3 ML NEB INHALATION SCH ×2 (07:37→11:03)
[2018-11-21] MEDS ORDERED: CEFDINIR 300 MG CAP PO SCH (09:00)
[2018-11-21 09:27] LABS: Basophils % (A) 0 %; Eosinophils % (A) 0 %; HCT 44.5 % (39.0-53.0); HGB 13.8 gm/dL (13.0-17.5); Hypochromasia Slight; Lymphocytes # (A) 0.7 k/uL (1.0-4.8); Lymphocytes % (A) 4 %; MCH 28.1 pg (25.0-35.0); MCV 90.7 fL (80.0-100.0); Monocytes # (A) 0.5 k/uL (0-1.0); Monocytes % (A) 3 %; Neutrophils # (A) 17.4 k/uL (1.3-7.7); Neutrophils % (A) 92 %; Platelet Count 289 k/uL (150-450); RBC 4.91 m/uL (4.30-5.90); RDW 14.2 % (11.5-15.5); WBC 18.9 k/uL (3.8-10.6)
[2018-11-21 09:40] LABS: Albumin 3.1 g/dL (3.5-5.0); Calcium 8.3 mg/dL (8.4-10.2); Potassium 5.1 mmol/L (3.5-5.1); Total Bilirubin 0.6 mg/dL (0.2-1.3); Total Protein 6.3 g/dL (6.3-8.2)
[2018-11-21] MEDS: METOPROLOL TARTRATE 50 MG TAB PO SCH (09:59)
[2018-11-21] MEDS: FUROSEMIDE 10 MG/ML 4 ML VIAL IV SCH (09:59)
[2018-11-21] MEDS: ASPIRIN 81 MG PO SCH (09:59)
[2018-11-21] MEDS: LISINOPRIL 10 MG TAB PO SCH (09:59)
[2018-11-21] MEDS: HEPARIN SODIUM,PORCINE 5,000 UNIT/ML 1 ML VIAL SQ SCH (09:59)
[2018-11-21] MEDS: PANTOPRAZOLE 40 MG TABLET PO SCH (10:00)
[2018-11-21] MEDS: amLODIPine 2.5 MG TAB PO SCH (10:00)
[2018-11-21 12:09] LABS: Glucose,Whole Blood 393 mg/dL (75-99)
[2018-11-21 15:00] VITALS: BP 141/80; PULSE 99; TEMP 97
--- NOTE | 2018-11-21 15:15 | P.DS ---
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 Patient has been doing well until the last 24 hours. Admission when developed to have low-grade temperature with mild chills this morning developed to have worsening dyspnea and shortness of breath and the chest tightness midsternal was very skier when it happen he ended up coming to demurs department at the time his temperature was 102 chest x-ray showed left-sided infiltrate multifocal left upper and lower with worsening density in the left upper lobe as well consistent with? Off malignancy. Patient was started on IV antibiotics updraft O2 and admitted to the hospital for the above problem. 11/20: Patient is feeling much better decreased shortness of breath decreased wheezes agreeable with pulmonary for current management, CT was negative for any consistent malignant mass. Patient oxygen level and saturation has improved significantly, we'll repeat another chest x-ray continue current management and switch patient to oral prednisone by tomorrow. 11/21: Patient has been afebrile, heart rate in the 70s, blood pressure 141/80, pulse ox 92% on room air. White count is 18.9, BUN 35 creatinine 1.09. Blood sugars are running between 241 and 393. Sputum culture is in progress. Urine culture has been finalized with no growth and blood culture no growth at 48 hours. Patient has been cleared for discharge by pulmonary medicine. Patient will be discharged home today in stable condition. Discharge diagnoses: 1 severe dyspnea and shortness of breath secondary to a Combination of multifocal pneumonia most likely atypical along with mild COPD exacerbation. 2 sepsis secondary to multifocal pneumonia, possible gram-negative pneumonia, present on admission. 3 chest pain: Most likely pleurisy and from pneumonia 4 Valvular heart disease: Post aortic valve placement, 5 Hyperlipidemia 6 hypertension 7 type 2 diabetes uncontrolled with hyperglycemia secondary to steroids 8 arrhythmia 9 severe GERD Discharge plan: Home Impression and plan of care have been directed as dictated by the signing physician. Vale Nair nurse practitioner acting as scribe for signing physician. Patient Condition at Discharge: Good Plan - Discharge Summary Discharge Rx Participant: No New Discharge Prescriptions: New Ipratropium-Albuterol Nebulize [Duoneb 0.5 mg-3 mg/3 ml Soln] 3 ml INHALATION RT-TID #90 ampul.neb Potassium Chloride ER [K-Dur 20] 20 meq PO DAILY #30 tab Furosemide [Lasix] 40 mg PO DAILY #30 tablet Cefdinir [Omnicef] 300 mg PO BID #10 cap Budesonide [Pulmicort] 0.5 mg INHALATION BID #60 neb Continue Loratadine 10 mg PO DAILY Repaglinide [Prandin] 2 mg PO TID #0 Aspirin 81 mg PO DAILY #30 chew Atorvastatin [Lipitor] 40 mg PO HS #30 tab Metoprolol Tartrate [Lopressor] 50 mg PO TID #60 tab amLODIPine [Norvasc] 2.5 mg PO DAILY Albuterol Inhaler [Ventolin Hfa Inhaler] 2 puff INHALATION RT-Q6H PRN PRN Reason: Shortness Of Breath Or Wheezing Pantoprazole [Protonix] 40 mg PO DAILY Lisinopril [Zestril] 10 mg PO BID Insulin Glargine [Lantus] 60 unit SQ DAILY metFORMIN HCL ER [Glucophage Xr] 1,000 mg PO BID Discharge Medication List Loratadine 10 mg PO DAILY 09/01/16 [History] Aspirin 81 mg PO DAILY #30 chew 10/26/16 [Rx] Atorvastatin [Lipitor] 40 mg PO HS #30 tab 10/26/16 [Rx] Metoprolol Tartrate [Lopressor] 50 mg PO TID #60 tab 10/26/16 [Rx] Repaglinide [Prandin] 2 mg PO TID #0 10/26/16 [Rx] Albuterol Inhaler [Ventolin Hfa Inhaler] 2 puff INHALATION RT-Q6H PRN 11/19/18 [History] Insulin Glargine [Lantus] 60 unit SQ DAILY 11/19/18 [History] Lisinopril [Zestril] 10 mg PO BID 11/19/18 [History] Pantoprazole [Protonix] 40 mg PO DAILY 11/19/18 [History] amLODIPine [Norvasc] 2.5 mg PO DAILY 11/19/18 [History] metFORMIN HCL ER [Glucophage Xr] 1,000 mg PO BID 11/19/18 [History] Budesonide [Pulmicort] 0.5 mg INHALATION BID #60 neb 11/21/18 [Rx] Cefdinir [Omnicef] 300 mg PO BID #10 cap 11/21/18 [Rx] Furosemide [Lasix] 40 mg PO DAILY #30 tablet 11/21/18 [Rx] Ipratropium-Albuterol Nebulize [Duoneb 0.5 mg-3 mg/3 ml Soln] 3 ml INHALATION RT-TID #90 ampul.neb 11/21/18 [Rx] Potassium Chloride ER [K-Dur 20] 20 meq PO DAILY #30 tab 11/21/18 [Rx] Follow up Appointment(s)/Referral(s): Kulwant Cochran DO [Primary Care Provider] - 1 Week Elias Devi MD [STAFF PHYSICIAN] - 2 Weeks (Repeat CXR) Patient Instructions/Handouts: COPD (Chronic Obstructive Pulmonary Disease) (DC), Pneumonia (DC) Discharge Disposition: HOME SELF-CARE
--- NOTE | 2018-11-21 16:06 | P.PN ---
Subjective Progress Note Date: 11/21/18 Principal diagnosis: Bilobar pneumonia involving the left upper and left lower lobe On 11/20/2018 the patient was seen in the follow-up. He is currently on a combination of Rocephin and Zithromax regarding the left lung pneumonia. CAT scan of the chest was completed yesterday and it shows patchy airspace disease and consolidation left aspect of the left upper lobe and there is also patchy infiltrate in the left lower lobe posteriorly. There is a small left-sided pleural effusion. Right lung is clear. There is a 4.5 cm fat density in the right cardiac border, consistent with lipoma. There is also 2 x 1 cm pretracheal lymph node. There is a 4.5 cm cyst in the upper lobe of the left kidney. Another cyst in the right kidney. No fever. No chills. Blood sugars are slightly elevated and the patient is on Levemir insulin. The patient was able to give me a sputum sample today. The blood cultures still pending for now. On 11/21/2018 patient seen in follow-up on medical surgical floor. He is awake and alert, sitting up in the chair, in no acute distress, he states his breathing is improving, clinically he is improving, today's chest x-ray has been reviewed, and did not show significant change from prior study, showing left lower and left upper lobe pneumonia and associated effusion. Patient is clinically improving, no fever no chills. White blood cell count is trending down, down to 18.9, electrolytes are within normal limits, B1 is 35 creatinine is 1.09. Blood and urine cultures showed no growth, sputum preliminary Gram stain showed no organisms. Patient has been uncommon addition of Rocephin and Zithromax, and proved, and can be considered for discharge home today. Objective - Vital Signs Vital signs: Vital Signs Temp 97.0 F L 11/21/18 13:08 Pulse 99 11/21/18 13:08 Resp 18 11/21/18 13:08 BP 141/80 11/21/18 13:08 Pulse Ox 92 L 11/21/18 13:08 Intake & Output 11/20/18 11/21/18 11/21/18 18:59 06:59 18:59 Intake Total 540 Balance 540 Intake: Oral 540 Other: Voiding Method Toilet # Voids 3 2 3 # Bowel Movements 0 - Exam GENERAL EXAM: Alert, pleasant, 63-year-old white male, comfortable in no apparent distress. HEAD: Normocephalic/atraumatic. EYES: Normal reaction of pupils, equal size. Conjunctiva pink, sclera white. NOSE: Clear with pink turbinates. THROAT: No erythema or exudates. NECK: No masses, no JVD, no thyroid enlargement, no adenopathy. CHEST: No chest wall deformity. Symmetrical expansion. LUNGS: Equal air entry with few crackles in the left lung, no wheeze, rhonchi or dullness. CVS: Regular rate and rhythm, normal S1 and S2, no gallops, no murmurs, no rubs ABDOMEN: Soft, nontender. No hepatosplenomegaly, normal bowel sounds, no guarding or rigidity. EXTREMITIES: No clubbing, no edema, no cyanosis, 2+ pulses and upper and lower extremities. MUSCULOSKELETAL: Muscle strength and tone normal. SPINE: No scoliosis or deformity SKIN: No rashes CENTRAL NERVOUS SYSTEM: Alert and oriented -3. No focal deficits, tone is normal in all 4 extremities. PSYCHIATRIC: Alert and oriented -3. Appropriate affect. Intact judgment and insight. - Labs CBC & Chem 7: 11/21/18 08:39 11/21/18 08:39 Labs: Abnormal Lab Results - Last 24 Hours (Table) 11/20/18 11/20/18 11/21/18 Range/Units 16:41 20:33 06:54 WBC (3.8-10.6) k/uL Neutrophils # (1.3-7.7) k/uL Lymphocytes # (1.0-4.8) k/uL BUN (9-20) mg/dL Glucose (74-99) mg/dL POC Glucose (mg/dL) 345 H 371 H 241 H (75-99) mg/dL Calcium (8.4-10.2) mg/dL Albumin (3.5-5.0) g/dL 11/21/18 11/21/18 11/21/18 Range/Units 08:39 08:39 11:40 WBC 18.9 H (3.8-10.6) k/uL Neutrophils # 17.4 H (1.3-7.7) k/uL Lymphocytes # 0.7 L (1.0-4.8) k/uL BUN 35 H (9-20) mg/dL Glucose 335 H (74-99) mg/dL POC Glucose (mg/dL) 393 H (75-99) mg/dL Calcium 8.3 L (8.4-10.2) mg/dL Albumin 3.1 L (3.5-5.0) g/dL Microbiology - Last 24 Hours (Table) 11/19/18 10:34 Blood Culture - Preliminary Blood No Growth after 48 hours 11/20/18 10:00 Gram Stain - Preliminary Sputum 11/19/18 10:48 Urine Culture - Final Urine,Voided Assessment and Plan Plan: 1 bilobar pneumonia involving the left upper and left lower lobe. No evidence of any malignancy and the findings are consistent with consolidation mainly in the left upper lobe and to lesser extent in the left lower lobe with a small left-sided pleural effusion 2 acute shortness of breath secondary to above 3 acute hypoxemic respiratory failure currently on 2 L of oxygen by nasal cannula 4 acute leukocytosis 5 history of severe aortic stenosis with a previous aortic valve replacement b ack in October 2016 6 diabetes mellitus type 2 with insulin dependence 7 hypertension 8 hyperlipidemia 9 mild coronary artery disease 10 obesity with a BMI of 36.5 11 obstructive sleep apnea, and patient is on BiPAP therapy, with pressures of 14 and 9. Plan: Patient is clinically improving, although chest x-ray doesn't show significant improvement in the appearance of left upper and lower lobe pneumonia, has been no fever or chills, all culture data remain negative thus far. Stable for d ischarge today outpatient follow-up in the office in 7-10 days I performed a history & physical examination of the patient and discussed their management with my nurse practitioner, Princess Corea. I reviewed the nurse practitioner's note and agree with the documented findings and plan of care. L olimpia sounds are positive for limited crackles over left lung. The findings and the impression was discussed with the patient. I attest to the documentation by the nurse practitioner. Time with Patient: Less than 30
== END 2018-11-21 14:28 | disposition home or self-care (01) | DRG 871 ==
LOC: EC 09:43 → 4MS4W 12:00
PROVIDERS: ADMIT Internal Medicine Geriatric Medicine; ATTEND Internal Medicine Geriatric Medicine
DX: A41.50 Gram-negative sepsis, unspecified (principal); J15.6 Pneumonia due to other Gram-negative bacteria; J96.01 Acute respiratory failure with hypoxia; J44.0 Chronic obstructive pulmonary disease with (acute) lower respiratory infection; J44.1 Chronic obstructive pulmonary disease with (acute) exacerbation; Z87.891 Personal history of nicotine dependence; D17.9 Benign lipomatous neoplasm, unspecified; E11.65 Type 2 diabetes mellitus with hyperglycemia; E78.00 Pure hypercholesterolemia, unspecified; E78.5 Hyperlipidemia, unspecified; G47.33 Obstructive sleep apnea (adult) (pediatric); Z99.89 Dependence on other enabling machines and devices; I10 Essential (primary) hypertension; I25.10 Atherosclerotic heart disease of native coronary artery without angina pectoris; I35.0 Nonrheumatic aortic (valve) stenosis; I49.3 Ventricular premature depolarization; K21.9 Gastro-esophageal reflux disease without esophagitis; N28.1 Cyst of kidney, acquired; T38.0X5A Adverse effect of glucocorticoids and synthetic analogues, initial encounter; Z79.4 Long term (current) use of insulin; Z79.82 Long term (current) use of aspirin; Z79.899 Other long term (current) drug therapy; Z95.2 Presence of prosthetic heart valve; Z82.49 Family history of ischemic heart disease and other diseases of the circulatory system; Z80.9 Family history of malignant neoplasm, unspecified; Z87.01 Personal history of pneumonia (recurrent); Z90.49 Acquired absence of other specified parts of digestive tract; I49.9 Cardiac arrhythmia, unspecified; E66.9 Obesity, unspecified; Z68.36 Body mass index [BMI] 36.0-36.9, adult
CPT/HCPCS: 36415; 71046; 71260; 80053; 81001; 83605; 84484; 85025; 85610; 85730; 87040; 87070; 87086; 87205; 87502; 93005; 94640; 96365; 96375; 99291

== ENCOUNTER → 2019-06-03 | Outpatient (CLI) | payer MEDICARE, OTHER ==
[2019-06-03 16:50] LABS: African American GFR (CKD) 90.5 (60.0-200.0); Albumin 3.8 g/dL (3.80-4.90); Albumin/Globulin Ratio 1.65 (1.60-3.17); Anion Gap 6.9 mmol/L (4.00-12.00); Carbon Dioxide 29.1 mmol/L (21.6-31.8); Chol/HDL Ratio 4.89; Globulin 2.3 g/dL (1.6-3.3); LDL Cholesterol,Calculated 83.2 mg/dL (0.0-131.0); Non-African American GFR(CKD) 78.1 (60.0-200.0); Potassium 4.7 mmol/L (3.5-5.5); Total Bilirubin 0.7 mg/dL (0.2-1.2); Total Protein 6.1 g/dL (6.2-8.2); VLDL Calculation 25.8 mg/dL (5.00-40.00)
[2019-06-03 18:36] LABS: Urine Creatinine 111.7 mg/dL
== END | disposition home or self-care (01) ==
LOC: LABWHC1 08:41
PROVIDERS: ATTEND Internal Medicine Endocrinology, Diabetes & Metabolism
DX: E11.65 Type 2 diabetes mellitus with hyperglycemia (principal); E78.2 Mixed hyperlipidemia
CPT/HCPCS: 36415; 80053; 80061; 82043; 82570; 84443

== ENCOUNTER → 2019-09-17 | Outpatient (CLI) | payer MEDICARE, OTHER ==
--- NOTE | 2019-09-17 09:52 | XR ---
EXAMINATION TYPE: XR abdomen 1V DATE OF EXAM: 09/17/2019 COMPARISON: NONE HISTORY: Abdominal pain with constipation TECHNIQUE: Single upright view the abdomen was obtained FINDINGS: Due to patient body habitus the entirety of the abdomen is not visualized on 2 upright view s. No gross evidence of pneumoperitoneum is seen. Surgical clips are noted in the right upper quadran t. Increased density over the abdomen could relate to copious soft tissues or ascites. Lung bases are well aerated. No dilated large small bowel seen. Osseous structures are largely obscured. At least m oderate degenerative change of the lumbosacral junction. Single surgical clip in the left hemipelvis. IMPRESSION: Severely limited exam given patient body habitus. Increased density over the abdomen may relate to copious soft tissues or abdominal ascites. Overall nonobstructive bowel gas pattern.
== END | disposition home or self-care (01) ==
LOC: RADXRMAIN 09:09
PROVIDERS: ATTEND Family Medicine
DX: R93.5 Abnormal findings on diagnostic imaging of other abdominal regions, including retroperitoneum (principal); R10.9 Unspecified abdominal pain
CPT/HCPCS: 74018

== ENCOUNTER 2019-11-29 11:06 | Emergency (ER) | payer MEDICARE, OTHER ==
[2019-11-29 11:21] VITALS: RESP 18
[2019-11-29 12:30] LABS: Basophils # (A) 0.1 k/uL (0-0.2); Basophils % (A) 1 %; Eosinophils # (A) 0.3 k/uL (0-0.7); Eosinophils % (A) 3 %; HCT 42.9 % (39.0-53.0); HGB 13.6 gm/dL (13.0-17.5); Lymphocytes # (A) 0.9 k/uL (1.0-4.8); Lymphocytes % (A) 8 %; MCHC 31.7 g/dL (31.0-37.0); MCV 88.4 fL (80.0-100.0); Mean Platelet Volume 7.7; Monocytes # (A) 0.8 k/uL (0-1.0); Monocytes % (A) 8 %; Neutrophils # (A) 8.7 k/uL (1.3-7.7); Neutrophils % (A) 79 %; Platelet Count 211 k/uL (150-450); RBC 4.85 m/uL (4.30-5.90); RDW 14.6 % (11.5-15.5)
--- NOTE | 2019-11-29 12:40 | XR ---
EXAMINATION TYPE: XR lumbosacral spine min 4V DATE OF EXAM: 11/29/2019 COMPARISON: NONE HISTORY: 64-year-old male with chronic low back pain TECHNIQUE: 5 views FINDINGS: Small T12 ribs. Cholecystectomy clips. 5 lumbar type vertebral bodies. Severe hypertrophic facet arthropathy lower lumbar spine. Minimal anterior wedging L1 vertebral body, chronic as it is un changed from 11/19/2018. Some incomplete bridging anterior endplate spondylosis upper and mid lumbar s pine. Mild to moderate disc space narrowing at L5-S1. IMPRESSION: Severe hypertrophic facet arthropathy lower lumbar spine. Mild to moderate degenerative disc disease L5-S1. Minimal anterior wedging at L1 is chronic.
[2019-11-29 12:41] LABS: ALT 34 U/L (4-49); AST 31 U/L (17-59); Acetaminophen 12.4 ug/mL; African American GFR (CKD) >90 (>60 ml/min/1.73 sqM); Albumin 3.2 g/dL (3.5-5.0); Alkaline Phosphatase 159 U/L (38-126); Anion Gap 10 mmol/L; Blood Urea Nitrogen 16 mg/dL (9-20); Calcium 8.7 mg/dL (8.4-10.2); Carbon Dioxide 26 mmol/L (22-30); Chloride 98 mmol/L (98-107); Glucose 179 mg/dL (74-99); Non-African American GFR(CKD) >90 (>60 ml/min/1.73 sqM); Potassium 4.9 mmol/L (3.5-5.1); Sodium 134 mmol/L (137-145); Total Bilirubin 0.6 mg/dL (0.2-1.3); Total Protein 6.3 g/dL (6.3-8.2)
[2019-11-29] MEDS ORDERED: traMADol 50 MG STARTER PACK 3 TAB BTL PO STA (12:59)
--- NOTE | 2019-11-29 13:00 | ED ---
Back Pain HPI - General Chief Complaint: Back Pain/Injury Stated Complaint: Back pain Time Seen by Provider: 11/29/19 11:25 Source: patient, RN notes reviewed Mode of arrival: ambulatory Limitations: no limitations - History of Present Illness Initial Comments: 64-year-old male presents emergency Department chief complaint of low back pain. This over the last several months. Patient states that some nights unbearable. He states that his been taken Tylenol which alleviates up sometimes has not alleviated symptoms. Patient states he took some Tylenol earlier today which his pain is all gone. He denies any bowel, bladder incontinence or retention. Denies any saddle anesthesias. Denies any abdominal plain some dysuria no hematuria no flank pain. Patient states when the pain is present is worse with movement. Patient states is given a muscle relaxer by his PCP but states it makes him dizzy so he stopped it. - Related Data Home Medications Medication Instructions Recorded Confirmed Loratadine 10 mg PO DAILY 09/01/16 11/19/18 Albuterol Inhaler (Mhu) [Ventolin 2 puff INHALATION RT-Q6H PRN 11/19/18 11/19/18 Hfa Inhaler (Mhu)] Insulin Glargine [Lantus] 60 unit SQ DAILY 11/19/18 11/19/18 Lisinopril [Zestril] 10 mg PO BID 11/19/18 11/19/18 Pantoprazole [Protonix] 40 mg PO DAILY 11/19/18 11/19/18 amLODIPine [Norvasc] 2.5 mg PO DAILY 11/19/18 11/19/18 metFORMIN HCL ER [Glucophage Xr] 1,000 mg PO BID 11/19/18 11/19/18 Previous Rx's Medication Instructions Recorded Aspirin 81 mg PO DAILY #30 chew 10/26/16 Atorvastatin [Lipitor] 40 mg PO HS #30 tab 10/26/16 Metoprolol Tartrate [Lopressor] 50 mg PO TID #60 tab 10/26/16 Repaglinide [Prandin] 2 mg PO TID #0 10/26/16 Budesonide [Pulmicort] 0.5 mg INHALATION BID #60 neb 11/21/18 Cefdinir [Omnicef] 300 mg PO BID #10 cap 11/21/18 Furosemide [Lasix] 40 mg PO DAILY #30 tablet 11/21/18 Ipratropium-Albuterol Nebulize 3 ml INHALATION RT-TID #90 11/21/18 [Duoneb 0.5 mg-3 mg/3 ml Soln] ampul.neb Potassium Chloride ER [K-Dur 20] 20 meq PO DAILY #30 tab 11/21/18 Ibuprofen [Motrin] 600 mg PO Q8HR PRN #20 tab 11/29/19 Allergies Allergy/AdvReac Type Severity Reaction Status Date / Time No Known Allergies Allergy Verified 11/19/18 10:03 Review of Systems ROS Statement: Those systems with pertinent positive or pertinent negative responses have been documented in the HPI. ROS Other: All systems not noted in ROS Statement are negative. Past Medical History Past Medical History: Chest Pain / Angina, COPD, Diabetes Mellitus, GERD/Reflux, Hyperlipidemia, Hypertension, Pneumonia, Sleep Apnea/CPAP/BIPAP Additional Past Medical History / Comment(s): IDDM type II, TRINITY with CPap, murmur, renal cyst History of Any Multi-Drug Resistant Organisms: None Reported Past Surgical History: Cardiac Valve Replacement, Cholecystectomy, Heart Catheterization Additional Past Surgical History / Comment(s): JOVANI, aortic valve replacement in 2017, PICC colonoscopy. Past Anesthesia/Blood Transfusion Reactions: No Reported Reaction Past Psychological History: No Psychological Hx Reported Smoking Status: Former smoker Past Alcohol Use History: Rare Past Drug Use History: None Reported - Past Family History Father Family Medical History: Cancer Mother Family Medical History: No Reported History Additional Family Medical History / Comment(s): Mother is 90yrs old and recently told she has cardiac valve disease. General Exam Limitations: no limitations General appearance: alert, in no apparent distress Head exam: Present: atraumatic, normocephalic, normal inspection Eye exam: Present: normal appearance, PERRL, EOMI. Absent: scleral icterus, conjunctival injection, periorbital swelling ENT exam: Present: normal exam, mucous membranes moist Neck exam: Present: normal inspection. Absent: tenderness, meningismus, lymphadenopathy Respiratory exam: Present: normal lung sounds bilaterally. Absent: respiratory distress, wheezes, rales, rhonchi, stridor Cardiovascular Exam: Present: regular rate, normal rhythm, normal heart sounds. Absent: systolic murmur, diastolic murmur, rubs, gallop, clicks GI/Abdominal exam: Present: soft, normal bowel sounds. Absent: distended, tenderness, guarding, rebound, rigid Extremities exam: Present: normal inspection, full ROM, normal capillary refill, other ( lower extremity strength equal bilaterally equal color equal warmth neurovascular intact). Absent: tenderness, pedal edema, joint swelling, calf tenderness Back exam: Present: normal inspection, full ROM, tenderness ( mild lumbar), paraspinal tenderness. Absent: vertebral tenderness Neurological exam: Present: alert, oriented X3, CN II-XII intact, reflexes normal. Absent: motor sensory deficit Course Vital Signs 11/29/19 11:13 Temperature 98.6 F Pulse Rate 79 Respiratory 18 Rate Blood Pressure 172/95 O2 Sat by Pulse 97 Oximetry Medical Decision Making - Medical Decision Making patient labs regarding acetaminophen intake does show therapeutic level, no significant transaminitis. We discussed appropriate dosing of acetaminophen. Patient be friend altering pain medication in the meantime and is scheduled see Dr. Priest. He has no red flag symptoms. Return parameters were discussed. - Lab Data Result diagrams: 11/29/19 12:04 11/29/19 12:04 Lab Results 11/29/19 11/29/19 Range/Units 12:04 12:04 WBC 11.0 H (3.8-10.6) k/uL RBC 4.85 (4.30-5.90) m/uL Hgb 13.6 (13.0-17.5) gm/dL Hct 42.9 (39.0-53.0) % MCV 88.4 (80.0-100.0) fL MCH 28.0 (25.0-35.0) pg MCHC 31.7 (31.0-37.0) g/dL RDW 14.6 (11.5-15.5) % Plt Count 211 (150-450) k/uL Neutrophils % 79 % Lymphocytes % 8 % Monocytes % 8 % Eosinophils % 3 % Basophils % 1 % Neutrophils # 8.7 H (1.3-7.7) k/uL Lymphocytes # 0.9 L (1.0-4.8) k/uL Monocytes # 0.8 (0-1.0) k/uL Eosinophils # 0.3 (0-0.7) k/uL Basophils # 0.1 (0-0.2) k/uL Sodium 134 L (137-145) mmol/L Potassium 4.9 (3.5-5.1) mmol/L Chloride 98 (98-107) mmol/L Carbon Dioxide 26 (22-30) mmol/L Anion Gap 10 mmol/L BUN 16 (9-20) mg/dL Creatinine 0.64 L (0.66-1.25) mg/dL Est GFR (CKD-EPI)AfAm >90 (>60 ml/min/1.73 sqM) Est GFR (CKD-EPI)NonAf >90 (>60 ml/min/1.73 sqM) Glucose 179 H (74-99) mg/dL Calcium 8.7 (8.4-10.2) mg/dL Total Bilirubin 0.6 (0.2-1.3) mg/dL AST 31 (17-59) U/L ALT 34 (4-49) U/L Alkaline Phosphatase 159 H (38-126) U/L Total Protein 6.3 (6.3-8.2) g/dL Albumin 3.2 L (3.5-5.0) g/dL Acetaminophen 12.4 ug/mL Disposition Clinical Impression: Lumbar back pain Disposition: HOME SELF-CARE Condition: Stable Instructions (If sedation given, give patient instructions): Acute Low Back Pain (ED) Additional Instructions: Please return to the Emergency Department if symptoms worsen or any other concerns. Prescriptions: Ibuprofen [Motrin] 600 mg PO Q8HR PRN #20 tab PRN Reason: Pain Is patient prescribed a controlled substance at d/c from ED?: No Referrals: Kulwant Cochran DO [Primary Care Provider] - 1-2 days Time of Disposition: 12:59
[2019-11-29 13:25] VITALS: BP 149/91; PULSE 72; TEMP 99.4
== END 2019-11-29 13:24 | disposition home or self-care (01) ==
LOC: EC 11:06
DX: M54.5 Low back pain (principal); J44.9 Chronic obstructive pulmonary disease, unspecified; E11.9 Type 2 diabetes mellitus without complications; K21.9 Gastro-esophageal reflux disease without esophagitis; I10 Essential (primary) hypertension; G47.33 Obstructive sleep apnea (adult) (pediatric); Z99.89 Dependence on other enabling machines and devices; Z79.51 Long term (current) use of inhaled steroids; Z79.899 Other long term (current) drug therapy; Z79.84 Long term (current) use of oral hypoglycemic drugs; Z95.4 Presence of other heart-valve replacement; Z87.891 Personal history of nicotine dependence
CPT/HCPCS: 36415; 80053; 85025; 72110; 99283; G0480; 80329

== ENCOUNTER → 2019-12-19 | Outpatient (CLI) | payer MEDICARE, OTHER ==
[2019-12-19 07:26] LABS: African American GFR (CKD) >90 (>60 ml/min/1.73 sqM); Blood Urea Nitrogen 16 mg/dL (9-20); Non-African American GFR(CKD) >90 (>60 ml/min/1.73 sqM)
--- NOTE | 2019-12-19 11:04 | CT ---
EXAMINATION TYPE: CT ChestAbdPelvis wo/w con DATE OF EXAM: 12/19/2019 COMPARISON: CT chest 11/19/2018 HISTORY: 64-year-old male metastatic cancer TECHNIQUE: Contiguous axial scanning of the chest, abdomen, and pelvis performed without and with IV Contrast, patient injected with 100 mL of Isovue 300. Delayed images through the kidneys were obtaine d. Coronal/sagittal reconstructions performed. CT DLP: 3583 mGycm Automated exposure control for dose reduction was used. FINDINGS: CHEST: Median sternotomy wires are present with prosthetic aortic valve. Aorta normal caliber with mild atelectatic arch calcifications and conventional arch vessel branching anatomy. There is mildly enlarged caliber to the main right and left pulmonary arteries up to 2.6 cm suggestin g underlying pulmonary arterial hypertension. 8 mm low right paratracheal lymph node. No thoracic lymphadenopathy by CT size criteria. Calcified granuloma lateral left midlung. 1.6 cm superior segment right lower lobe pulmonary nodule, axial image 26, unchanged. Mild to moderate upper lung emphysema. Strandy scarring or atelectasis at the left lower lobe. Interval resolution of the previous left mid and lower lung pneumonia and left effusion. ABDOMEN: Multiple hepatic hypodensities measuring up to 2.4 cm inferior right upper lobe. Proximally 14 lesion s are present on both sides. Not clearly seen on 11/19/2018. Portal venous system is patent. No biliary ductal dilatation. Cholecystectomy clips. Adrenal glands and spleen appear within normal limits. Hypodense lesions within both kidneys measuring up to 2.8 cm on the right and 5.6 cm on the left sugg estive of cysts. Additional parapelvic cyst measuring up to 1.9 cm on the left. There seems to be a large irregular mass involving the pancreatic tail measuring 7.0 x 6.1 cm. There are satellite nodularity and extensive anterior peritoneal and omental nodularity measuring up to 3.7 cm. 2.0 cm left periaortic retroperitoneal lymph node just below the takeoff of the left renal artery. Mild right perihepatic ascites. No dilated small bowel or free air. Normal appendix. Moderate stool burden. Sigmoid diverticulosis without pericolonic inflammatory siegel e. Mild atherosclerotic calcifications for renal abdominal aorta PELVIS: Bladder is urine distended. Prostate gland measures 4.9 cm length. Mild pelvic free fluid. No pelvic lymphadenopathy seen. BONES: Indeterminate mixed sclerotic and lucent lesion measuring 2.0 cm within the left hemisacrum, axial im age 89. Hypertrophic facet arthropathy lower lumbar spine. Heterogeneous sclerosis of L2 and L5 verte bral bodies. [facility] within the mid thoracic spine. Normal variant sternal foramen. IMPRESSION: 1. LARGE IRREGULAR MASS OF THE PANCREATIC TAIL (SUSPICIOUS FOR PANCREATIC ADENOCARCINOMA) MEASURING 7 .0 X 6.1 CM WITH SATELLITE NODULARITY AND EXTENSIVE ANTERIOR PERITONEAL AND OMENTAL NODULARITY MEASUR ING UP TO 3.7 CM SUGGESTING METASTATIC DISEASE. METASTATIC 2 CM LEFT PARA-AORTIC LYMPH NODE. 2. APPROXIMATELY 14 HEPATIC LESIONS MEASURING UP TO 2.4 CM SUGGEST METASTATIC DISEASE. 3. PROBABLE METASTATIC 1.6 CM RIGHT LOWER LOBE PULMONARY NODULE, STABLE FROM PRIOR. SCLEROSIS OF L2 A ND L5 WELL A 2 CM MIXED SCLEROTIC AND LUCENT LESION IN THE LEFT SACRUM SUSPICIOUS FOR OSSEOUS M ETASTASES. 4. NEW MILD PERIHEPATIC ASCITES. MILD PELVIC FREE FLUID. 5. INCIDENTAL: SIGMOID DIVERTICULOSIS. COPD WITH MILD TO MODERATE EMPHYSEMA. RESOLUTION OF PREVIOUS LEFT LUNG PNEUMONIA.
--- NOTE | 2019-12-19 11:08 | CT ---
EXAMINATION TYPE: CT brain wo/w con DATE OF EXAM: 12/19/2019 COMPARISON: None HISTORY: . C4-year-old male metastatic cancer TECHNIQUE: Examination was done in axial plane before and after administration of 100 mL 300 IV intr avenous contrast. Coronal and sagittal reconstructions performed. CT DLP: 2614.88 mGycm Automated exposure control for dose reduction was used. FINDINGS: There is no evidence of acute intracranial hemorrhage, acute ischemic changes, mass, mass-effect, or extra-axial fluid collection. There is no effacement of cerebral sulci or basal subarachnoid cister ns. There is no hydrocephalus. There is no midline shift. Madsen-white matter distinction is preserv ed. Mild bifrontal atrophy. Mild patchy white matter hypodensities in both cerebral hemispheres. After IV contrast administration. Dural venous sinuses are patent. No enhancing intracranial lesions seen. Mastoid air cells are well pneumatized. Moderate mucosal thickening posterior right ethmoid air cells . Globes are intact. IMPRESSION: 1. No acute intracranial abnormality seen. Mild bifrontal atrophy and changes of chronic small vessel ischemic disease. 2. No suspicious enhancing intracranial lesions identified at this time. 3. Moderate chronic right ethmoid sinus disease.
== END | disposition home or self-care (01) ==
LOC: RADCTMAIN 06:38
PROVIDERS: ATTEND Family Medicine
DX: C79.9 Secondary malignant neoplasm of unspecified site (principal); K86.89 Other specified diseases of pancreas; J43.9 Emphysema, unspecified; K57.30 Diverticulosis of large intestine without perforation or abscess without bleeding; R18.8 Other ascites
CPT/HCPCS: 82565; 84520; 70470; 71270; 74178; 36415; Q9967

== ENCOUNTER → 2019-12-27 | Outpatient (CLI) | payer MEDICARE, OTHER ==
--- NOTE | 2020-01-01 16:50 | PE ---
Nuclear medicine PET/CT HISTORY: Pancreas carcinoma, initial Patient received 10 mCi F-18 FDG intravenously in delayed scanning was performed from skull base to t he mid thighs. An attenuation correction CT, localization CT scan was performed. Correlation to CT scan 12/19/2019 Chest and neck: there is no evident supraclavicular or cervical adenopathy.1 there is a calcified nod ule in the left upper lobe. No pleural or pericardial effusion. ABDOMEN: There is small amount of ascites about the liver. The scattered soft tissue densities within the mesentery which likely represent omental caking show scattered areas of associated hypermetaboli c uptake. Patient's pancreatic mass is again noted with uptake, there are foci within the liver that show increased uptake. Osseous structures show multiple focal areas of abnormal uptake to include proximal lower extremities , bilateral upper extremities including the right humerus, left humeral head, multiple thoracic and l umbar vertebral bodies, pelvis, medial left clavicle and ribs. IMPRESSION: Metastatic disease
== END | disposition home or self-care (01) ==
LOC: RADPETMAIN 16:55
PROVIDERS: ATTEND Internal Medicine Hematology & Oncology
DX: C25.2 Malignant neoplasm of tail of pancreas (principal)
CPT/HCPCS: 78815; A9552

== ENCOUNTER → 2019-12-30 | Outpatient (CLI) | payer MEDICARE, OTHER ==
--- NOTE | 2019-12-30 14:22 | US ---
EXAMINATION TYPE: US venous doppler duplex LE BI DATE OF EXAM: 12/30/2019 2:08 PM COMPARISON: NONE CLINICAL HISTORY: 64-year-old male M79.662, M79.661, R22.42, R2241 Pain/swelling kasie; bilateral LE sw elling with left ankle greater than right ankle; greatly distended abdomen; liver mass SIDE PERFORMED: Bilateral TECHNIQUE: The lower extremity deep venous system is examined utilizing real time linear array sonog karen with graded compression, doppler sonography and color-flow sonography. FINDINGS: VESSELS IMAGED: Common Femoral Vein Deep Femoral Vein Greater Saphenous Vein * Femoral Vein Popliteal Vein Small Saphenous Vein * Proximal Calf Veins Posterior tibial veins (* superficial vessels) Right Leg: Negative for DVT Left Leg: Negative for DVT Left ankle edema channels are noted more pronounced than at right ankle. IMPRESSION: No evidence for DVT within the bilateral lower extremities. Prominent subcutaneous edema at the left greater than right ankles.
== END | disposition home or self-care (01) ==
LOC: RADUSWWP 13:34
PROVIDERS: ATTEND Internal Medicine Hematology & Oncology
DX: M79.661 Pain in right lower leg (principal); M79.662 Pain in left lower leg; R22.43 Localized swelling, mass and lump, lower limb, bilateral
CPT/HCPCS: 93970

== ENCOUNTER 2020-01-03 08:46 | Day surgery (SDC) | payer MEDICARE, OTHER ==
[2020-01-03 09:23] LABS: Mean Platelet Volume 7.7; Platelet Count 250 k/uL (150-450)
[2020-01-03] MEDS ORDERED: ALPRAZolam 0.25 MG TAB PO STA (09:23)
[2020-01-03 09:37] LABS: Prothrombin Time 10.2 sec (9.0-12.0)
[2020-01-03] MEDS: HYDROmorphone 0.5 MG/0.5 ML SYRINGE IVP STA ×2 (10:23→11:16)
[2020-01-03] MEDS ORDERED: HYDROcodone/APAP 5-325MG 1 EACH TAB PO PRN (11:05)
--- NOTE | 2020-01-03 11:10 | US ---
EXAMINATION TYPE: US biopsy liver DATE OF EXAM: 01/03/2020 COMPARISON: NONE HISTORY: Pancreatic mass with liver masses The procedure was explained to the patient. The risks, complications, benefits, and alternatives wer e discussed and any questions were answered. Informed consent was obtained. Patient was placed left lateral position on the ultrasound table and prepped and draped in the usual sterile fashion. All elements of maximal barrier and sterile technique utilized. Utilizing CT guidance, an 20 gauge core biopsy needle access into the right lobe of the liver was ac hieved and a single 20 gauge core sample was obtained. The patient was stable throughout the procedu re and remained stable upon discharge. IMPRESSION: 1. Successful core biopsy of the liver.
[2020-01-03 12:51] VITALS: RESP 14
[2020-01-03 14:50] VITALS: BP 107/62; PULSE 96; TEMP 98.5
== END 2020-01-03 15:30 | disposition home or self-care (01) ==
LOC: RADPROMAIN 08:46 → 1SOBS 11:27 → RADPROMAIN 15:30
PROVIDERS: ATTEND Internal Medicine Hematology & Oncology
DX: C78.7 Secondary malignant neoplasm of liver and intrahepatic bile duct (principal); C25.9 Malignant neoplasm of pancreas, unspecified
CPT/HCPCS: 85049; 85610; 36415; 47000; 76942; J1170; 88307; 88341; 88342

== ENCOUNTER 2020-01-10 08:40 | Day surgery (SDC) | payer MEDICARE, OTHER ==
[2020-01-10] MEDS ORDERED: ALPRAZolam 0.25 MG TAB PO STA (08:58)
[2020-01-10 09:37] LABS: Glucose,Whole Blood 172 mg/dL (75-99)
[2020-01-10 10:22] VITALS: RESP 16; TEMP 98.2
[2020-01-10 11:18] VITALS: BP 99/62; PULSE 80
--- NOTE | 2020-01-10 14:31 | US ---
EXAMINATION TYPE: US paracentesis abd w/image DATE OF EXAM: 01/10/2020 COMPARISON: NONE HISTORY: Ascites. PROCEDURE: Maximal barrier technique was utilized. The skin overlying a suitable pocket of fluid was localized with ultrasound and the overlying skin was prepped and draped. Ultrasound was utilized with sterile technique. Lidocaine was used for local anesthesia and a skin yuliet made with a scalpel. Catheter was advanced under direct ultrasound guidance into a suitable pocket of fluid and approximately 4.7 liter s of serous fluid were removed. Catheter was withdrawn and hemostasis achieved. There is no immedia te complication; the patient is discharged in stable condition. IMPRESSION: STATUS POST ULTRASOUND GUIDED PARACENTESIS FOR PALLIATION OF ASCITES. THIS PROCEDURE WA S PERFORMED BY THE UNDERSIGNED.
== END 2020-01-10 11:20 | disposition home or self-care (01) ==
LOC: RADPROMAIN 08:40
PROVIDERS: ATTEND Internal Medicine Hematology & Oncology
DX: R18.8 Other ascites (principal)
CPT/HCPCS: 36415; 49083; 88108; 88305; 88341; 88342

== ENCOUNTER 2020-01-15 16:24 | Inpatient (IN) | payer MEDICARE, OTHER ==
[2020-01-15] MEDS ORDERED: SODIUM CHLORIDE 0.9% 1,000 ML IV STA (16:40)
[2020-01-15 16:51] LABS: Glucose,Whole Blood 48 mg/dL (75-99)
--- NOTE | 2020-01-15 17:02 | ED ---
Recheck HPI - General Chief Complaint: Recheck/Abnormal Lab/Rx Stated Complaint: Fluid Build up Time Seen by Provider: 01/15/20 16:40 Source: patient, RN notes reviewed, old records reviewed Mode of arrival: wheelchair Limitations: no limitations - History of Present Illness Initial Comments: This is a 64-year-old male presents today for evaluation of pain diffuse body pain back pain abdominal pain shortness of breath and can't take a deep breath and is noted to have some confusion. Patient is diagnosis of stage IV pancreatic CVA. Denying fevers. Otherwise patient denies complaints is a poor strain secondary to clinical condition currently. Patient sent DF for evaluation from, [employer] -: month(s) Returns Today for: persistent/worsening pain related to initial visit Symptoms Since Prior Visit: worsening pain Context: ran out of medication Associated Symptoms: shortness of breath, nausea, abdominal pain - Related Data Home Medications Medication Instructions Recorded Confirmed Loratadine 10 mg PO DAILY 09/01/16 01/10/20 Albuterol Inhaler (Mhu) [Ventolin 2 puff INHALATION RT-Q6H PRN 11/19/18 01/10/20 Hfa Inhaler (Mhu)] Insulin Glargine [Lantus] 60 unit SQ HS 11/19/18 01/10/20 Lisinopril [Zestril] 10 mg PO BID 11/19/18 01/10/20 Pantoprazole [Protonix] 40 mg PO DAILY 11/19/18 01/10/20 metFORMIN HCL ER [Glucophage Xr] 1,000 mg PO BID 11/19/18 01/10/20 Furosemide [Lasix] 40 mg PO DAILY PRN 12/25/19 01/10/20 Hydrocodone/Acetaminophen [[place] 1 tab PO TID PRN 12/25/19 01/10/20 10-325] Potassium Chloride ER [K-Dur 20] 20 meq PO DAILY PRN 12/25/19 01/10/20 Tamsulosin HCl [Flomax] 0.4 mg PO DAILY 12/25/19 01/10/20 amLODIPine [Norvasc] 10 mg PO DAILY 12/25/19 01/10/20 Amoxic-Pot Clav 875-125Mg 1 tab PO BID 01/09/20 01/10/20 [Augmentin 875-125] Previous Rx's Medication Instructions Recorded Aspirin 81 mg PO DAILY #30 chew 10/26/16 Atorvastatin [Lipitor] 40 mg PO HS #30 tab 10/26/16 Metoprolol Tartrate [Lopressor] 50 mg PO TID #60 tab 10/26/16 Repaglinide [Prandin] 2 mg PO TID #0 10/26/16 Budesonide [Pulmicort] 0.5 mg INHALATION BID #60 neb 11/21/18 Ipratropium-Albuterol Nebulize 3 ml INHALATION RT-TID #90 11/21/18 [Duoneb 0.5 mg-3 mg/3 ml Soln] ampul.neb Allergies Allergy/AdvReac Type Severity Reaction Status Date / Time No Known Allergies Allergy Verified 01/15/20 16:30 Review of Systems ROS Statement: Those systems with pertinent positive or pertinent negative responses have been documented in the HPI. ROS Other: All systems not noted in ROS Statement are negative. Past Medical History Past Medical History: Cancer, Chest Pain / Angina, COPD, Diabetes Mellitus, GERD/Reflux, Hyperlipidemia, Hypertension, Pneumonia, Sleep Apnea/CPAP/BIPAP Additional Past Medical History / Comment(s): IDDM type II, TRINITY with CPap, murmur, renal cyst, liver mass, pancreatic and liver cancer History of Any Multi-Drug Resistant Organisms: None Reported Past Surgical History: Cardiac Valve Replacement, Cholecystectomy, Heart Catheterization Additional Past Surgical History / Comment(s): JOVANI, aortic valve replacement in 2017, PICC, colonoscopy, liver biopsy metastatic adenocarcinoma pancreatic Past Anesthesia/Blood Transfusion Reactions: No Reported Reaction Past Psychological History: No Psychological Hx Reported Smoking Status: Former smoker Past Alcohol Use History: Rare Past Drug Use History: Marijuana - Past Family History Mother Family Medical History: No Reported History Additional Family Medical History / Comment(s): Mother is 90yrs old and recently told she has cardiac valve disease. Father Family Medical History: Cancer Additional Family Medical History / Comment(s): Luzma of lung cancer that metastasized. General Exam Limitations: no limitations General appearance: alert, in no apparent distress Head exam: Present: atraumatic, normocephalic, normal inspection Eye exam: Present: normal appearance, PERRL, EOMI. Absent: scleral icterus, conjunctival injection, periorbital swelling ENT exam: Present: normal exam, mucous membranes moist Neck exam: Present: normal inspection. Absent: tenderness, meningismus, lymphadenopathy Respiratory exam: Present: normal lung sounds bilaterally. Absent: respiratory distress, wheezes, rales, rhonchi, stridor Cardiovascular Exam: Present: regular rate, normal rhythm, normal heart sounds. Absent: systolic murmur, diastolic murmur, rubs, gallop, clicks GI/Abdominal exam: Present: soft, normal bowel sounds. Absent: distended, tenderness, guarding, rebound, rigid Extremities exam: Present: normal inspection, full ROM, normal capillary refill. Absent: tenderness, pedal edema, joint swelling, calf tenderness Back exam: Present: normal inspection Neurological exam: Present: alert, oriented X3, CN II-XII intact Psychiatric exam: Present: normal affect, normal mood Skin exam: Present: warm, dry, intact, normal color. Absent: rash Course Vital Signs 01/15/20 16:26 Temperature 97.4 F L Pulse Rate 79 Respiratory 18 Rate Blood Pressure 85/54 O2 Sat by Pulse 94 L Oximetry - Reevaluation(s) Reevaluation #1: 01/15/20 17:38 Medical records reviewed Reevaluation #2: 01/15/20 17:38 Pain is improved - Consultations Consultation #1: Spoke with Dr. Gooden agrees to admit patient Medical Decision Making - Medical Decision Making 64 male DF for evaluation patient for multiple complaints, as noted to be confused here in the ER, patient has cancer known stage IV cancer and severe cancer pain. Patient also has increasing ascites will admit for therapeutic paracentesis pain control - Lab Data Lab Results 01/15/20 01/15/20 Range/Units 16:41 17:11 POC Glucose (mg/dL) 48 L 193 H (75-99) mg/dL POC Glu [employer] ID Selam Mckeon Rachel - EKG Data -: EKG Interpreted by Me (EKG sinus sinus rhythm 80 by mouth 166 QRS 104 QTC 410) - Radiology Data Radiology results: report reviewed (Chest x-rays negative for acute disease), image reviewed Disposition Clinical Impression: Cancer associated pain, Ascites, Altered mental state Disposition: ADMITTED IP TO THIS [facility] Condition: Fair Is patient prescribed a controlled substance at d/c from ED?: No Referrals: Kulwant Cochran DO [Primary Care Provider] - 1-2 days
[2020-01-15 17:13] LABS: Glucose,Whole Blood 193 mg/dL (75-99)
[2020-01-15] MEDS ORDERED: ONDANSETRON 4 MG/2 ML VIAL IVP PRN (17:33)
[2020-01-15] MEDS ORDERED: ONDANSETRON 4 MG/2 ML VIAL IVP STA (17:33)
[2020-01-15] MEDS ORDERED: HYDROmorphone 1 MG/ML 1 ML SYRINGE IVP STA (17:33)
[2020-01-15] MEDS: DEXTROSE 50% SYRINGE 50 ML IVP STA ×2 (17:37→18:08)
[2020-01-15 17:46] LABS: Albumin 2.4 g/dL (3.5-5.0); Calcium 8.1 mg/dL (8.4-10.2); Magnesium 2.2 mg/dL (1.6-2.3); Phosphorus 6.7 mg/dL (2.5-4.5); Total Bilirubin 0.9 mg/dL (0.2-1.3); Total Protein 5.4 g/dL (6.3-8.2)
[2020-01-15 17:47] LABS: Appearance,Urine Clear (Clear); Basophils % (A) 0 %; Bilirubin,Urine Negative (Negative); Blood,Urine Negative (Negative); Color,Urine Yellow; Eosinophils # (A) 0.2 k/uL (0-0.7); Eosinophils % (A) 1 %; Glucose,Urine (UA) Negative (Negative); HCT 36.7 % (39.0-53.0); HGB 12.4 gm/dL (13.0-17.5); Ketones,Urine Negative (Negative); Leukocyte Esterase,Urine Negative (Negative); Lymphocytes # (A) 0.3 k/uL (1.0-4.8); Lymphocytes % (A) 2 %; MCH 29.2 pg (25.0-35.0); MCHC 33.9 g/dL (31.0-37.0); Mean Platelet Volume 7.4; Monocytes % (A) 5 %; Neutrophils # (A) 17.6 k/uL (1.3-7.7); Neutrophils % (A) 91 %; Nitrite,Urine Negative (Negative); Platelet Count 237 k/uL (150-450); Protein,Urine Trace (Negative); RBC 4.26 m/uL (4.30-5.90); RDW 14.1 % (11.5-15.5); Specific Gravity,Urine 1.018 (1.001-1.035); WBC 19.3 k/uL (3.8-10.6)
[2020-01-15 17:49] LABS: Potassium 6.5 mmol/L (3.5-5.1)
[2020-01-15 17:50] LABS: Partial Thromboplastin Time 24.7 sec (22.0-30.0); Prothrombin Time 10.3 sec (9.0-12.0)
[2020-01-15 18:03] LABS: Glucose,Whole Blood 64 mg/dL (75-99)
[2020-01-15 18:27] LABS: Glucose,Whole Blood 126 mg/dL (75-99)
--- NOTE | 2020-01-15 18:28 | XR ---
EXAMINATION TYPE: XR chest 2V DATE OF EXAM: 01/15/2020 COMPARISON: 01/02/2019 HISTORY: Shortness of breath TECHNIQUE: Frontal and lateral views of the chest are obtained. FINDINGS: Scattered senescent parenchymal changes noted. Hyperinflation compatible with COPD. No evidence for infiltrate. No evidence for atelectasis. Heart size is stable. Mediastinal structures are stable and grossly unremarkable. No evidence for hilar prominence. Degenerative changes dorsal spine. IMPRESSION: 1. No evidence for acute pulmonary disease.
[2020-01-15] MEDS ORDERED: SODIUM POLYSTYRENE SULFONATE 15 GM/60 ML BOTTLE PO STA (18:30)
[2020-01-15] MEDS ORDERED: INSULIN REGULAR 100 UNIT/ML VIAL IV ONE (18:30)
[2020-01-15] MEDS ORDERED: DEXTROSE 50% SYRINGE 50 ML IVP STA ×3 (18:30→22:43)
[2020-01-15] MEDS ORDERED: SODIUM CHLORIDE 0.9% 1,000 ML IV ONE (18:30)
[2020-01-15] MEDS ORDERED: DEXTROSE 5%-0.45% NACL 1,000 ML IV SCH (18:30)
[2020-01-15] MEDS ORDERED: NALOXONE 0.4 MG/ML 1 ML VIAL IV PRN (18:32)
[2020-01-15 19:50] LABS: Glucose,Whole Blood 197 mg/dL (75-99)
[2020-01-15 20:28] LABS: Glucose,Whole Blood 111 mg/dL (75-99)
[2020-01-15 20:51] LABS: Glucose,Whole Blood 84 mg/dL (75-99)
[2020-01-15 22:20] LABS: Calcium 7.6 mg/dL (8.4-10.2)
[2020-01-15 22:21] LABS: Potassium 6.3 mmol/L (3.5-5.1)
[2020-01-15] MEDS ORDERED: SODIUM BICARB 8.4% 50 ML SYR (1 MEQ/ML) IV STA ×2 (22:38)
[2020-01-15] MEDS ORDERED: FUROSEMIDE 10 MG/ML 4 ML VIAL IV STA (22:39)
[2020-01-15] MEDS ORDERED: ALBUTEROL NEBULIZED 2.5 MG/3 ML INHALATION STA (22:39)
[2020-01-15] MEDS ORDERED: DEXTROSE 5%-0.9% NACL 1,000 ML IV SCH (22:45)
[2020-01-15 22:48] LABS: Glucose,Whole Blood 139 mg/dL (75-99)
[2020-01-16] MEDS: HYDROmorphone 1 MG/ML 1 ML SYRINGE IVP PRN ×3 (00:05→09:58)
[2020-01-16 00:11] LABS: Glucose,Whole Blood 78 mg/dL (75-99)
[2020-01-16 01:04] LABS: Glucose,Whole Blood 114 mg/dL (75-99)
[2020-01-16 01:51] LABS: Calcium 7.5 mg/dL (8.4-10.2); Potassium 5.9 mmol/L (3.5-5.1)
[2020-01-16] MEDS: MORPHINE SULFATE 4 MG/ML SYRINGE IV PRN ×2 (02:06→14:26)
[2020-01-16] MEDS ORDERED: SODIUM BICARB 8.4% 50 ML SYR (1 MEQ/ML) IV STA ×2 (02:15→02:16)
[2020-01-16] MEDS ORDERED: ALBUTEROL NEBULIZED 2.5 MG/3 ML INHALATION STA (02:16)
[2020-01-16] MEDS ORDERED: AMIODARONE 360 MG in DEXTROSE 5% IN WATER 200 ML IV ONE ×2 (04:10)
[2020-01-16] MEDS ORDERED: DEXTROSE 5% IN WATER 100 ML with AMIODARONE 150 MG IV ONE (04:10)
[2020-01-16 04:17] LABS: Glucose,Whole Blood 143 mg/dL (75-99)
[2020-01-16 04:57] LABS: Basophils % (A) 0 %; Eosinophils # (A) 0.1 k/uL (0-0.7); Eosinophils % (A) 1 %; HCT 35.6 % (39.0-53.0); HGB 12.1 gm/dL (13.0-17.5); Lymphocytes # (A) 0.4 k/uL (1.0-4.8); Lymphocytes % (A) 2 %; MCH 29.7 pg (25.0-35.0); MCHC 33.9 g/dL (31.0-37.0); MCV 87.5 fL (80.0-100.0); Mean Platelet Volume 7.7; Monocytes # (A) 1.2 k/uL (0-1.0); Monocytes % (A) 6 %; Neutrophils # (A) 17.4 k/uL (1.3-7.7); Neutrophils % (A) 90 %; Platelet Count 200 k/uL (150-450); RBC 4.07 m/uL (4.30-5.90); RDW 14.2 % (11.5-15.5); WBC 19.3 k/uL (3.8-10.6)
[2020-01-16 05:03] LABS: Albumin 2.2 g/dL (3.5-5.0); Calcium 7.4 mg/dL (8.4-10.2); Magnesium 2.1 mg/dL (1.6-2.3); Potassium 5.8 mmol/L (3.5-5.1); Total Bilirubin 1.1 mg/dL (0.2-1.3); Total Protein 4.9 g/dL (6.3-8.2)
[2020-01-16] MEDS ORDERED: FUROSEMIDE 10 MG/ML 4 ML VIAL IV STA (06:52)
[2020-01-16 07:13] LABS: Glucose,Whole Blood 141 mg/dL (75-99)
[2020-01-16] MEDS ORDERED: MIDODRINE 5 MG TAB PO ONE (07:30)
[2020-01-16 08:10] VITALS: TEMP 97.8
--- NOTE | 2020-01-16 08:55 | US ---
EXAMINATION TYPE: US abdomen limited DATE OF EXAM: 01/16/2020 COMPARISON: CLINICAL HISTORY: assess for fluid pocket please. All four quadrants scanned. Ascites visualized with L>R. IMPRESSION: Small volume of ascites
[2020-01-16] MEDS ORDERED: PANTOPRAZOLE 40 MG/10 ML VIAL IV SCH (09:00)
[2020-01-16 09:51] VITALS: BMI 33.0
--- NOTE | 2020-01-16 09:56 | P.NPCON ---
History of Present Illness - Reason for Consult acute renal failure, hyponatremia - History of Present Illness Reason for consultation: Hyponatremia an acute kidney injury History of present illness: Patient is a 64-year-old male seen in renal consultation for acute kidney injury and hyponatremia. patient presented to the hospital with generalized back pain as well as shortness of breath. patient was recently diagnosed with stage IV pancreatic cancer. He is noted to have metastatic disease. No fever or chills. Last paracentesis was on January 09 he had 4.7 L drained. Patient is not a reliable historian but in the charting it is noted that he hasn't voided in 5 days. He was initially started on D5 half-normal saline due to hypoglycemia and was then changed over to D5 normal saline overnight. He also received a dose of IV Lasix last night with improvement in urine output. Urine output overnight was about 700 mL. Sodium level was 114 on admission and is 117 this morning. Abdominal ultrasound shows small volume ascites. He does have edema in the lower extremities. No evidence of fluid overload noted on chest x-ray. he was also noted to be in A. fib it RVR and is currently on amiodarone drip. blood pressure has also been on the lower side this morning. Most recent blood pressure 95/51. renal function has been stable this admission was creatinine in the range of 1.6-1.7. Baseline creatinine 0.84 as of 12/19/2019. Vital signs are stable. BP on lower side. General: The patient appeared well nourished and normally developed. HEENT: Head exam is unremarkable. Neck is without jugular venous distension. LUNGS: Lungs are clear to auscultation and percussion. Breath sounds decreased. HEART: Irregular rate and rhythm. ABDOMEN: Soft, nontender. Distension noted. EXTREMITITES: 2+ edema. Past Medical History Past Medical History: Cancer, Chest Pain / Angina, COPD, Diabetes Mellitus, GERD/Reflux, Hyperlipidemia, Hypertension, Pneumonia, Sleep Apnea/CPAP/BIPAP Additional Past Medical History / Comment(s): IDDM type II, TRINITY with CPap, murmur, renal cyst, liver mass, pancreatic and liver cancer, spinal cancer History of Any Multi-Drug Resistant Organisms: None Reported Past Surgical History: Cardiac Valve Replacement, Cholecystectomy, Heart Catheterization Additional Past Surgical History / Comment(s): JOVANI, aortic valve replacement in 2017, PICC, colonoscopy, liver biopsy metastatic adenocarcinoma pancreatic Past Anesthesia/Blood Transfusion Reactions: No Reported Reaction Past Psychological History: No Psychological Hx Reported Additional Psychological History / Comment(s): Pt resides with his spouse. He is retired. He is independent. He has a nebulizer. He has had oxygen at home in the past but not currently. Smoking Status: Former smoker Past Alcohol Use History: Rare Additional Past Alcohol Use History / Comment(s): Pt started smoking in 1968 and quit in 2017 - Past Family History Mother Family Medical History: No Reported History Additional Family Medical History / Comment(s): Mother is 90yrs old and recently told she has cardiac valve disease. Father Family Medical History: Cancer Additional Family Medical History / Comment(s): Father of lung cancer that metastasized. Medications and Allergies Home Medications Medication Instructions Recorded Confirmed Type Loratadine 10 mg PO DAILY 09/01/16 01/15/20 History Atorvastatin [Lipitor] 40 mg PO HS #30 tab 10/26/16 01/15/20 Rx Metoprolol Tartrate [Lopressor] 50 mg PO TID #60 tab 10/26/16 01/15/20 Rx Repaglinide [Prandin] 2 mg PO TID #0 10/26/16 01/15/20 Rx Insulin Glargine [Lantus] 60 unit SQ HS 11/19/18 01/15/20 History Lisinopril [Zestril] 10 mg PO BID 11/19/18 01/15/20 History Pantoprazole [Protonix] 40 mg PO DAILY 11/19/18 01/15/20 History metFORMIN HCL ER [Glucophage Xr] 1,000 mg PO BID 11/19/18 01/15/20 History Furosemide [Lasix] 40 mg PO DAILY PRN 12/25/19 01/15/20 History Hydrocodone/Acetaminophen [[place] 1 tab PO Q6H PRN 12/25/19 01/15/20 History 10-325] Potassium Chloride ER [K-Dur 20] 20 meq PO DAILY PRN 12/25/19 01/15/20 History Tamsulosin HCl [Flomax] 0.4 mg PO DAILY 12/25/19 01/15/20 History Albuterol Sulfate [Ventolin HFA] 2 puff INHALATION RT-Q6H PRN 01/15/20 01/15/20 History Budesonide [Pulmicort] 0.5 mg INHALATION RT-BID PRN 01/15/20 01/15/20 History Dronabinol [Marinol] 10 mg PO HS 01/15/20 01/15/20 History Ipratropium-Albuterol Nebulize 3 ml INHALATION RT-TID PRN 01/15/20 01/15/20 History [Duoneb 0.5 mg-3 mg/3 ml Soln] fentaNYL 50MCG/HR PATCH [Duragesic 1 patch TRANSDERM Q72H 01/15/20 01/15/20 History 50MCG/HR] Allergies Allergy/AdvReac Type Severity Reaction Status Date / Time No Known Allergies Allergy Verified 01/15/20 17:58 Physical Exam Vitals: Vital Signs Temp Pulse Resp BP Pulse Ox 01/16/20 09:00 109 H 28 H 95/51 98 01/16/20 08:00 97.8 F 111 H 24 97/59 95 01/16/20 07:00 107 H 23 132/95 98 01/16/20 06:00 115 H 18 130/85 100 01/16/20 05:00 115 H 19 82/47 91 L 01/16/20 04:00 98.1 F 129 H 18 93/53 93 L 01/16/20 03:25 120 H 01/16/20 03:05 115 H 01/16/20 03:00 115 H 15 104/61 96 01/16/20 02:50 115 H 01/16/20 02:37 101 H 01/16/20 02:00 118 H 20 105/56 96 01/16/20 01:00 113 H 18 118/78 94 L 01/16/20 00:05 110 H 01/16/20 00:00 98.3 F 126 H 21 95/62 95 01/15/20 23:45 110 H 01/15/20 23:25 105 H 01/15/20 23:12 107 H 01/15/20 23:00 103 H 23 109/51 98 01/15/20 22:00 98.5 F 98 20 110/65 97 01/15/20 19:11 91 23 118/100 01/15/20 19:00 87 16 102/51 99 01/15/20 18:30 89 25 H 99 01/15/20 17:30 80 25 H 113/60 97 01/15/20 17:00 80 24 82/45 97 01/15/20 16:26 97.4 F L 79 18 85/54 94 L Intake and Output 01/15/20 01/16/20 01/16/20 22:59 06:59 14:59 Intake Total 699 225 Output Total 830 60 Balance -131 165 Intake: IV 600 225 Dextrose 5%-0.9% NaCl 1, 600 225 000 ml @ 75 mls/hr IV . [id number] [facility] Rx#:[id number] Intake, IV Titration 99 Amount Amiodarone 360 mg In 99 Dextrose 5% in Water 200 ml @ 1 MG/MIN 33.333 mls/ hr IV .Q6H ONE Rx#: [id number] Output: Urine 830 60 Other: Voiding Method Indwelling Catheter Weight 96.162 kg 98.7 kg Results - Lab Results Most recent lab results Calcium 7.4 mg/dL (8.4-10.2) L 01/16/20 04:13 Phosphorus 6.0 mg/dL (2.5-4.5) H 01/16/20 04:13 Magnesium 2.1 mg/dL (1.6-2.3) 01/16/20 04:13 01/16/20 04:13 01/16/20 04:13 Assessment and Plan Plan: Assessment: 1. GENESIS secondary to ATN due to hypotension. Creatinine 1.74 today. Baseline cr near 1. UA fairly benign. 2. Hypervolemic hyponatremia. Na 114 on admission - 117 this AM. 3. Hyperkalemia secondary to GENESIS and ACEi. Better w/medical management. 4. Pancreatic cancer with mets. 5. Volume overload. 6. IDDM. 7. A-fib with RVR maintained on amiodarone drip. Plan: Heplock IVFs. Add lasix 40 mg IV bid. 25 g IV albumin x 2 doses today. Add midodrine 5 mg tid - hold if sbp >110. Repeat BMP at 1 pm today. Continue to monitor renal fx and UO. Check urine osm and urine sodium. Thank you for the consultation. I will continue to follow the patient with you during his hospital stay.
[2020-01-16] MEDS ORDERED: AMIODARONE IV SCH (10:00)
[2020-01-16] MEDS: ALBUMIN HUMAN 25% 50 ML in EMPTY BAG 1 BAG IVPB SCH ×2 (10:00→11:43)
[2020-01-16] MEDS ORDERED: SODIUM CHLORIDE 0.9% IV SCH (10:00)
[2020-01-16] MEDS ORDERED: AMIODARONE 300 MG in DEXTROSE 5% IN WATER 250 ML IV SCH ×2 (10:10)
[2020-01-16 11:51] LABS: Prothrombin Time 10.6 sec (9.0-12.0)
[2020-01-16] MEDS ORDERED: MIDODRINE 5 MG TAB PO SCH (12:30)
--- NOTE | 2020-01-16 12:31 | US ---
EXAMINATION TYPE: US kidneys/renal and bladder DATE OF EXAM: 01/16/2020 COMPARISON: CT 12/19/2019 CLINICAL HISTORY: genesis. GENESIS Exam limited due to patient sitting up in chair and rib shadowing. EXAM MEASUREMENTS: Right Kidney: 10.1 x 5.5 x 4.0 cm Left Kidney: 8.8 x 5.1 x 5.6 cm Right Kidney: Cystic area upper pole 2.6 x 2.6 x 2.2 cm Left Kidney: No hydronephrosis or masses seen, large cyst in the upper pole left kidney is not seen o n today's ultrasound Bladder: Not full patient has catheter in. Bilateral Jets seen: No There is no evidence for hydronephrosis at this point in time. No nephrolithiasis is seen. Cortical medullary differentiation is maintained. IMPRESSION: Small cortical cyst right kidney correlates with CT. No evident hydronephrosis
--- NOTE | 2020-01-16 14:07 | P.CONS ---
History of Present Illness - Reason for Consult Consult date: 01/16/20 Metastatic Cancer Requesting physician: Jeremie Kemp - Chief Complaint Inability to urinate - History of Present Illness Mr. TELLEZ originally presented in December 2019 with complaints of progressive lower back pain that persisted and worsened over a 2-3 month.. He admitted to associated anorexia and weight loss of 25 pounds. He was seen by Ortho Evra and an MRI was completed and revealed suspicious bony involvement with metastatic disease. A computed tomography scan of his chest abdomen pelvis revealed a 6-7 cm mass at the tail of the pancreas as well as multiple liver lesions this was also consistent with metastatic disease he does have a positive tobacco abuse history 1 pack per day for greater than 40 years stating he quit 4 years ago denies any history of alcohol abuse. On 01/09/20 a liver biopsy confirmed evidence of metastatic adenocarcinoma, pancreatobiliary source. 01/13/20 Ascites fluid was also positive for metastatic pancreatic cancer. He was evaluated in Radiation Oncology 01/15/[address] Brown. He stated he was having increased abdominal disention, edema and had not moved bowels in "a while" and has not urinated in "a couple days" therefore he was advised to present to emergency department for further evaluation. Dr. Sauer did see and evaluate Mr. Tellez this am. It was felt that with his poor performance, and very advanced disease hospice care would be most appropriate. Review of Systems A 14 point review was assessed and completed and all negative except HPI Past Medical History Past Medical History: Cancer, Chest Pain / Angina, COPD, Diabetes Mellitus, GERD /Reflux, Hyperlipidemia, Hypertension, Pneumonia, Sleep Apnea/CPAP/BIPAP Additional Past Medical History / Comment(s): IDDM type II, TRINITY with CPap, murmur, renal cyst, liver mass, pancreatic and liver cancer, spinal cancer History of Any Multi-Drug Resistant Organisms: None Reported Past Surgical History: Cardiac Valve Replacement, Cholecystectomy, Heart Catheterization Additional Past Surgical History / Comment(s): JOVANI, aortic valve replacement in 2017, PICC, colonoscopy, liver biopsy metastatic adenocarcinoma pancreatic Past Anesthesia/Blood Transfusion Reactions: No Reported Reaction Past Psychological History: No Psychological Hx Reported Additional Psychological History / Comment(s): Pt resides with his spouse. He is retired. He is independent. He has a nebulizer. He has had oxygen at home in the past but not currently. Smoking Status: Former smoker Past Alcohol Use History: Rare Additional Past Alcohol Use History / Comment(s): Pt started smoking in 1968 and quit in 2017 - Past Family History Mother Family Medical History: No Reported History Additional Family Medical History / Comment(s): Mother is 90yrs old and recently told she has cardiac valve disease. Father Family Medical History: Cancer Additional Family Medical History / Comment(s): Father of lung cancer that metastasized. Medications and Allergies Home Medications Medication Instructions Recorded Confirmed Type Loratadine 10 mg PO DAILY 09/01/16 01/15/20 History Atorvastatin [Lipitor] 40 mg PO HS #30 tab 10/26/16 01/15/20 Rx Metoprolol Tartrate [Lopressor] 50 mg PO TID #60 tab 10/26/16 01/15/20 Rx Repaglinide [Prandin] 2 mg PO TID #0 10/26/16 01/15/20 Rx Insulin Glargine [Lantus] 60 unit SQ HS 11/19/18 01/15/20 History Lisinopril [Zestril] 10 mg PO BID 11/19/18 01/15/20 History Pantoprazole [Protonix] 40 mg PO DAILY 11/19/18 01/15/20 History metFORMIN HCL ER [Glucophage Xr] 1,000 mg PO BID 11/19/18 01/15/20 History Furosemide [Lasix] 40 mg PO DAILY PRN 12/25/19 01/15/20 History Hydrocodone/Acetaminophen [Mosca 1 tab PO Q6H PRN 12/25/19 01/15/20 History 10-325] Potassium Chloride ER [K-Dur 20] 20 meq PO DAILY PRN 12/25/19 01/15/20 History Tamsulosin HCl [Flomax] 0.4 mg PO DAILY 12/25/19 01/15/20 History Albuterol Sulfate [Ventolin HFA] 2 puff INHALATION RT-Q6H PRN 01/15/20 01/15/20 History Budesonide [Pulmicort] 0.5 mg INHALATION RT-BID PRN 01/15/20 01/15/20 History Dronabinol [Marinol] 10 mg PO HS 01/15/20 01/15/20 History Ipratropium-Albuterol Nebulize 3 ml INHALATION RT-TID PRN 01/15/20 01/15/20 History [Duoneb 0.5 mg-3 mg/3 ml Soln] fentaNYL 50MCG/HR PATCH [Duragesic 1 patch TRANSDERM Q72H 01/15/20 01/15/20 History 50MCG/HR] Allergies Allergy/AdvReac Type Severity Reaction Status Date / Time No Known Allergies Allergy Verified 01/15/20 17:58 Physical Exam Vitals: Vital Signs Temp Pulse Resp BP Pulse Ox 01/16/20 13:00 97 16 101/49 01/16/20 12:00 104 H 20 95/49 01/16/20 11:00 96 18 99/57 01/16/20 10:00 104 H 21 114/62 96 01/16/20 09:00 109 H 28 H 95/51 98 01/16/20 08:00 97.8 F 111 H 24 97/59 95 01/16/20 07:00 107 H 23 132/95 98 01/16/20 06:00 115 H 18 130/85 100 01/16/20 05:00 115 H 19 82/47 91 L 01/16/20 04:00 98.1 F 129 H 18 93/53 93 L 01/16/20 03:25 120 H 01/16/20 03:05 115 H 01/16/20 03:00 115 H 15 104/61 96 01/16/20 02:50 115 H 01/16/20 02:37 101 H 01/16/20 02:00 118 H 20 105/56 96 01/16/20 01:00 113 H 18 118/78 94 L 01/16/20 00:05 110 H 01/16/20 00:00 98.3 F 126 H 21 95/62 95 01/15/20 23:45 110 H 01/15/20 23:25 105 H 01/15/20 23:12 107 H 01/15/20 23:00 103 H 23 109/51 98 01/15/20 22:00 98.5 F 98 20 110/65 97 01/15/20 19:11 91 23 118/100 01/15/20 19:00 87 16 102/51 99 01/15/20 18:30 89 25 H 99 01/15/20 17:30 80 25 H 113/60 97 01/15/20 17:00 80 24 82/45 97 01/15/20 16:26 97.4 F L 79 18 85/54 94 L Intake and Output 01/15/20 01/16/20 01/16/20 22:59 06:59 14:59 Intake Total 699 345 Output Total 830 160 Balance -131 185 Intake: IV 600 345 0.9 NS 20 Albumin Human 25% 50 ml 100 In Empty Bag 1 bag @ 50 mls/hr IVPB Q1H [facility] Rx#: [id number] Dextrose 5%-0.9% NaCl 1, 600 225 000 ml @ 75 mls/hr IV . [id number] [facility] Rx#:[id number] Intake, IV Titration 99 Amount Amiodarone 360 mg In 99 Dextrose 5% in Water 200 ml @ 1 MG/MIN 33.333 mls/ hr IV .Q6H [facility] Rx#: [id number] Output: Urine 830 160 Other: Voiding Method Indwelling Catheter Indwelling Catheter Weight 96.162 kg 98.7 kg 98.7 kg - Constitutional General appearance: mild distress, thin - EENT Eyes: poor dentition ENT: NA/AT - Neck Neck: other - Respiratory Respiratory: bilateral: diminished (increased effort) - Cardiovascular Rhythm: irregularly irregular leg Peripheral Edema: bilateral: 4+ - Gastrointestinal General gastrointestinal: distended, tenderness - Integumentary Integumentary: pale - Neurologic ABBIE - Musculoskeletal Musculoskeletal: generalized weakness - Psychiatric Awake Results CBC & Chem 7: 01/16/20 04:13 01/16/20 04:13 Labs: Abnormal Lab Results - Last 24 Hours (Table) 01/15/20 01/15/20 01/15/20 Range/Units 16:40 16:40 16:40 WBC 19.3 H (3.8-10.6) k/uL RBC 4.26 L (4.30-5.90) m/uL Hgb 12.4 L (13.0-17.5) gm/dL Hct 36.7 L (39.0-53.0) % Neutrophils # 17.6 H (1.3-7.7) k/uL Lymphocytes # 0.3 L (1.0-4.8) k/uL Monocytes # (0-1.0) k/uL Sodium 114 L* (137-145) mmol/L Potassium 6.5 H* (3.5-5.1) mmol/L Chloride 83 L (98-107) mmol/L BUN 70 H (9-20) mg/dL Creatinine 1.75 H (0.66-1.25) mg/dL Glucose 49 L* (74-99) mg/dL POC Glucose (mg/dL) (75-99) mg/dL Calcium 8.1 L (8.4-10.2) mg/dL Phosphorus 6.7 H (2.5-4.5) mg/dL Alkaline Phosphatase 276 H (38-126) U/L Total Protein 5.4 L (6.3-8.2) g/dL Albumin 2.4 L (3.5-5.0) g/dL Urine Protein Trace H (Negative) 01/15/20 01/15/20 01/15/20 Range/Units 16:41 17:11 18:02 WBC (3.8-10.6) k/uL RBC (4.30-5.90) m/uL Hgb (13.0-17.5) gm/dL Hct (39.0-53.0) % Neutrophils # (1.3-7.7) k/uL Lymphocytes # (1.0-4.8) k/uL Monocytes # (0-1.0) k/uL Sodium (137-145) mmol/L Potassium (3.5-5.1) mmol/L Chloride (98-107) mmol/L BUN (9-20) mg/dL Creatinine (0.66-1.25) mg/dL Glucose (74-99) mg/dL POC Glucose (mg/dL) 48 L 193 H 64 L (75-99) mg/dL Calcium (8.4-10.2) mg/dL Phosphorus (2.5-4.5) mg/dL Alkaline Phosphatase (38-126) U/L Total Protein (6.3-8.2) g/dL Albumin (3.5-5.0) g/dL Urine Protein (Negative) 01/15/20 01/15/20 01/15/20 Range/Units 18:26 19:38 20:16 WBC (3.8-10.6) k/uL RBC (4.30-5.90) m/uL Hgb (13.0-17.5) gm/dL Hct (39.0-53.0) % Neutrophils # (1.3-7.7) k/uL Lymphocytes # (1.0-4.8) k/uL Monocytes # (0-1.0) k/uL Sodium (137-145) mmol/L Potassium (3.5-5.1) mmol/L Chloride (98-107) mmol/L BUN (9-20) mg/dL Creatinine (0.66-1.25) mg/dL Glucose (74-99) mg/dL POC Glucose (mg/dL) 126 H 197 H 111 H (75-99) mg/dL Calcium (8.4-10.2) mg/dL Phosphorus (2.5-4.5) mg/dL Alkaline Phosphatase (38-126) U/L Total Protein (6.3-8.2) g/dL Albumin (3.5-5.0) g/dL Urine Protein (Negative) 01/15/20 01/15/20 01/16/20 Range/Units 21:43 22:47 01:02 WBC (3.8-10.6) k/uL RBC (4.30-5.90) m/uL Hgb (13.0-17.5) gm/dL Hct (39.0-53.0) % Neutrophils # (1.3-7.7) k/uL Lymphocytes # (1.0-4.8) k/uL Monocytes # (0-1.0) k/uL Sodium 115 L* (137-145) mmol/L Potassium 6.3 H* (3.5-5.1) mmol/L Chloride 85 L (98-107) mmol/L BUN 69 H (9-20) mg/dL Creatinine 1.66 H (0.66-1.25) mg/dL Glucose 43 L* (74-99) mg/dL POC Glucose (mg/dL) 139 H 114 H (75-99) mg/dL Calcium 7.6 L (8.4-10.2) mg/dL Phosphorus (2.5-4.5) mg/dL Alkaline Phosphatase (38-126) U/L Total Protein (6.3-8.2) g/dL Albumin (3.5-5.0) g/dL Urine Protein (Negative) 01/16/20 01/16/20 01/16/20 Range/Units 01:32 04:13 04:13 WBC 19.3 H (3.8-10.6) k/uL RBC 4.07 L (4.30-5.90) m/uL Hgb 12.1 L (13.0-17.5) gm/dL Hct 35.6 L (39.0-53.0) % Neutrophils # 17.4 H (1.3-7.7) k/uL Lymphocytes # 0.4 L (1.0-4.8) k/uL Monocytes # 1.2 H (0-1.0) k/uL Sodium 116 L* 117 L* (137-145) mmol/L Potassium 5.9 H 5.8 H (3.5-5.1) mmol/L Chloride 83 L 82 L (98-107) mmol/L BUN 70 H 68 H (9-20) mg/dL Creatinine 1.62 H 1.74 H (0.66-1.25) mg/dL Glucose 110 H 125 H (74-99) mg/dL POC Glucose (mg/dL) (75-99) mg/dL Calcium 7.5 L 7.4 L (8.4-10.2) mg/dL Phosphorus 6.0 H (2.5-4.5) mg/dL Alkaline Phosphatase 263 H (38-126) U/L Total Protein 4.9 L (6.3-8.2) g/dL Albumin 2.2 L (3.5-5.0) g/dL Urine Protein (Negative) 01/16/20 01/16/20 Range/Units 04:15 07:11 WBC (3.8-10.6) k/uL RBC (4.30-5.90) m/uL Hgb (13.0-17.5) gm/dL Hct (39.0-53.0) % Neutrophils # (1.3-7.7) k/uL Lymphocytes # (1.0-4.8) k/uL Monocytes # (0-1.0) k/uL Sodium (137-145) mmol/L Potassium (3.5-5.1) mmol/L Chloride (98-107) mmol/L BUN (9-20) mg/dL Creatinine (0.66-1.25) mg/dL Glucose (74-99) mg/dL POC Glucose (mg/dL) 143 H 141 H (75-99) mg/dL Calcium (8.4-10.2) mg/dL Phosphorus (2.5-4.5) mg/dL Alkaline Phosphatase (38-126) U/L Total Protein (6.3-8.2) g/dL Albumin (3.5-5.0) g/dL Urine Protein (Negative) Comments: Ultrasounds Assessment and Plan (1) Pancreatic cancer Current Visit: Yes Status: Acute Code(s): C25.9 - MALIGNANT NEOPLASM OF PANCREAS, UNSPECIFIED SNOMED Code(s): 500585449 (2) Metastatic adenocarcinoma to liver Current Visit: Yes Status: Acute Code(s): C78.7 - SECONDARY MALIG NEOPLASM OF LIVER AND INTRAHEPATIC BILE DUCT SNOMED Code(s): 8445999871302 (3) 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 Dr. Sauer discussed with primary team and with patients . They are agreeable to plan. Hospice will be consulted and plan for change of goals as end of life and comfort care only. Physician attest: I have completed the full history and physcial and developed the above impression and plan, agree with dictation, dictated as a scribe.
[2020-01-16 15:27] VITALS: BP 96/53; PULSE 90; RESP 18
--- NOTE | 2020-01-16 15:58 | P.CNPUL ---
History of Present Illness Consult date: 01/16/20 History of present illness: This is a 64-year-old male patient who was diagnosed having metastatic pancreatic cancer approximately 3 weeks ago. Unfortunately his condition progressively declining and he has had a rapid decline in his condition. He has developed significant anorexia and weight loss in order of 25 pounds and more. He has developed abdominal distention, ascites, and back pain related to skeletal metastases from metastatic pancreatic cancer. In summary, the patient had a CAT scan of the chest abdomen and pelvis that showed a 7 cm mass in the tail of the pancreas with multiple liver lesions consistent with metastases and a history of metastases to the spine. He is a chronic smoker. He is on 44 years ago. A biopsy of the liver confirmed the metastatic adenocarcinoma most likely of a pancreatic origin although this was not specified by the p athologist. The patient also has a large-volume paracentesis on 01/10 2020. A total of 4.7 L of ascitic fluid was aspirated and the fluid was also limited. The patient has already seen in oncology and the patient was referred initially for radiation therapy. However, he was unable to tolerate radiation as the patient was unable to lay down flat in bed because of her going back pain. Yesterday he was referred to the emergency department as the patient was having increased abdominal distention, lower extremity edema, difficulties with eating and bowel activity and urination and drop in urine output. He was referred to the emergency and abnormal labs were noted. He had a sodium of 115 with a potassium level of 6.3 and a bicarb level of 22 with a chloride level of 85. He had was 69 with a creatinine of 1.6. Alkaline phosphatase was 276. SGOT and SGPT were within normal limits. Albumin was at 2.4 with a total protein of 5.4. In regards to his hyperkalemia, the patient was treated with a combination of 4 ampules of sodium bicarbonate, he was given the D50 insulin cocktail, he was evaluated for the first and he was also given albuterol nebulized treatments. Subsequent potassium level improved to the most recent level is down to 5.9. Initially was given some fluids and subsequently was given diuretics and monitor the direction of nephrology. His urine output gradually improved specially after insertion of a Fonseca catheter. No significant urinary infection as urine output improved subsequently and there was no immediate release urine from the bladder. The patient has a soft blood pressure this morning. He is noted to be in atrial fibrillation with rapid ventricular response and he was started on amiodarone drip for rate control. He denies having any chest pain. No cough or sputum production. No fever or chills. He is complaining of generalized back pain and he has increased lower extremity edema bilaterally. Unable to ambulate and his ability to movement and walking has been significantly impaired. He did have some hypoglycemia earlier improved with D50 and subsequent D5 normal saline infusion Review of Systems Constitutional: Reports chronic pain, Reports fatigue, Reports poor appetite, Reports weakness, Reports weight gain Eyes: denies as per HPI, denies blurred vision, denies bulging eye, denies decreased vision, denies diplopia, denies discharge, denies dry eye, denies irri tation, denies itching, denies pain, denies photophobia, denies loss of peripheral vision, denies loss of vision, denies tunnel vision/blind spots Ears: deny: decreased hearing, ear discharge, earache, tinnitus Ears, nose, mouth and throat: Reports as per HPI Breasts: absent: as per HPI, gynecomastia Cardiovascular: Reports leg edema Respiratory: Reports dyspnea Gastrointestinal: Reports abdominal pain, Reports loss of appetite, Reports nausea, Reports vomiting Genitourinary: Reports as per HPI Musculoskeletal: Reports gait dysfunction, Reports limitation of motion, Reports muscle weakness Musculoskeletal: bilateral: ankle stiffness, ankle swelling, absent: ankle pain Integumentary: Reports as per HPI Neurological: Reports balance difficulties, Reports gait dysfunction, Reports weakness Psychiatric: Reports as per HPI, Reports confusion Endocrine: Reports as per HPI, Reports fatigue Hematologic/Lymphatic: Reports as per HPI Allergic/Immunologic: Reports as per HPI Past Medical History Past Medical History: Cancer, Chest Pain / Angina, COPD, Diabetes Mellitus, GERD/Reflux, Hyperlipidemia, Hypertension, Pneumonia, Sleep Apnea/CPAP/BIPAP Additional Past Medical History / Comment(s): IDDM type II, TRINITY with CPap, murmur, renal cyst, liver mass, pancreatic and liver cancer, spinal cancer History of Any Multi-Drug Resistant Organisms: None Reported Past Surgical History: Cardiac Valve Replacement, Cholecystectomy, Heart Catheterization Additional Past Surgical History / Comment(s): JOVANI, aortic valve replacement in 2017, PICC, colonoscopy, liver biopsy metastatic adenocarcinoma pancreatic Past Anesthesia/Blood Transfusion Reactions: No Reported Reaction Past Psychological History: No Psychological Hx Reported Additional Psychological History / Comment(s): Pt resides with his spouse. He is retired. He is independent. He has a nebulizer. He has had oxygen at home in the past but not currently. Smoking Status: Former smoker Past Alcohol Use History: Rare Additional Past Alcohol Use History / Comment(s): Pt started smoking in 1968 and quit in 2017 - Past Family History Mother Family Medical History: No Reported History Additional Family Medical History / Comment(s): Mother is 90yrs old and recently told she has cardiac valve disease. Father Family Medical History: Cancer Additional Family Medical History / Comment(s): Father of lung cancer that metastasized. Medications and Allergies Home Medications Medication Instructions Recorded Confirmed Type Loratadine 10 mg PO DAILY 09/01/16 01/15/20 History Pantoprazole [Protonix] 40 mg PO DAILY 11/19/18 01/15/20 History Furosemide [Lasix] 40 mg PO DAILY PRN 12/25/19 01/15/20 History Hydrocodone/Acetaminophen [[place] 1 tab PO Q6H PRN 12/25/19 01/15/20 History 10-325] Potassium Chloride ER [K-Dur 20] 20 meq PO DAILY PRN 12/25/19 01/15/20 History Albuterol Sulfate [Ventolin HFA] 2 puff INHALATION RT-Q6H PRN 01/15/20 01/15/20 History Dronabinol [Marinol] 10 mg PO HS 01/15/20 01/15/20 History Ipratropium-Albuterol Nebulize 3 ml INHALATION RT-TID PRN 01/15/20 01/15/20 History [Duoneb 0.5 mg-3 mg/3 ml Soln] fentaNYL 50MCG/HR PATCH [Duragesic 1 patch TRANSDERM Q72H 01/15/20 01/15/20 History 50MCG/HR] Metoprolol Tartrate [Lopressor] 50 mg PO BID #60 tab 01/16/20 01/15/20 Rx Midodrine [ProAmatine] 5 mg PO AC-TID #90 tab 01/16/20 Rx Allergies Allergy/AdvReac Type Severity Reaction Status Date / Time No Known Allergies Allergy Verified 01/15/20 17:58 Physical Exam Vitals: Vital Signs Temp Pulse Resp BP Pulse Ox 01/16/20 13:00 97 16 101/49 01/16/20 12:00 104 H 20 95/49 01/16/20 11:00 96 18 99/57 01/16/20 10:00 104 H 21 114/62 96 01/16/20 09:00 109 H 28 H 95/51 98 01/16/20 08:00 97.8 F 111 H 24 97/59 95 01/16/20 07:00 107 H 23 132/95 98 01/16/20 06:00 115 H 18 130/85 100 01/16/20 05:00 115 H 19 82/47 91 L 01/16/20 04:00 98.1 F 129 H 18 93/53 93 L 01/16/20 03:25 120 H 01/16/20 03:05 115 H 01/16/20 03:00 115 H 15 104/61 96 01/16/20 02:50 115 H 01/16/20 02:37 101 H 01/16/20 02:00 118 H 20 105/56 96 01/16/20 01:00 113 H 18 118/78 94 L 01/16/20 00:05 110 H 01/16/20 00:00 98.3 F 126 H 21 95/62 95 01/15/20 23:45 110 H 01/15/20 23:25 105 H 01/15/20 23:12 107 H 01/15/20 23:00 103 H 23 109/51 98 01/15/20 22:00 98.5 F 98 20 110/65 97 01/15/20 19:11 91 23 118/100 01/15/20 19:00 87 16 102/51 99 01/15/20 18:30 89 25 H 99 01/15/20 17:30 80 25 H 113/60 97 01/15/20 17:00 80 24 82/45 97 01/15/20 16:26 97.4 F L 79 18 85/54 94 L Intake and Output 01/15/20 01/16/20 01/16/20 22:59 06:59 14:59 Intake Total 699 345 Output Total 830 160 Balance -131 185 Intake: IV 600 345 0.9 NS 20 Albumin Human 25% 50 ml 100 In Empty Bag 1 bag @ 50 mls/hr IVPB Q1H [facility] Rx#: [id number] Dextrose 5%-0.9% NaCl 1, 600 225 000 ml @ 75 mls/hr IV . [id number] [facility] Rx#:[id number] Intake, IV Titration 99 Amount Amiodarone 360 mg In 99 Dextrose 5% in Water 200 ml @ 1 MG/MIN 33.333 mls/ hr IV .Q6H ONE Rx#: [id number] Output: Urine 830 160 Other: Voiding Method Indwelling Catheter Indwelling Catheter Weight 96.162 kg 98.7 kg 98.7 kg The patient is ill ,debilitated, very much lethargic and not in acute respiratory distress Head exam was generally normal. There was no scleral icterus or corneal arcus. Mucous membranes were moist. Neck was supple and without jugular venous distension, thyromegaly, or carotid bruits. Carotids were easily palpable bilaterally. There was no adenopathy. Lungs are diminished in lung bases bilaterally otherwise breath sounds equal and symmetrical Heart sounds are irregular, positive since 2 and there is no significant murmurs appreciated. Thoracotomy scar over the anterior chest area dry clean and intact. Abdomen is distended. Mild direct tenderness. No rebound tenderness or guarding guarding. There is fluid wave suggestive underlying ascites. Hypoactive bowel sounds. Extremities revealed +1 pitting edema. No cyanosis. No clubbing. Neurologically the patient has global generalized weakness. Has difficulties with ambulation and balance and coordination. Is complaining of increased back pain yet the neurologic exam is nonfocal. Results - Laboratory Findings CBC and BMP: 01/16/20 04:13 01/16/20 04:13 PT/INR, D-dimer PT 10.6 sec (9.0-12.0) 01/16/20 08:11 INR 1.0 (<1.2) 01/16/20 08:11 Abnormal lab findings: Abnormal Labs 01/15/20 01/15/20 01/15/20 16:40 16:40 16:40 WBC 19.3 H RBC 4.26 L Hgb 12.4 L Hct 36.7 L Neutrophils # 17.6 H Lymphocytes # 0.3 L Monocytes # Sodium 114 L* Potassium 6.5 H* Chloride 83 L BUN 70 H Creatinine 1.75 H Glucose 49 L* POC Glucose (mg/dL) Calcium 8.1 L Phosphorus 6.7 H Alkaline Phosphatase 276 H Total Protein 5.4 L Albumin 2.4 L Urine Protein Trace H 01/15/20 01/15/20 01/15/20 16:41 17:11 18:02 WBC RBC Hgb Hct Neutrophils # Lymphocytes # Monocytes # Sodium Potassium Chloride BUN Creatinine Glucose POC Glucose (mg/dL) 48 L 193 H 64 L Calcium Phosphorus Alkaline Phosphatase Total Protein Albumin Urine Protein 01/15/20 01/15/20 01/15/20 18:26 19:38 20:16 WBC RBC Hgb Hct Neutrophils # Lymphocytes # Monocytes # Sodium Potassium Chloride BUN Creatinine Glucose POC Glucose (mg/dL) 126 H 197 H 111 H Calcium Phosphorus Alkaline Phosphatase Total Protein Albumin Urine Protein 01/15/20 01/15/20 01/16/20 21:43 22:47 01:02 WBC RBC Hgb Hct Neutrophils # Lymphocytes # Monocytes # Sodium 115 L* Potassium 6.3 H* Chloride 85 L BUN 69 H Creatinine 1.66 H Glucose 43 L* POC Glucose (mg/dL) 139 H 114 H Calcium 7.6 L Phosphorus Alkaline Phosphatase Total Protein Albumin Urine Protein 01/16/20 01/16/20 01/16/20 01:32 04:13 04:13 WBC 19.3 H RBC 4.07 L Hgb 12.1 L Hct 35.6 L Neutrophils # 17.4 H Lymphocytes # 0.4 L Monocytes # 1.2 H Sodium 116 L* 117 L* Potassium 5.9 H 5.8 H Chloride 83 L 82 L BUN 70 H 68 H Creatinine 1.62 H 1.74 H Glucose 110 H 125 H POC Glucose (mg/dL) Calcium 7.5 L 7.4 L Phosphorus 6.0 H Alkaline Phosphatase 263 H Total Protein 4.9 L Albumin 2.2 L Urine Protein 01/16/20 01/16/20 04:15 07:11 WBC RBC Hgb Hct Neutrophils # Lymphocytes # Monocytes # Sodium Potassium Chloride BUN Creatinine Glucose POC Glucose (mg/dL) 143 H 141 H Calcium Phosphorus Alkaline Phosphatase Total Protein Albumin Urine Protein Assessment and Plan Plan: 1 metastatic pancreatic cancer with metastases to the liver and skeletal system and back 2 malignant ascites post-paracentesis with small amount of residual ST fluid 3 acute kidney injury likely secondary to ATN due to hypotension and the creatinine is up to 1.4 4 hyperchloremic hypernatremia in the sodium level is at 114 a similar admission 5 hyperlipidemia secondary to above, treated. 6 volume overload with increased lower extremity edema 7 history of chronic atrial fibrillation 8 insulin-dependent diabetes mellitus 9 hypertension 10 hyperlipidemia 11 obstructive sleep apnea 12 history of aortic valve replacement Plan This patient's condition is terminal. He has a very poor functional performance status. Unable to tolerate and radiation therapy. Patient has opted hospice and the patient will be going home with hospice. Preliminary workup and timothy atment it was done in the intensive care unit improve the patient's sodium level up to 117 and the patient's potassium level is also improved. Pain control. Hospice care. Prognosis poor. We'll sign off.
[2020-01-16] MEDS ORDERED: ALBUMIN HUMAN 25% 50 ML in EMPTY BAG 1 BAG IVPB SCH (18:00)
[2020-01-16] MEDS ORDERED: FUROSEMIDE 10 MG/ML 4 ML VIAL IV SCH (21:00)
--- NOTE | 2020-01-17 13:19 | P.HPIM ---
History of Present Illness H&P Date: 01/16/20 Chief Complaint: Increased edema, no urine output for 5 days HISTORY AND PHYSICAL AND DISCHARGE SUMMARY: History of Present Illness This is a 64-year-old male patient of Dr. Cochran with a past medical history of diabetes mellitus type II, hypertension, hyperlipidemia and sleep apnea who had aortic valve placement back in 2017, gastroesophageal reflux disease. Patient was recently diagnosed with metastatic pancreatic cancer in December/December of this year. Patient was evaluated for radiation oncology for increasing abdominal distention. Patient states that he was unable to tolerate radiation. Patient apparently was at home and having increased edema and feeling worse with generalized malaise, lethargy and generalized weakness. He had not urinated in 5 days and came into [facility] emergency center for evaluation. He was found to be afebrile, hypotensive at 85/54, heart rate 79 and pulse ox 94% on room air. WBC 19.3, hemoglobin 12.4, sodium 114, potassium 6.5, chloride 83, CO2 22, BUN 70 creatinine 1.75. Blood sugar was 49 patient initially placed on D5W. Alkaline phosphatase 276. Urinalysis negative for infection. Covid 19 not detected. Ultrasound abdomen showed small volume ascites. Chest x-ray showed no acute cardiopulmonary disease. The patient had a Fonseca catheter placed. Multiple consultants were on his case. He was started on sodium bicarb. Discussed case with Dr. Sauer regarding hospice care. Also discussed with patient in detail that his symptoms are all related to worsening pancreatic cancer with metastatic disease. Patient wanted and were agreeable to hospice care. They wanted to return home. schedule planning manager made all arrangements for patient to return home and DME was arranged by hospice. Patient discharged home. Review of Systems Constitutional: No fever, no chills, no night sweats. Reports weight change. Reports weakness, Reportsfatigue Reports lethargy. Reports daytime sleepiness. EENT: No headache. No blurred vision or double vision, no loss of vision. No loss of Hearing, no ringing in the ears, no dizziness. No nasal drainage or congestion. No epistaxis. No sore throat. Lungs: Reports shortness of breath, cough, no sputum production. No wheezing. Cardiovascular: No chest pain, Reports lower extremity edema. No palpitations. No paroxysmal nocturnal dyspnea. Reports orthopnea. No lightheadedness or dizziness. No syncopal episodes. Abdominal: Reports abdominal pain. No nausea, vomiting. Reports abdominal bloating. No diarrhea. No constipation. No bloody or tarry stools.Reports loss of appetite. Genitourinary: No dysuria, increased frequency, urgency. Reports urinary retention. Musculoskeletal: No myalgias. Reports muscle weakness, Reports gait dysfunction. No back pain. No neck pain. Integumentary: No wounds, no lesions. No rash or pruritus. No unusual bruising. Neurologic: No aphasia. No facial droop. No change in mentation. No head injury. No headache. No paralysis. No paresthesia. Psychiatric: No depression. No anxiety. No mood swings. Endocrine: Reports abnormal blood sugars. Reports weight change. Physical Examination Gen: This is a 64-year-old male. He appears to be uncomfortable. HEENT: Head is atraumatic, normocephalic. Pupils equal, round. Sclerae is anicteric. NECK: Supple. No JVD. No lymphadenopathy. No thyromegaly. LUNGS: Diminished to the bilateral bases. No wheezes or rhonchi. No intercostal retractions. HEART: Irregularly irregular rate and rhythm. No murmur. ABDOMEN: Distended, mild generalized tenderness, hypoactive bowel sounds. EXTREMITIES: 1+ bilaterally pedal edema. No calf tenderness. NEUROLOGICAL: Patient is awake, alert and oriented x3. Cranial nerves 2 through 12 are grossly intact. Assessment and Plan 1. Metastatic pancreatic cancer. 2. Malignant ascites. 3. Acute kidney injury secondary to ATN and hypotension. 4. Electrolyte abnormalities with hypernatremia and hyperchloremia. 5. Lower extremity edema and fluid overload secondary to metastatic disease. 6. Diabetes mellitus type 2 uncontrolled presented with hypoglycemia. 7. Hypovolemic shock, dehydration. 8. Atrial fibrillation with RVR, paroxysmal atrial fibrillation. 9. History of hypertension. 9. Hyperlipidemia. 10. Obstructive sleep apnea. 11. COVID-19 infection not present. Patient will be admitted to the hospital for a minimum of 2 night stay. Discharge plan: Discharged home with [facility] care Impression and plan of care have been directed as dictated by the signing physician. Vale Nair nurse practitioner acting as scribe for signing physician. Past Medical History Past Medical History: Cancer, Chest Pain / Angina, COPD, Diabetes Mellitus, GERD/Reflux, Hyperlipidemia, Hypertension, Pneumonia, Sleep Apnea/CPAP/BIPAP Additional Past Medical History / Comment(s): IDDM type II, TRINITY with CPap, murmur, renal cyst, liver mass, pancreatic and liver cancer, spinal cancer History of Any Multi-Drug Resistant Organisms: None Reported Past Surgical History: Cardiac Valve Replacement, Cholecystectomy, Heart Catheterization Additional Past Surgical History / Comment(s): JOVANI, aortic valve replacement in 2017, PICC, colonoscopy, liver biopsy metastatic adenocarcinoma pancreatic Past Anesthesia/Blood Transfusion Reactions: No Reported Reaction Past Psychological History: No Psychological Hx Reported Additional Psychological History / Comment(s): Pt resides with his spouse. He is retired. He is independent. He has a nebulizer. He has had oxygen at home in the past but not currently. Smoking Status: Former smoker Past Alcohol Use History: Rare Additional Past Alcohol Use History / Comment(s): Pt started smoking in 1968 and quit in 2016, 1 pack per day. Rare alcohol use. No history of alcohol abuse. No marijuana use. Patient lives at home with his . - Past Family History Mother Family Medical History: No Reported History, Congestive Heart Failure (CHF) Additional Family Medical History / Comment(s): Mother is 90yrs old and recently told she has cardiac valve disease. Father Family Medical History: Cancer Additional Family Medical History / Comment(s): Father of lung cancer that metastasized at age 70. Brother(s) Additional Family Medical History / Comment(s): Patient has 3 brothers with no major medical problems. Patient has 3 sisters with no major medical problems. Patient has 2 children with no major medical problems. Medications and Allergies Home Medications Medication Instructions Recorded Confirmed Type Loratadine 10 mg PO DAILY 09/01/16 01/15/20 History Pantoprazole [Protonix] 40 mg PO DAILY 11/19/18 01/15/20 History Furosemide [Lasix] 40 mg PO DAILY PRN 12/25/19 01/15/20 History Hydrocodone/Acetaminophen [[place] 1 tab PO Q6H PRN 12/25/19 01/15/20 History 10-325] Potassium Chloride ER [K-Dur 20] 20 meq PO DAILY PRN 12/25/19 01/15/20 History Albuterol Sulfate [Ventolin HFA] 2 puff INHALATION RT-Q6H PRN 01/15/20 01/15/20 History Dronabinol [Marinol] 10 mg PO HS 01/15/20 01/15/20 History Ipratropium-Albuterol Nebulize 3 ml INHALATION RT-TID PRN 01/15/20 01/15/20 Hist ory [Duoneb 0.5 mg-3 mg/3 ml Soln] fentaNYL 50MCG/HR PATCH [Duragesic 1 patch TRANSDERM Q72H 01/15/20 01/15/20 History 50MCG/HR] Metoprolol Tartrate [Lopressor] 50 mg PO BID #60 tab 01/16/20 01/15/20 Rx Midodrine [ProAmatine] 5 mg PO AC-TID #90 tab 01/16/20 Rx Allergies Allergy/AdvReac Type Severity Reaction Status Date / Time No Known Allergies Allergy Verified 01/15/20 17:58 Physical Exam Vitals: Vital Signs Temp Pulse Resp BP Pulse Ox 01/16/20 09:00 109 H 28 H 95/51 98 01/16/20 08:00 97.8 F 111 H 24 97/59 95 01/16/20 07:00 107 H 23 132/95 98 01/16/20 06:00 115 H 18 130/85 100 01/16/20 05:00 115 H 19 82/47 91 L 01/16/20 04:00 98.1 F 129 H 18 93/53 93 L 01/16/20 03:25 120 H 01/16/20 03:05 115 H 01/16/20 03:00 115 H 15 104/61 96 01/16/20 02:50 115 H 01/16/20 02:37 101 H 01/16/20 02:00 118 H 20 105/56 96 01/16/20 01:00 113 H 18 118/78 94 L 01/16/20 00:05 110 H 01/16/20 00:00 98.3 F 126 H 21 95/62 95 01/15/20 23:45 110 H 01/15/20 23:25 105 H 01/15/20 23:12 107 H 01/15/20 23:00 103 H 23 109/51 98 01/15/20 22:00 98.5 F 98 20 110/65 97 01/15/20 19:11 91 23 118/100 01/15/20 19:00 87 16 102/51 99 01/15/20 18:30 89 25 H 99 01/15/20 17:30 80 25 H 113/60 97 01/15/20 17:00 80 24 82/45 97 01/15/20 16:26 97.4 F L 79 18 85/54 94 L Intake and Output 01/15/20 01/16/20 01/16/20 22:59 06:59 14:59 Intake Total 699 225 Output Total 830 60 Balance -131 165 Intake: IV 600 225 Dextrose 5%-0.9% NaCl 1, 600 225 000 ml @ 75 mls/hr IV . [id number] [facility] Rx#:[id number] Intake, IV Titration 99 Amount Amiodarone 360 mg In 99 Dextrose 5% in Water 200 ml @ 1 MG/MIN 33.333 mls/ hr IV .Q6H ONE Rx#: [id number] Output: Urine 830 60 Other: Voiding Method Indwelling Catheter Weight 96.162 kg 98.7 kg Results CBC & Chem 7: 01/16/20 04:13 01/16/20 04:13 Labs: Abnormal Lab Results - Last 24 Hours (Table) 01/15/20 01/15/20 01/15/20 Range/Units 16:40 16:40 16:40 WBC 19.3 H (3.8-10.6) k/uL RBC 4.26 L (4.30-5.90) m/uL Hgb 12.4 L (13.0-17.5) gm/dL Hct 36.7 L (39.0-53.0) % Neutrophils # 17.6 H (1.3-7.7) k/uL Lymphocytes # 0.3 L (1.0-4.8) k/uL Monocytes # (0-1.0) k/uL Sodium 114 L* (137-145) mmol/L Potassium 6.5 H* (3.5-5.1) mmol/L Chloride 83 L (98-107) mmol/L BUN 70 H (9-20) mg/dL Creatinine 1.75 H (0.66-1.25) mg/dL Glucose 49 L* (74-99) mg/dL POC Glucose (mg/dL) (75-99) mg/dL Calcium 8.1 L (8.4-10.2) mg/dL Phosphorus 6.7 H (2.5-4.5) mg/dL Alkaline Phosphatase 276 H (38-126) U/L Total Protein 5.4 L (6.3-8.2) g/dL Albumin 2.4 L (3.5-5.0) g/dL Urine Protein Trace H (Negative) 01/15/20 01/15/20 01/15/20 Range/Units 16:41 17:11 18:02 WBC (3.8-10.6) k/uL RBC (4.30-5.90) m/uL Hgb (13.0-17.5) gm/dL Hct (39.0-53.0) % Neutrophils # (1.3-7.7) k/uL Lymphocytes # (1.0-4.8) k/uL Monocytes # (0-1.0) k/uL Sodium (137-145) mmol/L Potassium (3.5-5.1) mmol/L Chloride (98-107) mmol/L BUN (9-20) mg/dL Creatinine (0.66-1.25) mg/dL Glucose (74-99) mg/dL POC Glucose (mg/dL) 48 L 193 H 64 L (75-99) mg/dL Calcium (8.4-10.2) mg/dL Phosphorus (2.5-4.5) mg/dL Alkaline Phosphatase (38-126) U/L Total Protein (6.3-8.2) g/dL Albumin (3.5-5.0) g/dL Urine Protein (Negative) 01/15/20 01/15/20 01/15/20 Range/Units 18:26 19:38 20:16 WBC (3.8-10.6) k/uL RBC (4.30-5.90) m/uL Hgb (13.0-17.5) gm/dL Hct (39.0-53.0) % Neutrophils # (1.3-7.7) k/uL Lymphocytes # (1.0-4.8) k/uL Monocytes # (0-1.0) k/uL Sodium (137-145) mmol/L Potassium (3.5-5.1) mmol/L Chloride (98-107) mmol/L BUN (9-20) mg/dL Creatinine (0.66-1.25) mg/dL Glucose (74-99) mg/dL POC Glucose (mg/dL) 126 H 197 H 111 H (75-99) mg/dL Calcium (8.4-10.2) mg/dL Phosphorus (2.5-4.5) mg/dL Alkaline Phosphatase (38-126) U/L Total Protein (6.3-8.2) g/dL Albumin (3.5-5.0) g/dL Urine Protein (Negative) 01/15/20 01/15/20 01/16/20 Range/Units 21:43 22:47 01:02 WBC (3.8-10.6) k/uL RBC (4.30-5.90) m/uL Hgb (13.0-17.5) gm/dL Hct (39.0-53.0) % Neutrophils # (1.3-7.7) k/uL Lymphocytes # (1.0-4.8) k/uL Monocytes # (0-1.0) k/uL Sodium 115 L* (137-145) mmol/L Potassium 6.3 H* (3.5-5.1) mmol/L Chloride 85 L (98-107) mmol/L BUN 69 H (9-20) mg/dL Creatinine 1.66 H (0.66-1.25) mg/dL Glucose 43 L* (74-99) mg/dL POC Glucose (mg/dL) 139 H 114 H (75-99) mg/dL Calcium 7.6 L (8.4-10.2) mg/dL Phosphorus (2.5-4.5) mg/dL Alkaline Phosphatase (38-126) U/L Total Protein (6.3-8.2) g/dL Albumin (3.5-5.0) g/dL Urine Protein (Negative) 01/16/20 01/16/20 01/16/20 Range/Units 01:32 04:13 04:13 WBC 19.3 H (3.8-10.6) k/uL RBC 4.07 L (4.30-5.90) m/uL Hgb 12.1 L (13.0-17.5) gm/dL Hct 35.6 L (39.0-53.0) % Neutrophils # 17.4 H (1.3-7.7) k/uL Lymphocytes # 0.4 L (1.0-4.8) k/uL Monocytes # 1.2 H (0-1.0) k/uL Sodium 116 L* 117 L* (137-145) mmol/L Potassium 5.9 H 5.8 H (3.5-5.1) mmol/L Chloride 83 L 82 L (98-107) mmol/L BUN 70 H 68 H (9-20) mg/dL Creatinine 1.62 H 1.74 H (0.66-1.25) mg/dL Glucose 110 H 125 H (74-99) mg/dL POC Glucose (mg/dL) (75-99) mg/dL Calcium 7.5 L 7.4 L (8.4-10.2) mg/dL Phosphorus 6.0 H (2.5-4.5) mg/dL Alkaline Phosphatase 263 H (38-126) U/L Total Protein 4.9 L (6.3-8.2) g/dL Albumin 2.2 L (3.5-5.0) g/dL Urine Protein (Negative) 01/16/20 01/16/20 Range/Units 04:15 07:11 WBC (3.8-10.6) k/uL RBC (4.30-5.90) m/uL Hgb (13.0-17.5) gm/dL Hct (39.0-53.0) % Neutrophils # (1.3-7.7) k/uL Lymphocytes # (1.0-4.8) k/uL Monocytes # (0-1.0) k/uL Sodium (137-145) mmol/L Potassium (3.5-5.1) mmol/L Chloride (98-107) mmol/L BUN (9-20) mg/dL Creatinine (0.66-1.25) mg/dL Glucose (74-99) mg/dL POC Glucose (mg/dL) 143 H 141 H (75-99) mg/dL Calcium (8.4-10.2) mg/dL Phosphorus (2.5-4.5) mg/dL Alkaline Phosphatase (38-126) U/L Total Protein (6.3-8.2) g/dL Albumin (3.5-5.0) g/dL Urine Protein (Negative) Thrombosis Risk Factor Assmnt - Choose All That Apply Any of the Below Risk Factors Present?: Yes Each Factor Represents 1 point: Medical pt on bed rest, Obesity (BMI >25), Swollen legs (current) Other Risk Factors: Yes Each Risk Factor Represents 2 Points: Age 61-74 years Thrombosis Risk Factor Assessment Total Risk Factor Score: 5 Thrombosis Risk Factor Assessment Level: High Risk
== END 2020-01-16 15:27 | disposition hospice, home (50) | DRG 947 ==
LOC: EC 16:24 → 4SSUR 17:34 → 2SICU 18:37
PROVIDERS: ADMIT Internal Medicine Geriatric Medicine; ATTEND Internal Medicine Geriatric Medicine
DX: G89.3 Neoplasm related pain (acute) (chronic) (principal); N17.0 Acute kidney failure with tubular necrosis; C25.2 Malignant neoplasm of tail of pancreas; C78.7 Secondary malignant neoplasm of liver and intrahepatic bile duct; C78.6 Secondary malignant neoplasm of retroperitoneum and peritoneum; C79.51 Secondary malignant neoplasm of bone; E87.1 Hypo-osmolality and hyponatremia; I48.20 Chronic atrial fibrillation, unspecified; E11.649 Type 2 diabetes mellitus with hypoglycemia without coma; I95.9 Hypotension, unspecified; E78.5 Hyperlipidemia, unspecified; E87.5 Hyperkalemia; E87.70 Fluid overload, unspecified; F17.210 Nicotine dependence, cigarettes, uncomplicated; I10 Essential (primary) hypertension; J44.9 Chronic obstructive pulmonary disease, unspecified; R18.0 Malignant ascites; Z51.5 Encounter for palliative care; Z66 Do not resuscitate; R26.9 Unspecified abnormalities of gait and mobility; Z11.59 Encounter for screening for other viral diseases; R63.0 Anorexia; Z68.33 Body mass index [BMI] 33.0-33.9, adult; R63.4 Abnormal weight loss; Z87.01 Personal history of pneumonia (recurrent); G47.33 Obstructive sleep apnea (adult) (pediatric); Z99.89 Dependence on other enabling machines and devices; Z80.1 Family history of malignant neoplasm of trachea, bronchus and lung; Z82.49 Family history of ischemic heart disease and other diseases of the circulatory system; Z79.4 Long term (current) use of insulin; Z79.82 Long term (current) use of aspirin; Z79.899 Other long term (current) drug therapy; Z95.2 Presence of prosthetic heart valve; Z79.891 Long term (current) use of opiate analgesic
CPT/HCPCS: 36415; 51702; 71046; 76705; 76770; 77280; 77307; 77334; 77412; 80048; 80053; 81003; 82140; 82550; 83690; 83735; 83880; 84100; 84484; 85025; 85610; 85730; 87040; 93005; 94644; 94645; 96361; 96374; 96375; 96376; 99285